=== PATIENT | male | born 1950 | race Caucasian/White ===

== ENCOUNTER → 2019-06-26 14:24 | Outpatient (CLI) | payer MEDICARE, SELFPAY ==
--- NOTE | ~2019-06-26 | XR_ITS ---
EXAMINATION: XR chest 2V 06/26/2019 14:47 INDICATION: Pneumonia. Dyspnea. PROCEDURE: 2 view chest COMPARISON: 11/17/2016 FINDINGS: The lungs are clear. The cardiomediastinal silhouette is within normal limits. There are no pleural effusions. There is no pneumothorax suspected. IMPRESSION: 1: NO ACUTE CARDIOPULMONARY DISEASE. Reviewed, dictated and finalized at location A.
== END ==
PROVIDERS: PCP Family Medicine; Visit Provider Family Medicine
DX: J18.9 Pneumonia, unspecified organism (principal)
CPT/HCPCS: 71046

== ENCOUNTER → 2019-09-13 11:18 | Outpatient (CLI) | payer MEDICARE, SELFPAY ==
--- NOTE | ~2019-09-13 | US_ITS ---
EXAMINATION: US thyroid DATE: 09/13/2019 11:35 INDICATION: Goiter TECHNIQUE: Multiple ultrasound images of the thyroid were obtained. COMPARISON: None. FINDINGS: The right thyroid lobe measures 4.7 x 2.0 x 1.6 cm. The left thyroid lobe measures 4.3 x 4.5 x 1.4 c m. 1.3 x 0.9 x 0.9 cm wider than tall very hypoechoic nodule at the inferior right thyroid with smoo th margins and posterior acoustic shadowing. Unclear whether this is solid or cystic. No concerning i nternal echogenic foci. Presuming a solid nodule this would be consistent a TI-RADS 4 nodule (moderat mason suspicious , FNA if >=1.5 cm, annual followup is >1 cm). There is normal echotexture, echogenicit y and vascular flow throughout the thyroid gland. IMPRESSION: 1. 1.3 cm very hypoechoic potentially TI-RADS 4 right thyroid nodule, uncertain whether cystic or mercedes id. Would recommend annual ultrasound follow-up. Reviewed, dictated and finalized at location A. IMPRESSION: 1. 1.3 cm very hypoechoic potentially TI-RADS 4 right thyroid nodule, uncertain whether cystic or solid. Would recommend annual ultrasound follow-up.
== END ==
PROVIDERS: PCP Family Medicine; Visit Provider Internal Medicine Endocrinology, Diabetes & Metabolism
DX: E04.1 Nontoxic single thyroid nodule (principal)
CPT/HCPCS: 76536

== ENCOUNTER → 2019-10-22 16:13 | Outpatient (CLI) | payer MEDICARE, SELFPAY ==
--- NOTE | ~2019-10-22 | XR_ITS ---
EXAMINATION: XR foot LT min 3V EXAM DATE: 10/22/2019 16:42 INDICATION: Left foot pain. Diabetic. TECHNIQUE: Left foot dorsoplantar, lateral and oblique projections obtained and reviewed. There is n o prior study for comparison. FINDINGS: Left metatarsal bones unremarkable. There are no acute fractures or dislocations identifi ed. There is no subcutaneous gas. There are arterial calcifications, arteriosclerosis. There are no bony erosions identified. Small inferior calcaneal spur. There is soft tissue swelling over the enti re foot. There are no radiopaque foreign bodies. IMPRESSION: 1. Left foot exam without acute osseous findings. 2. Soft tissue swelling. Reviewed, dictated and finalized at location A.
== END ==
PROVIDERS: PCP Family Medicine; Visit Provider Podiatrist Foot & Ankle Surgery
DX: M79.672 Pain in left foot (principal); M79.89 Other specified soft tissue disorders
CPT/HCPCS: 73630

== ENCOUNTER 2020-09-06 10:52 | Outpatient (CLI) | payer MEDICARE, SELFPAY ==
[2020-09-06 11:54] LABS: Anion Gap 9 mmol/L (8-16); Blood Urea Nitrogen 27 mg/dL (9-20); Calcium 9.3 mg/dL (8.4-10.2); Carbon Dioxide 22 mmol/L (22-30); Chloride 109 mmol/L (98-107); Estimated Glomerular Filt Rate 30; Glucose 98 mg/dL (75-110); Potassium 4.8 mmol/L (3.4-5.0); Sodium 140 mmol/L (137-145)
== END 2020-09-06 10:53 | disposition home or self-care (01) ==
PROVIDERS: PCP Family Medicine; Referring Provider Anesthesiology; Visit Provider Urology
DX: N35.919 Unspecified urethral stricture, male, unspecified site (principal); E11.9 Type 2 diabetes mellitus without complications; Z01.818 Encounter for other preprocedural examination
CPT/HCPCS: 36415; 80048; 87077; 87086; 87088; 87186

== ENCOUNTER 2020-09-09 01:41 | Day surgery (SDC) | payer MEDICARE, SELFPAY ==
[2020-09-05 13:16] VITALS: BMI 46.0
[2020-09-09] VITALS (8 sets, daily range): BP systolic 137–191; BP diastolic 63–78; PULSE 72–86; RESP 14–16; TEMP 36.5–37.4; O2SAT 97–100
[2020-09-09] MEDS: LACTATED RINGERS 1,000 ML 30 ML IV CONT (11:28)
[2020-09-09 11:31] LABS: Glucose Point of Care 114 mg/dl (65-105)
--- NOTE | 2020-09-09 12:03 | WPDHPUPDATE1 ---
History and Physical Update Update Date/Time: 09/09/20 12:03 History and Physical has been reviewed, including an updated exam of the patient. There are NO changes in the patient's condition. Risks, benefits, and alternatives have been discussed and questions answered. Patient agrees to proceed with procedure. Proceed with urethral dilation, possible meatotomy and cystoscopy
--- NOTE | 2020-09-09 12:04 | WPDANESEPPF ---
Anes - Initial Pre Proc Eval Procedure: Operation Date: 09/09/20 12:30 Proposed Procedures p Cystoscopy, Urethral Dilatation Flexible - Juventino Oseguera MD s Possible Meatotomy - Juventino Oseguera MD Date/Time: 09/09/20 12:04 Surgeon: Juventino Oseguera MD Pre Op Diagnosis: urethral meatal stenosis, UTI Patient Data Age: 70 Gender: M Height: 1.83 m Weight: 158.7 kg Last Vital Signs Temp 37.4 C 09/09/20 10:54 Pulse 78 09/09/20 10:54 Resp 16 09/09/20 10:54 BP 137/63 09/09/20 10:54 Pulse Ox 100 09/09/20 10:54 Allergies Allergy/AdvReac Type Severity Reaction Status Date / Time Penicillins AdvReac Mild Nausea Verified 09/09/20 11:02 Home Medications Medication Instructions Recorded Confirmed Type aspirin [Adult Low Dose Aspirin] 81 mg PO DAILY 09/05/20 09/09/20 History atorvastatin 20 mg PO DAILY 09/05/20 09/09/20 History bumetanide 2 mg PO QAM 09/05/20 09/09/20 History clopidogrel 75 mg PO DAILY 09/05/20 09/09/20 History ergocalciferol (vitamin D2) 50,000 unit PO 2XW 09/05/20 09/09/20 History [Vitamin D2] gabapentin 300 mg PO Q6-8H PRN 09/05/20 09/09/20 History insulin regular hum U-500 conc 50 unit SUBCUT BID 09/05/20 09/09/20 History [Humulin R U-500 (Conc) Insulin] latanoprost 1 drp EACH EYE DAILY 09/05/20 09/09/20 History losartan 100 mg PO QPM 09/05/20 09/09/20 History metoprolol tartrate 100 mg PO BID 09/05/20 09/09/20 History spironolactone 25 mg PO QAM 09/05/20 09/09/20 History tamsulosin 0.4 mg PO DAILY 09/05/20 09/09/20 History timolol maleate 1 drp EACH EYE DAILY 09/05/20 09/09/20 History Laboratory Tests 09/09/20 11:26 POC Capillary Glucose 114 mg/dl H mg/dl (65-105) Patient hx anesthesia problems: none Family hx anesthesia problems: none [facility] Past Medical History Medical History (Updated 09/09/20 @ 12:07 by Jean Paul Porter MD) CAD (coronary artery disease) Diabetes History of CVA (cerebrovascular accident) HTN (hypertension) Morbid obesity Surgical History Surgical History (Updated 09/09/20 @ 12:07 by Jean Paul Porter MD) Hx of CABG Family History Family History Sibling Family history of type 2 diabetes mellitus Social History Social History Smoking status: Never smoker Second hand tobacco smoke exposure: No Alcohol intake: never Substance use: never Living arrangements: with family Additional living arrangements comments: Spiritual care concerns: No Anes - Eval Final PreProcedure Day of Procedure 09/09/20 12:04 Patient weight: morbidly obese Heart: regular rate and rhythm Lungs: normal air movement Airway: Mallampati scale class 1 Neurological: alert and oriented Last oral intake: >/= 8 hours ASA classification: IV Emergent: no Anesthetic plan: proceed Anesthesia type and monitoring: general LMA and standard monitoring Informed Consent: The patient's anesthetic plan and its attendant risks and benefits were discussed with the patient/family/POA. Questions were solicited and answers provided to the satisfaction of the patient/family/POA.
[2020-09-09] MEDS: ceFAZolin 3 GM/D5W 100 ML 100 ML IVPB (12:33)
[2020-09-09] MEDS: LIDOCAINE HCL 2% GEL UROJET 10 ML PKG MUCOUS MEM (13:07)
[2020-09-09] MEDS: NEOMYCIN/POLYMYXIN/BACITRACIN OINTMENT 15 GM TUBE 1 APPLIC TOPICAL (13:12)
--- NOTE | 2020-09-09 13:17 | W.PM.PROC2 ---
Procedure Note - Detailed Date of Procedure 09/09/20 Pre-op Diagnosis urethral meatal stenosis, UTI Post-op Diagnosis same Procedure Performed Urethral dilation, meatotomy, flexible cystoscopy Surgeon Juventino Oseguera MD Anesthesia general Findings severe fossa navicularis and meatal stenosis. Mildly enlarged prostate. No tumors in the bladder Description of Procedure Patient taken to the operative suite and correctly identified. Once anesthesia was obtained was prepped draped usual sterile fashion. The meatus was visually inspected and could only see a pinhole of an opening along the ventral aspect. We placed a guidewire through this area. We then used a lacrimal duct the dilated further. We then were able to use a 14 Nauruan sound to gently dilate this. We progressed up to 20 Naur[place] but it still felt fairly tight at the meatus. At this point we decided to do a formal meatotomy. We incised the ventral aspect of the meatus and then reapproximated the edges using 5 0 chromic in interrupted fashion. Twenty Nauruan sound then passed easily. Sixteen Nauruan flexible scope was then passed. There are nor other urethral strictures. Prostate has some mild lateral lobe hypertrophy. Prior bladder is inspected its entirety. There are no tumors at this time. Scope was removed. Sixteen Nauruan Weaver was then placed drain above 420 cc of urine. 2% viscous lidocaine was inserted urethra patient is taken recovery stable condition. He will follow up in 3-4 weeks time. Drains No Packing No Pathology none sent Complications No immediate complications Condition stable Disposition PACU
--- NOTE | 2020-09-09 13:50 | SUR.PHASEI ---
PT HAS OWN GLUCOSE MONITOR. READING 112
--- NOTE | 2020-09-09 14:06 | SUR.PHASEI ---
PT AWAKE AND ALERT. DENIES PAIN. READY FOR PO FLUIDS
== END 2020-09-09 15:00 | disposition home or self-care (01) ==
PROVIDERS: PCP Family Medicine; Visit Provider Urology
PROC: 0T7D8ZZ Dilation of Urethra, Via Natural or Artificial Opening Endoscopic (ICD-10-PCS; CPT 52281; principal; 2020-09-09 12:30)
PROC: (CPT 54161; 2020-09-09 12:30)
DX: N35.911 Unspecified urethral stricture, male, meatal (principal); N39.0 Urinary tract infection, site not specified; Z79.82 Long term (current) use of aspirin; Z79.4 Long term (current) use of insulin; I25.10 Atherosclerotic heart disease of native coronary artery without angina pectoris; E11.9 Type 2 diabetes mellitus without complications; I10 Essential (primary) hypertension; Z86.73 Personal history of transient ischemic attack (TIA), and cerebral infarction without residual deficits; Z95.1 Presence of aortocoronary bypass graft; E66.01 Morbid (severe) obesity due to excess calories; Z68.42 Body mass index [BMI] 45.0-49.9, adult; R30.0 Dysuria; N40.1 Benign prostatic hyperplasia with lower urinary tract symptoms; R35.1 Nocturia
CPT/HCPCS: 52281; 36415; 80048; 82948; 87077; 87086; 87088; 87186; A9270; C1769; J0690; J2250; J2405; J2704; J3010; J7030; J7120

== ENCOUNTER 2024-02-03 13:33 | Inpatient (IN) | payer MEDICARE, SELFPAY ==
[2024-02-03] VITALS (26 sets, daily range): BP systolic 115–168; BP diastolic 61–100; PULSE 98–115; RESP 13–29; TEMP 36.7–36.8; O2SAT 76–100; BMI 41.1
--- NOTE | ~2024-02-03 | US_ITS ---
EXAMINATION: US venous doppler [facility] DATE: 02/03/2024 18:24 INDICATION: Left lower limb pain and swelling. TECHNIQUE: Grayscale ultrasound images without and with compression and Doppler ultrasound images of the left lower extremity veins were obtained. COMPARISON: Ultrasound 08/18/2013 FINDINGS: The visualized portions of left common femoral vein, profunda (deep) femoral vein, femoral vein, and greater saphenous vein outflow are patent. The popliteal vein and calf veins were not evaluated. IMPRESSION: 1. No deep venous thrombosis. Popliteal vein and calf veins not evaluated due to the patient's body habitus and inability to move and position the leg. Reviewed, dictated and finalized at location A. BUMPER
[2024-02-03] MEDS: HYDROcodone/acetaminophen (*CRX) 5-325 MG TABLET 1 TAB PO (14:24)
--- NOTE | 2024-02-03 14:35 | PC.NURSE ---
attempted to obtain blood cultures X2 in triage with no luck. patient was unable to hold his arm still due to pain .
--- NOTE | 2024-02-03 15:14 | ECG_ITS ---
Test Date: 2024-02-03 16:10:14 Measurements Intervals [place] Rate: 109 P: 78 MS: 173 QRS: -16 QRSD: 110 T: 108 QT: 331 QTc: 447 Interpretive Statements SINUS TACHYCARDIA INTRAVENTRICULAR CONDUCTION DELAY DELAYED PRECORDIAL R/S TRANSITION HIGH LATERAL INFARCT, AGE INDETERMINATE BASELINE ARTIFACT- I, II, III, AVR, AVL, AVF, V1-V2 ABNORMAL ECG No previous ECG available for comparison Electronically Signed On 02-03-2024 19:01:22 DANCE THERAPIST by Syd Vinson D.O.
[2024-02-03 15:24] LABS: Basophils Percent Auto 0.4 % (0.2-1.2); Eosinophils Absolute Auto 0.1 K/mm3 (0-0.3); Eosinophils Percent Auto 0.8 % (0-4.4); Hematocrit 34.4 % (42.0-52.0); Hemoglobin 11.2 g/dL (14.0-18.0); Immature Granulocyte Absolute 0.03 K/mm3 (0.00-0.031); Immature Granulocyte Percent A 0.3 % (0-0.5); Lymphocytes Absolute Auto 0.67 K/mm3 (0.9-3.2); Lymphocytes Percent Auto 6.5 % (18.3-44.2); Mean Corpuscular HGB Conc 32.6 g/dl (32-36); Mean Corpuscular Hemoglobin 30.3 pg (26-34); Mean Platelet Volume 10.8 fl (7.4-10.4); Monocytes Absolute Auto 0.4 K/mm3 (0.1-0.6); Monocytes Percent Auto 3.6 % (2.6-8.5); Neutrophils Absolute Auto 9.1 K/mm3 (1.3-6.7); Neutrophils Percent Auto 88.4 % (45.5-73.1); Platelet Count Result 188 k/mm3 (150-375); Red Cell Distribution Width 13.3 % (11.5-14.5); White Blood Count 10.3 K/mm3 (4.5-10.0)
[2024-02-03 15:38] LABS: Lactic Acid Reflex 3.1 mmol/L (0.7-2.0)
[2024-02-03 15:40] LABS: Alanine Aminotransferase 19 U/L (6-50); Albumin Level 4.4 g/dL (3.5-5.1); Alkaline Phosphatase 125 U/L (38-126); Anion Gap 11 mmol/L (4-12); Aspartate Amino Transferase 23 U/L (17-59); Bilirubin,Total 1.4 mg/dL (0.2-1.3); Blood Urea Nitrogen 39 mg/dL (9-20); CRP < 0.5 mg/dL (<1.0); Calcium 9.4 mg/dL (8.4-10.2); Carbon Dioxide 22 mmol/L (22-30); Chloride 104 mmol/L (98-107); Estimated CRCL calculation 35 ml/min; Estimated Glomerular Filt Rate 24; Glucose 367 mg/dL (65-110); Potassium 4.2 mmol/L (3.4-5.0); Sodium 137 mmol/L (137-145)
[2024-02-03 15:42] LABS: INR 1.1; Partial Thromboplastin Time 27.1 Seconds (22.3-36.8); Prothrombin Time 14.7 Seconds (11.1-14.7)
[2024-02-03 16:18] LABS: Glucose Point of Care 373 mg/dl (65-105)
[2024-02-03] MEDS: SODIUM CHLORIDE 0.9% IV 1,000 ML 999 ML IV CONT ×3 (16:46→19:16)
[2024-02-03 16:51] LABS: Erythrocyte Sedimentation Rate 76 mm/hr (0-20)
--- NOTE | 2024-02-03 17:11 | ED_ITS ---
HPI - Skin/Abscess/Foreign Bdy General Chief complaint: Skin/Abscess/Foreign Body Stated complaint: L LEG CELLULITIS FROM DR OFFICE Time Seen by Provider: 02/03/24 15:00 History of Present Illness HPI narrative: 73-year-old male presenting with left leg pain. States that he has a lot of chronic swelling in both of his legs with the left being worse. He went to see his doctor today and is complaining of left calf pain so they told him to come in for evaluation. There concern for cellulitis. Patient denies any other complaints. Related Data Home Medications Medication Instructions Recorded Confirmed aspirin 81 mg tablet 81 mg PO DAILY 09/05/20 02/03/24 atorvastatin 20 mg tablet 20 mg PO DAILY 09/05/20 02/03/24 clopidogrel 75 mg tablet 75 mg PO DAILY 09/05/20 02/03/24 gabapentin 300 mg capsule 300 mg PO Q6-8H PRN Pain 09/05/20 02/03/24 latanoprost 0.005 % eye drops 1 drp EACH EYE DAILY 09/05/20 02/03/24 losartan 100 mg tablet 100 mg PO QPM 09/05/20 02/03/24 metoprolol tartrate 100 mg tablet 100 mg PO DAILY 09/05/20 02/03/24 spironolactone 25 mg tablet 25 mg PO QAM 09/05/20 09/04/21 tamsulosin 0.4 mg capsule 0.4 mg PO DAILY 09/05/20 02/03/24 timolol maleate 0.5 % eye drops 1 drp EACH EYE DAILY 09/05/20 02/03/24 calcitriol 0.25 mcg capsule 0.25 mcg PO DAILY 02/03/24 02/03/24 chlorthalidone 25 mg tablet 25 mg PO DAILY 02/03/24 02/03/24 Allergies Allergy/AdvReac Type Severity Reaction Status Date / Time Penicillins AdvReac Mild Nausea Verified 09/09/20 11:02 Review of Systems Review of Systems: All systems reviewed & are unremarkable except as noted in HPI and below [facility] Past Medical History Medical History (Updated 02/04/24 @ 13:12 by Haydee Spring APRN) Arthritis Benign prostatic hyperplasia Cerebrovascular accident (2013) residual right hand weakness Chronic acquired lymphedema Chronic kidney disease Coronary artery disease history of stent x5 and 2 vessel bypass Gastroesophageal reflux disease Hyperlipidemia Hypertension Insulin dependent type 2 diabetes mellitus Morbid obesity Obstructive sleep apnea non-compliant with CPAP Peripheral vascular disease Surgical History Surgical History (Updated 02/03/24 @ 22:57 by Julieth Almanzar PA-C) History of cataract extraction with lens replacement History of coronary artery bypass graft x 2 (01/2020) History of coronary artery stent placement Family History Family History Sibling Family history of type 2 diabetes mellitus Social History Social History (Updated 02/03/24 @ 22:58 by Julieth Almanzar PA-C) Social History: Surrogate medical decision maker: Kary King, spouse. Code status: Full code. 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 EYES: PERRLA and EOMI. ENT: Mucous membranes a bit dry NECK: Supple. CHEST: Clear to auscultation. No respiratory distress. HEART: Regular rate and rhythm ABDOMEN: Soft, nontender EXTREMITIES: Normal range of motion. 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 PSYCH: Normal mood and affect. Course Vital Signs Vital signs: Vital Signs Temperature 98.1 F 02/03/24 13:37 Pulse Rate 101 H 02/03/24 13:37 Respiratory Rate 20 02/03/24 13:37 Blood Pressure 115/82 02/03/24 13:37 Pulse Oximetry 100 02/03/24 13:37 Oxygen Delivery Room Air 02/03/24 13:37 Temperature 98.2 F 02/05/24 14:03 Pulse Rate 74 02/05/24 14:03 Respiratory Rate 16 02/05/24 14:03 Blood Pressure 136/73 02/05/24 14:03 Pulse Oximetry 98 02/05/24 14:03 Oxygen Delivery Room Air 02/05/24 15:01 Fraction of Inspired Oxygen 21 02/04/24 08:56 MDM - Skin/Abscess/Foreign Bdy MDM Narrative Medical decision making narrative: 73-year-old male presenting with left leg pain and redness in the setting of chr onic lymphedema. Tachycardic, otherwise vitals are within normal limits. Exam remarkable for the above. Blood work with mild leukocytosis and stable CKD. Lactic acid is elevated at 3.1. Fluids are ongoing. Doppler of the left lower extremity reveals no blood clot. Starting broad-spectrum antibiotics for left lower extremity cellulitis and sepsis. 30 cc/kilos bolus is ongoing. Spoke with the hospitalist who has accepted him for admission. Differential Diagnosis Differential diagnosis: Likely cellulitis and other (DVT, sepsis) Medical Records Attestation: I reviewed the patient's medical records. Lab Data Attestation: I reviewed the patient's lab results. 02/04/24 05:24 02/05/24 05:24 Labs: Lab Results 02/03/24 02/03/24 02/03/24 Range/Units 15:17 15:18 15:19 WBC 10.3 H (4.5-10.0) K/mm3 RBC 3.70 L (4.6-6.20) M/mm3 Hgb 11.2 L (14.0-18.0) g/dL Hct 34.4 L (42.0-52.0) % MCV 93.0 (80-100) fl MCH 30.3 (26-34) pg MCHC 32.6 (32-36) g/dl RDW 13.3 (11.5-14.5) % Plt Count 188 (150-375) k/mm3 MPV 10.8 H (7.4-10.4) fl Immature Gran % (Auto) 0.3 (0-0.5) % Neut % (Auto) 88.4 H (45.5-73.1) % Lymph % (Auto) 6.5 L (18.3-44.2) % Franklin % (Auto) 3.6 (2.6-8.5) % Eos % (Auto) 0.8 (0-4.4) % Baso % (Auto) 0.4 (0.2-1.2) % Lymph # (Auto) 0.67 L (0.9-3.2) K/mm3 Franklin # (Auto) 0.4 (0.1-0.6) K/mm3 Eos # (Auto) 0.1 (0-0.3) K/mm3 Baso # (Auto) 0.0 (0.0-0.1) K/mm3 Abs Immat Gran (auto) 0.03 (0.00-0.031) K/mm3 Absolute Neuts (auto) 9.1 H (1.3-6.7) K/mm3 Absolute Nucleated RBC 0.000 (0.0-0.012) K/mm3 Nucleated RBC % 0.0 (0.0-0.2) % ESR 76 H (0-20) mm/hr PT 14.7 (11.1-14.7) Seconds INR 1.1 APTT 27.1 (22.3-36.8) Seconds Sodium 137 (137-145) mmol/L Potassium 4.2 (3.4-5.0) mmol/L Chloride 104 (98-107) mmol/L Carbon Dioxide 22 (22-30) mmol/L Anion Gap 11 (4-12) mmol/L BUN 39 H D (9-20) mg/dL Creatinine 2.60 H (0.7-1.3) mg/dL Estim Creat Clear Calc 35 ml/min Estimated GFR 24 L (59 - ) Glucose 367 H (65-110) mg/dL POC Capillary Glucose (65-105) mg/dl Hemoglobin A1c 10.7 H (<5.7) % Lactic Acid 3.1 H (0.7-2.0) mmol/L Calcium 9.4 (8.4-10.2) mg/dL Magnesium (1.6-2.3) mg/dL Total Bilirubin 1.4 H (0.2-1.3) mg/dL AST 23 (17-59) U/L ALT 19 (6-50) U/L Alkaline Phosphatase 125 (38-126) U/L C-Reactive Protein < 0.5 (<1.0) mg/dL Total Protein 8.0 (6.3-8.2) g/dL Albumin 4.4 (3.5-5.1) g/dL Nasal MRSA (PCR) (NOT DETECTE) 02/03/24 02/03/24 02/04/24 Range/Units 16:14 19:15 05:24 WBC 13.0 H (4.5-10.0) K/mm3 RBC 3.17 L (4.6-6.20) M/mm3 Hgb 9.5 L (14.0-18.0) g/dL Hct 29.5 L (42.0-52.0) % MCV 93.1 (80-100) fl MCH 30.0 (26-34) pg MCHC 32.2 (32-36) g/dl RDW 13.6 (11.5-14.5) % Plt Count 155 (150-375) k/mm3 MPV 11.4 H (7.4-10.4) fl Immature Gran % (Auto) (0-0.5) % Neut % (Auto) (45.5-73.1) % Lymph % (Auto) (18.3-44.2) % Franklin % (Auto) (2.6-8.5) % Eos % (Auto) (0-4.4) % Baso % (Auto) (0.2-1.2) % Lymph # (Auto) (0.9-3.2) K/mm3 Franklin # (Auto) (0.1-0.6) K/mm3 Eos # (Auto) (0-0.3) K/mm3 Baso # (Auto) (0.0-0.1) K/mm3 Abs Immat Gran (auto) (0.00-0.031) K/mm3 Absolute Neuts (auto) (1.3-6.7) K/mm3 Absolute Nucleated RBC (0.0-0.012) K/mm3 Nucleated RBC % (0.0-0.2) % ESR (0-20) mm/hr PT (11.1-14.7) Seconds INR APTT (22.3-36.8) Seconds Sodium 135 L (137-145) mmol/L Potassium 4.2 (3.4-5.0) mmol/L Chloride 109 H (98-107) mmol/L Carbon Dioxide 20 L (22-30) mmol/L Anion Gap 6 (4-12) mmol/L BUN 36 H (9-20) mg/dL Creatinine 2.30 H (0.7-1.3) mg/dL Estim Creat Clear Calc 39 ml/min Estimated GFR 28 L (59 - ) Glucose 313 H (65-110) mg/dL POC Capillary Glucose 373 H (65-105) mg/dl Hemoglobin A1c (<5.7) % Lactic Acid 1.7 (0.7-2.0) mmol/L Calcium 8.4 (8.4-10.2) mg/dL Magnesium 1.7 (1.6-2.3) mg/dL Total Bilirubin (0.2-1.3) mg/dL AST (17-59) U/L ALT (6-50) U/L Alkaline Phosphatase (38-126) U/L C-Reactive Protein (<1.0) mg/dL Total Protein (6.3-8.2) g/dL Albumin (3.5-5.1) g/dL Nasal MRSA (PCR) (NOT DETECTE) 02/04/24 02/04/24 02/04/24 Range/Units 08:28 12:04 17:05 WBC (4.5-10.0) K/mm3 RBC (4.6-6.20) M/mm3 Hgb (14.0-18.0) g/dL Hct (42.0-52.0) % MCV (80-100) fl MCH (26-34) pg MCHC (32-36) g/dl RDW (11.5-14.5) % Plt Count (150-375) k/mm3 MPV (7.4-10.4) fl Immature Gran % (Auto) (0-0.5) % Neut % (Auto) (45.5-73.1) % Lymph % (Auto) (18.3-44.2) % Franklin % (Auto) (2.6-8.5) % Eos % (Auto) (0-4.4) % Baso % (Auto) (0.2-1.2) % Lymph # (Auto) (0.9-3.2) K/mm3 Franklin # (Auto) (0.1-0.6) K/mm3 Eos # (Auto) (0-0.3) K/mm3 Baso # (Auto) (0.0-0.1) K/mm3 Abs Immat Gran (auto) (0.00-0.031) K/mm3 Absolute Neuts (auto) (1.3-6.7) K/mm3 Absolute Nucleated RBC (0.0-0.012) K/mm3 Nucleated RBC % (0.0-0.2) % ESR (0-20) mm/hr PT (11.1-14.7) Seconds INR APTT (22.3-36.8) Seconds Sodium (137-145) mmol/L Potassium (3.4-5.0) mmol/L Chloride (98-107) mmol/L Carbon Dioxide (22-30) mmol/L Anion Gap (4-12) mmol/L BUN (9-20) mg/dL Creatinine (0.7-1.3) mg/dL Estim Creat Clear Calc ml/min Estimated GFR (59 - ) Glucose (65-110) mg/dL POC Capillary Glucose 295 H 295 H 181 H (65-105) mg/dl Hemoglobin A1c (<5.7) % Lactic Acid (0.7-2.0) mmol/L Calcium (8.4-10.2) mg/dL Magnesium (1.6-2.3) mg/dL Total Bilirubin (0.2-1.3) mg/dL AST (17-59) U/L ALT (6-50) U/L Alkaline Phosphatase (38-126) U/L C-Reactive Protein (<1.0) mg/dL Total Protein (6.3-8.2) g/dL Albumin (3.5-5.1) g/dL Nasal MRSA (PCR) (NOT DETECTE) 02/04/24 02/05/24 02/05/24 Range/Units 19:58 05:24 08:03 WBC (4.5-10.0) K/mm3 RBC (4.6-6.20) M/mm3 Hgb (14.0-18.0) g/dL Hct (42.0-52.0) % MCV (80-100) fl MCH (26-34) pg MCHC (32-36) g/dl RDW (11.5-14.5) % Plt Count (150-375) k/mm3 MPV (7.4-10.4) fl Immature Gran % (Auto) (0-0.5) % Neut % (Auto) (45.5-73.1) % Lymph % (Auto) (18.3-44.2) % Franklin % (Auto) (2.6-8.5) % Eos % (Auto) (0-4.4) % Baso % (Auto) (0.2-1.2) % Lymph # (Auto) (0.9-3.2) K/mm3 Franklin # (Auto) (0.1-0.6) K/mm3 Eos # (Auto) (0-0.3) K/mm3 Baso # (Auto) (0.0-0.1) K/mm3 Abs Immat Gran (auto) (0.00-0.031) K/mm3 Absolute Neuts (auto) (1.3-6.7) K/mm3 Absolute Nucleated RBC (0.0-0.012) K/mm3 Nucleated RBC % (0.0-0.2) % ESR (0-20) mm/hr PT (11.1-14.7) Seconds INR APTT (22.3-36.8) Seconds Sodium (137-145) mmol/L Potassium (3.4-5.0) mmol/L Chloride (98-107) mmol/L Carbon Dioxide (22-30) mmol/L Anion Gap (4-12) mmol/L BUN (9-20) mg/dL Creatinine 2.40 H (0.7-1.3) mg/dL Estim Creat Clear Calc 39 ml/min Estimated GFR 27 L (59 - ) Glucose (65-110) mg/dL POC Capillary Glucose 241 H 214 H (65-105) mg/dl Hemoglobin A1c (<5.7) % Lactic Acid (0.7-2.0) mmol/L Calcium (8.4-10.2) mg/dL Magnesium (1.6-2.3) mg/dL Total Bilirubin (0.2-1.3) mg/dL AST (17-59) U/L ALT (6-50) U/L Alkaline Phosphatase (38-126) U/L C-Reactive Protein (<1.0) mg/dL Total Protein (6.3-8.2) g/dL Albumin (3.5-5.1) g/dL Nasal MRSA (PCR) (NOT DETECTE) 02/05/24 02/05/24 Range/Units 09:03 11:41 WBC (4.5-10.0) K/mm3 RBC (4.6-6.20) M/mm3 Hgb (14.0-18.0) g/dL Hct (42.0-52.0) % MCV (80-100) fl MCH (26-34) pg MCHC (32-36) g/dl RDW (11.5-14.5) % Plt Count (150-375) k/mm3 MPV (7.4-10.4) fl Immature Gran % (Auto) (0-0.5) % Neut % (Auto) (45.5-73.1) % Lymph % (Auto) (18.3-44.2) % Franklin % (Auto) (2.6-8.5) % Eos % (Auto) (0-4.4) % Baso % (Auto) (0.2-1.2) % Lymph # (Auto) (0.9-3.2) K/mm3 Franklin # (Auto) (0.1-0.6) K/mm3 Eos # (Auto) (0-0.3) K/mm3 Baso # (Auto) (0.0-0.1) K/mm3 Abs Immat Gran (auto) (0.00-0.031) K/mm3 Absolute Neuts (auto) (1.3-6.7) K/mm3 Absolute Nucleated RBC (0.0-0.012) K/mm3 Nucleated RBC % (0.0-0.2) % ESR (0-20) mm/hr PT (11.1-14.7) Seconds INR APTT (22.3-36.8) Seconds Sodium (137-145) mmol/L Potassium (3.4-5.0) mmol/L Chloride (98-107) mmol/L Carbon Dioxide (22-30) mmol/L Anion Gap (4-12) mmol/L BUN (9-20) mg/dL Creatinine (0.7-1.3) mg/dL Estim Creat Clear Calc ml/min Estimated GFR (59 - ) Glucose (65-110) mg/dL POC Capillary Glucose 262 H (65-105) mg/dl Hemoglobin A1c (<5.7) % Lactic Acid (0.7-2.0) mmol/L Calcium (8.4-10.2) mg/dL Magnesium (1.6-2.3) mg/dL Total Bilirubin (0.2-1.3) mg/dL AST (17-59) U/L ALT (6-50) U/L Alkaline Phosphatase (38-126) U/L C-Reactive Protein (<1.0) mg/dL Total Protein (6.3-8.2) g/dL Albumin (3.5-5.1) g/dL Nasal MRSA (PCR) Not detected (NOT DETECTE) Imaging Data Radiologist's impression: ITS Impressions Venous Doppler Study 02/03/24 18:31 IMPRESSION: 1. No deep venous thrombosis. Popliteal vein and calf veins not evaluated due to the patient's body habitus and inability to move and position the leg. Critical Care Time Critical Care Time Critical Care Time: Yes Total Critical Care Time: 32 Discharge Plan Discharge Clinical Impression: Cellulitis, Sepsis Patient Disposition: Still a Patient Condition: Serious
[2024-02-03] MEDS: HYDROmorphone HCL INJ (*CRX) 1 MG/ML SYR IV PUSH (17:24)
[2024-02-03 18:22] LABS: Reflex Lactic Acid Yes or No Add Lactic
--- NOTE | 2024-02-03 19:20 | PC.NURSE ---
this rn assumed care of patient. this rn took patient report from FABIENNE Mendoza
[2024-02-03 19:29] LABS: Lactic Acid 1.7 mmol/L (0.7-2.0)
[2024-02-03] MEDS: CEFEPIME 1 GM/NS 50 ML 1 GM/50 ML BAG IVPB (20:14)
--- NOTE | 2024-02-03 20:20 | PC.NURSE ---
this rn spoke with pt to give update on pt status.
--- NOTE | 2024-02-03 20:38 | ADMGEN ---
This patient, John King, was admitted to Medical Room 341-01@ 2037. Patient/family oriented to hospital policies and general routines including ID bracelet, bed and alarms, visiting hours, pain management, procedures, bathroom and other care routines, personal items, smoking policy, room service/diet, and visiting hours. Information on how to activate the Rapid Response Team has been discussed. Patient/Family are encouraged to report perceived risks to care and to ask questions if they do not understand what they are told or what they should do.
[2024-02-03] MEDS: VANCOMYCIN 1,500 MG/NS 500 ML 1,500 MG/500 ML BAG 250 MG IVPB (21:08)
--- NOTE | 2024-02-03 21:15 | PM.IMHP ---
H&P: HPI History of Present Illness Date/Time: 02/03/24 21:15 Chief Complaint: Left leg pain and redness. Narrative: This is a chronically ill 73-year-old male with history of coronary artery disease, congestive heart failure, peripheral vascular disease, hypertension, hyperlipidemia, insulin-dependent type 2 diabetes mellitus, chronic kidney disease, benign prostatic hyperplasia, chronic lymphedema, obstructive sleep apnea, and gastroesophageal reflux disease who presented to the emergency department via EMS from his doctor's office for evaluation of left leg pain and redness. The patient provides the following history. His left leg is always larger compared to the right but over the last several days it has become red and painful with the redness now extending up to the thigh. He saw his doctor today who referred to the ER as he felt he needed IV antibiotics. The patient describes a burning and constant aching pain leg. He has nausea and a decrease in appetite. He does not have any open wounds to his knowledge. He denies vomiting, fever, chills, and sweats. He also denies syncope, near syncope, chest pain, pleuritic pain, palpitations and shortness of breath. In the ED: He was afebrile on arrival with stable vital signs. Labs are significant for WBC count of 10.3, hemoglobin 11.2, ESR 76, CRP less than 0.5, BUN 39, creatinine 2.60, glucose 367, lactic acid 3.1. Left lower extremity venous Doppler from was negative for DVT but popliteal and calf veins were not evaluated due to body habitus and difficulties moving to position. He was given a dose of cefepime and vancomycin is being admitted in this setting for further IV antibiotics. Review of Systems Review of Systems: 12 systems were reviewed and are negative except for as per HPI. [facility] Past Medical History Medical History (Updated 02/03/24 @ 23:00 by Julieth Almanzar PA-C) Arthritis Benign prostatic hyperplasia Cerebrovascular accident (2013) residual right hand weakness Chronic acquired lymphedema Chronic kidney disease Coronary artery disease history of stent x5 and 2 vessel bypass Gastroesophageal reflux disease Hyperlipidemia Hypertension Insulin dependent type 2 diabetes mellitus Morbid obesity Obstructive sleep apnea non-compliant with CPAP Peripheral vascular disease Surgical History Surgical History (Updated 02/03/24 @ 22:57 by Julieth Almanzar PA-C) History of cataract extraction with lens replacement History of coronary artery bypass graft x 2 (01/2020) History of coronary artery stent placement Family History Family History Sibling Family history of type 2 diabetes mellitus Social History Social History (Updated 02/03/24 @ 22:58 by Julieth Almanzar PA-C) Social History: Surrogate medical decision maker: Kary King, spouse. Code status: Full code. 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 Spiritual care concerns: No Meds Home Medications and Allergies Home Medications Medication Instructions Recorded Confirmed Type aspirin 81 mg tablet 81 mg PO DAILY 09/05/20 02/03/24 History atorvastatin 20 mg tablet 20 mg PO DAILY 09/05/20 02/03/24 History bumetanide 1 mg tablet 2 mg PO QAM 09/05/20 09/04/21 History clopidogrel 75 mg tablet 75 mg PO DAILY 09/05/20 02/03/24 History ergocalciferol (vitamin D2) 1,250 50,000 unit PO 2XW 09/05/20 09/04/21 History mcg (50,000 unit) capsule (Vitamin D2) gabapentin 300 mg capsule 300 mg PO Q6-8H PRN Pain 09/05/20 02/03/24 History latanoprost 0.005 % eye drops 1 drp EACH EYE DAILY 09/05/20 02/03/24 History losartan 100 mg tablet 100 mg PO QPM 09/05/20 02/03/24 History metoprolol tartrate 100 mg tablet 100 mg PO DAILY 09/05/20 02/03/24 History spironolactone 25 mg tablet 25 mg PO QAM 09/05/20 09/04/21 History tamsulosin 0.4 mg capsule 0.4 mg PO DAILY 09/05/20 02/03/24 History timolol maleate 0.5 % eye drops 1 drp EACH EYE DAILY 09/05/20 02/03/24 History calcitriol 0.25 mcg capsule 0.25 mcg PO DAILY 02/03/24 02/03/24 History chlorthalidone 25 mg tablet 25 mg PO DAILY 02/03/24 02/03/24 History Allergies Allergy/AdvReac Type Severity Reaction Status Date / Time Penicillins AdvReac Mild Nausea Verified 09/09/20 11:02 Vital Signs Vital Signs - 24 hr 02/03/24 13:37 02/03/24 15:24 02/03/24 15:08 Temperature 98.1 F Pulse Rate 101 H 114 H 112 H Respiratory Rate 20 14 29 H Blood Pressure 115/82 168/64 H 139/100 H Pulse Oximetry 100 97 99 Oxygen Delivery Room Air 02/03/24 15:09 02/03/24 15:15 02/03/24 15:16 Temperature Pulse Rate 109 H 113 H 114 H Respiratory Rate 25 H 23 H 27 H Blood Pressure 168/64 H Pulse Oximetry 100 97 99 Oxygen Delivery 02/03/24 15:30 02/03/24 15:31 02/03/24 15:54 Temperature Pulse Rate 115 H 114 H 112 H Respiratory Rate 19 24 H 19 Blood Pressure 157/68 H Pulse Oximetry 96 97 100 Oxygen Delivery 02/03/24 16:00 02/03/24 16:01 02/03/24 16:15 Temperature Pulse Rate 109 H 110 H 108 H Respiratory Rate 22 H 23 H 26 H Blood Pressure 156/64 H Pulse Oximetry 76 L 100 Oxygen Delivery 02/03/24 16:16 02/03/24 16:40 02/03/24 16:45 Temperature Pulse Rate 108 H 109 H 108 H Respiratory Rate 13 23 H 19 Blood Pressure 157/66 H Pulse Oximetry 97 94 Oxygen Delivery 02/03/24 16:46 02/03/24 17:01 02/03/24 17:02 Temperature Pulse Rate 107 H 105 H 104 H Respiratory Rate 21 H 15 13 Blood Pressure 146/61 H 153/62 H Pulse Oximetry 96 Oxygen Delivery 02/03/24 17:15 02/03/24 17:16 02/03/24 17:51 Temperature Pulse Rate 101 H 103 H 103 H Respiratory Rate 15 14 18 Blood Pressure 153/66 H 144/63 H Pulse Oximetry 95 95 93 Oxygen Delivery 02/03/24 18:16 02/03/24 18:31 02/03/24 19:01 Temperature Pulse Rate 98 102 H 99 Respiratory Rate 14 20 16 Blood Pressure 155/66 H 142/65 H 139/63 Pulse Oximetry 97 92 93 Oxygen Delivery 02/03/24 20:14 02/03/24 21:03 Temperature 98.3 F Pulse Rate 98 103 H Respiratory Rate 17 18 Blood Pressure 146/67 H 139/74 Pulse Oximetry 97 100 Oxygen Delivery Exam Narrative: General: Chronically ill-appearing male in the semi-Atkins position in bed. Weight: 141.2 kg. BMI: 41.1. HEENT: PERRL, EOMI. Sclera anicteric. Oral mucosa moist. Crowded oropharynx. Neck: Supple. Exam limited due to neck circumference. Respiratory: Respirations are nonlabored and he is speaking in full sentences. Lung sounds are diminished at the bases, likely due to body habitus but are otherwise clear to auscultation. Cardiovascular: Regular rate and rhythm with S1-S2. Gastrointestinal: Abdomen is soft, morbidly obese, nontender, and nondistended with positive bowel sounds. Skin: Warm and dry. Chronic skin changes the lower legs bilaterally. Left calf is mildly erythematous, slightly warm, and tender to palpation. Erythema extends up the medial thigh. Extremities: No cyanosis or clubbing. Chronic lower extremity edema and lymphedema. Neurological: Alert. Cranial nerves 2-12 are grossly intact. No gross focal deficits to casual conversation. Psychiatric: Cooperative with appropriate mood and flat affect. H&P: Results Labs Labs: Short CBC 02/03/24 Range/Units 15:18 WBC 10.3 H (4.5-10.0) K/mm3 Hgb 11.2 L (14.0-18.0) g/dL Hct 34.4 L (42.0-52.0) % Plt Count 188 (150-375) k/mm3 BMP 02/03/24 15:18 Sodium 137 Potassium 4.2 Chloride 104 Carbon Dioxide 22 BUN 39 H D Creatinine 2.60 H Glucose 367 H Calcium 9.4 Liver Function 02/03/24 Range/Units 15:18 Total Bilirubin 1.4 H (0.2-1.3) mg/dL AST 23 (17-59) U/L ALT 19 (6-50) U/L Alkaline Phosphatase 125 (38-126) U/L Albumin 4.4 (3.5-5.1) g/dL Impressions Venous Doppler Study 02/03/24 18:31 IMPRESSION: 1. No deep venous thrombosis. Popliteal vein and calf veins not evaluated due to the patient's body habitus and inability to move and position the leg. Assessment and Plan Assessment and plan (1) Left leg cellulitis: Code(s): L03.116 - Cellulitis of left lower limb Status: Acute (2) Sepsis: Code(s): A41.9 - Sepsis, unspecified organism Status: Acute (3) Chronic acquired lymphedema: Code(s): I89.0 - Lymphedema, not elsewhere classified Status: Acute (4) Chronic kidney disease: Code(s): N18.9 - Chronic kidney disease, unspecified Status: Acute (5) Insulin dependent type 2 diabetes mellitus: Code(s): E11.9 - Type 2 diabetes mellitus without complications; Z79.4 - care home (current) use of insulin Status: Acute (6) Hypertension: Code(s): I10 - Essential (primary) hypertension Status: Acute Plan The patient presented to the emergency department for evaluation of pain and redness of the left leg as detailed in HPI. Labs, imaging, EKG, and all reports were personally reviewed. He meets sepsis criteria with tachycardia, leukocytosis, and elevated lactic acid level in the setting of infection. Lactic acid level has normalized with IV fluid rehydration. Blood cultures have been obtained and are pending. Blood pressures have been stable. He was started on cefepime and vancomycin in the ED which will be continued. Renal function is relatively stable on review of previous labs. Blood pressures are stable and will be monitored. Continue basal insulin. Initiate sliding scale insulin, Accu-Cheks, and hypoglycemic protocol. Check hemoglobin A1c (random glucose was 367). His home medications will be reviewed and resumed as appropriate. Findings and treatment plan were discussed with the patient. Questions were solicited and answered to satisfaction. The patient's medical management will be taken over by the hospitalist team in a.m. Quality VTE Prophylaxis VTE prophylaxis: pharmacologic ordered The patient has been admitted under observation status. Hospitalist MIPS Advance Care Plan I have confirmed that the patient's Advanced Care Plan is present, code status is documented, or surrogate decision maker is listed in patient medical record.: Yes Medication Reconciliation I have utilized all available resources to obtain, update and review the patients current medications (includes all prescriptions, OTC, herbals, cannabis, and nutritional supplements).: Yes
[2024-02-03 23:34] LABS: Hemoglobin A1C 10.7 % (<5.7)
[2024-02-04] MEDS: ACETAMINOPHEN 325 MG TABLET 650 MG PO (01:53)
[2024-02-04 05:35] VITALS: BP 116/56; PULSE 81; RESP 18; TEMP 36.8; O2SAT 97
[2024-02-04 06:07] LABS: Hematocrit 29.5 % (42.0-52.0); Hemoglobin 9.5 g/dL (14.0-18.0); Mean Corpuscular HGB Conc 32.2 g/dl (32-36); Mean Corpuscular Volume 93.1 fl (80-100); Mean Platelet Volume 11.4 fl (7.4-10.4); Platelet Count Result 155 k/mm3 (150-375); Red Blood Count 3.17 M/mm3 (4.6-6.20); Red Cell Distribution Width 13.6 % (11.5-14.5)
[2024-02-04 06:24] LABS: Anion Gap 6 mmol/L (4-12); Blood Urea Nitrogen 36 mg/dL (9-20); Calcium 8.4 mg/dL (8.4-10.2); Carbon Dioxide 20 mmol/L (22-30); Chloride 109 mmol/L (98-107); Estimated CRCL calculation 39 ml/min; Estimated Glomerular Filt Rate 28; Glucose 313 mg/dL (65-110); Magnesium 1.7 mg/dL (1.6-2.3); Potassium 4.2 mmol/L (3.4-5.0); Sodium 135 mmol/L (137-145)
[2024-02-04 08:38] LABS: Glucose Point of Care 295 mg/dl (65-105)
--- NOTE | 2024-02-04 08:47 | PM.IMPN ---
Progress Note: A&P Assessment and Plan (1) Left leg cellulitis: Code(s): L03.116 - Cellulitis of left lower limb Status: Acute Assessment and Plan: - IV hydration - Blood cultures have been obtained and are pending He was started on cefepime and vancomycin in the ED- will conitnue (2) Sepsis: Code(s): A41.9 - Sepsis, unspecified organism Status: Acute Assessment and Plan: - Meets sepsis criteria with tachycardia, leukocytosis, and elevated lactic acid level in the setting of infection. Lactic acid level has normalized with IV fluid rehydration. Blood cultures have been obtained and are pending. Blood pressures have been stable. on cefepime and vancomycin in the ED which will be continued. (3) Chronic acquired lymphedema: Code(s): I89.0 - Lymphedema, not elsewhere classified Status: Acute (4) Chronic kidney disease: Code(s): N18.9 - Chronic kidney disease, unspecified Status: Acute (5) Insulin dependent type 2 diabetes mellitus: Code(s): E11.9 - Type 2 diabetes mellitus without complications; Z79.4 - senior living (current) use of insulin Status: Acute Assessment and Plan: Continue basal insulin. Initiate sliding scale insulin, Accu-Cheks, and hypoglycemic protocol. Check hemoglobin A1c bs elevated this am- (6) Hypertension: Code(s): I10 - Essential (primary) hypertension Status: Acute (7) Bacteremia: Code(s): R78.81 - Bacteremia Status: Acute Assessment and Plan: blood cultures growing gram negative bacilli - will increase dose of cefepime to 2 gm. Ideally needs to be t1p-[id number] kidney functions is not great, so q12h discussed with pharm ID- ordered will order blood culture repeat tomorrow -monitor labs. vs 0.9 ns at 75 Plan dvt prophyl; lovenox Time Spent With Patient Time with patient: Greater than 35 minutes Subjective Date/time seen: 02/04/24 08:47 Interval history: This is a chronically ill 73-year-old male with history of coronary artery disease, congestive heart failure, peripheral vascular disease, hypertension, hyperlipidemia, insulin-dependent type 2 diabetes mellitus, chronic kidney disease, benign prostatic hyperplasia, chronic lymphedema, obstructive sleep apnea, and gastroesophageal reflux disease who presented to the emergency department via EMS from his doctor's office for evaluation of left leg pain and redness. In the ED: He was afebrile on arrival with stable vital signs. Labs are significant for WBC count of 10.3, hemoglobin 11.2, ESR 76, CRP less than 0.5, BUN 39, creatinine 2.60, glucose 367, lactic acid 3.1. Left lower extremity venous Doppler from was negative for DVT but popliteal and calf veins were not evaluated due to body habitus and difficulties moving to position. He was given a dose of cefepime and vancomycin is being admitted in this setting for further IV antibiotics. 02/03- pt is seen and examined. Review of Systems Review of Systems: 12 systems were reviewed and are negative except for as per HPI. Exam Narrative: General: Chronically ill-appearing male in the semi-Atkins position in bed. Weight: 141.2 kg. BMI: 41.1. HEENT: PERRL, EOMI. Sclera anicteric. Oral mucosa moist. Crowded oropharynx. Neck: Supple. Exam limited due to neck circumference. Respiratory: Respirations are nonlabored and he is speaking in full sentences. Lung sounds are diminished at the bases, likely due to body habitus but are otherwise clear to auscultation. Cardiovascular: Regular rate and rhythm with S1-S2. Gastrointestinal: Abdomen is soft, morbidly obese, nontender, and nondistended with positive bowel sounds. Skin: Warm and dry. Chronic skin changes the lower legs bilaterally. Left calf is mildly erythematous, slightly warm, and tender to palpation. Erythema extends up the medial thigh. Extremities: No cyanosis or clubbing. Chronic lower extremity edema and lymphedema. Neurological: Alert. Cranial nerves 2-12 are grossly intact. No gross focal deficits to casual conversation. Psychiatric: Cooperative with appropriate mood and flat affect. Objective Data Vital Signs Vital Signs: Vital Signs - 24 hr 02/03/24 13:37 02/03/24 15:24 02/03/24 15:08 Temperature 98.1 F Pulse Rate 101 H 114 H 112 H Respiratory Rate 20 14 29 H Blood Pressure 115/82 168/64 H 139/100 H Pulse Oximetry 100 97 99 Oxygen Delivery Room Air 02/03/24 15:09 02/03/24 15:15 02/03/24 15:16 Temperature Pulse Rate 109 H 113 H 114 H Respiratory Rate 25 H 23 H 27 H Blood Pressure 168/64 H Pulse Oximetry 100 97 99 Oxygen Delivery 02/03/24 15:30 02/03/24 15:31 02/03/24 15:54 Temperature Pulse Rate 115 H 114 H 112 H Respiratory Rate 19 24 H 19 Blood Pressure 157/68 H Pulse Oximetry 96 97 100 Oxygen Delivery 02/03/24 16:00 02/03/24 16:01 02/03/24 16:15 Temperature Pulse Rate 109 H 110 H 108 H Respiratory Rate 22 H 23 H 26 H Blood Pressure 156/64 H Pulse Oximetry 76 L 100 Oxygen Delivery 02/03/24 16:16 02/03/24 16:40 02/03/24 16:45 Temperature Pulse Rate 108 H 109 H 108 H Respiratory Rate 13 23 H 19 Blood Pressure 157/66 H Pulse Oximetry 97 94 Oxygen Delivery 02/03/24 16:46 02/03/24 17:01 02/03/24 17:02 Temperature Pulse Rate 107 H 105 H 104 H Respiratory Rate 21 H 15 13 Blood Pressure 146/61 H 153/62 H Pulse Oximetry 96 Oxygen Delivery 02/03/24 17:15 02/03/24 17:16 02/03/24 17:51 Temperature Pulse Rate 101 H 103 H 103 H Respiratory Rate 15 14 18 Blood Pressure 153/66 H 144/63 H Pulse Oximetry 95 95 93 Oxygen Delivery 02/03/24 18:16 02/03/24 18:31 02/03/24 19:01 Temperature Pulse Rate 98 102 H 99 Respiratory Rate 14 20 16 Blood Pressure 155/66 H 142/65 H 139/63 Pulse Oximetry 97 92 93 Oxygen Delivery 02/03/24 20:14 02/03/24 21:03 02/04/24 05:35 Temperature 98.3 F 98.3 F Pulse Rate 98 103 H 81 Respiratory Rate 17 18 18 Blood Pressure 146/67 H 139/74 116/56 L Pulse Oximetry 97 100 97 Oxygen Delivery Intake/Output Intake/Output: Intake & Output 02/01/24 02/02/24 02/03/24 02/04/24 23:59 23:59 23:59 23:59 Intake Total 1500 450 Output Total 1200 Balance 1500 -750 Meds/Results Medications: Active Medications Generic Name Dose Route Start Last Admin Trade Name Freq PRN Reason Stop Dose Admin Acetaminophen 650 mg 02/03/24 23:02 02/04/24 01:53 Acetaminophen 325 Mg Tablet PO 650 mg Q6H PRN Administration Mild Pain (1-3) or Fever Dextrose 12.5 gm 02/03/24 23:02 Dextrose 50% 25 Gm/50 Ml Syringe IV PUSH PRN PRN Hypoglycemia Protocol Enoxaparin Sodium 40 mg 02/04/24 09:00 Enoxaparin 40 Mg/0.4 Ml Syringe SUB-Q DAILY RADHA Glucagon 1 mg 02/03/24 23:02 Glucagon For Inj 1 Mg Vial IM PRN PRN Hypoglycemia Protocol Glucose 15 gm 02/03/24 23:02 Glucose Oral Gel 15 Gm Of Glucse In 37.5 Gm Tube PO PRN PRN Hypoglycemia Protocol Cefepime HCl 1 gm in 50 mls @ 100 mls/hr 02/03/24 20:00 02/03/24 20:14 Maxipime 1 Gm/Ns 50 Ml IVPB 100 mls/hr Q12H RADHA Administration Vancomycin HCl 1,500 mg in 500 mls @ 250 mls/hr 02/03/24 20:00 02/03/24 23:08 Vancomycin 1,500 Mg/Ns 500 Ml IVPB Infused Q36H RADHA Infusion Dextrose 1,000 mls @ 100 mls/hr 02/03/24 23:02 Dextrose 5% 1,000 Ml IVPB PRN PRN Hypoglycemia Protocol Insulin Aspart 2 - 4 units 02/04/24 21:00 Insulin Aspart (*Bkc) 100 Units/Ml SUB-Q HS [facility] Protocol Insulin Aspart 4 - 8 units 02/04/24 08:00 Insulin Aspart (*Bkc) 100 Units/Ml SUB-Q TIDWM [facility] Protocol Radiology Results: ITS Impressions Venous Doppler Study 02/03/24 18:31 IMPRESSION: 1. No deep venous thrombosis. Popliteal vein and calf veins not evaluated due to the patient's body habitus and inability to move and position the leg. Labs Labs: Laboratory Results - last 24 hr 02/03/24 02/03/24 02/03/24 15:17 15:18 15:19 WBC 10.3 H RBC 3.70 L Hgb 11.2 L Hct 34.4 L MCV 93.0 MCH 30.3 MCHC 32.6 RDW 13.3 Plt Count 188 MPV 10.8 H Immature Gran % (Auto) 0.3 Neut % (Auto) 88.4 H Lymph % (Auto) 6.5 L [place] % (Auto) 3.6 Eos % (Auto) 0.8 Baso % (Auto) 0.4 Lymph # (Auto) 0.67 L [place] # (Auto) 0.4 Eos # (Auto) 0.1 Baso # (Auto) 0.0 Abs Immat Gran (auto) 0.03 Absolute Neuts (auto) 9.1 H Absolute Nucleated RBC 0.000 Nucleated RBC % 0.0 ESR 76 H PT 14.7 INR 1.1 APTT 27.1 Sodium 137 Potassium 4.2 Chloride 104 Carbon Dioxide 22 Anion Gap 11 BUN 39 H D Creatinine 2.60 H Estim Creat Clear Calc 35 Estimated GFR 24 L Glucose 367 H POC Capillary Glucose Hemoglobin A1c 10.7 H Lactic Acid 3.1 H Calcium 9.4 Magnesium Total Bilirubin 1.4 H AST 23 ALT 19 Alkaline Phosphatase 125 C-Reactive Protein < 0.5 Total Protein 8.0 Albumin 4.4 02/03/24 02/03/24 02/04/24 16:14 19:15 05:24 WBC 13.0 H RBC 3.17 L Hgb 9.5 L Hct 29.5 L MCV 93.1 MCH 30.0 MCHC 32.2 RDW 13.6 Plt Count 155 MPV 11.4 H Immature Gran % (Auto) Neut % (Auto) Lymph % (Auto) [place] % (Auto) Eos % (Auto) Baso % (Auto) Lymph # (Auto) [place] # (Auto) Eos # (Auto) Baso # (Auto) Abs Immat Gran (auto) Absolute Neuts (auto) Absolute Nucleated RBC Nucleated RBC % ESR PT INR APTT Sodium 135 L Potassium 4.2 Chloride 109 H Carbon Dioxide 20 L Anion Gap 6 BUN 36 H Creatinine 2.30 H Estim Creat Clear Calc 39 Estimated GFR 28 L Glucose 313 H POC Capillary Glucose 373 H Hemoglobin A1c Lactic Acid 1.7 Calcium 8.4 Magnesium 1.7 Total Bilirubin AST ALT Alkaline Phosphatase C-Reactive Protein Total Protein Albumin 02/04/24 08:28 WBC RBC Hgb Hct MCV MCH MCHC RDW Plt Count MPV Immature Gran % (Auto) Neut % (Auto) Lymph % (Auto) [place] % (Auto) Eos % (Auto) Baso % (Auto) Lymph # (Auto) [place] # (Auto) Eos # (Auto) Baso # (Auto) Abs Immat Gran (auto) Absolute Neuts (auto) Absolute Nucleated RBC Nucleated RBC % ESR PT INR APTT Sodium Potassium Chloride Carbon Dioxide Anion Gap BUN Creatinine Estim Creat Clear Calc Estimated GFR Glucose POC Capillary Glucose 295 H Hemoglobin A1c Lactic Acid Calcium Magnesium Total Bilirubin AST ALT Alkaline Phosphatase C-Reactive Protein Total Protein Albumin Quality VTE Prophylaxis VTE prophylaxis: pharmacologic ordered
[2024-02-04 08:56] VITALS: O2SAT 97
[2024-02-04] MEDS: ASPIRIN 81 MG ENTERIC TABLET PO (09:09)
[2024-02-04] MEDS: INSULIN ASPART (*BKC) 100 UNITS/ML SUB-Q ×4 (09:10→20:13)
[2024-02-04] MEDS: ENOXAPARIN 40 MG/0.4 ML SYRINGE SUB-Q (09:10)
[2024-02-04] MEDS: CEFEPIME 1 GM/NS 50 ML 1 GM/50 ML BAG IVPB (09:15)
[2024-02-04] MEDS: CLOPIDOGREL BISULFATE 75 MG TABLET PO (09:58)
[2024-02-04 09:59] VITALS: PULSE 79
[2024-02-04] MEDS: TAMSULOSIN HCL 0.4 MG CAPSULE PO (09:59)
[2024-02-04] MEDS: CHLORTHALIDONE 25 MG TABLET PO (09:59)
[2024-02-04] MEDS: ATORVASTATIN 20 MG TABLET PO (09:59)
[2024-02-04] MEDS: METOPROLOL TARTRATE 50 MG TAB 100 MG PO (09:59)
[2024-02-04] MEDS: TIMOLOL MALEATE 0.5% OP SOLN 5 ML BOTTLE 1 DROP EACH EYE (10:00)
[2024-02-04] MEDS: LATANOPROST 0.005% OP SOLN 2.5 ML BTL 1 DROP EACH EYE (10:00)
[2024-02-04 12:09] LABS: Glucose Point of Care 295 mg/dl (65-105)
[2024-02-04] MEDS: CEFEPIME 2 GM/NS 50 ML 2 GM/50 ML BAG IVPB (13:32)
[2024-02-04] MEDS: SODIUM CHLORIDE 0.9% IV 1,000 ML 75 ML IV CONT (13:33)
[2024-02-04 14:29] VITALS: BP 121/53; PULSE 74; RESP 19; TEMP 37; O2SAT 98
[2024-02-04 17:13] LABS: Glucose Point of Care 181 mg/dl (65-105)
[2024-02-04] MEDS: LOSARTAN POTASSIUM 100 MG TABLET PO (17:26)
[2024-02-04 19:52] VITALS: BP 136/51; PULSE 79; RESP 18; TEMP 37.2; O2SAT 98
[2024-02-04] MEDS: INSULIN GLARGINE (*BKC) 100 UNITS/ML 20 UNITS SUB-Q (20:14)
[2024-02-05] MEDS: CEFEPIME 2 GM/NS 50 ML 2 GM/50 ML BAG IVPB ×2 (04:05→14:11)
[2024-02-05 04:20] LABS: Glucose Point of Care 241 mg/dl (65-105)
[2024-02-05 04:30] VITALS: BP 153/67; PULSE 91; RESP 18; TEMP 37.1; O2SAT 98
[2024-02-05 06:18] LABS: Estimated CRCL calculation 39 ml/min; Estimated Glomerular Filt Rate 27
[2024-02-05] MEDS: HYDROcodone/acetaminophen (*CRX) 5-325 MG TABLET 1 TAB PO ×3 (06:27→22:41)
[2024-02-05 08:09] LABS: Glucose Point of Care 214 mg/dl (65-105)
--- NOTE | 2024-02-05 08:35 | PM.IMPN ---
Progress Note: A&P Assessment and Plan (1) Left leg cellulitis: Code(s): L03.116 - Cellulitis of left lower limb Status: Acute Assessment and Plan: - IV hydration - Blood cultures have been obtained and are pending He was started on cefepime and vancomycin in the ED- will continue - BC positive- will update dose for cefepime to 2 mg q12 02/04- repeat BC ordered (2) Sepsis: Code(s): A41.9 - Sepsis, unspecified organism Status: Acute Assessment and Plan: - Meets sepsis criteria with tachycardia, leukocytosis, and elevated lactic acid level in the setting of infection. Lactic acid level has normalized with IV fluid rehydration. Blood cultures have been obtained and are pending. Blood pressures have been stable. on cefepime and vancomycin in the ED which will be continued. see bacteremia plan (3) Chronic acquired lymphedema: Code(s): I89.0 - Lymphedema, not elsewhere classified Status: Acute Assessment and Plan: will need vascular referral as outpt and continue to follow with lymphedema clinic need to work with PT/OT (4) Chronic kidney disease: Code(s): N18.9 - Chronic kidney disease, unspecified Status: Acute (5) Insulin dependent type 2 diabetes mellitus: Code(s): E11.9 - Type 2 diabetes mellitus without complications; Z79.4 - intermediate frame tender (current) use of insulin Status: Acute Assessment and Plan: Continue basal insulin. Initiate sliding scale insulin, Accu-Cheks, and hypoglycemic protocol. Check hemoglobin A1c bs elevated this am- will increase lantus to 25, diabetic diet monitor (6) Hypertension: Code(s): I10 - Essential (primary) hypertension Status: Acute (7) Bacteremia: Code(s): R78.81 - Bacteremia Status: Acute Assessment and Plan: blood cultures growing gram negative bacilli - will increase dose of cefepime to 2 gm. Ideally needs to be [id number] kidney functions is not great, so q12h discussed with pharm ID- ordered will order blood culture repeat tomorrow -monitor labs. vs 0.9 ns at 75 will stop once current bag infused Plan dvt prophyl; lovenox Time Spent With Patient Time with patient: Greater than 35 minutes Subjective Date/time seen: 02/05/24 08:35 Interval history: This is a chronically ill 73-year-old male with history of coronary artery disease, congestive heart failure, peripheral vascular disease, hypertension, hyperlipidemia, insulin-dependent type 2 diabetes mellitus, chronic kidney disease, benign prostatic hyperplasia, chronic lymphedema, obstructive sleep apnea, and gastroesophageal reflux disease who presented to the emergency department via EMS from his doctor's office for evaluation of left leg pain and redness. In the ED: He was afebrile on arrival with stable vital signs. Labs are significant for WBC count of 10.3, hemoglobin 11.2, ESR 76, CRP less than 0.5, BUN 39, creatinine 2.60, glucose 367, lactic acid 3.1. Left lower extremity venous Doppler from was negative for DVT but popliteal and calf veins were not evaluated due to body habitus and difficulties moving to position. He was given a dose of cefepime and vancomycin is being admitted in this setting for further IV antibiotics. 02/03- pt is seen and examined. pt is not very active at home- not sure how he gets around to appointments. Not sure if he is complaint with his medications either. Reports going to lymphedema clinic in [place] for few times and his insurance only would approve it for few more times. Never was refereed to vascular. 02/04- bc positive. antibiotics adjusted. BS high- currently on heart healthy diet. Waiting to work with Pt/ot. But was able ot get up to [facility] yesterday with nursing. tolerated fair. Review of Systems Review of Systems: 12 systems were reviewed and are negative except for as per HPI. Exam Narrative: General: Chronically ill-appearing male in the semi-Atkins position in bed. Weight: 141.2 kg. BMI: 41.1. HEENT: PERRL, EOMI. Sclera anicteric. Oral mucosa moist. Crowded oropharynx. Neck: Supple. Exam limited due to neck circumference. Respiratory: Respirations are nonlabored and he is speaking in full sentences. Lung sounds are diminished at the bases, likely due to body habitus but are otherwise clear to auscultation. Cardiovascular: Regular rate and rhythm with S1-S2. Gastrointestinal: Abdomen is soft, morbidly obese, nontender, and nondistended with positive bowel sounds. Skin: Warm and dry. Chronic skin changes the lower legs bilaterally. Left calf is mildly erythematous, slightly warm, and tender to palpation. Erythema extends up the medial thigh. Extremities: No cyanosis or clubbing. Chronic lower extremity edema and lymphedema.erythema to lle Neurological: Alert. Cranial nerves 2-12 are grossly intact. No gross focal deficits to casual conversation. Psychiatric: Cooperative with appropriate mood and flat affect. Const: General: comfortable Objective Data Vital Signs Vital Signs: Vital Signs - 24 hr 02/04/24 08:56 02/04/24 09:59 02/04/24 14:29 Temperature 98.6 F Pulse Rate 79 74 Respiratory Rate 19 Blood Pressure 121/53 L Pulse Oximetry 97 98 Oxygen Delivery Room Air Fraction of Inspired Oxygen 02/04/24 09:10 02/04/24 19:52 02/05/24 04:30 Temperature 98.9 F 98.8 F Pulse Rate 79 91 Respiratory Rate 18 18 Blood Pressure 136/51 L 153/67 H Pulse Oximetry 98 98 Oxygen Delivery Room Air Fraction of Inspired Oxygen Intake/Output Intake/Output: Intake & Output 02/02/24 02/03/24 02/04/24 02/05/24 23:59 23:59 23:59 23:59 Intake Total 1550 1400 200 Output Total 1900 700 Balance 1550 -500 -500 Meds/Results Medications: Active Medications Generic Name Dose Route Start Last Admin Trade Name Freq PRN Reason Stop Dose Admin Acetaminophen 650 mg 02/03/24 23:02 02/04/24 01:53 Acetaminophen 325 Mg Tablet PO 650 mg Q6H PRN Administration Mild Pain (1-3) or Fever Hydrocodone Bitart/Acetaminophen 1 tab 02/04/24 11:03 02/05/24 06:27 Hydrocodone/Acetaminophen (*Crx) 5-325 Mg Tablet PO 1 tab Q6H PRN Administration Pain Rated 4-6 Aspirin 81 mg 02/04/24 09:00 02/04/24 09:09 Aspirin 81 Mg Enteric Tablet PO 81 mg QAM RADHA Administration Atorvastatin Calcium 20 mg 02/04/24 09:00 02/04/24 09:59 Atorvastatin 20 Mg Tablet PO 20 mg DAILY RADHA Administration Chlorthalidone 25 mg 02/04/24 09:00 02/04/24 09:59 Chlorthalidone 25 Mg Tablet PO 25 mg DAILY RADHA Administration Clopidogrel Bisulfate 75 mg 02/04/24 09:00 02/04/24 09:58 Clopidogrel Bisulfate 75 Mg Tablet PO 75 mg DAILY RADHA Administration Dextrose 12.5 gm 02/03/24 23:02 Dextrose 50% 25 Gm/50 Ml Syringe IV PUSH PRN PRN Hypoglycemia Protocol Enoxaparin Sodium 40 mg 02/04/24 09:00 02/04/24 09:10 Enoxaparin 40 Mg/0.4 Ml Syringe SUB-Q 40 mg DAILY RADHA Administration Gabapentin 300 mg 02/04/24 08:52 Gabapentin 300 Mg Capsule PO Q6-8H PRN Nerve Pain Glucagon 1 mg 02/03/24 23:02 Glucagon For Inj 1 Mg Vial IM PRN PRN Hypoglycemia Protocol Glucose 15 gm 02/03/24 23:02 Glucose Oral Gel 15 Gm Of Glucse In 37.5 Gm Tube PO PRN PRN Hypoglycemia Protocol Vancomycin HCl 1,500 mg in 500 mls @ 250 mls/hr 02/03/24 20:00 02/03/24 23:08 Vancomycin 1,500 Mg/Ns 500 Ml IVPB Infused Q36H RADHA Infusion Dextrose 1,000 mls @ 100 mls/hr 02/03/24 23:02 Dextrose 5% 1,000 Ml IVPB PRN PRN Hypoglycemia Protocol Cefepime HCl 2 gm in 50 mls @ 100 mls/hr 02/04/24 14:00 02/05/24 04:53 Maxipime 2 Gm/Ns 50 Ml IVPB Infused Q12H RADHA Infusion Sodium Chloride 1,000 mls @ 75 mls/hr 02/04/24 13:20 02/04/24 13:33 Normal Saline Iv IV CONT 75 mls/hr .[id number] RADHA Administration Insulin Aspart 2 - 4 units 02/04/24 21:00 02/04/24 20:13 Insulin Aspart (*Bkc) 100 Units/Ml SUB-Q 2 units HS RADHA Administration Protocol Insulin Aspart 4 - 8 units 02/04/24 08:00 02/04/24 17:21 Insulin Aspart (*Bkc) 100 Units/Ml SUB-Q Not Given TIDWM RADHA Protocol Insulin Glargine 20 units 02/04/24 21:00 02/04/24 20:14 Insulin Glargine (*Bkc) 100 Units/Ml SUB-Q 20 units HS RAHDA Administration Latanoprost 1 drop 02/04/24 09:00 02/04/24 10:00 Latanoprost 0.005% Op Soln 2.5 Ml Btl EACH EYE 1 drop DAILY RADHA Administration Losartan Potassium 100 mg 02/04/24 18:00 02/04/24 17:26 Losartan Potassium 100 Mg Tablet PO 100 mg QPM RADHA Administration Metoprolol Tartrate 100 mg 02/04/24 09:00 02/04/24 09:59 Metoprolol Tartrate 50 Mg Tab PO 100 mg DAILY RADHA Administration Polyethylene Glycol 17 gm 02/05/24 09:00 Polyethylene Glycol 3350 17 Gm Powd.Pack PO QAM RADHA Tamsulosin HCl 0.4 mg 02/04/24 09:00 02/04/24 09:59 Tamsulosin Hcl 0.4 Mg Capsule PO 0.4 mg DAILY RADHA Administration Timolol Maleate 1 drop 02/04/24 09:00 02/04/24 10:00 Timolol Maleate 0.5% Op Soln 5 Ml Bottle EACH EYE 1 drop DAILY RADHA Administration Radiology Results: ITS Impressions Venous Doppler Study 02/03/24 18:31 IMPRESSION: 1. No deep venous thrombosis. Popliteal vein and calf veins not evaluated due to the patient's body habitus and inability to move and position the leg. Labs Labs: Laboratory Results - last 24 hr 02/04/24 02/04/24 02/04/24 08:28 12:04 17:05 Creatinine Estim Creat Clear Calc Estimated GFR POC Capillary Glucose 295 H 295 H 181 H 02/04/24 02/05/24 02/05/24 19:58 05:24 08:03 Creatinine 2.40 H Estim Creat Clear Calc 39 Estimated GFR 27 L POC Capillary Glucose 241 H 214 H Quality VTE Prophylaxis VTE prophylaxis: pharmacologic ordered
[2024-02-05] MEDS: VANCOMYCIN 1,500 MG/NS 500 ML 1,500 MG/500 ML BAG 250 MG IVPB (08:46)
[2024-02-05 08:47] VITALS: PULSE 79
[2024-02-05] MEDS: ENOXAPARIN 40 MG/0.4 ML SYRINGE SUB-Q (08:47)
[2024-02-05] MEDS: polyethylene glycoL 3350 17 GM POWD.PACK PO (08:47)
[2024-02-05] MEDS: METOPROLOL TARTRATE 50 MG TAB 100 MG PO (08:47)
[2024-02-05] MEDS: CHLORTHALIDONE 25 MG TABLET PO (08:49)
[2024-02-05] MEDS: ASPIRIN 81 MG ENTERIC TABLET PO (08:49)
[2024-02-05] MEDS: TAMSULOSIN HCL 0.4 MG CAPSULE PO (08:49)
[2024-02-05] MEDS: CLOPIDOGREL BISULFATE 75 MG TABLET PO (08:49)
[2024-02-05] MEDS: ATORVASTATIN 20 MG TABLET PO (08:50)
[2024-02-05] MEDS: INSULIN ASPART (*BKC) 100 UNITS/ML SUB-Q ×4 (08:50→20:16)
[2024-02-05] MEDS: LATANOPROST 0.005% OP SOLN 2.5 ML BTL 1 DROP EACH EYE (08:50)
[2024-02-05] MEDS: TIMOLOL MALEATE 0.5% OP SOLN 5 ML BOTTLE 1 DROP EACH EYE (08:50)
[2024-02-05 10:47] LABS: MRSA (PCR) NOT DETECTED (NOT DETECTE)
[2024-02-05 11:48] LABS: Glucose Point of Care 262 mg/dl (65-105)
[2024-02-05 14:03] VITALS: BP 136/73; PULSE 74; RESP 16; TEMP 36.8; O2SAT 98
[2024-02-05 16:35] LABS: Glucose Point of Care 303 mg/dl (65-105)
[2024-02-05] MEDS: LOSARTAN POTASSIUM 100 MG TABLET PO (17:22)
[2024-02-05] MEDS: INSULIN GLARGINE (*BKC) 100 UNITS/ML 25 UNITS SUB-Q (20:16)
[2024-02-05 20:36] LABS: Glucose Point of Care 282 mg/dl (65-105)
[2024-02-05 20:56] VITALS: BP 149/73; PULSE 74; RESP 20; TEMP 37; O2SAT 100
[2024-02-06] MEDS: CEFEPIME 2 GM/NS 50 ML 2 GM/50 ML BAG IVPB (01:17)
[2024-02-06 06:00] VITALS: BP 143/86; PULSE 78; RESP 18; TEMP 36.9; O2SAT 98
[2024-02-06 06:38] LABS: Estimated CRCL calculation 39 ml/min; Estimated Glomerular Filt Rate 27
[2024-02-06 08:20] LABS: Glucose Point of Care 175 mg/dl (65-105)
[2024-02-06] MEDS: CLOPIDOGREL BISULFATE 75 MG TABLET PO (09:35)
[2024-02-06 09:36] VITALS: PULSE 78
[2024-02-06] MEDS: METOPROLOL TARTRATE 50 MG TAB 100 MG PO (09:36)
[2024-02-06] MEDS: CHLORTHALIDONE 25 MG TABLET PO (09:36)
[2024-02-06] MEDS: TAMSULOSIN HCL 0.4 MG CAPSULE PO (09:36)
[2024-02-06] MEDS: ATORVASTATIN 20 MG TABLET PO (09:36)
[2024-02-06] MEDS: LATANOPROST 0.005% OP SOLN 2.5 ML BTL 1 DROP EACH EYE (09:36)
[2024-02-06] MEDS: ASPIRIN 81 MG ENTERIC TABLET PO (09:36)
[2024-02-06] MEDS: polyethylene glycoL 3350 17 GM POWD.PACK PO (09:36)
[2024-02-06] MEDS: ENOXAPARIN 40 MG/0.4 ML SYRINGE SUB-Q (09:36)
[2024-02-06] MEDS: TIMOLOL MALEATE 0.5% OP SOLN 5 ML BOTTLE 1 DROP EACH EYE (09:36)
[2024-02-06 12:05] LABS: Glucose Point of Care 188 mg/dl (65-105)
[2024-02-06] MEDS: levoFLOXacin 750 MG TABLET PO (12:33)
[2024-02-06] MEDS: LACTIC ACID 12% LOTION 225 BTL 1 APPLIC TOPICAL (12:34)
[2024-02-06 13:41] VITALS: BP 157/75; PULSE 70; RESP 16; TEMP 36.9; O2SAT 97
--- NOTE | 2024-02-06 14:47 | P.PNIM_ITS ---
Progress Note: A&P Assessment and Plan (1) Left leg cellulitis: Code(s): L03.116 - Cellulitis of left lower limb Status: Acute Assessment and Plan: - IV hydration - Blood cultures have been obtained and are pending He was started on cefepime and vancomycin in the ED- will continue - BC positive- will update dose for cefepime to 2 mg q12 02/04- repeat BC ordered 02/05- repeat bc prelim - negative so far cefepime and vanc stopped- downgraded to po- levaquin 750 mg q48 hr (2) Sepsis: Code(s): A41.9 - Sepsis, unspecified organism Status: Acute Assessment and Plan: - Meets sepsis criteria with tachycardia, leukocytosis, and elevated lactic acid level in the setting of infection. Lactic acid level has normalized with IV fluid rehydration. Blood cultures have been obtained and are pending. Blood pressures have been stable. on cefepime and vancomycin in the ED which will be continued. see bacteremia plan (3) Chronic acquired lymphedema: Code(s): I89.0 - Lymphedema, not elsewhere classified Status: Acute Assessment and Plan: will need vascular referral as outpt and continue to follow with lymphedema clinic need to work with PT/OT wound is consulted- appreciate recommendations (4) Chronic kidney disease: Code(s): N18.9 - Chronic kidney disease, unspecified Status: Acute (5) Insulin dependent type 2 diabetes mellitus: Code(s): E11.9 - Type 2 diabetes mellitus without complications; Z79.4 - terminologist (current) use of insulin Status: Acute Assessment and Plan: Continue basal insulin. Initiate sliding scale insulin, Accu-Cheks, and hypoglycemic protocol. Check hemoglobin A1c bs elevated this am- will increase lantus to 25, diabetic diet monitor (6) Hypertension: Code(s): I10 - Essential (primary) hypertension Status: Acute (7) Bacteremia: Code(s): R78.81 - Bacteremia Status: Acute Assessment and Plan: blood cultures growing gram negative bacilli - will increase dose of cefepime to 2 gm. Ideally needs to be [id number] kidney functions is not great, so q12h discussed with pharm ID- ordered will order blood culture repeat tomorrow -monitor labs. vs 0.9 ns at 75 will stop once current bag infused Plan dvt prophyl; lovenox Time Spent With Patient Time with patient: Greater than 35 minutes Subjective Date/time seen: 02/06/24 14:47 Interval history: This is a chronically ill 73-year-old male with history of coronary artery disease, congestive heart failure, peripheral vascular disease, hypertension, hyperlipidemia, insulin-dependent type 2 diabetes mellitus, chronic kidney disease, benign prostatic hyperplasia, chronic lymphedema, obstructive sleep apnea, and gastroesophageal reflux disease who presented to the emergency department via EMS from his doctor's office for evaluation of left leg pain and redness. In the ED: He was afebrile on arrival with stable vital signs. Labs are significant for WBC count of 10.3, hemoglobin 11.2, ESR 76, CRP less than 0.5, BUN 39, creatinine 2.60, glucose 367, lactic acid 3.1. Left lower extremity venous Doppler from was negative for DVT but popliteal and calf veins were not evaluated due to body habitus and difficulties moving to position. He was given a dose of cefepime and vancomycin is being admitted in this setting for further IV antibiotics. 02/03- pt is seen and examined. pt is not very active at home- not sure how he gets around to appointments. Not sure if he is complaint with his medications either. Reports going to lymphedema clinic in [place] for few times and his insurance only would approve it for few more times. Never was refereed to vascular. 02/04- bc positive. antibiotics adjusted. BS high- currently on heart healthy diet. Waiting to work with Pt/ot. But was able ot get up to [facility] yesterday with nursing. tolerated fair. 02/05- seen and examined. Worked with pt/ot- did fair, slow but able to amb ulate in the room. Pain medicine available if needed. Eating and drinking well, repeated bc prelim negative- so swithced to po antibiotics. Review of Systems Review of Systems: 12 systems were reviewed and are negativ e except for as per HPI. Exam Narrative: General: Chronically ill-appearing male in the semi-Atkins position in bed. HEENT: PERRL, EOMI. Sclera anicteric. Oral mucosa moist. Crowded oropharynx. Neck: Supple. Exam limited due to neck circumference. Respiratory: Respirations are nonlabored and he is speaking in full sentences. Lung sounds are diminished at the bases, likely due to body habitus but are otherwise clear to auscultation. Cardiovascular: Regular rate and rhythm with S1-S2. Gastrointestinal: Abdomen is soft, morbidly obese, nontender, and nondistended with positive bowel sounds. Skin: Warm and dry. Chronic skin changes the lower legs bilaterally. Left calf is mildly erythematous, slightly warm, and tender to palpation. Erythema extends up the medial thigh. Extremities: No cyanosis or clubbing. Chronic lower extremity edema and lymphedema.erythema to lle Neurological: Alert. Cranial nerves 2-12 are grossly intact. No gross focal deficits to casual conversation. Psychiatric: Cooperative with appropriate mood and flat affect. Const: General: comfortable Objective Data Vital Signs Vital Signs: Vital Signs - 24 hr 02/05/24 15:01 02/05/24 20:56 02/06/24 06:00 Temperature 98.6 F 98.4 F Pulse Rate 74 78 Respiratory Rate 20 18 Blood Pressure 149/73 H 143/86 H Pulse Oximetry 100 98 Oxygen Delivery Room Air 02/06/24 09:36 02/06/24 09:40 02/06/24 13:41 Temperature 98.4 F Pulse Rate 78 70 Respiratory Rate 16 Blood Pressure 157/75 H Pulse Oximetry 97 Oxygen Delivery Room Air Intake/Output Intake/Output: Intake & Output 02/03/24 02/04/24 02/05/24 02/06/24 23:59 23:59 23:59 23:59 Intake Total 1550 1400 1460 1530 Output Total 1900 1500 1500 Balance 1550 -500 -40 30 Meds/Results Medications: Active Medications Generic Name Dose Route Start Last Admin Trade Name Freq PRN Reason Stop Dose Admin Acetaminophen 650 mg 02/03/24 23:02 02/04/24 01:53 Acetaminophen 325 Mg Tablet PO 650 mg Q6H PRN Administration Mild Pain (1-3) or Fever Hydrocodone Bitart/Acetaminophen 1 tab 02/04/24 11:03 02/05/24 22:41 Hydrocodone/Acetaminophen (*Crx) 5-325 Mg Tablet PO 1 tab Q6H PRN Administration Pain Rated 4-6 Aspirin 81 mg 02/04/24 09:00 02/06/24 09:36 Aspirin 81 Mg Enteric Tablet PO 81 mg QAM RADHA Administration Atorvastatin Calcium 20 mg 02/04/24 09:00 02/06/24 09:36 Atorvastatin 20 Mg Tablet PO 20 mg DAILY RADHA Administration Chlorthalidone 25 mg 02/04/24 09:00 02/06/24 09:36 Chlorthalidone 25 Mg Tablet PO 25 mg DAILY RADHA Administration Clopidogrel Bisulfate 75 mg 02/04/24 09:00 02/06/24 09:35 Clopidogrel Bisulfate 75 Mg Tablet PO 75 mg DAILY RADHA Administration Dextrose 12.5 gm 02/03/24 23:02 Dextrose 50% 25 Gm/50 Ml Syringe IV PUSH PRN PRN Hypoglycemia Protocol Enoxaparin Sodium 40 mg 02/04/24 09:00 02/06/24 09:36 Enoxaparin 40 Mg/0.4 Ml Syringe SUB-Q 40 mg DAILY RADHA Administration Gabapentin 300 mg 02/04/24 08:52 Gabapentin 300 Mg Capsule PO Q6-8H PRN Nerve Pain Glucagon 1 mg 02/03/24 23:02 Glucagon For Inj 1 Mg Vial IM PRN PRN Hypoglycemia Protocol Glucose 15 gm 02/03/24 23:02 Glucose Oral Gel 15 Gm Of Glucse In 37.5 Gm Tube PO PRN PRN Hypoglycemia Protocol Dextrose 1,000 mls @ 100 mls/hr 02/03/24 23:02 Dextrose 5% 1,000 Ml IVPB PRN PRN Hypoglycemia Protocol Insulin Aspart 2 - 4 units 02/04/24 21:00 02/05/24 20:16 Insulin Aspart (*Bkc) 100 Units/Ml SUB-Q 2 units HS RADHA Administration Protocol Insulin Aspart 4 - 8 units 02/04/24 08:00 02/06/24 12:09 Insulin Aspart (*Bkc) 100 Units/Ml SUB-Q Not Given TIDWM [facility] Protocol Insulin Glargine 25 units 02/05/24 21:00 02/05/24 20:16 Insulin Glargine (*Bkc) 100 Units/Ml SUB-Q 25 units HS RADHA Administration Lactic Acid 1 applic 02/06/24 10:35 02/06/24 12:34 Lactic Acid 12% Lotion 225 Btl TOPICAL 1 applic QAM RADHA Administration Latanoprost 1 drop 02/04/24 09:00 02/06/24 09:36 Latanoprost 0.005% Op Soln 2.5 Ml Btl EACH EYE 1 drop DAILY RADHA Administration Levofloxacin 750 mg 02/06/24 12:30 02/06/24 12:33 Levofloxacin 750 Mg Tablet PO 02/12/24 09:01 750 mg Q48HR RADHA Administration Losartan Potassium 100 mg 02/04/24 18:00 02/05/24 17:22 Losartan Potassium 100 Mg Tablet PO 100 mg QPM RADHA Administration Metoprolol Tartrate 100 mg 02/04/24 09:00 02/06/24 09:36 Metoprolol Tartrate 50 Mg Tab PO 100 mg DAILY RADHA Administration Polyethylene Glycol 17 gm 02/05/24 09:00 02/06/24 09:36 Polyethylene Glycol 3350 17 Gm Powd.Pack PO 17 gm QAM RADHA Administration Tamsulosin HCl 0.4 mg 02/04/24 09:00 02/06/24 09:36 Tamsulosin Hcl 0.4 Mg Capsule PO 0.4 mg DAILY RADHA Administration Timolol Maleate 1 drop 02/04/24 09:00 02/06/24 09:36 Timolol Maleate 0.5% Op Soln 5 Ml Bottle EACH EYE 1 drop DAILY RADHA Administration Radiology Results: ITS Impressions Venous Doppler Study 02/03/24 18:31 IMPRESSION: 1. No deep venous thrombosis. Popliteal vein and calf veins not evaluated due to the patient's body habitus and inability to move and position the leg. Labs Labs: Laboratory Results - last 24 hr 02/05/24 02/05/24 02/06/24 16:28 19:54 05:17 Creatinine 2.40 H Estim Creat Clear Calc 39 Estimated GFR 27 L POC Capillary Glucose 303 H 282 H 02/06/24 02/06/24 07:58 11:41 Creatinine Estim Creat Clear Calc Estimated GFR POC Capillary Glucose 175 H 188 H Quality VTE Prophylaxis VTE prophylaxis: pharmacologic ordered
[2024-02-06] MEDS: HYDROcodone/acetaminophen (*CRX) 5-325 MG TABLET 1 TAB PO (15:32)
[2024-02-06 16:51] LABS: Glucose Point of Care 296 mg/dl (65-105)
[2024-02-06] MEDS: LOSARTAN POTASSIUM 100 MG TABLET PO (17:13)
[2024-02-06] MEDS: INSULIN ASPART (*BKC) 100 UNITS/ML SUB-Q ×2 (17:14→20:37)
[2024-02-06] MEDS: INSULIN GLARGINE (*BKC) 100 UNITS/ML 25 UNITS SUB-Q (20:35)
[2024-02-06 20:47] LABS: Glucose Point of Care 276 mg/dl (65-105)
[2024-02-06 21:04] VITALS: BP 154/77; PULSE 73; RESP 20; TEMP 36.8; O2SAT 100
[2024-02-07] MEDS: HYDROcodone/acetaminophen (*CRX) 5-325 MG TABLET 1 TAB PO ×2 (02:05→09:19)
[2024-02-07 05:58] LABS: Hematocrit 30.4 % (42.0-52.0); Hemoglobin 9.8 g/dL (14.0-18.0); Mean Corpuscular HGB Conc 32.2 g/dl (32-36); Mean Corpuscular Hemoglobin 29.7 pg (26-34); Mean Corpuscular Volume 92.1 fl (80-100); Mean Platelet Volume 11.1 fl (7.4-10.4); Platelet Count Result 175 k/mm3 (150-375); Red Cell Distribution Width 13.2 % (11.5-14.5)
[2024-02-07 06:00] VITALS: BP 149/99; PULSE 79; RESP 20; TEMP 36.9; O2SAT 97
[2024-02-07 06:07] LABS: Anion Gap 7 mmol/L (4-12); Blood Urea Nitrogen 39 mg/dL (9-20); Calcium 8.8 mg/dL (8.4-10.2); Carbon Dioxide 21 mmol/L (22-30); Chloride 109 mmol/L (98-107); Estimated CRCL calculation 39 ml/min; Estimated Glomerular Filt Rate 27; Glucose 156 mg/dL (65-110); Sodium 137 mmol/L (137-145)
[2024-02-07 08:07] LABS: Glucose Point of Care 140 mg/dl (65-105)
[2024-02-07] MEDS: TAMSULOSIN HCL 0.4 MG CAPSULE PO (09:19)
[2024-02-07] MEDS: ASPIRIN 81 MG ENTERIC TABLET PO (09:19)
[2024-02-07] MEDS: CHLORTHALIDONE 25 MG TABLET PO (09:19)
[2024-02-07] MEDS: CLOPIDOGREL BISULFATE 75 MG TABLET PO (09:19)
[2024-02-07] MEDS: ATORVASTATIN 20 MG TABLET PO (09:19)
[2024-02-07] MEDS: TIMOLOL MALEATE 0.5% OP SOLN 5 ML BOTTLE 1 DROP EACH EYE (09:20)
[2024-02-07] MEDS: polyethylene glycoL 3350 17 GM POWD.PACK PO (09:20)
[2024-02-07] MEDS: LATANOPROST 0.005% OP SOLN 2.5 ML BTL 1 DROP EACH EYE (09:20)
[2024-02-07 09:21] VITALS: PULSE 79
[2024-02-07] MEDS: METOPROLOL TARTRATE 50 MG TAB 100 MG PO (09:21)
[2024-02-07] MEDS: ENOXAPARIN 40 MG/0.4 ML SYRINGE SUB-Q (09:22)
[2024-02-07 11:48] LABS: Glucose Point of Care 184 mg/dl (65-105)
--- NOTE | 2024-02-07 13:31 | P.DS_ITS ---
DS: Admitting Diagnosis Discharge Date 02/06 Admitting Diagnosis leg pain, cellulitis DS: Discharge Diagnosis Discharge Diagnosis (1) Left leg cellulitis: Code(s): L03.116 - Cellulitis of left lower limb Status: Acute (2) Sepsis: Code(s): A41.9 - Sepsis, unspecified organism Status: Acute (3) Chronic acquired lymphedema: Code(s): I89.0 - Lymphedema, not elsewhere classified Status: Acute (4) Chronic kidney disease: Code(s): N18.9 - Chronic kidney disease, unspecified Status: Acute (5) Insulin dependent type 2 diabetes mellitus: Code(s): E11.9 - Type 2 diabetes mellitus without complications; Z79.4 - retirement (current) use of insulin Status: Acute (6) Hypertension: Code(s): I10 - Essential (primary) hypertension Status: Acute (7) Bacteremia: Code(s): R78.81 - Bacteremia Status: Acute Plan dvt prophyl; lovenox DS: Summary Hospital Course Hospital Course: This is a chronically ill 73-year-old male with history of coronary artery disease, congestive heart failure, peripheral vascular disease, hypertension, hyperlipidemia, insulin-dependent type 2 diabetes mellitus, chronic kidney disease, benign prostatic hyperplasia, chronic lymphedema, obstructive sleep apnea, and gastroesophageal reflux disease who presented to the emergency department via EMS from his doctor's office for evaluation of left leg pain and redness. The patient provides the following history. His left leg is always larger compared to the right but over the last several days it has become red and painful with the redness now extending up to the thigh. He saw his doctor today who referred to the ER as he felt he needed IV antibiotics. The patient describes a burning and constant aching pain leg. He has nausea and a decrease in appetite. He does not have any open wounds to his knowledge. He denies vomiting, fever, chills, and sweats. He also denies syncope, near syncope, chest pain, pleuritic pain, palpitations and shortness of breath. He was started on cefepime and vancomycin in the ED - BC positive collected on 02/02 positive- Serratia marcescens- updated dose for cefepime to 2 mg q12. Repeated blood cultures on 02/04- negative Antibiotics were downgraded to levaquin 750 mg q48h on 02/05- last dose 02/11 at 09 am- he will need 3 more doses Hga1c was 10.7. Discussed GLP-1 initiating but pt wants to wait and discuss with pcp. Time Spent with Patient Time attestation: Total time spent providing and/or coordinating discharge services: Time spent: Greater than 30 minutes Exam Narrative: General: Chronically ill-appearing male in the semi-Atkins position in bed. HEENT: PERRL, EOMI. Sclera anicteric. Oral mucosa moist. Crowded oropharynx. Neck: Supple. Exam limited due to neck circumference. Respiratory: Respirations are nonlabored and he is speaking in full sentences. Lung sounds are diminished at the bases, likely due to body habitus but are otherwise clear to auscultation. Cardiovascular: Regular rate and rhythm with S1-S2. Gastrointestinal: Abdomen is soft, morbidly obese, nontender, and nondistended with positive bowel sounds. Skin: Warm and dry. Chronic skin changes the lower legs bilaterally. Left calf is mildly erythematous, slightly warm, and tender to palpation. Erythema extends up the medial thigh. Extremities: No cyanosis or clubbing. Chronic lower extremity edema and lymphedema.erythema to lle Neurological: Alert. Cranial nerves 2-12 are grossly intact. No gross focal deficits to casual conversation. Psychiatric: Cooperative with appropriate mood and flat affect. Const: General: comfortable DS: Data Data Completed and Pending Labs on day of discharge: Labs from last 24 hours 02/07/24 02/07/24 02/07/24 11:38 08:03 05:49 WBC 8.0 RBC 3.30 L Hgb 9.8 L Hct 30.4 L MCV 92.1 MCH 29.7 MCHC 32.2 RDW 13.2 Plt Count 175 MPV 11.1 H Sodium 137 Potassium 4.0 Chloride 109 H Carbon Dioxide 21 L Anion Gap 7 BUN 39 H Creatinine 2.40 H Estim Creat Clear Calc 39 Estimated GFR 27 L Glucose 156 H POC Capillary Glucose 184 H 140 H Calcium 8.8 02/06/24 02/06/24 20:38 16:43 WBC RBC Hgb Hct MCV MCH MCHC RDW Plt Count MPV Sodium Potassium Chloride Carbon Dioxide Anion Gap BUN Creatinine Estim Creat Clear Calc Estimated GFR Glucose POC Capillary Glucose 276 H 296 H Calcium Preliminary micro results at discharge 02/05/24 13:15 Blood Culture - Preliminary Blood 02/05/24 13:17 Blood Culture - Preliminary Blood 02/03/24 19:15 Blood Culture - Preliminary Blood Discharge Plan Discharge Attending physician on discharge: Iggy James Discharging Clinician: Haydee Spring Patient Disposition: Home, Self-Care Activity: may shower Diet: diabetic Discharge Instructions: You were seen for wound infection. You were given IV antibiotics and switched to oral one, levaquin 750 mg every 48h on 02/05. PLease continue taking it, with last dose 02/11 at 09 am- you will need 3 more doses. Next dose is 02/07 at 9 am, 02/09 at 9 am and 02/11 at 9 am. As we discussed, you might benefit from GLP-1 medication like ozempic or mounjaro- please talk to your PCP- it will help wit sugar control as well as olivre ght loss which will make it easier on your legs and joints. While you were in the hospital, you did not require as high doses of insulin as you told us you were taking at home. We had you on 25 units of lantus and sliding scale. Which is very good thing for you to continue- limit carbs with meals. Remember corn and potatoes fall into carb category and not veggies. Increase fruit/veggies and lean protein intake, avoid juices and milk- drink water. Stay active- do what you can but through out the day- it will keep your muscles strong. Patient Instructions: Antibiotic Form, Clopidogrel (By mouth), Heart Failure (GEN) Stand Alone Forms: General Discharge Information Follow-up/Referrals: Jorge,MD Jhon [Primary Care Provider] - 1 Week Discharge Medications: New hydrocodone-acetaminophen 5-325 mg Tablet 1 tablet PO Q6H PRN (Reason: Pain Rated 4-6) Qty: 12 0RF levofloxacin 750 mg tablet 750 mg PO DAILY 7 Days Qty: 7 0RF insulin glargine [Lantus U-100 Insulin] 100 unit/mL Solution 25 unit subcut HS Qty: 10 0RF insulin aspart U-100 [Novolog U-100 Insulin aspart] 100 unit/mL Solution 2 - 4 unit subcut HS Qty: 10 0RF Protocol: Insulin Corrective High-Dose Condition: glucose < 70 mg/dl Dose/Route: Follow hypoglycemia order Condition: glucose 70-200 mg/dl Dose/Route: No additional insulin Condition: glucose 201-250 mg/dl Dose/Route: 2 units sub-Q Condition: glucose 251-300 mg/dl Dose/Route: 2 units sub-Q Condition: glucose 301-350 mg/dl Dose/Route: 3 units sub-Q Condition: glucose 351-400 mg/dl Dose/Route: 4 units sub-Q Condition: glucose > 400 mg/dl Dose/Route: Call MD Continued aspirin 81 mg Tablet 81 mg PO DAILY latanoprost 0.005 % drops 1 drp EACH EYE DAILY atorvastatin 20 mg tablet 20 mg PO DAILY metoprolol tartrate 100 mg tablet 100 mg PO DAILY clopidogrel 75 mg tablet 75 mg PO DAILY spironolactone 25 mg tablet 25 mg PO QAM tamsulosin 0.4 mg capsule 0.4 mg PO DAILY timolol maleate 0.5 % drops 1 drp EACH EYE DAILY losartan 100 mg tablet 100 mg PO QPM gabapentin 300 mg capsule 300 mg PO Q6-8H PRN (Reason: Pain) calcitriol 0.25 mcg capsule 0.25 mcg PO DAILY chlorthalidone 25 mg tablet 25 mg PO DAILY Date of admission: 02/05/24 13:11 Primary Care Provider: Mo*Jhon Admitting Provider: Iggy James Attending physician on admission: Iggy James Condition: Serious Quality VTE Prophylaxis VTE prophylaxis: pharmacologic ordered Hospitalist MIPS Heart Failure (Exclusion) Patient has history of Heart Transplant or Left Ventricular Assistive Device?: No IF YES, STOP HERE Heart Failure (Qualifier) Patient has current or prior documentation of LVEF less than or equal to 40%, or mod/servere depressed LVSF?: No IF NO, STOP HERE
[2024-02-07 14:00] VITALS: BP 150/66; PULSE 74; RESP 18; TEMP 37.1; O2SAT 96
--- NOTE | 2024-02-07 15:30 | PC.NURSE ---
Discharge instructions gone over with patient and spouse. Pt reminded to set up appt with primary and to make sure he is checking blood sugars and taking insuin as prescribed. Pt verbalizes understanding.
== END 2024-02-07 15:35 | disposition home or self-care (01) | DRG 603 ==
LOC: ANHED 15:00 → ANH3MED 20:18
PROVIDERS: Physician Assistant; Admitting Provider Internal Medicine; Emergency Provider Emergency Medicine; PCP Internal Medicine; Visit Provider Nurse Practitioner
DX: L03.116 Cellulitis of left lower limb (principal); I13.0 Hypertensive heart and chronic kidney disease with heart failure and stage 1 through stage 4 chronic kidney disease, or unspecified chronic kidney disease; Z68.42 Body mass index [BMI] 45.0-49.9, adult; E11.22 Type 2 diabetes mellitus with diabetic chronic kidney disease; N18.9 Chronic kidney disease, unspecified; I89.0 Lymphedema, not elsewhere classified; I25.10 Atherosclerotic heart disease of native coronary artery without angina pectoris; I50.9 Heart failure, unspecified; E11.51 Type 2 diabetes mellitus with diabetic peripheral angiopathy without gangrene; I69.331 Monoplegia of upper limb following cerebral infarction affecting right dominant side; E78.5 Hyperlipidemia, unspecified; N40.0 Benign prostatic hyperplasia without lower urinary tract symptoms; G47.33 Obstructive sleep apnea (adult) (pediatric); K21.9 Gastro-esophageal reflux disease without esophagitis; M19.90 Unspecified osteoarthritis, unspecified site; E66.01 Morbid (severe) obesity due to excess calories; Z79.82 Long term (current) use of aspirin; Z95.5 Presence of coronary angioplasty implant and graft; Z95.1 Presence of aortocoronary bypass graft; Z96.1 Presence of intraocular lens; Z98.49 Cataract extraction status, unspecified eye; Z79.4 Long term (current) use of insulin
CPT/HCPCS: 36415; 80048; 80053; 82565; 82948; 83036; 83605; 83735; 85025; 85027; 85610; 85652; 85730; 86140; 87040; 87077; 87186; 87641; 93005; 93971; 96361; 96366; 96372; 96375; 96376; 97116; 97162; 97530; 99285; A9270; G0378; J0692; J1171; J1650; J1815; J3370; J7030

== ENCOUNTER 2024-02-27 22:09 | Inpatient (IN) | payer MEDICARE, SELFPAY ==
--- NOTE | ~2024-02-27 | XR_ITS ---
Portable chest x-ray Comparison: 06/26/2019 Clinical History: Weakness Findings: Lungs are clear, without focal consolidation or pleural effusion. Cardiomediastinal silho uette is stable, status post probable interval CABG. Bones and soft tissues are unremarkable. Impression: Clear lungs. Reviewed, dictated and finalized at [facility]. 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
[2024-02-27 22:33] VITALS: BP 167/73; PULSE 110; RESP 15; TEMP 37.2
--- NOTE | 2024-02-27 23:19 | ECG_ITS ---
Test Date: 2024-02-27 23:40:28 Measurements Intervals [place]ard Rate: 110 P: 97 MO: 176 QRS: -18 QRSD: 105 T: 115 QT: 338 QTc: 459 Interpretive Statements SINUS TACHYCARDIA POSSIBLE LEFT ATRIAL ENLARGEMENT [-0.1mV P WAVE IN V1/V2] SEPTAL MYOCARDIAL INFARCTION , PROBABLY OLD [40+ ms Q WAVE IN V1/V2] POSSIBLE LATERAL MYOCARDIAL INFARCTION , OF INDETERMINATE AGE [30 ms Q WAVE IN I/aVL/V5/V6] Compared to ECG 02/03/2024 16:10:14 NO SIGNIFICANT CHANGES Electronically Signed On 02-28-2024 16:14:49 [employer] by Candi Clarke M.D.
[2024-02-27 23:51] LABS: Basophils Percent Auto 0.2 % (0.2-1.2); Eosinophils Percent Auto 0.1 % (0-4.4); Hematocrit 32.5 % (42.0-52.0); Hemoglobin 10.6 g/dL (14.0-18.0); Immature Granulocyte Absolute 0.06 K/mm3 (0.00-0.031); Immature Granulocyte Percent A 0.4 % (0-0.5); Lymphocytes Absolute Auto 0.77 K/mm3 (0.9-3.2); Lymphocytes Percent Auto 4.9 % (18.3-44.2); Mean Corpuscular HGB Conc 32.6 g/dl (32-36); Mean Corpuscular Volume 92.1 fl (80-100); Mean Platelet Volume 10.1 fl (7.4-10.4); Monocytes Absolute Auto 0.4 K/mm3 (0.1-0.6); Monocytes Percent Auto 2.2 % (2.6-8.5); Neutrophils Absolute Auto 14.5 K/mm3 (1.3-6.7); Neutrophils Percent Auto 92.2 % (45.5-73.1); Platelet Count Result 239 k/mm3 (150-375); Red Blood Count 3.53 M/mm3 (4.6-6.20); Red Cell Distribution Width 13.5 % (11.5-14.5); White Blood Count 15.7 K/mm3 (4.5-10.0)
[2024-02-28] VITALS (54 sets, daily range): BP systolic 105–170; BP diastolic 40–92; PULSE 82–117; RESP 14–25; TEMP 36.6–37.2; O2SAT 96–100
[2024-02-28 00:03] LABS: Alanine Aminotransferase 14 U/L (6-50); Albumin Level 3.8 g/dL (3.5-5.1); Alkaline Phosphatase 147 U/L (38-126); Anion Gap 8 mmol/L (4-12); Aspartate Amino Transferase 26 U/L (17-59); Bilirubin,Total 1.8 mg/dL (0.2-1.3); Blood Urea Nitrogen 32 mg/dL (9-20); Calcium 9.4 mg/dL (8.4-10.2); Carbon Dioxide 22 mmol/L (22-30); Chloride 108 mmol/L (98-107); Estimated CRCL calculation 39 ml/min; Estimated Glomerular Filt Rate 27; Glucose 307 mg/dL (65-110); Potassium 4.1 mmol/L (3.4-5.0); Sodium 138 mmol/L (137-145)
[2024-02-28 00:11] LABS: Add Urine Microscopic? YES; Appearance Urine Clear (Clear); Bacteria Urine None Seen /hpf; Bilirubin Urine Negative (Negative); Blood Urine 2+ (Negative); Color Urine Yellow (Yellow); Glucose Urine UA 3+ mg/dL (Negative); Ketones Urine Trace mg/dL (Negative); Leukocyte Esterase Ur Negative LEU/UL (Negative); Need Manual Microscopic Reviewed; Nitrate Urine Negative (Negative); Non Pathogenic Casts >20; Protein Urine 4+ mg/dL (Negative); RBC Urine 0-2 /hpf (0-2); Specific Grav Ur 1.022 (1.001-1.035); Squamous Epithelial Cell Urine None Seen /hpf (Few); Urobilinogen Urine 0.2 mg/dL (<2.0); WBC Urine 0-5 /hpf (0-3)
--- NOTE | 2024-02-28 00:37 | ED_ITS ---
HPI - General Adult General Chief complaint: Weakness Stated complaint: weakness, leg pain Time Seen by Provider: 02/27/24 23:43 History of Present Illness HPI narrative: patient is a 71-year-old gentleman who presents emergency department with chief complaint of lower extremity pain and swelling. The patient reports that he was recently treated for lymphedema and sepsis and cellulitis patient reports that he started having worsening pain last couple of days reports that he has become red and tender to touch. Related Data Home Medications Medication Instructions Recorded Confirmed Last Taken Type aspirin 81 mg tablet 81 mg PO DAILY 09/05/20 02/03/24 09/02/20 History atorvastatin 20 mg tablet 20 mg PO DAILY 09/05/20 02/03/24 09/08/20 History clopidogrel 75 mg tablet 75 mg PO DAILY 09/05/20 02/03/24 09/02/20 History gabapentin 300 mg capsule 300 mg PO Q6-8H PRN Pain 09/05/20 02/03/24 Unknown History latanoprost 0.005 % eye drops 1 drp EACH EYE DAILY 09/05/20 02/03/24 09/08/20 History losartan 100 mg tablet 100 mg PO QPM 09/05/20 02/03/24 09/08/20 History metoprolol tartrate 100 mg tablet 100 mg PO DAILY 09/05/20 02/03/24 09/08/20 History spironolactone 25 mg tablet 25 mg PO QAM 09/05/20 09/04/21 09/04/20 History tamsulosin 0.4 mg capsule 0.4 mg PO DAILY 09/05/20 02/03/24 09/08/20 History timolol maleate 0.5 % eye drops 1 drp EACH EYE DAILY 09/05/20 02/03/24 09/08/20 History calcitriol 0.25 mcg capsule 0.25 mcg PO DAILY 02/03/24 02/03/24 Unknown History chlorthalidone 25 mg tablet 25 mg PO DAILY 02/03/24 02/03/24 Unknown History Allergies Allergy/AdvReac Type Severity Reaction Status Date / Time Penicillins AdvReac Mild Nausea Verified 09/09/20 11:02 Review of Systems 2 Review of Systems: A 10 system review of systems was completed on the patient and is negative except for what is stated in the HPI. Nursing and ancillary documentation was reviewed. ON LICENSE OF [facility] Past Medical History Medical History Chronic acquired lymphedema Arthritis Chronic kidney disease Benign prostatic hyperplasia Gastroesophageal reflux disease Obstructive sleep apnea non-compliant with CPAP Insulin dependent type 2 diabetes mellitus Hyperlipidemia Hypertension Peripheral vascular disease Coronary artery disease history of stent x5 and 2 vessel bypass Cerebrovascular accident (2013) residual right hand weakness Morbid obesity Surgical History Surgical History History of cataract extraction with lens replacement History of coronary artery stent placement History of coronary artery bypass graft x 2 (01/2020) Family History Family History Sibling Family history of type 2 diabetes mellitus Social History Social History Social History: Surrogate medical decision maker: Kray King, spouse. Code status: Full code. 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 HEAD: Normocephalic, atraumatic. EYES: PERRLA and EOMI. ENT: Nares clear, no rhinorrhea or epistaxis. Mucous membranes moist. NECK: Supple. CHEST: Clear to auscultation. No respiratory distress. HEART: Regular rate and rhythm. No murmur heard. Normal peripheral pulses. ABDOMEN: Soft, nontender, nondistended, normal active bowel sounds. EXTREMITIES: Normal range of motion. No edema. SKIN: Warm, dry, no rash. There is redness presents to the left thigh area consistent with cellulitis on top of the patient's underlying lymphedema NEURO: No focal deficits. Alert and oriented x3. PSYCH: Normal mood and affect. Course Vital Signs Vital signs: Vital Signs Temperature 37.2 C 02/27/24 22:33 Pulse Rate 110 H 02/27/24 22:33 Respiratory Rate 15 02/27/24 22:33 Blood Pressure 167/73 H 02/27/24 22:33 Oxygen Delivery Room Air 02/27/24 22:33 Temperature 37.2 C 02/27/24 22:33 Pulse Rate 113 H 02/28/24 00:19 Respiratory Rate 14 02/28/24 00:19 Blood Pressure 166/71 H 02/28/24 00:19 Pulse Oximetry 100 02/28/24 00:19 Oxygen Delivery Room Air 02/27/24 22:33 Medical Decision Making [facility] Narrative Medical decision making narrative: differential diagnosis includes cellulitis, lymphedema, laboratory studies showed the patient has chronic renal insufficiency glucose was elevated at 307 lactic acid was normal white count was elevated at 15.7 urinalysis showed no evidence UTI given the patient has had significant increased redness to the left lower extremity and increasing pain case was discussed with the hospitalist for admission. Vital Signs Vital Signs: Vital Signs Temperature 37.2 C 02/27/24 22:33 Pulse Rate 110 H 02/27/24 22:33 Respiratory Rate 15 02/27/24 22:33 Blood Pressure 167/73 H 02/27/24 22:33 Oxygen Delivery Room Air 02/27/24 22:33 Temperature 37.2 C 02/27/24 22:33 Pulse Rate 113 H 02/28/24 00:19 Respiratory Rate 14 02/28/24 00:19 Blood Pressure 166/71 H 02/28/24 00:19 Pulse Oximetry 100 02/28/24 00:19 Oxygen Delivery Room Air 02/27/24 22:33 Lab Data 02/27/24 23:45 02/27/24 23:45 Labs: Lab Results 02/27/24 02/28/24 Range/Units 23:45 00:18 WBC 15.7 H (4.5-10.0) K/mm3 RBC 3.53 L (4.6-6.20) M/mm3 Hgb 10.6 L (14.0-18.0) g/dL Hct 32.5 L (42.0-52.0) % MCV 92.1 (80-100) fl MCH 30.0 (26-34) pg MCHC 32.6 (32-36) g/dl RDW 13.5 (11.5-14.5) % Plt Count 239 (150-375) k/mm3 MPV 10.1 (7.4-10.4) fl Immature Gran % (Auto) 0.4 (0-0.5) % Neut % (Auto) 92.2 H (45.5-73.1) % Lymph % (Auto) 4.9 L (18.3-44.2) % Haskell % (Auto) 2.2 L (2.6-8.5) % Eos % (Auto) 0.1 (0-4.4) % Baso % (Auto) 0.2 (0.2-1.2) % Lymph # (Auto) 0.77 L (0.9-3.2) K/mm3 Haskell # (Auto) 0.4 (0.1-0.6) K/mm3 Eos # (Auto) 0.0 (0-0.3) K/mm3 Baso # (Auto) 0.0 (0.0-0.1) K/mm3 Abs Immat Gran (auto) 0.06 H (0.00-0.031) K/mm3 Absolute Neuts (auto) 14.5 H (1.3-6.7) K/mm3 Absolute Nucleated RBC 0.000 (0.0-0.012) K/mm3 Nucleated RBC % 0.0 (0.0-0.2) % Sodium 138 (137-145) mmol/L Potassium 4.1 (3.4-5.0) mmol/L Chloride 108 H (98-107) mmol/L Carbon Dioxide 22 (22-30) mmol/L Anion Gap 8 (4-12) mmol/L BUN 32 H (9-20) mg/dL Creatinine 2.40 H (0.7-1.3) mg/dL Estim Creat Clear Calc 39 ml/min Estimated GFR 27 L (59 - ) Glucose 307 H (65-110) mg/dL Lactic Acid 2.1 H (0.7-2.0) mmol/L Calcium 9.4 (8.4-10.2) mg/dL Magnesium 1.6 (1.6-2.3) mg/dL Total Bilirubin 1.8 H (0.2-1.3) mg/dL AST 26 (17-59) U/L ALT 14 (6-50) U/L Alkaline Phosphatase 147 H (38-126) U/L Troponin I 0.037 H* (0.000-0.034) ng/mL NT-Pro-B Natriuret Pep 5140 H (19.9-100) pg/mL Total Protein 8.0 (6.3-8.2) g/dL Albumin 3.8 (3.5-5.1) g/dL Urine Color Yellow (Yellow) Urine Appearance Clear (Clear) Urine pH 5.0 (5.0-9.0) Ur Specific Lindstrom 1.022 (1.001-1.035) Urine Protein 4+ H (Negative) mg/dL Urine Glucose (UA) 3+ H (Negative) mg/dL Urine Ketones Trace H (Negative) mg/dL Ur Blood (Man) 2+ H (Negative) Urine Nitrate Negative (Negative) Urine Bilirubin Negative (Negative) Urine Urobilinogen 0.2 (<2.0) mg/dL Add Ur Microanalysis Reviewed Leukocyte Esterase Rfl Negative (Negative) SEAN/UL Urine RBC 0-2 (0-2) /hpf Urine WBC 0-5 (0-3) /hpf Ur Squamous Epith Cells None seen (Few) /hpf Urine Bacteria None seen /hpf Urine Casts >20 Discharge Plan Discharge Clinical Impression: Left leg cellulitis, Chronic acquired lymphedema, Chronic kidney disease, Elevated troponin Patient Disposition: Still a Patient Condition: Stable Patient Language: Croatian Prescriptions: No Action aspirin 81 mg Tablet 81 mg PO DAILY latanoprost 0.005 % drops 1 drp EACH EYE DAILY atorvastatin 20 mg tablet 20 mg PO DAILY metoprolol tartrate 100 mg tablet 100 mg PO DAILY clopidogrel 75 mg tablet 75 mg PO DAILY spironolactone 25 mg tablet 25 mg PO QAM tamsulosin 0.4 mg capsule 0.4 mg PO DAILY timolol maleate 0.5 % drops 1 drp EACH EYE DAILY losartan 100 mg tablet 100 mg PO QPM gabapentin 300 mg capsule 300 mg PO Q6-8H PRN (Reason: Pain) calcitriol 0.25 mcg capsule 0.25 mcg PO DAILY chlorthalidone 25 mg tablet 25 mg PO DAILY hydrocodone-acetaminophen 5-325 mg Tablet 1 tablet PO Q6H PRN (Reason: Pain Rated 4-6) Qty: 12 0RF insulin aspart U-100 [Novolog U-100 Insulin aspart] 100 unit/mL Solution 2 - 4 unit subcut HS Qty: 10 0RF Protocol: Insulin Corrective High-Dose Condition: glucose < 70 mg/dl Dose/Route: Follow hypoglycemia order Condition: glucose 70-200 mg/dl Dose/Route: No additional insulin Condition: glucose 201-250 mg/dl Dose/Route: 2 units sub-Q Condition: glucose 251-300 mg/dl Dose/Route: 2 units sub-Q Condition: glucose 301-350 mg/dl Dose/Route: 3 units sub-Q Condition: glucose 351-400 mg/dl Dose/Route: 4 units sub-Q Condition: glucose > 400 mg/dl Dose/Route: Call insulin glargine [Lantus U-100 Insulin] 100 unit/mL Solution 25 unit subcut HS Qty: 10 0RF levofloxacin 750 mg tablet 750 mg PO DAILY 7 Days Qty: 7 0RF Follow-up/Referrals: Jorge,MD Jhon [Primary Care Provider] -
[2024-02-28 00:45] LABS: Lactic Acid Reflex 2.1 mmol/L (0.7-2.0); Magnesium 1.6 mg/dL (1.6-2.3)
[2024-02-28 00:59] LABS: NT Pro B Type Natriuretic Pept 5140 pg/mL (19.9-100); Troponin I 0.037 ng/mL (0.000-0.034)
--- NOTE | 2024-02-28 01:01 | PM.IMHP ---
H&P: HPI History of Present Illness Date/Time: 02/28/24 01:01 Chief Complaint: left lower extremity cellulitis Narrative: This is a 73-year-old male with past medical history significant for bilateral chronic lymphedema, bilateral chronic wounds, obesity, type diabetes mellitus, peripheral diabetic neuropathy, glaucoma, chronic kidney disease, benign prostatic hyperplasia, gastroesophageal reflux disease, dyslipidemia, hypertension, peripheral vascular disease, coronary artery disease, stroke. Patient presents to the emergency room due to left lower extremity, patient also with generalized weakness however denies fevers rigors chills or night sweats. Although patient cannot really contribute in a meaningful way to history taking. Cannot really give much detail. Patient was recently discharged from [facility] apparently treated for cellulitis and bacteremia. Preliminary workup [place] [address], creatinine 2.4, BUN 32 brain atretic peptide 5000. Patient is been admitted for further evaluation management and treatment. Portable chest x-ray Comparison: 06/26/2019 Clinical History: Weakness Findings: Lungs are clear, without focal consolidation or pleural effusion. Cardiomediastinal silhouette is stable, status post probable interval CABG. Bones and soft tissues are unremarkable. Impression: Clear lungs. Review of Systems Review of Systems: Left lower extremity tenderness, redness. [facility] Past Medical History Medical History Chronic acquired lymphedema Arthritis Chronic kidney disease Benign prostatic hyperplasia Gastroesophageal reflux disease Obstructive sleep apnea non-compliant with CPAP Insulin dependent type 2 diabetes mellitus Hyperlipidemia Hypertension Peripheral vascular disease Coronary artery disease history of stent x5 and 2 vessel bypass Cerebrovascular accident (2013) residual right hand weakness Morbid obesity Surgical History Surgical History History of cataract extraction with lens replacement History of coronary artery stent placement History of coronary artery bypass graft x 2 (01/2020) Family History Family History Sibling Family history of type 2 diabetes mellitus Social History Social History Social History: Surrogate medical decision maker: Kary King, spouse. Code status: Full code. 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 Spiritual care concerns: No Meds Home Medications and Allergies Home Medications Medication Instructions Recorded Confirmed Type aspirin 81 mg tablet 81 mg PO DAILY 09/05/20 02/28/24 History atorvastatin 20 mg tablet 20 mg PO DAILY 09/05/20 02/28/24 History clopidogrel 75 mg tablet 75 mg PO DAILY 09/05/20 02/28/24 History gabapentin 300 mg capsule 300 mg PO Q6-8H PRN Pain 09/05/20 02/28/24 History latanoprost 0.005 % eye drops 1 drp EACH EYE DAILY 09/05/20 02/28/24 History losartan 100 mg tablet 100 mg PO QPM 09/05/20 02/28/24 History metoprolol tartrate 100 mg tablet 100 mg PO DAILY 09/05/20 02/28/24 History spironolactone 25 mg tablet 25 mg PO QAM 09/05/20 02/28/24 History tamsulosin 0.4 mg capsule 0.4 mg PO DAILY 09/05/20 02/28/24 History timolol maleate 0.5 % eye drops 1 drp EACH EYE DAILY 09/05/20 02/28/24 History calcitriol 0.25 mcg capsule 0.25 mcg PO DAILY 02/03/24 02/28/24 History chlorthalidone 25 mg tablet 25 mg PO DAILY 02/03/24 02/28/24 History hydrocodone 5 mg-acetaminophen 325 1 tablet PO Q6H PRN Pain Rated 4-6 02/07/24 02/28/24 Rx mg tablet #12 tabs insulin aspart U-100 100 unit/mL 2 - 4 unit subcut HS #10 mL 02/07/24 02/28/24 Rx subcutaneous solution (Novolog U-100 Insulin aspart) insulin glargine 100 unit/mL 25 unit (0.25 mL) subcut HS #10 mL 02/07/24 02/28/24 Rx subcutaneous solution (Lantus U-100 Insulin) Allergies Allergy/AdvReac Type Severity Reaction Status Date / Time Penicillins AdvReac Mild Nausea Verified 02/28/24 02:39 Vital Signs Vital Signs - 24 hr 02/27/24 22:33 02/28/24 00:19 Temperature 99.0 F Pulse Rate 110 H 113 H Respiratory Rate 15 14 Blood Pressure 167/73 H 166/71 H Pulse Oximetry 100 Oxygen Delivery Room Air Exam Narrative: patient is laying in a stretcher Const: General: comfortable, no acute distress, well developed, alert, awake, ill appearing chronically, tired appearing, obese and edematous Nutritional Appearance: obese and edematous Orientation/consciousness: oriented to person, oriented to place and lethargic HENMT: Head: normal to inspection, normocephalic and atraumatic Ears: hearing grossly normal bilaterally Face/Nose/Sinus: normal facial exam Face and sinus: normal facial exam Eyes: General: appearance normal, both eyes and all related structures Pupils: Equal, round and reactive pupils present EOM: EOMs intact bilaterally Neck: Neck: full ROM, no lymphadenopathy and no JVD Thyroid: thyroid normal Lymphatic: no lymphadenopathy noted Resp: Effort & Inspection: normal respiratory effort and able to speak in complete sentences Auscultation: clear to auscultation bilaterally Cardio: Jugular venous distension: no JVD Rate: regular rate Rhythm: regular rhythm Heart sounds: S1 normal heart sound present and S2 normal heart sound present GI: Inspection: Pannus present, obesity and visible herniation GI Palp: Yes Soft to palpation and Yes No hepatosplenomegaly present : General: Yes deferred Skin: Rashes: rashes noted Wounds: wounds noted Neuro: General: oriented to person, oriented to place and CN's II-XI intact bilaterally Cranial nerves: Yes CN's II-XII intact bilaterally and Yes Equal, round and reactive pupils present Cognition (Neuro): abnormal cognition (lethargy) Speech: normal speech Gait exam (Neuro): Unable to assess gait Motor exam (neuro): 5/5 motor strength present throughout Extrem: Other: patient with compression stockings in place H&P: Results Labs Labs: Short CBC 02/27/24 Range/Units 23:45 WBC 15.7 H (4.5-10.0) K/mm3 Hgb 10.6 L (14.0-18.0) g/dL Hct 32.5 L (42.0-52.0) % Plt Count 239 (150-375) k/mm3 BMP 02/27/24 23:45 Sodium 138 Potassium 4.1 Chloride 108 H Carbon Dioxide 22 BUN 32 H Creatinine 2.40 H Glucose 307 H Calcium 9.4 Cardiac Enzymes 02/28/24 Range/Units 00:18 Troponin I 0.037 H* (0.000-0.034) ng/mL Liver Function 02/27/24 Range/Units 23:45 Total Bilirubin 1.8 H (0.2-1.3) mg/dL AST 26 (17-59) U/L ALT 14 (6-50) U/L Alkaline Phosphatase 147 H (38-126) U/L Albumin 3.8 (3.5-5.1) g/dL Urine 02/27/24 Range/Units 23:45 Urine Color Yellow (Yellow) Urine Appearance Clear (Clear) Urine pH 5.0 (5.0-9.0) Ur Specific [place] 1.022 (1.001-1.035) Urine Protein 4+ H (Negative) mg/dL Urine Glucose (UA) 3+ H (Negative) mg/dL Assessment and Plan Assessment and plan (1) Left leg cellulitis: Code(s): L03.116 - Cellulitis of left lower limb Status: Acute Assessment and Plan: admit to IMU patient started on cefepime vancomycin and Flagyl cultures in place (2) Elevated troponin: Code(s): R79.89 - Other specified abnormal findings of blood chemistry Status: Acute Assessment and Plan: continue to trend (3) Leg pain: Code(s): M79.606 - Pain in leg, unspecified Status: Acute Assessment and Plan: likely neuropathic pain (4) Chronic acquired lymphedema: Code(s): I89.0 - Lymphedema, not elsewhere classified Status: Acute Assessment and Plan: compression stockings in place (5) Chronic kidney disease: Code(s): N18.9 - Chronic kidney disease, unspecified Status: Acute Assessment and Plan: BUN and creatinine at patient's baseline (6) Insulin dependent type 2 diabetes mellitus: Code(s): E11.9 - Type 2 diabetes mellitus without complications; 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
[2024-02-28] MEDS: CEFEPIME 2 GM/NS 50 ML 2 GM/50 ML BAG IVPB (01:34)
[2024-02-28] MEDS: metroNIDAZOLE 500 MG/ISO 100ML 500 MG/100 ML BAG 100 MG IVPB ×3 (01:35→17:42)
[2024-02-28 01:43] LABS: Influenza A QL RT-PCR Negative (Negative); Influenza B QL RT-PCR Negative (Negative); RSV RNA, RT-PCR Negative (Negative); SARS-CoV-2 RNA PCR Negative (Negative)
[2024-02-28] MEDS: VANCOMYCIN 1,250 MG/NS 250 ML 1,250 MG/250 ML BAG 166.67 MG IVPB ×2 (03:24→05:28)
[2024-02-28 03:26] LABS: Reflex Lactic Acid Yes or No Add Lactic
--- NOTE | 2024-02-28 03:57 | ECG_ITS ---
Test Date: 2024-02-28 03:59:29 Measurements Intervals [place] Rate: 107 P: 65 MO: 138 QRS: -17 QRSD: 103 T: 107 QT: 333 QTc: 446 Interpretive Statements SINUS TACHYCARDIA SEPTAL MYOCARDIAL INFARCTION , PROBABLY OLD [40+ ms Q WAVE IN V1/V2] POSSIBLE LATERAL MYOCARDIAL INFARCTION , OF INDETERMINATE AGE [30 ms Q WAVE IN I/aVL/V5/V6] Compared to ECG 02/27/2024 23:40:28 No significant changes Electronically Signed On 02-28-2024 16:16:55 FACING CUTTING MACHINE OPERATOR by Candi Clarke M.D.
[2024-02-28 04:28] LABS: Lactic Acid 1.6 mmol/L (0.7-2.0)
[2024-02-28 04:46] LABS: Troponin I 0.049 ng/mL (0.000-0.034)
[2024-02-28 06:01] LABS: Glucose Point of Care 251 mg/dl (65-105)
--- NOTE | 2024-02-28 07:38 | PM.IMHP ---
H&P: HPI History of Present Illness Date/Time: 02/28/24 07:38 Chief Complaint: Redness, swelling, pain of left lower extremity Narrative: 73 years old man with multiple comorbidities including chronic ulcer bilateral lower extremity, lymphedema, morbid obesity, diabetes, diabetic neuropathy, CKD, BPH, GERD, hypertension PVD CAD show, present ED with a chief complaint of worsening redness, swelling and pain of left extremity. Patient was recently admitted to the hospital because of cellulitis and bacteremia. Patient noticed worsening swelling pain and redness of left lower extremity in past few more days, patient denies fever, chills. Patient denies chest pain abdomen pain nausea vomiting diarrhea. Upon arrival in the ED, patient had temperature 99°, tachycardia tachypnea, uncontrolled blood pressure 176/73, no O2 desaturation on room air, lab showed leukocytosis 15,700, elevated BUN creatinine ratio 32/2.4 which on the baseline, elevated troponin x2, 0.049 initially, down to 0.037. I read the EKG myself, EKG shows sinus rhythm, heart rate 107, no specific ST or T-wave changes, no dynamic change from previous EKGs. Chest x-ray shows no acute cardiopulmonary issues Review of Systems Review of Systems: ROS negative except above PMFSH Past Medical History Medical History Chronic acquired lymphedema Arthritis Chronic kidney disease Benign prostatic hyperplasia Gastroesophageal reflux disease Obstructive sleep apnea non-compliant with CPAP Insulin dependent type 2 diabetes mellitus Hyperlipidemia Hypertension Peripheral vascular disease Coronary artery disease history of stent x5 and 2 vessel bypass Cerebrovascular accident (2013) residual right hand weakness Morbid obesity Surgical History Surgical History History of cataract extraction with lens replacement History of coronary artery stent placement History of coronary artery bypass graft x 2 (01/2020) Family History Family History Sibling Family history of type 2 diabetes mellitus Social History Social History Social History: Surrogate medical decision maker: Kary King, spouse. Code status: Full code. 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 Spiritual care concerns: No Meds Home Medications and Allergies Home Medications Medication Instructions Recorded Confirmed Type aspirin 81 mg tablet 81 mg PO DAILY 09/05/20 02/28/24 History atorvastatin 20 mg tablet 20 mg PO DAILY 09/05/20 02/28/24 History clopidogrel 75 mg tablet 75 mg PO DAILY 09/05/20 02/28/24 History gabapentin 300 mg capsule 300 mg PO Q6-8H PRN Pain 09/05/20 02/28/24 History latanoprost 0.005 % eye drops 1 drp EACH EYE DAILY 09/05/20 02/28/24 History losartan 100 mg tablet 100 mg PO QPM 09/05/20 02/28/24 History metoprolol tartrate 100 mg tablet 100 mg PO DAILY 09/05/20 02/28/24 History spironolactone 25 mg tablet 25 mg PO QAM 09/05/20 02/28/24 History tamsulosin 0.4 mg capsule 0.4 mg PO DAILY 09/05/20 02/28/24 History timolol maleate 0.5 % eye drops 1 drp EACH EYE DAILY 09/05/20 02/28/24 History calcitriol 0.25 mcg capsule 0.25 mcg PO DAILY 02/03/24 02/28/24 History chlorthalidone 25 mg tablet 25 mg PO DAILY 02/03/24 02/28/24 History hydrocodone 5 mg-acetaminophen 325 1 tablet PO Q6H PRN Pain Rated 4-6 02/07/24 02/28/24 Rx mg tablet #12 tabs insulin aspart U-100 100 unit/mL 2 - 4 unit subcut HS #10 mL 02/07/24 02/28/24 Rx subcutaneous solution (Novolog U-100 Insulin aspart) insulin glargine 100 unit/mL 25 unit (0.25 mL) subcut HS #10 mL 02/07/24 02/28/24 Rx subcutaneous solution (Lantus U-100 Insulin) Allergies Allergy/AdvReac Type Severity Reaction Status Date / Time Penicillins AdvReac Mild Nausea Verified 02/28/24 02:39 Vital Signs Vital Signs - 24 hr 02/27/24 22:33 02/28/24 00:19 02/28/24 00:19 Temperature 99.0 F Pulse Rate 110 H 113 H 114 H Respiratory Rate 15 14 20 Blood Pressure 167/73 H 166/71 H 166/71 H Pulse Oximetry 100 100 Oxygen Delivery Room Air 02/28/24 00:45 02/28/24 00:46 02/28/24 01:10 Temperature Pulse Rate 110 H 111 H 113 H Respiratory Rate 19 20 20 Blood Pressure 145/92 H Pulse Oximetry Oxygen Delivery 02/28/24 01:16 02/28/24 01:17 02/28/24 02:00 Temperature Pulse Rate 111 H 111 H 111 H Respiratory Rate 20 18 14 Blood Pressure 152/83 H 158/67 H Pulse Oximetry 99 Oxygen Delivery 02/28/24 02:24 02/28/24 02:30 02/28/24 02:31 Temperature Pulse Rate 110 H 109 H 110 H Respiratory Rate 20 20 18 Blood Pressure 148/67 H Pulse Oximetry 99 98 98 Oxygen Delivery 02/28/24 02:45 02/28/24 02:46 02/28/24 03:00 Temperature Pulse Rate 108 H 110 H 108 H Respiratory Rate 19 18 18 Blood Pressure 133/65 Pulse Oximetry Oxygen Delivery 02/28/24 03:01 02/28/24 05:55 Temperature 99.0 F Pulse Rate 110 H 114 H Respiratory Rate 23 H 19 Blood Pressure 139/74 148/62 H Pulse Oximetry 100 Oxygen Delivery Exam Narrative: GENERAL: Pleasant, in no acute distress. Well-nourished. - EYES: EOMI. Anicteric. - HENT: Moist mucous membranes. - LUNGS: Clear to auscultation bilaterally, no wheezing, rhonchi, or rales. - CARDIOVASCULAR: Regular rate and rhythm. No murmur. No JVD. - ABDOMEN: Soft, non-tender and non-distended. No palpable masses. - EXTREMITIES: No edema. Peripheral pulses 2+. Non-tender. - NEUROLOGIC: No focal neurological deficits. CN II-XII grossly intact. - PSYCHIATRIC: Awake, Alert and oriented x 3. Appropriate mood and affect. - SKIN: Cellulitis left lower extremity, multiple broken skins of bilateral lower extremities - LYMPH: No cervical lymphadenopathy. H&P: Results Labs Labs: Short CBC 02/27/24 Range/Units 23:45 WBC 15.7 H (4.5-10.0) K/mm3 Hgb 10.6 L (14.0-18.0) g/dL Hct 32.5 L (42.0-52.0) % Plt Count 239 (150-375) k/mm3 BMP 02/27/24 23:45 Sodium 138 Potassium 4.1 Chloride 108 H Carbon Dioxide 22 BUN 32 H Creatinine 2.40 H Glucose 307 H Calcium 9.4 Cardiac Enzymes 02/28/24 02/28/24 Range/Units 00:18 03:58 Troponin I 0.037 H* 0.049 H* D (0.000-0.034) ng/mL Liver Function 02/27/24 Range/Units 23:45 Total Bilirubin 1.8 H (0.2-1.3) mg/dL AST 26 (17-59) U/L ALT 14 (6-50) U/L Alkaline Phosphatase 147 H (38-126) U/L Albumin 3.8 (3.5-5.1) g/dL Urine 02/27/24 Range/Units 23:45 Urine Color Yellow (Yellow) Urine Appearance Clear (Clear) Urine pH 5.0 (5.0-9.0) Ur Specific [place] 1.022 (1.001-1.035) Urine Protein 4+ H (Negative) mg/dL Urine Glucose (UA) 3+ H (Negative) mg/dL Assessment and Plan Assessment and plan (1) Left leg cellulitis: Code(s): L03.116 - Cellulitis of left lower limb Status: Acute (2) Elevated troponin: Code(s): R79.89 - Other specified abnormal findings of blood chemistry Status: Acute (3) CKD stage 4 due to type 2 diabetes mellitus: Code(s): E11.22 - Type 2 diabetes mellitus with diabetic chronic kidney disease; N18.4 - Chronic kidney disease, stage 4 (severe) Status: Acute (4) Insulin dependent type 2 diabetes mellitus: Code(s): E11.9 - Type 2 diabetes mellitus without complications; 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 Status: Acute (5) Hypertension: Code(s): I10 - Essential (primary) hypertension Status: Acute (6) Sepsis: Code(s): A41.9 - Sepsis, unspecified organism Status: Acute (7) LATRICE (iron deficiency anemia): Code(s): D50.9 - Iron deficiency anemia, unspecified Status: Acute Plan Cellulitis of lower extremities, sepsis Patient has worsening rest needs, swelling, pain, a flu extremities, patient has tachycardia tachypnea, leukocytosis 15,000, meeting criteria of sepsis Pressures wound culture grows Serratia Marcescens susceptible to cefepime Pending blood culture Start cefepime IV, Flagyl IV and Zosyn Repeat wound culture Start normal saline Chronic lymphedema and chronic broken skins of bilateral lower extremities Possible due to uncontrolled diabetes Consult Wound Care Uncontrolled type 2 diabetes Upon arrival to ED, grows ulcer 107, A1c in February 03, 2024 10.7 Patient is on glargine 25 units q.h.s., will increase to 40 unit q.h.s. Start insulin aspart 4 units a.c. Start insulin sliding scale a.c. and q.h.s. Elevated troponin Patient denies chest pain EKG showed sinus rhythm no specific ST T-wave changes Likely demand ischemia secondary to sepsis Continue aspirin 81 mg daily p.o., Plavix 75 mg daily p.o. Essential hypertension Continue losartan 100 mg daily p.o., metoprolol 100 mg daily p.o. CKD stage 4 Elevated BUN creatinine ratio on the baseline Avoid nephrotoxic medication Follow urinalysis Chronic anemia Ronal stable No obvious bleeding Follow-up CBC Patient may stay more than 2 midnights in the hospital based on patient's conditions, assessment and plans
[2024-02-28] MEDS: INSULIN ASPART (*BKC) 100 UNITS/ML SUB-Q ×6 (08:26→20:30)
[2024-02-28 08:27] LABS: Troponin I 0.056 ng/mL (0.000-0.034)
[2024-02-28 08:33] LABS: Glucose Point of Care 254 mg/dl (65-105)
[2024-02-28] MEDS: ATORVASTATIN 20 MG TABLET PO (08:48)
[2024-02-28] MEDS: calcitrioL 0.25 MCG CAPSULE PO (08:48)
[2024-02-28] MEDS: ASPIRIN 81 MG ENTERIC TABLET PO (08:48)
[2024-02-28] MEDS: TAMSULOSIN HCL 0.4 MG CAPSULE PO (08:49)
[2024-02-28] MEDS: CLOPIDOGREL BISULFATE 75 MG TABLET PO (08:49)
[2024-02-28] MEDS: TIMOLOL MALEATE 0.5% OP SOLN 5 ML BOTTLE 1 DROP EACH EYE (08:49)
[2024-02-28] MEDS: CHLORTHALIDONE 25 MG TABLET PO (08:49)
[2024-02-28] MEDS: SPIRONOLACTONE 25 MG TABLET PO (08:49)
[2024-02-28] MEDS: METOPROLOL TARTRATE 50 MG TAB 100 MG PO (08:49)
[2024-02-28 12:12] LABS: Glucose Point of Care 225 mg/dl (65-105)
[2024-02-28] MEDS: CEFEPIME 1 GM/NS 50 ML 1 GM/50 ML BAG IVPB (14:03)
--- NOTE | 2024-02-28 15:22 | ADMGEN ---
This patient, John King, was admitted to Medical Room 244-. Patient/family oriented to hospital policies and general routines including ID bracelet, bed and alarms, visiting hours, pain management, procedures, bathroom and other care routines, personal items, smoking policy, room service/diet, and visiting hours. Information on how to activate the Rapid Response Team has been discussed. Patient/Family are encouraged to report perceived risks to care and to ask questions if they do not understand what they are told or what they should do.
--- NOTE | 2024-02-28 15:58 | PCRCNOTE ---
PT. NON COMPLIANT WITH CPAP, MACHINE NOT PROVIDED HERE.
[2024-02-28 16:37] LABS: Glucose Point of Care 198 mg/dl (65-105)
[2024-02-28] MEDS: LOSARTAN POTASSIUM 100 MG TABLET PO (17:42)
[2024-02-28] MEDS: HYDROcodone/acetaminophen (*CRX) 5-325 MG TABLET 1 TAB PO (19:17)
[2024-02-28] MEDS: INSULIN GLARGINE (*BKC) 100 UNITS/ML SUB-Q (20:30)
[2024-02-28 20:39] LABS: Glucose Point of Care 217 mg/dl (65-105)
[2024-02-28] MEDS: LATANOPROST 0.005% OP SOLN 2.5 ML BTL 1 DROP EACH EYE (20:54)
[2024-02-29] VITALS (9 sets, daily range): BP systolic 107–133; BP diastolic 46–55; PULSE 69–92; RESP 18–20; TEMP 36.4–36.8; O2SAT 98–100
[2024-02-29] MEDS: metroNIDAZOLE 500 MG/ISO 100ML 500 MG/100 ML BAG 100 MG IVPB ×2 (01:23→10:22)
[2024-02-29] MEDS: MORPHINE SULFATE (*CRX) 4 MG/ML INJ IV PUSH ×2 (05:11→16:10)
[2024-02-29 06:02] LABS: Estimated CRCL calculation 30 ml/min; Estimated Glomerular Filt Rate 21
--- NOTE | 2024-02-29 07:51 | P.PNIM_ITS ---
Progress Note: A&P Assessment and Plan (1) Left leg cellulitis: Code(s): L03.116 - Cellulitis of left lower limb Status: Acute (2) Elevated troponin: Code(s): R79.89 - Other specified abnormal findings of blood chemistry Status: Acute (3) CKD stage 4 due to type 2 diabetes mellitus: Code(s): E11.22 - Type 2 diabetes mellitus with diabetic chronic kidney disease; N18.4 - Chronic kidney disease, stage 4 (severe) Status: Acute (4) Insulin dependent type 2 diabetes mellitus: Code(s): E11.9 - Type 2 diabetes mellitus without complications; Z79.4 - [facility] (current) use of insulin Status: Acute (5) Hypertension: Code(s): I10 - Essential (primary) hypertension Status: Acute (6) Sepsis: Code(s): A41.9 - Sepsis, unspecified organism Status: Acute (7) LATRICE (iron deficiency anemia): Code(s): D50.9 - Iron deficiency anemia, unspecified Status: Acute Plan Cellulitis of lower extremities, sepsis Patient has worsening rest needs, swelling, pain, a flu extremities, patient has tachycardia tachypnea, leukocytosis 15,000, meeting criteria of sepsis Pressures wound culture grows Serratia Marcescens susceptible to cefepime Pending blood culture Started cefepime IV, Flagyl IV and vancomycin 02/27 Repeat wound culture: no growth now Received normal saline resuscitation Changed to cefepime and doxy IV. Cellulitis improving 02/28 Chronic lymphedema and chronic broken skins of bilateral lower extremities Possible due to uncontrolled diabetes Consult Wound Care Uncontrolled type 2 diabetes Upon arrival to ED, grows ulcer 107, A1c in February 03, 2024 10.7 Patient is on glargine 25 units q.h.s., will increase to 40 unit q.h.s. Start insulin aspart 4 units a.c. Start insulin sliding scale a.c. and q.h.s. 02/28: Better controlled, still not controlled in the target range. Increase aspart 6 units before each meal Elevated troponin Patient denies chest pain EKG showed sinus rhythm no specific ST T-wave changes Likely demand ischemia secondary to sepsis Continue aspirin 81 mg daily p.o., Plavix 75 mg daily p.o. Essential hypertension Continue losartan 100 mg daily p.o., metoprolol 100 mg daily p.o. CKD stage 4 Elevated BUN creatinine ratio on the baseline Avoid nephrotoxic medication Follow urinalysis Chronic anemia Ronal stable No obvious bleeding Follow-up CBC Patient may stay more than 2 midnights in the hospital based on patient's conditions, assessment and plans Subjective Date/time seen: 02/29/24 07:51 Interval history: I saw examined patient today. Patient feels pain of her left leg is improving. No new issue even overnight, afebrile blood pressure stable. Blood culture no growth today Exam Narrative: GENERAL: Pleasant, in no acute distress. Well-nourished. - EYES: EOMI. Anicteric. - HENT: Moist mucous membranes. - LUNGS: Clear to auscultation bilateral ly, no wheezing, rhonchi, or rales. - CARDIOVASCULAR: Regular rate and rhyth m. No murmur. No JVD. - ABDOMEN: Soft, non-tender and non-dist ended. No palpable masses. - EXTREMITIES: No edema. Peripheral puls es 2+. Non-tender. - NEUROLOGIC: No focal neurological defi cits. CN II-XII grossly intact. - PSYCHIATRIC: Awake, Alert and oriented x 3. Appropriate mood and affect. - SKIN: Cellulitis left lower extremity , multiple broken skins of bilateral lower extremities - LYMPH: No cervical lymphadenopathy. Objective Data Vital Signs Vital Signs: Vital Signs - 24 hr 02/28/24 08:30 02/28/24 08:45 02/28/24 08:49 Temperature Pulse Rate 107 H 105 H 106 H Respiratory Rate 22 H 18 Blood Pressure Pulse Oximetry 96 Oxygen Delivery 02/28/24 09:00 02/28/24 09:16 02/28/24 09:34 Temperature Pulse Rate 110 H 104 H 97 Respiratory Rate 18 19 24 H Blood Pressure Pulse Oximetry Oxygen Delivery 02/28/24 10:22 02/28/24 10:30 02/28/24 10:31 Temperature Pulse Rate 93 93 94 Respiratory Rate 22 H 22 H 24 H Blood Pressure 105/40 L Pulse Oximetry Oxygen Delivery 02/28/24 11:04 02/28/24 12:18 02/28/24 14:04 Temperature Pulse Rate 93 91 82 Respiratory Rate 21 H 18 20 Blood Pressure 121/68 124/54 L Pulse Oximetry 99 98 Oxygen Delivery 02/28/24 15:00 02/28/24 15:32 02/28/24 16:00 Temperature 98 F Pulse Rate 83 85 Respiratory Rate 18 Blood Pressure 118/47 L Pulse Oximetry 100 Oxygen Delivery Room Air 02/28/24 17:41 02/28/24 20:00 02/28/24 20:00 Temperature 98.8 F Pulse Rate 82 Respiratory Rate 20 Blood Pressure 132/59 L 112/48 L Pulse Oximetry 96 Oxygen Delivery Room Air 02/28/24 20:00 02/29/24 00:00 02/29/24 00:00 Temperature 97.8 F Pulse Rate 84 80 73 Respiratory Rate 20 Blood Pressure 107/46 L Pulse Oximetry 99 Oxygen Delivery 02/29/24 04:00 02/29/24 04:00 Temperature 98.2 F Pulse Rate 84 92 Respiratory Rate 20 Blood Pressure 129/46 L Pulse Oximetry 100 Oxygen Delivery Intake/Output Intake/Output: Intake & Output 02/26/24 02/27/24 02/28/24 02/29/24 23:59 23:59 23:59 23:59 Intake Total 1470 390 Output Total 200 500 Balance 1270 -110 Meds/Results Medications: Active Medications Generic Name Dose Route Start Last Admin Trade Name Freq PRN Reason Stop Dose Admin Acetaminophen 650 mg 02/28/24 01:05 Acetaminophen 325 Mg Tablet PO Q4H PRN Mild Pain (1-3) or Fever Hydrocodone Bitart/Acetaminophen 1 tab 02/28/24 07:56 02/28/24 19:17 Hydrocodone/Acetaminophen (*Crx) 5-325 Mg Tablet PO 1 tab Q6H PRN Administration Pain Rated 4-6 Aspirin 81 mg 02/28/24 09:00 02/28/24 08:48 Aspirin 81 Mg Enteric Tablet PO 81 mg QAM RADHA Administration Atorvastatin Calcium 20 mg 02/28/24 09:00 02/28/24 08:48 Atorvastatin 20 Mg Tablet PO 20 mg DAILY RADHA Administration Calcitriol 0.25 mcg 02/28/24 09:00 02/28/24 08:48 Calcitriol 0.25 Mcg Capsule PO 0.25 mcg DAILY RADHA Administration Chlorthalidone 25 mg 02/28/24 09:00 02/28/24 08:49 Chlorthalidone 25 Mg Tablet PO 25 mg DAILY RADHA Administration Clopidogrel Bisulfate 75 mg 02/28/24 09:00 02/28/24 08:49 Clopidogrel Bisulfate 75 Mg Tablet PO 75 mg DAILY RADHA Administration Dextrose 12.5 gm 02/28/24 01:05 Dextrose 50% 25 Gm/50 Ml Syringe IV PUSH PRN PRN Hypoglycemia Protocol Dextrose 12.5 gm 02/28/24 08:04 Dextrose 50% 25 Gm/50 Ml Syringe IV PUSH PRN PRN Hypoglycemia Protocol Gabapentin 300 mg 02/28/24 07:56 Gabapentin 300 Mg Capsule PO Q6-8H PRN Pain Glucagon 1 mg 02/28/24 01:05 Glucagon For Inj 1 Mg Vial IM PRN PRN Hypoglycemia Protocol Glucagon 1 mg 02/28/24 08:04 Glucagon For Inj 1 Mg Vial IM PRN PRN Hypoglycemia Protocol Glucose 15 gm 02/28/24 01:05 Glucose Oral Gel 15 Gm Of Glucse In 37.5 Gm Tube PO PRN PRN Hypoglycemia Protocol Glucose 15 gm 02/28/24 08:04 Glucose Oral Gel 15 Gm Of Glucse In 37.5 Gm Tube PO PRN PRN Hypoglycemia Protocol Metronidazole 500 mg in 100 mls @ 100 mls/hr 02/28/24 10:00 02/29/24 02:25 Flagyl 500 Mg/Iso Soln 100 Ml IVPB Infused Q8H RADHA Infusion Dextrose 1,000 mls @ 100 mls/hr 02/28/24 01:05 Dextrose 5% 1,000 Ml IVPB PRN PRN Hypoglycemia Protocol Cefepime HCl 1 gm in 50 mls @ 100 mls/hr 02/28/24 14:00 02/28/24 14:23 Maxipime 1 Gm/Ns 50 Ml IVPB Infused Q24H RADHA Infusion Vancomycin HCl 1,500 mg in 500 mls @ 250 mls/hr 02/29/24 16:00 Vancomycin 1,500 Mg/Ns 500 Ml IVPB Q36H RADHA Dextrose 1,000 mls @ 100 mls/hr 02/28/24 08:04 Dextrose 5% 1,000 Ml IVPB PRN PRN Hypoglycemia Protocol Insulin Aspart 4 - 8 units 02/28/24 08:00 02/28/24 17:37 Insulin Aspart (*Bkc) 100 Units/Ml SUB-Q Not Given TIDWM RADHA Protocol Insulin Aspart 2 - 4 units 02/28/24 21:00 02/28/24 20:30 Insulin Aspart (*Bkc) 100 Units/Ml SUB-Q 2 units HS RADHA Administration Protocol Insulin Aspart 4 units 02/28/24 08:00 02/28/24 17:42 Insulin Aspart (*Bkc) 100 Units/Ml SUB-Q 4 units TIDWM RADHA Administration Insulin Glargine 4 units 02/28/24 21:00 02/28/24 20:30 Insulin Glargine (*Bkc) 100 Units/Ml SUB-Q 4 units HS RADHA Administration Latanoprost 1 drop 02/28/24 21:00 02/28/24 20:54 Latanoprost 0.005% Op Soln 2.5 Ml Btl EACH EYE 1 drop HS RADHA Administration Losartan Potassium 100 mg 02/28/24 18:00 02/28/24 17:42 Losartan Potassium 100 Mg Tablet PO 100 mg QPM RADHA Administration Metoprolol Tartrate 100 mg 02/28/24 09:00 02/28/24 08:49 Metoprolol Tartrate 50 Mg Tab PO 100 mg DAILY RADHA Administration Morphine Sulfate 4 mg 02/28/24 01:05 02/29/24 05:11 Morphine Sulfate (*Crx) 4 Mg/Ml Inj IV PUSH 4 mg Q2H PRN Administration Pain Rated 7-10 Ondansetron HCl 4 mg 02/28/24 01:05 Ondansetron Inj 4 Mg/2 Ml Vial IV PUSH Q4H PRN Nausea Spironolactone 25 mg 02/28/24 09:00 02/28/24 08:49 Spironolactone 25 Mg Tablet PO 25 mg QAM RADHA Administration Tamsulosin HCl 0.4 mg 02/28/24 09:00 02/28/24 08:49 Tamsulosin Hcl 0.4 Mg Capsule PO 0.4 mg DAILY RADHA Administration Timolol Maleate 1 drop 02/28/24 09:00 02/28/24 08:49 Timolol Maleate 0.5% Op Soln 5 Ml Bottle EACH EYE 1 drop DAILY RADHA Administration Radiology Results: ITS Impressions Chest X-Ray 02/28/24 05:51 Impression: Clear lungs. Labs Labs: Laboratory Results - last 24 hr 02/28/24 02/28/24 02/28/24 07:54 08:31 12:10 Creatinine Estim Creat Clear Calc Estimated GFR POC Capillary Glucose 254 H 225 H Troponin I 0.056 H* 02/28/24 02/28/24 02/29/24 16:29 20:29 05:17 Creatinine 3.00 H Estim Creat Clear Calc 30 Estimated GFR 21 L POC Capillary Glucose 198 H 217 H Troponin I
[2024-02-29 07:59] LABS: Glucose Point of Care 157 mg/dl (65-105)
[2024-02-29 08:12] LABS: Basophils Absolute Auto 0.1 K/mm3 (0.0-0.1); Basophils Percent Auto 0.3 % (0.2-1.2); Eosinophils Absolute Auto 0.3 K/mm3 (0-0.3); Eosinophils Percent Auto 2.1 % (0-4.4); Hematocrit 28.9 % (42.0-52.0); Immature Granulocyte Absolute 0.11 K/mm3 (0.00-0.031); Immature Granulocyte Percent A 0.7 % (0-0.5); Lymphocytes Absolute Auto 1.37 K/mm3 (0.9-3.2); Lymphocytes Percent Auto 9.1 % (18.3-44.2); Mean Corpuscular HGB Conc 31.1 g/dl (32-36); Mean Corpuscular Hemoglobin 29.6 pg (26-34); Mean Corpuscular Volume 95.1 fl (80-100); Mean Platelet Volume 11.2 fl (7.4-10.4); Monocytes Absolute Auto 0.9 K/mm3 (0.1-0.6); Neutrophils Absolute Auto 12.3 K/mm3 (1.3-6.7); Neutrophils Percent Auto 81.8 % (45.5-73.1); Platelet Count Result 192 k/mm3 (150-375); Red Blood Count 3.04 M/mm3 (4.6-6.20); Red Cell Distribution Width 13.8 % (11.5-14.5)
[2024-02-29 08:26] LABS: Anion Gap 5 mmol/L (4-12); Blood Urea Nitrogen 41 mg/dL (9-20); Calcium 8.7 mg/dL (8.4-10.2); Carbon Dioxide 22 mmol/L (22-30); Chloride 111 mmol/L (98-107); Estimated CRCL calculation 30 ml/min; Estimated Glomerular Filt Rate 21; Glucose 156 mg/dL (65-110); Potassium 3.9 mmol/L (3.4-5.0); Sodium 138 mmol/L (137-145)
[2024-02-29] MEDS: METOPROLOL TARTRATE 50 MG TAB 100 MG PO (08:47)
[2024-02-29] MEDS: TAMSULOSIN HCL 0.4 MG CAPSULE PO (08:47)
[2024-02-29] MEDS: calcitrioL 0.25 MCG CAPSULE PO (08:47)
[2024-02-29] MEDS: CHLORTHALIDONE 25 MG TABLET PO (08:47)
[2024-02-29] MEDS: HYDROcodone/acetaminophen (*CRX) 5-325 MG TABLET 1 TAB PO ×2 (08:47→20:32)
[2024-02-29] MEDS: ASPIRIN 81 MG ENTERIC TABLET PO (08:47)
[2024-02-29] MEDS: CLOPIDOGREL BISULFATE 75 MG TABLET PO (08:47)
[2024-02-29] MEDS: ATORVASTATIN 20 MG TABLET PO (08:47)
[2024-02-29] MEDS: INSULIN ASPART (*BKC) 100 UNITS/ML 6 UNITS SUB-Q ×3 (08:48→17:31)
[2024-02-29] MEDS: TIMOLOL MALEATE 0.5% OP SOLN 5 ML BOTTLE 1 DROP EACH EYE (08:48)
[2024-02-29] MEDS: SPIRONOLACTONE 25 MG TABLET PO (08:48)
[2024-02-29 12:00] LABS: Glucose Point of Care 167 mg/dl (65-105)
[2024-02-29] MEDS: DOXYCYCLINE HYCLATE 100 MG TABLET PO ×2 (12:03→20:31)
[2024-02-29] MEDS: CEFEPIME 1 GM/NS 50 ML 1 GM/50 ML BAG IVPB (14:19)
[2024-02-29] MEDS: LACTIC ACID 12% LOTION 225 BTL 1 APPLIC TOPICAL (14:20)
[2024-02-29 17:10] LABS: Glucose Point of Care 155 mg/dl (65-105)
[2024-02-29] MEDS: LOSARTAN POTASSIUM 100 MG TABLET PO (17:30)
[2024-02-29 22:01] LABS: Glucose Point of Care 142 mg/dl (65-105)
[2024-02-29] MEDS: INSULIN GLARGINE (*BKC) 100 UNITS/ML 40 UNITS SUB-Q (22:03)
[2024-02-29] MEDS: LATANOPROST 0.005% OP SOLN 2.5 ML BTL 1 DROP EACH EYE (22:05)
[2024-03-01] VITALS (11 sets, daily range): BP systolic 116–167; BP diastolic 45–69; PULSE 72–90; RESP 15–18; TEMP 36.2–36.8; O2SAT 94–100
[2024-03-01 08:01] LABS: Basophils Percent Auto 0.3 % (0.2-1.2); Eosinophils Absolute Auto 0.6 K/mm3 (0-0.3); Eosinophils Percent Auto 5.4 % (0-4.4); Hematocrit 27.8 % (42.0-52.0); Hemoglobin 8.9 g/dL (14.0-18.0); Immature Granulocyte Absolute 0.12 K/mm3 (0.00-0.031); Lymphocytes Absolute Auto 1.16 K/mm3 (0.9-3.2); Lymphocytes Percent Auto 9.9 % (18.3-44.2); Mean Corpuscular Volume 93.6 fl (80-100); Mean Platelet Volume 10.6 fl (7.4-10.4); Monocytes Absolute Auto 0.9 K/mm3 (0.1-0.6); Monocytes Percent Auto 7.3 % (2.6-8.5); Neutrophils Absolute Auto 8.9 K/mm3 (1.3-6.7); Neutrophils Percent Auto 76.1 % (45.5-73.1); Platelet Count Result 177 k/mm3 (150-375); Red Blood Count 2.97 M/mm3 (4.6-6.20); Red Cell Distribution Width 13.7 % (11.5-14.5); White Blood Count 11.7 K/mm3 (4.5-10.0)
[2024-03-01 08:13] LABS: Anion Gap 4 mmol/L (4-12); Blood Urea Nitrogen 45 mg/dL (9-20); Calcium 8.6 mg/dL (8.4-10.2); Carbon Dioxide 23 mmol/L (22-30); Chloride 111 mmol/L (98-107); Estimated CRCL calculation 30 ml/min; Estimated Glomerular Filt Rate 21; Glucose 152 mg/dL (65-110); Potassium 4.2 mmol/L (3.4-5.0); Sodium 138 mmol/L (137-145)
[2024-03-01 08:24] LABS: Glucose Point of Care 148 mg/dl (65-105)
--- NOTE | 2024-03-01 08:28 | P.PNIM_ITS ---
Progress Note: A&P Assessment and Plan (1) Left leg cellulitis: Code(s): L03.116 - Cellulitis of left lower limb Status: Acute (2) Elevated troponin: Code(s): R79.89 - Other specified abnormal findings of blood chemistry Status: Acute (3) CKD stage 4 due to type 2 diabetes mellitus: Code(s): E11.22 - Type 2 diabetes mellitus with diabetic chronic kidney disease; N18.4 - Chronic kidney disease, stage 4 (severe) Status: Acute (4) Insulin dependent type 2 diabetes mellitus: Code(s): E11.9 - Type 2 diabetes mellitus without complications; Z79.4 - [facility] (current) use of insulin Status: Acute (5) Hypertension: Code(s): I10 - Essential (primary) hypertension Status: Acute (6) Sepsis: Code(s): A41.9 - Sepsis, unspecified organism Status: Acute (7) LATRICE (iron deficiency anemia): Code(s): D50.9 - Iron deficiency anemia, unspecified Status: Acute Plan Cellulitis of lower extremities, sepsis Patient has worsening rest needs, swelling, pain, a flu extremities, patient has tachycardia tachypnea, leukocytosis 15,000, meeting criteria of sepsis Pressures wound culture grows Serratia Marcescens susceptible to cefepime Pending blood culture Started cefepime IV, Flagyl IV and vancomycin 02/27 Repeat wound culture: no growth now Received normal saline resuscitation Changed to cefepime and doxy IV 02/28 Cellulitis improving 03/01 Chronic lymphedema and chronic broken skins of bilateral lower extremities Possible due to uncontrolled diabetes Consult Wound Care Uncontrolled type 2 diabetes Upon arrival to ED, grows ulcer 107, A1c in February 03, 2024 10.7 Patient is on glargine 25 units q.h.s., will increase to 40 unit q.h.s. Start insulin aspart 4 units a.c. Start insulin sliding scale a.c. and q.h.s. 02/28: Better controlled, still not controlled in the target range. Increase aspart 6 units before each meal 03/01: well controlled Elevated troponin Patient denies chest pain EKG showed sinus rhythm no specific ST T-wave changes Likely demand ischemia secondary to sepsis Continue aspirin 81 mg daily p.o., Plavix 75 mg daily p.o. Essential hypertension Continue losartan 100 mg daily p.o., metoprolol 100 mg daily p.o. CKD stage 4 Elevated BUN creatinine ratio on the baseline Avoid nephrotoxic medication Follow urinalysis Chronic anemia Ronal stable No obvious bleeding Follow-up CBC Cellulitis is subsiding, may discharge patient in 1-2 days if cellulitis continue to improve Subjective Date/time seen: 03/01/24 08:28 Interval history: I saw examined patient today. Patient feels pain of her left leg is improving. Cellulitis continue to subside afebrile blood pressure stable. Leukocytosis is trending down. Kidney function stable. Glucose is controlled in the target range Exam Narrative: GENERAL: Pleasant, in no acute distress. Well-nourished. - EYES: EOMI. Anicteric. - HENT: Moist mucous membranes. - LUNGS: Clear to auscultation bilateral ly, no wheezing, rhonchi, or rales. - CARDIOVASCULAR: Regular rate and rhyth m. No murmur. No JVD. - ABDOMEN: Soft, non-tender and non-dist ended. No palpable masses. - EXTREMITIES: No edema. Peripheral puls es 2+. Non-tender. - NEUROLOGIC: No focal neurological defi cits. CN II-XII grossly intact. - PSYCHIATRIC: Awake, Alert and oriented x 3. Appropriate mood and affect. - SKIN: Cellulitis left lower extremity , multiple broken skins of bilateral lower extremities - LYMPH: No cervical lymphadenopathy. Objective Data Vital Signs Vital Signs: Vital Signs - 24 hr 02/29/24 08:47 02/29/24 10:54 02/29/24 12:00 Temperature 98.2 F Pulse Rate 84 69 69 Respiratory Rate 18 Blood Pressure 117/51 L Pulse Oximetry 98 Oxygen Delivery 02/29/24 13:11 02/29/24 14:00 02/29/24 15:00 Temperature 97.6 F Pulse Rate 88 Respiratory Rate 19 Blood Pressure 133/55 L Pulse Oximetry 100 Oxygen Delivery Room Air Room Air 02/29/24 16:00 02/29/24 20:00 02/29/24 20:00 Temperature 98.0 F Pulse Rate 86 86 Respiratory Rate 18 Blood Pressure 126/54 L Pulse Oximetry 100 Oxygen Delivery Room Air 02/29/24 20:00 03/01/24 00:00 03/01/24 00:00 Temperature 98.2 F Pulse Rate 84 90 90 Respiratory Rate 18 Blood Pressure 153/69 H Pulse Oximetry 99 Oxygen Delivery 03/01/24 04:00 03/01/24 04:00 03/01/24 06:17 Temperature 97.6 F 98.2 F Pulse Rate 80 90 87 Respiratory Rate 18 18 Blood Pressure 167/65 H 149/60 H Pulse Oximetry 100 100 Oxygen Delivery Intake/Output Intake/Output: Intake & Output 02/27/24 02/28/24 02/29/24 03/01/24 23:59 23:59 23:59 23:59 Intake Total 1470 1440 Output Total 200 1050 1300 Balance 1270 390 -1300 Meds/Results Medications: Active Medications Generic Name Dose Route Start Last Admin Trade Name Freq PRN Reason Stop Dose Admin Acetaminophen 650 mg 02/28/24 01:05 Acetaminophen 325 Mg Tablet PO Q4H PRN Mild Pain (1-3) or Fever Hydrocodone Bitart/Acetaminophen 1 tab 02/28/24 07:56 02/29/24 20:32 Hydrocodone/Acetaminophen (*Crx) 5-325 Mg Tablet PO 1 tab Q6H PRN Administration Pain Rated 4-6 Aspirin 81 mg 02/28/24 09:00 02/29/24 08:47 Aspirin 81 Mg Enteric Tablet PO 81 mg QAM RADHA Administration Atorvastatin Calcium 20 mg 02/28/24 09:00 02/29/24 08:47 Atorvastatin 20 Mg Tablet PO 20 mg DAILY RADHA Administration Calcitriol 0.25 mcg 02/28/24 09:00 02/29/24 08:47 Calcitriol 0.25 Mcg Capsule PO 0.25 mcg DAILY RADHA Administration Chlorthalidone 25 mg 02/28/24 09:00 02/29/24 08:47 Chlorthalidone 25 Mg Tablet PO 25 mg DAILY RADHA Administration Clopidogrel Bisulfate 75 mg 02/28/24 09:00 02/29/24 08:47 Clopidogrel Bisulfate 75 Mg Tablet PO 75 mg DAILY RADHA Administration Dextrose 12.5 gm 02/28/24 08:04 Dextrose 50% 25 Gm/50 Ml Syringe IV PUSH PRN PRN Hypoglycemia Protocol Doxycycline Hyclate 100 mg 02/29/24 11:30 02/29/24 20:31 Doxycycline Hyclate 100 Mg Tablet PO 100 mg Q12HR RADHA Administration Gabapentin 300 mg 02/28/24 07:56 Gabapentin 300 Mg Capsule PO Q6-8H PRN Pain Glucagon 1 mg 02/28/24 08:04 Glucagon For Inj 1 Mg Vial IM PRN PRN Hypoglycemia Protocol Glucose 15 gm 02/28/24 08:04 Glucose Oral Gel 15 Gm Of Glucse In 37.5 Gm Tube PO PRN PRN Hypoglycemia Protocol Cefepime HCl 1 gm in 50 mls @ 100 mls/hr 02/28/24 14:00 02/29/24 14:19 Maxipime 1 Gm/Ns 50 Ml IVPB 100 mls/hr Q24H RADHA Administration Dextrose 1,000 mls @ 100 mls/hr 02/28/24 08:04 Dextrose 5% 1,000 Ml IVPB PRN PRN Hypoglycemia Protocol Insulin Aspart 4 - 8 units 02/28/24 08:00 03/01/24 08:22 Insulin Aspart (*Bkc) 100 Units/Ml SUB-Q Not Given TIDWM RADHA Protocol Insulin Aspart 2 - 4 units 02/28/24 21:00 02/29/24 22:01 Insulin Aspart (*Bkc) 100 Units/Ml SUB-Q Not Given HS RADHA Protocol Insulin Aspart 6 units 02/29/24 08:00 02/29/24 17:31 Insulin Aspart (*Bkc) 100 Units/Ml SUB-Q 6 units TIDWM RADHA Administration Insulin Glargine 40 units 02/29/24 21:00 02/29/24 22:03 Insulin Glargine (*Bkc) 100 Units/Ml SUB-Q 40 units HS RADHA Administration Lactic Acid 1 applic 02/29/24 09:00 02/29/24 14:20 Lactic Acid 12% Lotion 225 Btl TOPICAL 1 applic QAM RADHA Administration Latanoprost 1 drop 02/28/24 21:00 02/29/24 22:05 Latanoprost 0.005% Op Soln 2.5 Ml Btl EACH EYE 1 drop HS RADHA Administration Losartan Potassium 100 mg 02/28/24 18:00 02/29/24 17:30 Losartan Potassium 100 Mg Tablet PO 100 mg QPM RADHA Administration Metoprolol Tartrate 100 mg 02/28/24 09:00 02/29/24 08:47 Metoprolol Tartrate 50 Mg Tab PO 100 mg DAILY RADHA Administration Morphine Sulfate 4 mg 02/28/24 01:05 02/29/24 16:10 Morphine Sulfate (*Crx) 4 Mg/Ml Inj IV PUSH 4 mg Q2H PRN Administration Pain Rated 7-10 Ondansetron HCl 4 mg 02/28/24 01:05 Ondansetron Inj 4 Mg/2 Ml Vial IV PUSH Q4H PRN Nausea Spironolactone 25 mg 02/28/24 09:00 02/29/24 08:48 Spironolactone 25 Mg Tablet PO 25 mg QAM RADHA Administration Tamsulosin HCl 0.4 mg 02/28/24 09:00 02/29/24 08:47 Tamsulosin Hcl 0.4 Mg Capsule PO 0.4 mg DAILY RADHA Administration Timolol Maleate 1 drop 02/28/24 09:00 02/29/24 08:48 Timolol Maleate 0.5% Op Soln 5 Ml Bottle EACH EYE 1 drop DAILY RADHA Administration Radiology Results: ITS Impressions Chest X-Ray 02/28/24 05:51 Impression: Clear lungs. Labs Labs: Laboratory Results - last 24 hr 02/29/24 02/29/24 02/29/24 11:55 17:06 21:59 WBC RBC Hgb Hct MCV MCH MCHC RDW Plt Count MPV Immature Gran % (Auto) Neut % (Auto) Lymph % (Auto) [place] % (Auto) Eos % (Auto) Baso % (Auto) Lymph # (Auto) [place] # (Auto) Eos # (Auto) Baso # (Auto) Abs Immat Gran (auto) Absolute Neuts (auto) Absolute Nucleated RBC Nucleated RBC % Sodium Potassium Chloride Carbon Dioxide Anion Gap BUN Creatinine Estim Creat Clear Calc Estimated GFR Glucose POC Capillary Glucose 167 H 155 H 142 H Calcium 03/01/24 03/01/24 07:53 08:15 WBC 11.7 H RBC 2.97 L Hgb 8.9 L Hct 27.8 L MCV 93.6 MCH 30.0 MCHC 32.0 RDW 13.7 Plt Count 177 MPV 10.6 H Immature Gran % (Auto) 1.0 H Neut % (Auto) 76.1 H Lymph % (Auto) 9.9 L [place] % (Auto) 7.3 Eos % (Auto) 5.4 H Baso % (Auto) 0.3 Lymph # (Auto) 1.16 [place] # (Auto) 0.9 H Eos # (Auto) 0.6 H Baso # (Auto) 0.0 Abs Immat Gran (auto) 0.12 H Absolute Neuts (auto) 8.9 H Absolute Nucleated RBC 0.000 Nucleated RBC % 0.0 Sodium 138 Potassium 4.2 Chloride 111 H Carbon Dioxide 23 Anion Gap 4 BUN 45 H Creatinine 3.00 H Estim Creat Clear Calc 30 Estimated GFR 21 L Glucose 152 H POC Capillary Glucose 148 H Calcium 8.6
[2024-03-01] MEDS: CLOPIDOGREL BISULFATE 75 MG TABLET PO (08:31)
[2024-03-01] MEDS: METOPROLOL TARTRATE 50 MG TAB 100 MG PO (08:32)
[2024-03-01] MEDS: CHLORTHALIDONE 25 MG TABLET PO (08:32)
[2024-03-01] MEDS: ASPIRIN 81 MG ENTERIC TABLET PO (08:32)
[2024-03-01] MEDS: TIMOLOL MALEATE 0.5% OP SOLN 5 ML BOTTLE 1 DROP EACH EYE (08:32)
[2024-03-01] MEDS: SPIRONOLACTONE 25 MG TABLET PO (08:32)
[2024-03-01] MEDS: DOXYCYCLINE HYCLATE 100 MG TABLET PO ×2 (08:32→20:30)
[2024-03-01] MEDS: calcitrioL 0.25 MCG CAPSULE PO (08:32)
[2024-03-01] MEDS: TAMSULOSIN HCL 0.4 MG CAPSULE PO (08:32)
[2024-03-01] MEDS: LACTIC ACID 12% LOTION 225 BTL 1 APPLIC TOPICAL (08:32)
[2024-03-01] MEDS: ATORVASTATIN 20 MG TABLET PO (08:32)
[2024-03-01] MEDS: INSULIN ASPART (*BKC) 100 UNITS/ML 6 UNITS SUB-Q ×3 (08:33→17:17)
[2024-03-01] MEDS: HYDROcodone/acetaminophen (*CRX) 5-325 MG TABLET 1 TAB PO ×3 (08:33→23:02)
[2024-03-01 11:51] LABS: Glucose Point of Care 128 mg/dl (65-105)
[2024-03-01] MEDS: CEFEPIME 1 GM/NS 50 ML 1 GM/50 ML BAG IVPB (13:52)
[2024-03-01 17:15] LABS: Glucose Point of Care 128 mg/dl (65-105)
[2024-03-01] MEDS: LOSARTAN POTASSIUM 100 MG TABLET PO (17:16)
[2024-03-01 20:16] LABS: Glucose Point of Care 128 mg/dl (65-105)
[2024-03-01] MEDS: INSULIN GLARGINE (*BKC) 100 UNITS/ML 40 UNITS SUB-Q (20:31)
[2024-03-01] MEDS: LATANOPROST 0.005% OP SOLN 2.5 ML BTL 1 DROP EACH EYE (20:31)
[2024-03-02] VITALS (14 sets, daily range): BP systolic 149–189; BP diastolic 64–78; PULSE 78–105; RESP 16–18; TEMP 36.4–37; O2SAT 100
[2024-03-02] MEDS: MORPHINE SULFATE (*CRX) 4 MG/ML INJ IV PUSH (01:03)
[2024-03-02 06:19] LABS: Basophils Absolute Auto 0.1 K/mm3 (0.0-0.1); Basophils Percent Auto 0.5 % (0.2-1.2); Eosinophils Absolute Auto 0.7 K/mm3 (0-0.3); Eosinophils Percent Auto 6.4 % (0-4.4); Hematocrit 29.2 % (42.0-52.0); Hemoglobin 9.1 g/dL (14.0-18.0); Immature Granulocyte Absolute 0.13 K/mm3 (0.00-0.031); Immature Granulocyte Percent A 1.2 % (0-0.5); Lymphocytes Absolute Auto 1.22 K/mm3 (0.9-3.2); Lymphocytes Percent Auto 11.2 % (18.3-44.2); Mean Corpuscular HGB Conc 31.2 g/dl (32-36); Mean Corpuscular Hemoglobin 29.2 pg (26-34); Mean Corpuscular Volume 93.6 fl (80-100); Mean Platelet Volume 10.5 fl (7.4-10.4); Monocytes Absolute Auto 1.1 K/mm3 (0.1-0.6); Monocytes Percent Auto 10.2 % (2.6-8.5); Neutrophils Absolute Auto 7.7 K/mm3 (1.3-6.7); Neutrophils Percent Auto 70.5 % (45.5-73.1); Platelet Count Result 208 k/mm3 (150-375); Red Blood Count 3.12 M/mm3 (4.6-6.20); Red Cell Distribution Width 13.5 % (11.5-14.5); White Blood Count 10.9 K/mm3 (4.5-10.0)
[2024-03-02 06:30] LABS: Anion Gap 5 mmol/L (4-12); Blood Urea Nitrogen 42 mg/dL (9-20); Calcium 8.9 mg/dL (8.4-10.2); Carbon Dioxide 25 mmol/L (22-30); Chloride 110 mmol/L (98-107); Estimated CRCL calculation 31 ml/min; Estimated Glomerular Filt Rate 21; Glucose 107 mg/dL (65-110); Potassium 3.9 mmol/L (3.4-5.0); Sodium 140 mmol/L (137-145)
[2024-03-02 08:14] LABS: Glucose Point of Care 105 mg/dl (65-105)
[2024-03-02] MEDS: ATORVASTATIN 20 MG TABLET PO (08:33)
[2024-03-02] MEDS: CLOPIDOGREL BISULFATE 75 MG TABLET PO (08:34)
[2024-03-02] MEDS: ASPIRIN 81 MG ENTERIC TABLET PO (08:34)
[2024-03-02] MEDS: CHLORTHALIDONE 25 MG TABLET PO (08:34)
[2024-03-02] MEDS: GABAPENTIN 300 MG CAPSULE PO ×2 (08:34→20:28)
[2024-03-02] MEDS: METOPROLOL TARTRATE 50 MG TAB 100 MG PO (08:34)
[2024-03-02] MEDS: TAMSULOSIN HCL 0.4 MG CAPSULE PO (08:34)
[2024-03-02] MEDS: calcitrioL 0.25 MCG CAPSULE PO (08:34)
[2024-03-02] MEDS: LACTIC ACID 12% LOTION 225 BTL 1 APPLIC TOPICAL (08:35)
[2024-03-02] MEDS: DOXYCYCLINE HYCLATE 100 MG TABLET PO ×2 (08:35→20:24)
[2024-03-02] MEDS: TIMOLOL MALEATE 0.5% OP SOLN 5 ML BOTTLE 1 DROP EACH EYE (08:35)
[2024-03-02] MEDS: SPIRONOLACTONE 25 MG TABLET PO (08:35)
[2024-03-02] MEDS: INSULIN ASPART (*BKC) 100 UNITS/ML 6 UNITS SUB-Q (08:35)
--- NOTE | 2024-03-02 11:34 | PCPTNOTE ---
Physical therapy treatment was attempted and pt refused.
[2024-03-02 12:13] LABS: Glucose Point of Care 69 mg/dl (65-105)
[2024-03-02 13:10] LABS: Glucose Point of Care 77 mg/dl (65-105)
--- NOTE | 2024-03-02 13:50 | PCOTNOTE ---
Attempted to see Patient for P.M. treatment session. Patient agitated and stated, leave me alone , I'm eating . Patient declined to participate.
--- NOTE | 2024-03-02 14:22 | P.PNIM_ITS ---
Progress Note: A&P Assessment and Plan (1) Left leg cellulitis: Code(s): L03.116 - Cellulitis of left lower limb Status: Acute (2) Elevated troponin: Code(s): R79.89 - Other specified abnormal findings of blood chemistry Status: Acute (3) CKD stage 4 due to type 2 diabetes mellitus: Code(s): E11.22 - Type 2 diabetes mellitus with diabetic chronic kidney disease; N18.4 - Chronic kidney disease, stage 4 (severe) Status: Acute (4) Insulin dependent type 2 diabetes mellitus: Code(s): E11.9 - Type 2 diabetes mellitus without complications; Z79.4 - senior living (current) use of insulin Status: Acute (5) Hypertension: Code(s): I10 - Essential (primary) hypertension Status: Acute (6) Sepsis: Code(s): A41.9 - Sepsis, unspecified organism Status: Acute (7) LATRICE (iron deficiency anemia): Code(s): D50.9 - Iron deficiency anemia, unspecified Status: Acute Plan Cellulitis of lower extremities, sepsis Patient has worsening rest needs, swelling, pain, a flu extremities, patient has tachycardia tachypnea, leukocytosis 15,000, meeting criteria of sepsis Pressures wound culture grows Serratia Marcescens susceptible to cefepime Pending blood culture Started cefepime IV, Flagyl IV and vancomycin 02/27 Repeat wound culture: no growth now Received normal saline resuscitation Changed to cefepime and doxy IV 02/28 Cellulitis improving 03/01 Chronic lymphedema and chronic broken skins of bilateral lower extremities Possible due to uncontrolled diabetes Consult Wound Care Uncontrolled type 2 diabetes Upon arrival to ED, grows ulcer 107, A1c in February 03, 2024 10.7 Patient is on glargine 25 units q.h.s., will increase to 40 unit q.h.s. Start insulin aspart 4 units a.c. Start insulin sliding scale a.c. and q.h.s. 02/28: Better controlled, still not controlled in the target range. Increase aspart 6 units before each meal 03/01: well controlled Elevated troponin Patient denies chest pain EKG showed sinus rhythm no specific ST T-wave changes Likely demand ischemia secondary to sepsis Continue aspirin 81 mg daily p.o., Plavix 75 mg daily p.o. Essential hypertension Continue losartan 100 mg daily p.o., metoprolol 100 mg daily p.o. CKD stage 4 Elevated BUN creatinine ratio on the baseline Avoid nephrotoxic medication Follow urinalysis Chronic anemia Ronal stable No obvious bleeding Follow-up CBC Cellulitis is subsiding, may discharge patient in 1-2 days if cellulitis continue to improve Subjective Date/time seen: 03/02/24 14:22 Interval history: C/O of pain in his left leg. Order US LE. Patient refused doing ultrasound. Review of Systems Review of Systems: ROS negative except above Exam Narrative: GENERAL: Pleasant, in no acute distress. Well-nourished. - EYES: EOMI. Anicteric. - HENT: Moist mucous membranes. - LUNGS: Clear to auscultation bilateral ly, no wheezing, rhonchi, or rales. - CARDIOVASCULAR: Regular rate and rhyth m. No murmur. No JVD. - ABDOMEN: Soft, non-tender and non-dist ended. No palpable masses. - EXTREMITIES: No edema. Peripheral puls es 2+. Non-tender. - NEUROLOGIC: No focal neurological defi cits. CN II-XII grossly intact. - PSYCHIATRIC: Awake, Alert and oriented x 3. Appropriate mood and affect. - SKIN: Cellulitis left lower extremity , multiple broken skins of bilateral lower extremities - LYMPH: No cervical lymphadenopathy. Const: General: comfortable, no acute distress, well developed, alert, awake, ill appearing chronically, lethargic, tired appearing, obese and edematous Nutritional Appearance: obese and edematous Orientation/consciousness: oriented to person, oriented to place and lethargic HENMT: Head: normal to inspection, normocephalic and atraumatic Ears: hearing grossly normal bilaterally Face/Nose/Sinus: normal facial exam Face and sinus: normal facial exam Eyes: General: appearance normal, both eyes and all related structures Pupils: Equal, round and reactive pupils present EOM: EOMs intact bilaterally Neck: Neck: full ROM, no lymphadenopathy and no JVD Thyroid: thyroid normal Lymphatic: no lymphadenopathy noted Resp: Effort & Inspection: normal respiratory effort and able to speak in complete sentences Auscultation: clear to auscultation bilaterally Cardio: Jugular venous distension: no JVD Rate: regular rate Rhythm: regular rhythm Heart sounds: S1 normal heart sound present and S2 normal heart sound present GI: Inspection: Pannus present, obesity and visible herniation : General: Yes deferred Skin: General skin exam: rashes and wounds noted Rashes: rashes noted Wounds: wounds noted Neuro: General: oriented to person, oriented to place, CN's II-XI intact bilaterally and Unable to assess gait Cranial nerves: Yes CN's II-XII intact bilaterally and Yes Equal, round and reactive pupils present Cognition (Neuro): abnormal cognition (lethargy) Speech: normal speech Gait exam (Neuro): Unable to assess gait Motor exam (neuro): 5/5 motor strength present throughout Extrem: General: normal to inspection, full ROM, no joint enlargement and no pedal edema Other: patient with compression stockings in place Objective Data Vital Signs Vital Signs: Vital Signs - 24 hr 03/01/24 16:00 03/01/24 20:00 03/01/24 20:00 Temperature 97.2 F L Pulse Rate 80 82 90 Respiratory Rate 18 Blood Pressure 148/58 H Pulse Oximetry 94 Oxygen Delivery Fraction of Inspired Oxygen 03/01/24 20:30 03/02/24 00:00 03/02/24 00:04 Temperature 98.0 F Pulse Rate 82 87 90 Respiratory Rate 18 18 Blood Pressure 182/78 H Pulse Oximetry 94 100 Oxygen Delivery Room Air Fraction of Inspired Oxygen 03/02/24 04:00 03/02/24 04:00 03/02/24 06:05 Temperature 98.0 F 97.7 F Pulse Rate 86 105 H 93 Respiratory Rate 18 18 Blood Pressure 175/73 H 189/73 H Pulse Oximetry 100 100 Oxygen Delivery Fraction of Inspired Oxygen 03/02/24 08:07 03/02/24 08:32 03/02/24 08:34 Temperature 97.6 F Pulse Rate 97 93 Respiratory Rate 17 Blood Pressure 172/66 H Pulse Oximetry 100 100 Oxygen Delivery Room Air Fraction of Inspired Oxygen 21 03/02/24 11:47 Temperature 98.2 F Pulse Rate 78 Respiratory Rate 18 Blood Pressure 149/69 H Pulse Oximetry 100 Oxygen Delivery Fraction of Inspired Oxygen Intake/Output Intake/Output: Intake & Output 02/28/24 02/29/24 03/01/24 03/02/24 23:59 23:59 23:59 23:59 Intake Total 1470 1490 1200 120 Output Total 200 1050 3300 500 Balance 1270 289 -[phone] -084 Meds/Results Medications: Active Medications Generic Name Dose Route Start Last Admin Trade Name Freq PRN Reason Stop Dose Admin Acetaminophen 650 mg 02/28/24 01:05 Acetaminophen 325 Mg Tablet PO Q4H PRN Mild Pain (1-3) or Fever Hydrocodone Bitart/Acetaminophen 1 tab 02/28/24 07:56 03/01/24 23:02 Hydrocodone/Acetaminophen (*Crx) 5-325 Mg Tablet PO 1 tab Q6H PRN Administration Pain Rated 4-6 Aspirin 81 mg 02/28/24 09:00 03/02/24 08:34 Aspirin 81 Mg Enteric Tablet PO 81 mg QAM RADHA Administration Atorvastatin Calcium 20 mg 02/28/24 09:00 03/02/24 08:33 Atorvastatin 20 Mg Tablet PO 20 mg DAILY RAD[facility] Administration Calcitriol 0.25 mcg 02/28/24 09:00 03/02/24 08:34 Calcitriol 0.25 Mcg Capsule PO 0.25 mcg DAILY RAD[facility] Administration Chlorthalidone 25 mg 02/28/24 09:00 03/02/24 08:34 Chlorthalidone 25 Mg Tablet PO 25 mg DAILY RAD[facility] Administration Clopidogrel Bisulfate 75 mg 02/28/24 09:00 03/02/24 08:34 Clopidogrel Bisulfate 75 Mg Tablet PO 75 mg DAILY [facility] Administration Dextrose 12.5 gm 02/28/24 08:04 Dextrose 50% 25 Gm/50 Ml Syringe IV PUSH PRN PRN Hypoglycemia Protocol Doxycycline Hyclate 100 mg 02/29/24 11:30 03/02/24 08:35 Doxycycline Hyclate 100 Mg Tablet PO 100 mg Q12HR RADHA Administration Gabapentin 300 mg 02/28/24 07:56 03/02/24 08:34 Gabapentin 300 Mg Capsule PO 300 mg Q6-8H PRN Administration Pain Glucagon 1 mg 02/28/24 08:04 Glucagon For Inj 1 Mg Vial IM PRN PRN Hypoglycemia Protocol Glucose 15 gm 02/28/24 08:04 Glucose Oral Gel 15 Gm Of Glucse In 37.5 Gm Tube PO PRN PRN Hypoglycemia Protocol Cefepime HCl 1 gm in 50 mls @ 100 mls/hr 02/28/24 14:00 03/01/24 14:22 Maxipime 1 Gm/Ns 50 Ml IVPB Infused Q24H RADHA Infusion Dextrose 1,000 mls @ 100 mls/hr 02/28/24 08:04 Dextrose 5% 1,000 Ml IVPB PRN PRN Hypoglycemia Protocol Insulin Aspart 2 - 4 units 02/28/24 21:00 03/01/24 20:20 Insulin Aspart (*Bkc) 100 Units/Ml SUB-Q Not Given HS [facility] Protocol Insulin Aspart 3 - 6 units 03/02/24 17:00 Insulin Aspart (*Bkc) 100 Units/Ml SUB-Q TIDWM [facility] Protocol Insulin Aspart 3 units 03/02/24 17:00 Insulin Aspart (*Bkc) 100 Units/Ml SUB-Q TIDWM [facility] Insulin Glargine 30 units 03/02/24 21:00 Insulin Glargine (*Bkc) 100 Units/Ml SUB-Q HS [facility] Lactic Acid 1 applic 02/29/24 09:00 03/02/24 08:35 Lactic Acid 12% Lotion 225 Btl TOPICAL 1 applic QAM [facility] Administration Latanoprost 1 drop 02/28/24 21:00 03/01/24 20:31 Latanoprost 0.005% Op Soln 2.5 Ml Btl EACH EYE 1 drop HS [facility] Administration Losartan Potassium 100 mg 02/28/24 18:00 03/01/24 17:16 Losartan Potassium 100 Mg Tablet PO 100 mg QPM RADHA Administration Metoprolol Tartrate 100 mg 02/28/24 09:00 03/02/24 08:34 Metoprolol Tartrate 50 Mg Tab PO 100 mg DAILY [facility] Administration Morphine Sulfate 4 mg 02/28/24 01:05 03/02/24 01:03 Morphine Sulfate (*Crx) 4 Mg/Ml Inj IV PUSH 4 mg Q2H PRN Administration Pain Rated 7-10 Ondansetron HCl 4 mg 02/28/24 01:05 Ondansetron Inj 4 Mg/2 Ml Vial IV PUSH Q4H PRN Nausea Spironolactone 25 mg 02/28/24 09:00 03/02/24 08:35 Spironolactone 25 Mg Tablet PO 25 mg QAM [facility] Administration Tamsulosin HCl 0.4 mg 02/28/24 09:00 03/02/24 08:34 Tamsulosin Hcl 0.4 Mg Capsule PO 0.4 mg DAILY [facility] Administration Timolol Maleate 1 drop 02/28/24 09:00 03/02/24 08:35 Timolol Maleate 0.5% Op Soln 5 Ml Bottle EACH EYE 1 drop DAILY [facility] Administration Radiology Results: ITS Impressions Chest X-Ray 02/28/24 05:51 Impression: Clear lungs. Labs Labs: Laboratory Results - last 24 hr 03/01/24 03/01/24 03/02/24 17:10 20:11 06:05 WBC 10.9 H RBC 3.12 L Hgb 9.1 L Hct 29.2 L MCV 93.6 MCH 29.2 MCHC 31.2 L RDW 13.5 Plt Count 208 MPV 10.5 H Immature Gran % (Auto) 1.2 H Neut % (Auto) 70.5 Lymph % (Auto) 11.2 L Jones % (Auto) 10.2 H Eos % (Auto) 6.4 H Baso % (Auto) 0.5 Lymph # (Auto) 1.22 Jones # (Auto) 1.1 H Eos # (Auto) 0.7 H Baso # (Auto) 0.1 Abs Immat Gran (auto) 0.13 H Absolute Neuts (auto) 7.7 H Absolute Nucleated RBC 0.000 Nucleated RBC % 0.0 Sodium 140 Potassium 3.9 Chloride 110 H Carbon Dioxide 25 Anion Gap 5 BUN 42 H Creatinine 2.90 H Estim Creat Clear Calc 31 Estimated GFR 21 L Glucose 107 POC Capillary Glucose 128 H 128 H Calcium 8.9 03/02/24 03/02/24 03/02/24 08:05 11:50 12:28 WBC RBC Hgb Hct MCV MCH MCHC RDW Plt Count MPV Immature Gran % (Auto) Neut % (Auto) Lymph % (Auto) Jones % (Auto) Eos % (Auto) Baso % (Auto) Lymph # (Auto) Jones # (Auto) Eos # (Auto) Baso # (Auto) Abs Immat Gran (auto) Absolute Neuts (auto) Absolute Nucleated RBC Nucleated RBC % Sodium Potassium Chloride Carbon Dioxide Anion Gap BUN Creatinine Estim Creat Clear Calc Estimated GFR Glucose POC Capillary Glucose 105 69 77 Calcium Hospitalist MIPS Advance Care Plan I have confirmed that the patient's Advanced Care Plan is present, code status is documented, or surrogate decision maker is listed in patient medical record.: Yes Medication Reconciliation I have utilized all available resources to obtain, update and review the patients current medications (includes all prescriptions, OTC, herbals, cannabis, and nutritional supplements).: Yes
[2024-03-02] MEDS: CEFEPIME 1 GM/NS 50 ML 1 GM/50 ML BAG IVPB (14:57)
[2024-03-02 17:15] LABS: Glucose Point of Care 134 mg/dl (65-105)
[2024-03-02] MEDS: LOSARTAN POTASSIUM 100 MG TABLET PO (17:57)
[2024-03-02] MEDS: INSULIN ASPART (*BKC) 100 UNITS/ML SUB-Q (17:57)
[2024-03-02] MEDS: INSULIN GLARGINE (*BKC) 100 UNITS/ML 30 UNITS SUB-Q (20:24)
[2024-03-02] MEDS: LATANOPROST 0.005% OP SOLN 2.5 ML BTL 1 DROP EACH EYE (20:24)
[2024-03-02 21:02] LABS: Glucose Point of Care 142 mg/dl (65-105)
[2024-03-03] VITALS (9 sets, daily range): BP systolic 144–170; BP diastolic 65–75; PULSE 77–97; RESP 18–20; TEMP 36.4–36.9; O2SAT 97–100
[2024-03-03 05:22] LABS: Hematocrit 28.5 % (42.0-52.0); Hemoglobin 8.9 g/dL (14.0-18.0); Mean Corpuscular HGB Conc 31.2 g/dl (32-36); Mean Corpuscular Hemoglobin 29.2 pg (26-34); Mean Corpuscular Volume 93.4 fl (80-100); Mean Platelet Volume 10.5 fl (7.4-10.4); Platelet Count Result 223 k/mm3 (150-375); Red Blood Count 3.05 M/mm3 (4.6-6.20); Red Cell Distribution Width 13.5 % (11.5-14.5); White Blood Count 10.3 K/mm3 (4.5-10.0)
[2024-03-03 05:35] LABS: Alanine Aminotransferase 10 U/L (6-50); Albumin Level 2.9 g/dL (3.5-5.1); Alkaline Phosphatase 160 U/L (38-126); Anion Gap 2 mmol/L (4-12); Aspartate Amino Transferase 20 U/L (17-59); Bilirubin,Total 0.8 mg/dL (0.2-1.3); Blood Urea Nitrogen 37 mg/dL (9-20); Carbon Dioxide 25 mmol/L (22-30); Chloride 111 mmol/L (98-107); Estimated CRCL calculation 35 ml/min; Estimated Glomerular Filt Rate 24; Glucose 94 mg/dL (65-110); Potassium 3.9 mmol/L (3.4-5.0); Sodium 138 mmol/L (137-145)
[2024-03-03 08:20] LABS: Glucose Point of Care 79 mg/dl (65-105)
[2024-03-03] MEDS: ATORVASTATIN 20 MG TABLET PO (08:40)
[2024-03-03] MEDS: CHLORTHALIDONE 25 MG TABLET PO (08:40)
[2024-03-03] MEDS: ASPIRIN 81 MG ENTERIC TABLET PO (08:40)
[2024-03-03] MEDS: SPIRONOLACTONE 25 MG TABLET PO (08:41)
[2024-03-03] MEDS: calcitrioL 0.25 MCG CAPSULE PO (08:41)
[2024-03-03] MEDS: CLOPIDOGREL BISULFATE 75 MG TABLET PO (08:41)
[2024-03-03] MEDS: GABAPENTIN 300 MG CAPSULE PO ×2 (08:41→21:29)
[2024-03-03] MEDS: TAMSULOSIN HCL 0.4 MG CAPSULE PO (08:41)
[2024-03-03] MEDS: DOXYCYCLINE HYCLATE 100 MG TABLET PO ×2 (08:41→21:28)
[2024-03-03] MEDS: METOPROLOL TARTRATE 50 MG TAB 100 MG PO (08:41)
[2024-03-03] MEDS: TIMOLOL MALEATE 0.5% OP SOLN 5 ML BOTTLE 1 DROP EACH EYE (08:42)
[2024-03-03] MEDS: LACTIC ACID 12% LOTION 225 BTL 1 APPLIC TOPICAL (08:42)
--- NOTE | 2024-03-03 11:00 | P.PNIM_ITS ---
Progress Note: A&P Assessment and Plan (1) Left leg cellulitis: Code(s): L03.116 - Cellulitis of left lower limb Status: Acute (2) Elevated troponin: Code(s): R79.89 - Other specified abnormal findings of blood chemistry Status: Acute (3) CKD stage 4 due to type 2 diabetes mellitus: Code(s): E11.22 - Type 2 diabetes mellitus with diabetic chronic kidney disease; N18.4 - Chronic kidney disease, stage 4 (severe) Status: Acute (4) Insulin dependent type 2 diabetes mellitus: Code(s): E11.9 - Type 2 diabetes mellitus without complications; Z79.4 - retirement (current) use of insulin Status: Acute (5) Hypertension: Code(s): I10 - Essential (primary) hypertension Status: Acute (6) Sepsis: Code(s): A41.9 - Sepsis, unspecified organism Status: Acute (7) LATRICE (iron deficiency anemia): Code(s): D50.9 - Iron deficiency anemia, unspecified Status: Acute Plan Cellulitis of lower extremities, sepsis Patient has worsening rest needs, swelling, pain, a flu extremities, patient has tachycardia tachypnea, leukocytosis 15,000, meeting criteria of sepsis Pressures wound culture grows Serratia Marcescens susceptible to cefepime Pending blood culture Started cefepime IV, Flagyl IV and vancomycin 02/27 Repeat wound culture: no growth now Received normal saline resuscitation Changed to cefepime and doxy IV 02/28 Cellulitis improving 03/01 Chronic lymphedema and chronic broken skins of bilateral lower extremities Possible due to uncontrolled diabetes Consult Wound Care Uncontrolled type 2 diabetes Upon arrival to ED, grows ulcer 107, A1c in February 03, 2024 10.7 Patient is on glargine 25 units q.h.s., will increase to 40 unit q.h.s. Start insulin aspart 4 units a.c. Start insulin sliding scale a.c. and q.h.s. 02/28: Better controlled, still not controlled in the target range. Increase aspart 6 units before each meal 03/01: well controlled Elevated troponin Patient denies chest pain EKG showed sinus rhythm no specific ST T-wave changes Likely demand ischemia secondary to sepsis Continue aspirin 81 mg daily p.o., Plavix 75 mg daily p.o. Essential hypertension Continue losartan 100 mg daily p.o., metoprolol 100 mg daily p.o. CKD stage 4 Elevated BUN creatinine ratio on the baseline Avoid nephrotoxic medication Follow urinalysis Chronic anemia Ronal stable No obvious bleeding Follow-up CBC Cellulitis is subsiding, may discharge patient in 1-2 days if cellulitis continue to improve Subjective Date/time seen: 03/03/24 11:00 Interval history: Patient refused ultrasound and cardiac monitoris followed by Nutrition his cellulitis is improving. Will continue IV antibiotics until tomorrow. Will change to oral antibiotic on Tuesday. Review of Systems Review of Systems: ROS negative except above Exam Narrative: GENERAL: Pleasant, in no acute distress. Well-nourished. - EYES: EOMI. Anicteric. - HENT: Moist mucous membranes. - LUNGS: Clear to auscultation bilateral ly, no wheezing, rhonchi, or rales. - CARDIOVASCULAR: Regular rate and rhyth m. No murmur. No JVD. - ABDOMEN: Soft, non-tender and non-dist ended. No palpable masses. - EXTREMITIES: No edema. Peripheral puls es 2+. Non-tender. - NEUROLOGIC: No focal neurological defi cits. CN II-XII grossly intact. - PSYCHIATRIC: Awake, Alert and oriented x 3. Appropriate mood and affect. - SKIN: Cellulitis left lower extremity , multiple broken skins of bilateral lower extremities - LYMPH: No cervical lymphadenopathy. Const: General: comfortable, no acute distress, well developed, alert, awake, ill appearing chronically, lethargic, tired appearing, obese and edematous Nutritional Appearance: obese and edematous Orientation/consciousness: oriented to person, oriented to place and lethargic HENMT: Head: normal to inspection, normocephalic and atraumatic Ears: hearing grossly normal bilaterally Face/Nose/Sinus: normal facial exam Face and sinus: normal facial exam Eyes: General: appearance normal, both eyes and all related structures Pupils: Equal, round and reactive pupils present EOM: EOMs intact bilaterally Neck: Neck: full ROM, no lymphadenopathy and no JVD Thyroid: thyroid normal Lymphatic: no lymphadenopathy noted Resp: Effort & Inspection: normal respiratory effort and able to speak in complete sentences Auscultation: clear to auscultation bilaterally Cardio: Jugular venous distension: no JVD Rate: regular rate Rhythm: regular rhythm Heart sounds: S1 normal heart sound present and S2 normal heart sound present GI: Inspection: Pannus present, obesity and visible herniation : General: Yes deferred Skin: General skin exam: rashes and wounds noted Rashes: rashes noted Wounds: wounds noted Neuro: General: oriented to person, oriented to place, CN's II-XI intact bilaterally and Unable to assess gait Cranial nerves: Yes CN's II-XII intact bilaterally and Yes Equal, round and reactive pupils present Cognition (Neuro): abnormal cognition (lethargy) Speech: normal speech Gait exam (Neuro): Unable to assess gait Motor exam (neuro): 5/5 motor strength present throughout Extrem: General: normal to inspection, full ROM, no joint enlargement and no pedal edema Other: patient with compression stockings in place Objective Data Vital Signs Vital Signs: Vital Signs - 24 hr 03/02/24 11:47 03/02/24 12:00 03/02/24 16:00 Temperature 98.2 F Pulse Rate 78 80 81 Respiratory Rate 18 Blood Pressure 149/69 H Pulse Oximetry 100 Oxygen Delivery Fraction of Inspired Oxygen 03/02/24 17:43 03/02/24 20:00 03/02/24 20:00 Temperature 98.6 F 98.2 F Pulse Rate 94 88 101 H Respiratory Rate 17 16 Blood Pressure 156/78 H 152/64 H Pulse Oximetry 100 100 Oxygen Delivery Fraction of Inspired Oxygen 03/02/24 20:25 03/03/24 00:00 03/03/24 00:04 Temperature 97.8 F Pulse Rate 88 77 82 Respiratory Rate 16 18 Blood Pressure 152/67 H Pulse Oximetry 100 97 Oxygen Delivery Room Air Fraction of Inspired Oxygen 03/03/24 04:00 03/03/24 04:00 03/03/24 08:00 Temperature 97.6 F 98.4 F Pulse Rate 90 84 97 Respiratory Rate 18 18 Blood Pressure 144/65 H 150/69 H Pulse Oximetry 100 99 Oxygen Delivery Fraction of Inspired Oxygen 03/03/24 08:41 Temperature Pulse Rate 84 Respiratory Rate Blood Pressure Pulse Oximetry Oxygen Delivery Fraction of Inspired Oxygen Intake/Output Intake/Output: Intake & Output 02/29/24 03/01/24 03/02/24 03/03/24 23:59 23:59 23:59 23:59 Intake Total 1490 1200 600 470 Output Total 1050 3300 500 600 Balance 440 -2100 100 -130 Meds/Results Medications: Active Medications Generic Name Dose Route Start Last Admin Trade Name Norbertq PRN Reason Stop Dose Admin Acetaminophen 650 mg 02/28/24 01:05 Acetaminophen 325 Mg Tablet PO Q4H PRN Mild Pain (1-3) or Fever Hydrocodone Bitart/Acetaminophen 1 tab 02/28/24 07:56 03/01/24 23:02 Hydrocodone/Acetaminophen (*Crx) 5-325 Mg Tablet PO 1 tab Q6H PRN Administration Pain Rated 4-6 Aspirin 81 mg 02/28/24 09:00 03/03/24 08:40 Aspirin 81 Mg Enteric Tablet PO 81 mg QAM RADHA Administration Atorvastatin Calcium 20 mg 02/28/24 09:00 03/03/24 08:40 Atorvastatin 20 Mg Tablet PO 20 mg DAILY RAD[facility] Administration Calcitriol 0.25 mcg 02/28/24 09:00 03/03/24 08:41 Calcitriol 0.25 Mcg Capsule PO 0.25 mcg DAILY RADHA Administration Chlorthalidone 25 mg 02/28/24 09:00 03/03/24 08:40 Chlorthalidone 25 Mg Tablet PO 25 mg DAILY RADHA Administration Clopidogrel Bisulfate 75 mg 02/28/24 09:00 03/03/24 08:41 Clopidogrel Bisulfate 75 Mg Tablet PO 75 mg DAILY RAD[facility] Administration Dextrose 12.5 gm 02/28/24 08:04 Dextrose 50% 25 Gm/50 Ml Syringe IV PUSH PRN PRN Hypoglycemia Protocol Doxycycline Hyclate 100 mg 02/29/24 11:30 03/03/24 08:41 Doxycycline Hyclate 100 Mg Tablet PO 100 mg Q12HR ARDHA Administration Gabapentin 300 mg 02/28/24 07:56 03/03/24 08:41 Gabapentin 300 Mg Capsule PO 300 mg Q6-8H PRN Administration Pain Glucagon 1 mg 02/28/24 08:04 Glucagon For Inj 1 Mg Vial IM PRN PRN Hypoglycemia Protocol Glucose 15 gm 02/28/24 08:04 Glucose Oral Gel 15 Gm Of Glucse In 37.5 Gm Tube PO PRN PRN Hypoglycemia Protocol Cefepime HCl 1 gm in 50 mls @ 100 mls/hr 02/28/24 14:00 03/02/24 14:57 Maxipime 1 Gm/Ns 50 Ml IVPB 100 mls/hr Q24H RADHA Administration Dextrose 1,000 mls @ 100 mls/hr 02/28/24 08:04 Dextrose 5% 1,000 Ml IVPB PRN PRN Hypoglycemia Protocol Insulin Aspart 2 - 4 units 02/28/24 21:00 03/02/24 20:23 Insulin Aspart (*Bkc) 100 Units/Ml SUB-Q Not Given HS RAD[facility] Protocol Insulin Aspart 3 - 6 units 03/02/24 17:00 03/03/24 08:31 Insulin Aspart (*Bkc) 100 Units/Ml SUB-Q Not Given TIDWM RAD[facility] Protocol Insulin Aspart 3 units 03/02/24 17:00 03/02/24 17:57 Insulin Aspart (*Bkc) 100 Units/Ml SUB-Q 3 units TIDWM RADHA Administration Insulin Glargine 30 units 03/02/24 21:00 03/02/24 20:24 Insulin Glargine (*Bkc) 100 Units/Ml SUB-Q 30 units HS RAD[facility] Administration Lactic Acid 1 applic 02/29/24 09:00 03/03/24 08:42 Lactic Acid 12% Lotion 225 Btl TOPICAL 1 applic QAM RADHA Administration Latanoprost 1 drop 02/28/24 21:00 03/02/24 20:24 Latanoprost 0.005% Op Soln 2.5 Ml Btl EACH EYE 1 drop HS [facility] Administration Losartan Potassium 100 mg 02/28/24 18:00 03/02/24 17:57 Losartan Potassium 100 Mg Tablet PO 100 mg QPM RADHA Administration Metoprolol Tartrate 100 mg 02/28/24 09:00 03/03/24 08:41 Metoprolol Tartrate 50 Mg Tab PO 100 mg DAILY RAD[facility] Administration Morphine Sulfate 4 mg 02/28/24 01:05 03/02/24 01:03 Morphine Sulfate (*Crx) 4 Mg/Ml Inj IV PUSH 4 mg Q2H PRN Administration Pain Rated 7-10 Ondansetron HCl 4 mg 02/28/24 01:05 Ondansetron Inj 4 Mg/2 Ml Vial IV PUSH Q4H PRN Nausea Spironolactone 25 mg 02/28/24 09:00 03/03/24 08:41 Spironolactone 25 Mg Tablet PO 25 mg QAM RADHA Administration Tamsulosin HCl 0.4 mg 02/28/24 09:00 03/03/24 08:41 Tamsulosin Hcl 0.4 Mg Capsule PO 0.4 mg DAILY [facility] Administration Timolol Maleate 1 drop 02/28/24 09:00 03/03/24 08:42 Timolol Maleate 0.5% Op Soln 5 Ml Bottle EACH EYE 1 drop DAILY [facility] Administration Radiology Results: ITS Impressions Chest X-Ray 02/28/24 05:51 Impression: Clear lungs. Labs Labs: Laboratory Results - last 24 hr 03/02/24 03/02/24 03/02/24 11:50 12:28 17:04 WBC RBC Hgb Hct MCV MCH MCHC RDW Plt Count MPV Sodium Potassium Chloride Carbon Dioxide Anion Gap BUN Creatinine Estim Creat Clear Calc Estimated GFR Glucose POC Capillary Glucose 69 77 134 H Calcium Total Bilirubin AST ALT Alkaline Phosphatase Total Protein Albumin 03/02/24 03/03/24 03/03/24 20:19 05:04 08:08 WBC 10.3 H RBC 3.05 L Hgb 8.9 L Hct 28.5 L MCV 93.4 MCH 29.2 MCHC 31.2 L RDW 13.5 Plt Count 223 MPV 10.5 H Sodium 138 Potassium 3.9 Chloride 111 H Carbon Dioxide 25 Anion Gap 2 L BUN 37 H Creatinine 2.60 H Estim Creat Clear Calc 35 Estimated GFR 24 L Glucose 94 POC Capillary Glucose 142 H 79 Calcium 9.0 Total Bilirubin 0.8 AST 20 ALT 10 Alkaline Phosphatase 160 H Total Protein 6.0 L Albumin 2.9 L Hospitalist MIPS Advance Care Plan I have confirmed that the patient's Advanced Care Plan is present, code status is documented, or surrogate decision maker is listed in patient medical record.: Yes Medication Reconciliation I have utilized all available resources to obtain, update and review the patients current medications (includes all prescriptions, OTC, herbals, cannabis, and nutritional supplements).: Yes
[2024-03-03 12:34] LABS: Glucose Point of Care 88 mg/dl (65-105)
[2024-03-03] MEDS: CEFEPIME 1 GM/NS 50 ML 1 GM/50 ML BAG IVPB (14:18)
[2024-03-03] MEDS: LOSARTAN POTASSIUM 100 MG TABLET PO (17:02)
[2024-03-03 17:10] LABS: Glucose Point of Care 109 mg/dl (65-105)
[2024-03-03 21:09] LABS: Glucose Point of Care 165 mg/dl (65-105)
[2024-03-03] MEDS: INSULIN GLARGINE (*BKC) 100 UNITS/ML 25 UNITS SUB-Q (21:28)
[2024-03-03] MEDS: LATANOPROST 0.005% OP SOLN 2.5 ML BTL 1 DROP EACH EYE (21:29)
[2024-03-04] VITALS (8 sets, daily range): BP systolic 140–174; BP diastolic 58–66; PULSE 76–85; RESP 16–20; TEMP 36.5–37.1; O2SAT 98–100
[2024-03-04] MEDS: HYDROcodone/acetaminophen (*CRX) 5-325 MG TABLET 1 TAB PO ×4 (00:07→23:52)
[2024-03-04 08:28] LABS: Glucose Point of Care 112 mg/dl (65-105)
[2024-03-04] MEDS: GABAPENTIN 300 MG CAPSULE PO ×2 (08:45→20:49)
[2024-03-04] MEDS: METOPROLOL TARTRATE 50 MG TAB 100 MG PO (08:46)
[2024-03-04] MEDS: TAMSULOSIN HCL 0.4 MG CAPSULE PO (08:46)
[2024-03-04] MEDS: ASPIRIN 81 MG ENTERIC TABLET PO (08:46)
[2024-03-04] MEDS: CHLORTHALIDONE 25 MG TABLET PO (08:46)
[2024-03-04] MEDS: SPIRONOLACTONE 25 MG TABLET PO (08:46)
[2024-03-04] MEDS: LACTIC ACID 12% LOTION 225 BTL 1 APPLIC TOPICAL (08:46)
[2024-03-04] MEDS: ATORVASTATIN 20 MG TABLET PO (08:46)
[2024-03-04] MEDS: CLOPIDOGREL BISULFATE 75 MG TABLET PO (08:46)
[2024-03-04] MEDS: calcitrioL 0.25 MCG CAPSULE PO (08:46)
[2024-03-04] MEDS: DOXYCYCLINE HYCLATE 100 MG TABLET PO ×2 (08:46→20:44)
[2024-03-04] MEDS: TIMOLOL MALEATE 0.5% OP SOLN 5 ML BOTTLE 1 DROP EACH EYE (08:47)
--- NOTE | 2024-03-04 11:33 | PM.IMPN ---
Progress Note: A&P Assessment and Plan (1) Left leg cellulitis: Code(s): L03.116 - Cellulitis of left lower limb Status: Acute (2) Elevated troponin: Code(s): R79.89 - Other specified abnormal findings of blood chemistry Status: Acute (3) CKD stage 4 due to type 2 diabetes mellitus: Code(s): E11.22 - Type 2 diabetes mellitus with diabetic chronic kidney disease; N18.4 - Chronic kidney disease, stage 4 (severe) Status: Acute (4) Insulin dependent type 2 diabetes mellitus: Code(s): E11.9 - Type 2 diabetes mellitus without complications; Z79.4 - group home (current) use of insulin Status: Acute (5) Hypertension: Code(s): I10 - Essential (primary) hypertension Status: Acute (6) Sepsis: Code(s): A41.9 - Sepsis, unspecified organism Status: Acute (7) LATRICE (iron deficiency anemia): Code(s): D50.9 - Iron deficiency anemia, unspecified Status: Acute Plan Cellulitis of lower extremities, sepsis Patient has worsening rest needs, swelling, pain, a flu extremities, patient has tachycardia tachypnea, leukocytosis 15,000, meeting criteria of sepsis Pressures wound culture grows Serratia Marcescens susceptible to cefepime Pending blood culture Started cefepime IV, Flagyl IV and vancomycin 02/27 Repeat wound culture: no growth now Received normal saline resuscitation Changed to cefepime and doxy IV 02/28 Cellulitis improving 03/01 Chronic lymphedema and chronic broken skins of bilateral lower extremities Possible due to uncontrolled diabetes Consult Wound Care Uncontrolled type 2 diabetes Upon arrival to ED, grows ulcer 107, A1c in February 03, 2024 10.7 Patient is on glargine 25 units q.h.s., will increase to 40 unit q.h.s. Start insulin aspart 4 units a.c. Start insulin sliding scale a.c. and q.h.s. 02/28: Better controlled, still not controlled in the target range. Increase aspart 6 units before each meal 03/01: well controlled Elevated troponin Patient denies chest pain EKG showed sinus rhythm no specific ST T-wave changes Likely demand ischemia secondary to sepsis Continue aspirin 81 mg daily p.o., Plavix 75 mg daily p.o. Essential hypertension Continue losartan 100 mg daily p.o., metoprolol 100 mg daily p.o. CKD stage 4 Elevated BUN creatinine ratio on the baseline Avoid nephrotoxic medication Follow urinalysis Chronic anemia Ronal stable No obvious bleeding Follow-up CBC Cellulitis is subsiding, may discharge patient in 1-2 days if cellulitis continue to improve Subjective Date/time seen: 03/04/24 11:33 Interval history: Patient still complains of pain . Redness has improved. Possible change to oral antibiotics tomorrow and dc planning with care coordination. Review of Systems Review of Systems: ROS negative except above Exam Narrative: GENERAL: Pleasant, in no acute distress. Well-nourished. - EYES: EOMI. Anicteric. - HENT: Moist mucous membranes. - LUNGS: Clear to auscultation bilaterally, no wheezing, rhonchi, or rales. - CARDIOVASCULAR: Regular rate and rhythm. No murmur. No JVD. - ABDOMEN: Soft, non-tender and non-distended. No palpable masses. - EXTREMITIES: No edema. Peripheral pulses 2+. Non-tender. - NEUROLOGIC: No focal neurological deficits. CN II-XII grossly intact. - PSYCHIATRIC: Awake, Alert and oriented x 3. Appropriate mood and affect. - SKIN: Cellulitis left lower extremity, multiple broken skins of bilateral lower extremities - LYMPH: No cervical lymphadenopathy. Const: General: comfortable, no acute distress, well developed, alert, awake, ill appearing chronically, lethargic, tired appearing, obese and edematous Nutritional Appearance: obese and edematous Orientation/consciousness: oriented to person, oriented to place and lethargic HENMT: Head: normal to inspection, normocephalic and atraumatic Ears: hearing grossly normal bilaterally Face/Nose/Sinus: normal facial exam Face and sinus: normal facial exam Eyes: General: appearance normal, both eyes and all related structures Pupils: Equal, round and reactive pupils present EOM: EOMs intact bilaterally Neck: Neck: full ROM, no lymphadenopathy and no JVD Thyroid: thyroid normal Lymphatic: no lymphadenopathy noted Resp: Effort & Inspection: normal respiratory effort and able to speak in complete sentences Auscultation: clear to auscultation bilaterally Cardio: Jugular venous distension: no JVD Rate: regular rate Rhythm: regular rhythm Heart sounds: S1 normal heart sound present and S2 normal heart sound present GI: Inspection: Pannus present, obesity and visible herniation : General: Yes deferred Skin: General skin exam: rashes and wounds noted Rashes: rashes noted Wounds: wounds noted Neuro: General: oriented to person, oriented to place, CN's II-XI intact bilaterally and Unable to assess gait Cranial nerves: Yes CN's II-XII intact bilaterally and Yes Equal, round and reactive pupils present Cognition (Neuro): abnormal cognition (lethargy) Speech: normal speech Gait exam (Neuro): Unable to assess gait Motor exam (neuro): 5/5 motor strength present throughout Extrem: General: normal to inspection, full ROM, no joint enlargement and no pedal edema Other: patient with compression stockings in place Objective Data Vital Signs Vital Signs: Vital Signs - 24 hr 03/03/24 12:00 03/03/24 16:00 03/03/24 20:50 Temperature 98 F 97.8 F 97.6 F Pulse Rate 94 90 89 Respiratory Rate 18 18 20 Blood Pressure 148/72 H 150/68 H 170/75 H Pulse Oximetry 99 99 100 Oxygen Delivery Fraction of Inspired Oxygen 03/03/24 21:30 03/04/24 00:00 03/04/24 04:00 Temperature 98.4 F 97.7 F Pulse Rate 89 85 76 Respiratory Rate 20 20 18 Blood Pressure 174/66 H 144/61 H Pulse Oximetry 100 99 99 Oxygen Delivery Room Air Fraction of Inspired Oxygen 21 03/04/24 08:00 03/04/24 08:46 Temperature 97.7 F Pulse Rate 80 76 Respiratory Rate 19 Blood Pressure 148/58 H Pulse Oximetry 98 Oxygen Delivery Fraction of Inspired Oxygen Intake/Output Intake/Output: Intake & Output 03/01/24 03/02/24 03/03/24 03/04/24 23:59 23:59 23:59 23:59 Intake Total 0801 562 8100 490 Output Total 3300 500 1450 850 Balance -2100 150 450 -360 Meds/Results Medications: Active Medications Generic Name Dose Route Start Last Admin Trade Name Freq PRN Reason Stop Dose Admin Acetaminophen 650 mg 02/28/24 01:05 Acetaminophen 325 Mg Tablet PO Q4H PRN Mild Pain (1-3) or Fever Hydrocodone Bitart/Acetaminophen 1 tab 02/28/24 07:56 03/04/24 09:05 Hydrocodone/Acetaminophen (*Crx) 5-325 Mg Tablet PO 1 tab Q6H PRN Administration Pain Rated 4-6 Aspirin 81 mg 02/28/24 09:00 03/04/24 08:46 Aspirin 81 Mg Enteric Tablet PO 81 mg QAM RADHA Administration Atorvastatin Calcium 20 mg 02/28/24 09:00 03/04/24 08:46 Atorvastatin 20 Mg Tablet PO 20 mg DAILY RADHA Administration Calcitriol 0.25 mcg 02/28/24 09:00 03/04/24 08:46 Calcitriol 0.25 Mcg Capsule PO 0.25 mcg DAILY RADHA Administration Chlorthalidone 25 mg 02/28/24 09:00 03/04/24 08:46 Chlorthalidone 25 Mg Tablet PO 25 mg DAILY RADHA Administration Clopidogrel Bisulfate 75 mg 02/28/24 09:00 03/04/24 08:46 Clopidogrel Bisulfate 75 Mg Tablet PO 75 mg DAILY RADHA Administration Dextrose 12.5 gm 02/28/24 08:04 Dextrose 50% 25 Gm/50 Ml Syringe IV PUSH PRN PRN Hypoglycemia Protocol Doxycycline Hyclate 100 mg 02/29/24 11:30 03/04/24 08:46 Doxycycline Hyclate 100 Mg Tablet PO 100 mg Q12HR RADHA Administration Gabapentin 300 mg 02/28/24 07:56 03/04/24 08:45 Gabapentin 300 Mg Capsule PO 300 mg Q6-8H PRN Administration Pain Glucagon 1 mg 02/28/24 08:04 Glucagon For Inj 1 Mg Vial IM PRN PRN Hypoglycemia Protocol Glucose 15 gm 02/28/24 08:04 Glucose Oral Gel 15 Gm Of Glucse In 37.5 Gm Tube PO PRN PRN Hypoglycemia Protocol Cefepime HCl 1 gm in 50 mls @ 100 mls/hr 02/28/24 14:00 03/03/24 14:48 Maxipime 1 Gm/Ns 50 Ml IVPB Infused Q24H RADHA Infusion Dextrose 1,000 mls @ 100 mls/hr 02/28/24 08:04 Dextrose 5% 1,000 Ml IVPB PRN PRN Hypoglycemia Protocol Insulin Aspart 2 - 4 units 02/28/24 21:00 03/03/24 21:11 Insulin Aspart (*Bkc) 100 Units/Ml SUB-Q Not Given HS RADHA Protocol Insulin Aspart 3 - 6 units 03/02/24 17:00 03/04/24 08:45 Insulin Aspart (*Bkc) 100 Units/Ml SUB-Q Not Given TIDWM [facility] Protocol Insulin Glargine 25 units 03/03/24 21:00 03/03/24 21:28 Insulin Glargine (*Bkc) 100 Units/Ml SUB-Q 25 units HS [facility] Administration Lactic Acid 1 applic 02/29/24 09:00 03/04/24 08:46 Lactic Acid 12% Lotion 225 Btl TOPICAL 1 applic QAM RADHA Administration Latanoprost 1 drop 02/28/24 21:00 03/03/24 21:29 Latanoprost 0.005% Op Soln 2.5 Ml Btl EACH EYE 1 drop HS [facility] Administration Losartan Potassium 100 mg 02/28/24 18:00 03/03/24 17:02 Losartan Potassium 100 Mg Tablet PO 100 mg QPM RADHA Administration Metoprolol Tartrate 100 mg 02/28/24 09:00 03/04/24 08:46 Metoprolol Tartrate 50 Mg Tab PO 100 mg DAILY [facility] Administration Morphine Sulfate 4 mg 02/28/24 01:05 03/02/24 01:03 Morphine Sulfate (*Crx) 4 Mg/Ml Inj IV PUSH 4 mg Q2H PRN Administration Pain Rated 7-10 Ondansetron HCl 4 mg 02/28/24 01:05 Ondansetron Inj 4 Mg/2 Ml Vial IV PUSH Q4H PRN Nausea Spironolactone 25 mg 02/28/24 09:00 03/04/24 08:46 Spironolactone 25 Mg Tablet PO 25 mg QAM RADHA Administration Tamsulosin HCl 0.4 mg 02/28/24 09:00 03/04/24 08:46 Tamsulosin Hcl 0.4 Mg Capsule PO 0.4 mg DAILY [facility] Administration Timolol Maleate 1 drop 02/28/24 09:00 03/04/24 08:47 Timolol Maleate 0.5% Op Soln 5 Ml Bottle EACH EYE 1 drop DAILY RADHA Administration Radiology Results: ITS Impressions Chest X-Ray 02/28/24 05:51 Impression: Clear lungs. Labs Labs: Laboratory Results - last 24 hr 03/03/24 03/03/24 03/03/24 12:20 16:57 21:00 POC Capillary Glucose 88 109 H 165 H 03/04/24 08:11 POC Capillary Glucose 112 H Hospitalist MIPS Advance Care Plan I have confirmed that the patient's Advanced Care Plan is present, code status is documented, or surrogate decision maker is listed in patient medical record.: Yes Medication Reconciliation I have utilized all available resources to obtain, update and review the patients current medications (includes all prescriptions, OTC, herbals, cannabis, and nutritional supplements).: Yes
[2024-03-04 12:04] LABS: Glucose Point of Care 161 mg/dl (65-105)
[2024-03-04 12:57] LABS: Mean Corpuscular Hemoglobin 29.1 pg (26-34); Mean Corpuscular Volume 93.9 fl (80-100); Mean Platelet Volume 10.4 fl (7.4-10.4); Platelet Count Result 244 k/mm3 (150-375); Red Blood Count 3.09 M/mm3 (4.6-6.20); Red Cell Distribution Width 13.4 % (11.5-14.5); White Blood Count 9.9 K/mm3 (4.5-10.0)
[2024-03-04 13:12] LABS: Alanine Aminotransferase 11 U/L (6-50); Alkaline Phosphatase 158 U/L (38-126); Anion Gap 3 mmol/L (4-12); Aspartate Amino Transferase 22 U/L (17-59); Bilirubin,Total 0.7 mg/dL (0.2-1.3); Blood Urea Nitrogen 35 mg/dL (9-20); Calcium 9.1 mg/dL (8.4-10.2); Carbon Dioxide 27 mmol/L (22-30); Chloride 108 mmol/L (98-107); Estimated CRCL calculation 34 ml/min; Estimated Glomerular Filt Rate 24; Glucose 154 mg/dL (65-110); Potassium 4.1 mmol/L (3.4-5.0); Sodium 138 mmol/L (137-145)
[2024-03-04] MEDS: CEFEPIME 1 GM/NS 50 ML 1 GM/50 ML BAG IVPB (14:04)
[2024-03-04 16:58] LABS: Glucose Point of Care 186 mg/dl (65-105)
[2024-03-04] MEDS: LOSARTAN POTASSIUM 100 MG TABLET PO (17:32)
[2024-03-04] MEDS: INSULIN ASPART (*BKC) 100 UNITS/ML SUB-Q (20:46)
[2024-03-04] MEDS: INSULIN GLARGINE (*BKC) 100 UNITS/ML 25 UNITS SUB-Q (20:47)
[2024-03-04] MEDS: LATANOPROST 0.005% OP SOLN 2.5 ML BTL 1 DROP EACH EYE (20:47)
[2024-03-04 20:49] LABS: Glucose Point of Care 206 mg/dl (65-105)
[2024-03-05] VITALS: BP 156/60; PULSE 83; RESP 16; TEMP 37.2; O2SAT 98
[2024-03-05 04:00] VITALS: BP 158/82; PULSE 86; RESP 18; TEMP 37.5; O2SAT 100
[2024-03-05 06:06] LABS: Hematocrit 26.7 % (42.0-52.0); Hemoglobin 8.3 g/dL (14.0-18.0); Mean Corpuscular HGB Conc 31.1 g/dl (32-36); Mean Corpuscular Hemoglobin 28.9 pg (26-34); Mean Platelet Volume 10.3 fl (7.4-10.4); Platelet Count Result 243 k/mm3 (150-375); Red Blood Count 2.87 M/mm3 (4.6-6.20); Red Cell Distribution Width 13.3 % (11.5-14.5); White Blood Count 9.9 K/mm3 (4.5-10.0)
[2024-03-05 06:26] LABS: Alanine Aminotransferase 11 U/L (6-50); Albumin Level 2.8 g/dL (3.5-5.1); Alkaline Phosphatase 159 U/L (38-126); Anion Gap 2 mmol/L (4-12); Aspartate Amino Transferase 22 U/L (17-59); Bilirubin,Total 0.7 mg/dL (0.2-1.3); Blood Urea Nitrogen 35 mg/dL (9-20); Calcium 8.7 mg/dL (8.4-10.2); Carbon Dioxide 27 mmol/L (22-30); Chloride 108 mmol/L (98-107); Estimated CRCL calculation 35 ml/min; Estimated Glomerular Filt Rate 26; Glucose 156 mg/dL (65-110); Potassium 4.4 mmol/L (3.4-5.0); Sodium 137 mmol/L (137-145)
[2024-03-05 08:00] VITALS: BP 142/56; PULSE 82; RESP 12; TEMP 36.7; O2SAT 99
[2024-03-05 08:13] LABS: Glucose Point of Care 136 mg/dl (65-105)
[2024-03-05 08:24] VITALS: PULSE 82
[2024-03-05] MEDS: CHLORTHALIDONE 25 MG TABLET PO (08:24)
[2024-03-05] MEDS: DOXYCYCLINE HYCLATE 100 MG TABLET PO (08:24)
[2024-03-05] MEDS: calcitrioL 0.25 MCG CAPSULE PO (08:24)
[2024-03-05] MEDS: CLOPIDOGREL BISULFATE 75 MG TABLET PO (08:24)
[2024-03-05] MEDS: TAMSULOSIN HCL 0.4 MG CAPSULE PO (08:24)
[2024-03-05] MEDS: SPIRONOLACTONE 25 MG TABLET PO (08:24)
[2024-03-05] MEDS: ASPIRIN 81 MG ENTERIC TABLET PO (08:24)
[2024-03-05] MEDS: ATORVASTATIN 20 MG TABLET PO (08:24)
[2024-03-05] MEDS: METOPROLOL TARTRATE 50 MG TAB 100 MG PO (08:24)
[2024-03-05] MEDS: TIMOLOL MALEATE 0.5% OP SOLN 5 ML BOTTLE 1 DROP EACH EYE (08:25)
[2024-03-05] MEDS: LACTIC ACID 12% LOTION 225 BTL 1 APPLIC TOPICAL (08:26)
--- NOTE | 2024-03-05 11:47 | P.DS_ITS ---
DS: Admitting Diagnosis Discharge Date 03/05/2024 Admitting Diagnosis Redness, swelling, pain of left lower extremity DS: Discharge Diagnosis Discharge Diagnosis (1) Left leg cellulitis: Code(s): L03.116 - Cellulitis of left lower limb Status: Acute Assessment and Plan: admit to IMU patient started on cefepime vancomycin and Flagyl cultures negative ok to dc on oral abx (2) Elevated troponin: Code(s): R79.89 - Other specified abnormal findings of blood chemistry Status: Acute Assessment and Plan: continue to trend (3) Leg pain: Code(s): M79.606 - Pain in leg, unspecified Status: Acute Assessment and Plan: likely neuropathic pain (4) Chronic acquired lymphedema: Code(s): I89.0 - Lymphedema, not elsewhere classified Status: Acute Assessment and Plan: compression stockings in place (5) Chronic kidney disease: Code(s): N18.9 - Chronic kidney disease, unspecified Status: Acute Assessment and Plan: BUN and creatinine at patient's baseline (6) Insulin dependent type 2 diabetes mellitus: Code(s): E11.9 - Type 2 diabetes mellitus without complications; 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 Status: Acute Assessment and Plan: continue home meds carb consistent diet Accu-Cheks AC and HS DS: Summary Hospital Course Hospital Course: pt admitted with cellulitis of lower extremities, sepsis Patient has worsening rest needs, swelling, pain, a flu extremities, patient has tachycardia tachypnea, leukocytosis 15,000, meeting criteria of sepsis Pressures wound culture grows Serratia Marcescens susceptible to cefepime Pending blood culture Started cefepime IV, Flagyl IV and vancomycin 02/27 Repeat wound culture: no growth now Received normal saline resuscitation Changed to cefepime and doxy IV 02/28 Cellulitis improving 03/01 ok to dc with oral abx blood cultures are negative Chronic lymphedema and chronic broken skins of bilateral lower extremities Possible due to uncontrolled diabetes Consult Wound Care Uncontrolled type 2 diabetes Upon arrival to ED, grows ulcer 107, A1c in February 03, 2024 10.7 Patient is on glargine 25 units q.h.s., will increase to 40 unit q.h.s. Start insulin aspart 4 units a.c. Start insulin sliding scale a.c. and q.h.s. 02/28: Better controlled, still not controlled in the target range. Increase aspart 6 units before each meal 03/01: well controlled Elevated troponin Patient denies chest pain EKG showed sinus rhythm no specific ST T-wave changes Likely demand ischemia secondary to sepsis Continue aspirin 81 mg daily p.o., Plavix 75 mg daily p.o. Essential hypertension Continue losartan 100 mg daily p.o., metoprolol 100 mg daily p.o. CKD stage 4 Elevated BUN creatinine ratio on the baseline Avoid nephrotoxic medication Follow urinalysis Chronic anemia Ronal stable No obvious bleeding Follow-up CBC Time Spent with Patient Time attestation: Total time spent providing and/or coordinating discharge services:45 minutes on day of dc Exam Narrative: GENERAL: Pleasant, in no acute distress. Well-nourished. - EYES: EOMI. Anicteric. - HENT: Moist mucous membranes. - LUNGS: Clear to auscultation bilateral ly, no wheezing, rhonchi, or rales. - CARDIOVASCULAR: Regular rate and rhyth m. No murmur. No JVD. - ABDOMEN: Soft, non-tender and non-dist ended. No palpable masses. - EXTREMITIES: No edema. Peripheral puls es 2+. Non-tender. - NEUROLOGIC: No focal neurological defi cits. CN II-XII grossly intact. - PSYCHIATRIC: Awake, Alert and oriented x 3. Appropriate mood and affect. - SKIN: Cellulitis left lower extremity , multiple broken skins of bilateral lower extremities - LYMPH: No cervical lymphadenopathy. DS: Data Data Completed and Pending Labs on day of discharge: Labs from last 24 hours 03/05/24 03/05/24 03/04/24 08:02 05:28 20:38 WBC 9.9 RBC 2.87 L Hgb 8.3 L Hct 26.7 L MCV 93.0 MCH 28.9 MCHC 31.1 L RDW 13.3 Plt Count 243 MPV 10.3 Sodium 137 Potassium 4.4 Chloride 108 H Carbon Dioxide 27 Anion Gap 2 L BUN 35 H Creatinine 2.50 H Estim Creat Clear Calc 35 Estimated GFR 26 L Glucose 156 H POC Capillary Glucose 136 H 206 H Calcium 8.7 Total Bilirubin 0.7 AST 22 ALT 11 Alkaline Phosphatase 159 H Total Protein 6.0 L Albumin 2.8 L 12/22/24 12/22/24 12/22/24 16:42 12:35 11:56 WBC 9.9 RBC 3.09 L Hgb 9.0 L Hct 29.0 L MCV 93.9 MCH 29.1 MCHC 31.0 L RDW 13.4 Plt Count 244 MPV 10.4 Sodium 138 Potassium 4.1 Chloride 108 H Carbon Dioxide 27 Anion Gap 3 L BUN 35 H Creatinine 2.60 H Estim Creat Clear Calc 34 Estimated GFR 24 L Glucose 154 H POC Capillary Glucose 186 H 161 H Calcium 9.1 Total Bilirubin 0.7 AST 22 ALT 11 Alkaline Phosphatase 158 H Total Protein 7.0 Albumin 3.0 L Discharge Plan Discharge Attending physician on discharge: Joana Doty Discharging Clinician: Joana Doty Anticipated Discharge Date/Time: 03/05/24 11:44 Patient Disposition: SNF Activity: as tolerated Diet: diabetic Discharge Instructions: Keep legs elevated and wrapped Patient Instructions: Clopidogrel (By mouth), Heart Failure (DC), Pain Management (DC) Patient Language: Barbadian Stand Alone Forms: General Discharge Information Follow-up/Referrals: Jorge,MD Jhon [Primary Care Provider] - Discharge Medications: [place]-Hydrin Five 5 % Lotion 1 applic topical QAM Qty: 226 0RF doxycycline hyclate 100 mg Tablet 100 mg PO Q12HR Qty: 20 0RF ferrous sulfate 325 mg (65 mg iron) tablet 325 mg PO DAILY Qty: 90 0RF Continued aspirin 81 mg Tablet 81 mg PO DAILY latanoprost 0.005 % drops 1 drp EACH EYE DAILY atorvastatin 20 mg tablet 20 mg PO DAILY metoprolol tartrate 100 mg tablet 100 mg PO DAILY clopidogrel 75 mg tablet 75 mg PO DAILY spironolactone 25 mg tablet 25 mg PO QAM tamsulosin 0.4 mg capsule 0.4 mg PO DAILY timolol maleate 0.5 % drops 1 drp EACH EYE DAILY losartan 100 mg tablet 100 mg PO QPM gabapentin 300 mg capsule 300 mg PO Q6-8H PRN (Reason: Pain) calcitriol 0.25 mcg capsule 0.25 mcg PO DAILY chlorthalidone 25 mg tablet 25 mg PO DAILY hydrocodone-acetaminophen 5-325 mg Tablet 1 tablet PO Q6H PRN (Reason: Pain Rated 4-6) Qty: 12 0RF insulin aspart U-100 [Novolog U-100 Insulin aspart] 100 unit/mL Solution 2 - 4 unit subcut HS Qty: 10 0RF Protocol: Insulin Corrective High-Dose Condition: glucose < 70 mg/dl Dose/Route: Follow hypoglycemia order Condition: glucose 70-200 mg/dl Dose/Route: No additional insulin Condition: glucose 201-250 mg/dl Dose/Route: 2 units sub-Q Condition: glucose 251-300 mg/dl Dose/Route: 2 units sub-Q Condition: glucose 301-350 mg/dl Dose/Route: 3 units sub-Q Condition: glucose 351-400 mg/dl Dose/Route: 4 units sub-Q Condition: glucose > 400 mg/dl Dose/Route: Call MD insulin glargine [Lantus U-100 Insulin] 100 unit/mL Solution 25 unit subcut HS Qty: 10 0RF Date of admission: 03/04/24 15:53 Primary Care Provider: LizaJhon Admitting Provider: Yuan Keller V. Attending physician on admission: Yuan Keller V. Condition: Stable
[2024-03-05 12:00] VITALS: BP 169/66; PULSE 76; RESP 16; TEMP 36.9; O2SAT 99
[2024-03-05 12:18] LABS: Glucose Point of Care 168 mg/dl (65-105)
== END 2024-03-05 13:35 | DRG 603 ==
LOC: ANHED 02-28 00:41 → ANHIMU 02-28 02:23 → ANH2MED 02-28 15:04
PROVIDERS: General Practice; Hospitalist; Admitting Provider Internal Medicine; Emergency Provider Emergency Medicine; PCP Internal Medicine; Visit Provider Family Medicine
DX: L03.116 Cellulitis of left lower limb (principal); N18.9 Chronic kidney disease, unspecified; I12.9 Hypertensive chronic kidney disease with stage 1 through stage 4 chronic kidney disease, or unspecified chronic kidney disease; I25.10 Atherosclerotic heart disease of native coronary artery without angina pectoris; I89.0 Lymphedema, not elsewhere classified; D50.9 Iron deficiency anemia, unspecified; E11.22 Type 2 diabetes mellitus with diabetic chronic kidney disease; E11.65 Type 2 diabetes mellitus with hyperglycemia; E11.51 Type 2 diabetes mellitus with diabetic peripheral angiopathy without gangrene; E78.5 Hyperlipidemia, unspecified; E66.01 Morbid (severe) obesity due to excess calories; K21.9 Gastro-esophageal reflux disease without esophagitis; N40.0 Benign prostatic hyperplasia without lower urinary tract symptoms; M19.90 Unspecified osteoarthritis, unspecified site; R79.89 Other specified abnormal findings of blood chemistry; H40.9 Unspecified glaucoma; G47.33 Obstructive sleep apnea (adult) (pediatric); Z20.822 Contact with and (suspected) exposure to COVID-19; I69.331 Monoplegia of upper limb following cerebral infarction affecting right dominant side; Z68.39 Body mass index [BMI] 39.0-39.9, adult; Z79.82 Long term (current) use of aspirin; Z79.02 Long term (current) use of antithrombotics/antiplatelets; Z95.5 Presence of coronary angioplasty implant and graft; Z95.1 Presence of aortocoronary bypass graft; Z91.199 Patient's noncompliance with other medical treatment and regimen due to unspecified reason; Z79.4 Long term (current) use of insulin
CPT/HCPCS: 36415; 71045; 80048; 80053; 81001; 82565; 82948; 83605; 83735; 83880; 84484; 85025; 85027; 87040; 87637; 93005; 96365; 96366; 96367; 96375; 96376; 97116; 97161; 97165; 97530; 99212; 99285; A9270; G0378; G0463; J0692; J1815; J1836; J2270; J3370

== ENCOUNTER 2024-09-24 19:25 | Inpatient (IN) | payer MEDICARE, SELFPAY ==
--- NOTE | ~2024-09-24 | XR_ITS ---
Portable chest x-ray Comparison: 02/28/2024 Clinical History: Renal failure, volume overload Findings: Lungs are clear, without focal consolidation or pleural effusion. Cardiomediastinal silho uette is stable. Bones and soft tissues are unremarkable. Impression: Clear lungs. Reviewed, dictated and finalized at location . Impression: Clear lungs.
--- NOTE | ~2024-09-24 | US_ITS ---
EXAMINATION: US renal BI DATE: 09/25/2024 18:09 INDICATION: Kidney failure TECHNIQUE: Multiple ultrasound grayscale images of the kidneys were obtained. COMPARISON: None. FINDINGS: The right kidney measures 11.1 x 6.1 x 5.4 cm. The left kidney measures 11.3 x 6.1 x 5.6 cm. The kidn eys demonstrate normal echogenicity. There is no hydronephrosis in either kidney. No stones identifi ed. The bladder is normal. Possible minimal anechoic ascites anterior to the bladder. IMPRESSION: 1. Normal kidneys without hydronephrosis. 2. Possible minimal amount of ascites in the pelvis. Reviewed, dictated and finalized at location A.
--- OUTSIDE RECORDS SUMMARY | 2024-09-24 19:28 | XMS_ITS | Referral Summary ---
Author Organization 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 Counter Manager Name Role Phone Nahed Christopher MD Primary Care Provider + Allergies Active Allergy Reactions Criticality Noted Date Comments Penicillins Rash Medium 03/14/1974 Light rash and itch Medications docusate sodium (COLACE) 100 mg capsuleIndication s:constipation Take 1 capsule (100 mg total) by mouth 2 (two) times a day 0 Active latanoprost (XALATAN) 0.005 % ophthalmic solutionIndicatio ns:open angle glaucoma Administer 1 drop into both eyes nightly 2.5 mL 0 Active timolol (TIMOPTIC) 0.5 % ophthalmic solutionIndicatio ns:open angle glaucoma Administer 1 drop into both eyes daily 10 mL 0 Active traMADoL (ULTRAM) 50 mg tabletIndications :Pain Take 1 tablet (50 mg total) by mouth every 8 (eight) hours as needed for pain 0 Active aspirin 81 mg enteric coated tabletIndications :Myocardial Reinfarction Prevention Take 1 tablet (81 mg total) by mouth daily 30 tablet 2 Active atorvastatin (LIPITOR) 20 mg tabletIndications :hyperlipidemia Take 1 tablet (20 mg total) by mouth nightly 30 tablet 2 Active calcitRIOL (ROCALTROL) 0.25 mcg capsuleIndication s:bone mineral disease Take 1 capsule (0.25 mcg total) by mouth daily 30 capsule 2 Active cholecalciferol (VITAMIN D-3) 1,000 unit capsuleIndication s:Vitamin D Deficiency Take 1 capsule (1,000 Units total) by mouth daily 30 capsule 2 Active famotidine (PEPCID) 20 mg tabletIndications :multiple endocrine neoplasia Take 1 tablet (20 mg total) by mouth nightly 30 tablet 2 Active gabapentin (NEURONTIN) 300 mg capsuleIndication s:Neuropathic Pain Take 1 capsule (300 mg total) by mouth 3 (three) times a day 90 capsule 2 Active insulin glargine (LANTUS, SEMGLEE) 100 unit/mL vial for injectionIndicati ons:Diabetes Mellitus Inject 36 Units under the skin nightly 11.16 mL 2 Active insulin lispro (HumaLOG, ADMELOG) 100 unit/mL vial for injectionIndicati ons:Diabetes Mellitus Inject 12 Units under the skin 3 (three) times a day with meals 11.16 mL 2 Active metoprolol tartrate (LOPRESSOR) 25 mg immediate release tabletIndications :hypertension Take 1 tablet (25 mg total) by mouth 2 (two) times a day 60 tablet 2 Active tamsulosin (FLOMAX) 0.4 mg extended release capsuleIndication s:benign prostatic hyperplasia with lower urinary tract sx Take 1 capsule (0.4 mg total) by mouth daily with dinner 30 capsule 2 Active hydrALAZINE (APRESOLINE) 50 mg tabletIndications :hypertension Take 1 tablet (50 mg total) by mouth 3 (three) times a day 90 tablet 2 Active hydrALAZINE (APRESOLINE) 50 mg tabletIndications :per md advisement Take 50 mg by mouth 2 (two) times a day. rx# [id number] Indications: per md advisement Active insulin glargine (LANTUS, SEMGLEE) 100 unit/mL subcutaneous syringeIndication s:diabetes Inject 36 Units under the skin nightly. rx # [id number] Indications: diabetes Active insulin lispro (HumaLOG, ADMELOG) 100 unit/mL vial for injectionIndicati ons:type 2 diabetes mellitus Inject 12 Units under the skin 3 (three) times a day with meals. RX# [id number] Indications: type 2 diabetes mellitus Active Active Problems Problem Noted Date Diagnosed Date NSTEMI (non-ST elevated myocardial infarction) 1 05/08/2021 Fall, initial encounter 03/06/2022 Stage 3b chronic kidney disease 01/22/2020 Morbidly obese 01/22/2020 JB (obstructive sleep apnea) 01/22/2020 Anemia in chronic kidney disease (CKD) 0 Coronary artery disease invo lving pamunkey heart without angina pectoris 01/20/2020 Overview (01/22/2020): Added automatically from request for surgery [id number] Type 2 diabetes mellitus 07/28/2013 Overview (06/19/2016): DMII WO CMP NT ST UNCNTR Pure hypercholesterolemia 07/28/2013 Overview (06/19/2016): PURE HYPERCHOLESTEROLEM Hypertension 07/28/2013 Overview (06/19/2016): HYPERTENSION NOS Immunizations Immunization Administration Dates Next Due Influenza, Unspecified 02/14/2022,01/21/2020 Social History Tobacco Use Types Packs/Day Years Used Date Smoking Tobacco: Never Smokeless Tobacco: Never Alcohol Use Standard Drinks/Week Comments Yes 0 (1 standard drink = 0.6 oz pur e alcohol) OASIS D0700: Social Isolation Answer Da te Recorded Frequency of experiencing loneliness or isolatio n Never 04/17/2022 OASIS A1250: Transportation Answer Date Recorded Lack of Transportation (Medical) No 04/17/2022 Lack of Transportation (Non-Medical) No 04/17/2022 Patient Unable or Declines to Respond No 04/17/2022 OASIS B1300: Health Literacy Answer Trevor e Recorded Frequency of needing help to read materials from doctor or pharmacy Never 04/17/2022 Humiliation, Afraid, Rape, and Kick questionnair e Answer Date Recorded Within the last year, have y ou been afraid of your partner or ex-partner? No 01/24/2020 Within the last year, have y ou been humiliated or emotionally abused in other ways by your partner or ex-partner? No Within the last year, have y ou been kicked, hit, slapped, or otherwise physically hurt by your partner or ex-partner? No 01/24/2020 Within the last year, have y ou been raped or forced to have any kind of sexual activity by your partner or ex-partner? No 01/24/2020 Social Connection and Isolat ion Panel [NHANES] Answer Date Recorded In a typical week, how many times do you talk on the phone with family, friends, or neighbors? More than three times a week 01/24/2020 How often do you get togethe r with friends or relatives? More than three times a week 01/24/2020 Attends [employer] Services Not on file 01/23 Active Member of Clubs or Organizations Not on f ile 01/24/2020 Attends Club or Organization Meetings Not on catherine e 01/24/2020 Are you , , di vorced, , never , or living with a partner? 01/24/2020 AUDIT-C Answer Date Recorded Q1: How often do you have a drink containing alcohol? Never 03/07/2022 Q2: How many drinks containi ng alcohol do you have on a typical day when you are drinking? Patient does not drink Q3: How often do you have si x or more drinks on one occasion? Never 03/07/2022 Overall Financial Resource Strain (CARDIA) Answe r Date Recorded How hard is it for you to pa y for the very basics like food, housing, medical care, and heating? Hard 01/24/2020 PRAPARE - Transportation Answer Date Re corded In the past 12 months, has l ack of transportation kept you from medical appointments or from getting medications? No 01/12 In the past 12 months, has l ack of transportation kept you from meetings, work, or from getting things needed for daily living? No 01/24/2020 Sex and Gender Information Value Date Recorded Sex Assigned at Not on file Legal Sex Male 1:02 AM RAILROAD HAND Gender Identity Not on file Sexual Orientation Not on file Last Filed Vital Signs Vital Sign Reading Time Taken Comments Blood Pressure 140/80 04/17/2022 2:17 PM RAILROAD HAND Pulse 88 04/17/2022 2:17 PM RAILROAD HAND Temperature 36.1 C (97 F) 04/17/2022 2:17 PM RAILROAD [facility] Respiratory Rate 18 04/17/2022 2:17 PM RAILROAD HAND Oxygen Saturation 96% 04/17/2022 2:17 PM RAILROAD HAND Inhaled Oxygen Concentration - - Weight 143.3 kg (315 lb 14.4 oz) 03/11/2022 3:34 AM RAILROAD HAND Height 185.4 cm (6' 1) 03/07/2022 12:3 3 AM RAILROAD HAND Body Mass Index 41.68 03/07/2022 12:33 AM RAILROAD HAND Plan of Treatment Not on file Medical Devices Implanted Type Area Manager Mba Device Identifier Shelf Expiration Date Model / Serial / Lot [employer] 73-2623 Sternalock Erwin 8 Hole Sternum Plate Bone 2.4 Mm Screw - [id number] Implanted:Qty: 2 on 02/01/2020 by Corrie Saeed MD at [facility] Plate N/A: Chest [employer] 73-2623 / / [employer] [id number] Sternalock Erwin 6 Hole Sternum Hexagon Plate Bone Primary Closure - [id number] Implanted:Qty: 1 on 02/01/2020 by Corrie Saeed MD at [facility] Plate N/A: Chest [employer] [id number] / / [employer] 73-2416 Sternalock Erwin 2.4mm 16mm Self Drill Lock Sternum Cancellous - [id number] Implanted:Qty: 18 on 02/01/2020 by Corrie Saeed MD at [facility] Screw N/A: Chest [employer] [id number] / / [employer] [id number] Sternalock Erwin 2.4mm 18mm Self Drill Lock Sternum Cancellous - [id number] Implanted:Qty: 4 on 02/01/2020 by Corrie Saeed MD at [facility] N/A: Chest [employer] [id number] / / Procedures Procedure Name Priority Date/Time Associated Diagnosis Comments EGFR Routine 03/10/2022 7:[address] CHEST ABDOMEN PELVIS WO CONTRAST ED 03/06/2022 3:44 PM RAILROAD HAND HEMOGLOBIN A1C STAT 03/06/2022 1:41 PM RAILROAD HAND LIPID PANEL STAT 03/06/2022 1:41 PM RAILROAD HAND from Last 3 Months or Most Recently Relevant to Health Maintenance Results * (ABNORMAL) eGFR (03/10/2022 7:54 PM RAILROAD HAND) eGFR 33(L) 90 - 130 mL/min/1. 73 m2 [facility] Comment: Interpretive Data Reference Interval Normal >/= 90 mL/min/1.73m2 Mildly decreased* 60 - 89 mL/min/1.73m2 Mildly to moderately decreased 45 - 59 mL/min/1.73m2 Moderately to severely decreased 30 - 44 mL/min/1.73m2 Severely decreased 15 - 29 mL/min/1.73m2 Kidney Failure < 15 mL/min/1.73m2 *Relative to young adult level Estimated glomerular filtration rate is determined by the 2020 CKD-EPI equation recommended by the National Kidney Foundation (A Unifying Approach to GFR Estimation: Recommendations of the NKF-ASK Task Force on Reassessing the Inclusion of Race in Diagnosing Kidney Disease, JASN 2020). The CKD-EPI equation should not be used for patients with unstable renal function and has not been validated in children and those over 70. Current interpretive data was last reviewed 2021. Blood 03/10/2022 7:54 PM RAILROAD HAND 03/10/2022 9:28 PM RAILROAD HAND Adriana Perera MD LAB BLOOD ORDERABLES Final Result [facility] Department [place] [address] * CT Chest Abdomen Pelvis WO Contrast (03/06/2022 3:44 PM RAILROAD HAND) Anatomical Region Laterality Modality Body N/A Computed Tomogra phy 03/06/2022 4:15 PM RAILROAD HAND Impressions 03/06/2022 4:40 PM RAILROAD HAND 1. No acute traumatic abnormality of the chest, abdomen and pelvis. 2. Partially imaged left flank soft tissue contusion. 3. Indeterminate enlarged retroperitoneal and iliac lymph nodes. In absence of known malignancy, follow up in 3-6 months is recommended Dictated by: Latrice Lozano M.D. The radiology attending physician has personally reviewed this study, and had reviewed and/or edited this written report and agrees with it. Electronically signed by: Elisa Hall M.D. Narrative 03/06/2022 4:40 PM RAILROAD HAND EXAMINATION: CT CHEST ABDOMEN PELVIS WO CONTRAST HISTORY: 71-year-old man with ground-level fall TECHNIQUE: Transaxial computed tomographic images of the chest, abdomen and pelvis were obtained without intravenous contrast. COMPARISON: None FINDINGS: The evaluation of the chest is partially degraded by respiratory motion. No suspicious pulmonary nodules. No consolidation or pulmonary edema. No pleural effusion or pneumothorax. Thyroid is normal. No supraclavicular or axillary lymphadenopathy. No mediastinal or hilar lymphadenopathy. The thoracic aorta is normal in course and caliber. Coronary artery calcifications. Heart size is normal. No pericardial effusion. Trachea and central airways are patent. Small hiatal hernia. No suspicious liver lesions. No biliary ductal dilation. Cholelithiasis without cholecystitis. Mild fatty atrophy of the pancreas. The spleen is normal. The adrenal glands normal. Normal noncontrast appearance of the kidneys without nephrolithiasis or hydronephrosis. There is mild bilateral stranding of the perirenal fascia, which is nonspecific. No mesenteric lymphadenopathy or free fluid. Multiple prominent retroperitoneal lymph nodes within aortocaval lymph node measuring 1.4 cm, which may be reactive (table position -309.0). There are additional bilateral iliac lymph nodes. For example, a right common iliac node measures 1.0 cm (-431.5) Severe atherosclerosis of the abdominal aorta. The urinary bladder is normal. Prostate is unremarkable. Small fat-containing inguinal hernias, right greater left. No pelvic lymphadenopathy or free fluid. The seminal vesicles are calcified. Small fat-containing ventral hernia in the left lower quadrant. The colon is normal in course and caliber. The appendix is not well seen with no secondary signs of appendicitis. The small bowel is normal in course and caliber. The stomach is normal. There is partially visualized soft tissue stranding of the left flank, likely representing soft tissue contusion. No acute fracture or suspicious osseous lesion. Multilevel degenerative disc disease. Procedure Note Elisa Hall MD - 03/06/2022 EXAMINATION: CT CHEST ABDOMEN PELVIS WO CONTRAST HISTORY: 71-year-old man with ground-level fall TECHNIQUE: Transaxial computed tomographic images of the chest, abdomen and pelvis were obtained without intravenous contrast. COMPARISON: None FINDINGS: The evaluation of the chest is partially degraded by respiratory motion. No suspicious pulmonary nodules. No consolidation or pulmonary edema. No pleural effusion or pneumothorax. Thyroid is normal. No supraclavicular or axillary lymphadenopathy. No mediastinal or hilar lymphadenopathy. The thoracic aorta is normal in course and caliber. Coronary artery calcifications. Heart size is normal. No pericardial effusion. Trachea and central airways are patent. Small hiatal hernia. No suspicious liver lesions. No biliary ductal dilation. Cholelithiasis without cholecystitis. Mild fatty atrophy of the pancreas. The spleen is normal. The adrenal glands normal. Normal noncontrast appearance of the kidneys without nephrolithiasis or hydronephrosis. There is mild bilateral stranding of the perirenal fascia, which is nonspecific. No mesenteric lymphadenopathy or free fluid. Multiple prominent retroperitoneal lymph nodes within aortocaval lymph node measuring 1.4 cm, which may be reactive (table position -309.0). There are additional bilateral iliac lymph nodes. For example, a right common iliac node measures 1.0 cm (-431.5) Severe atherosclerosis of the abdominal aorta. The urinary bladder is normal. Prostate is unremarkable. Small fat-containing inguinal hernias, right greater left. No pelvic lymphadenopathy or free fluid. The seminal vesicles are calcified. Small fat-containing ventral hernia in the left lower quadrant. The colon is normal in course and caliber. The appendix is not well seen with no secondary signs of appendicitis. The small bowel is normal in course and caliber. The stomach is normal. There is partially visualized soft tissue stranding of the left flank, likely representing soft tissue contusion. No acute fracture or suspicious osseous lesion. Multilevel degenerative disc disease. IMPRESSION: 1. No acute traumatic abnormality of the chest, abdomen and pelvis. 2. Partially imaged left flank soft tissue contusion. 3. Indeterminate enlarged retroperitoneal and iliac lymph nodes. In absence of known malignancy, follow up in 3-6 months is recommended Dictated by: Latrice Lozano M.D. The radiology attending physician has personally reviewed this study, and had reviewed and/or edited this written report and agrees with it. Electronically signed by: Elisa Lauren Steinbrecher, M.D. Carlos Joiner MD IMG CT PROCEDURES F inal Result * (ABNORMAL) Hemoglobin A1c (03/06/2022 1:41 PM RAILROAD HAND) Hgb A1C 9.6(H) 4.0 - 5.6 % [facility] Comment:Testing performed by : [facility], [place]., [address] Estimated Average Glucose 229 mg/dL [facility] Comment: The ADA recommends reporting an estimated Average Glucose (eAG) with all Hemoglobin A1c results using the equation derived from a study of 507 normal and diabetic adults. Minority populations were underrepresented and children were not included. (Diabetes Care 31:3415-3710, 2008). The eAG is not equivalent to a fasting glucose. Testing performed by: [facility], [place]., [address] Blood 03/06/2022 1:41 PM RAILROAD HAND 03/07/2022 12:11 PM RAILROAD HAND Adriana Perera MD LAB BLOOD ORDERABLES Final Result [facility] Department [place] [address] * (ABNORMAL) Lipid panel (03/06/2022 1:41 PM RAILROAD HAND) Pathologist [facility] Cholesterol 101 30 - 199 mg/dL [facility] Comment: Interpretive Data Ages < or = 19 years Acceptable: <170 mg/dL Borderline high: 170-199 mg/dL High: >or= 200 mg/dL Ages > or = 20 years Desirable: <200 mg/dL Borderline high: 200-239 mg/dL High: >or= 240 mg/dL Literature References: 1. Expert Panel on Integrated Guidelines for Cardiovascular Health and Risk Reduction in Children and Adolescents. Pediatrics 2011;128:S213 2. NCEP Expert Panel. Circulation 2004;110:227 Current Interpretive Data was last revised on 2017. Triglycerides 125 <=149 mg/dL [facility] Comment: Interpretive Data Ages < or = 9 years Acceptable: <75 mg/dL Borderline high: 75-99 mg/dL High: >or= 100 mg/dL Ages 10 to 20 years Acceptable: <90 mg/dL Borderline high: 90-129 mg/dL High: >or= 130 mg/dL Ages > or = 20 years Desirable: <150 mg/dL Borderline high: 150-199 mg/dL High: 200-499 mg/dL Very high: >or= 499 mg/dL Literature References: 1. Expert Panel on Integrated Guidelines for Cardiovascular Health and Risk Reduction in Children and Adolescents. Pediatrics 2011;128:S213 2. NCEP Expert Panel. Circulation 2004;110:227 Current Interpretive Data was last revised on 2017. HDL 24(L) >=40 mg/dL [facility] Comment: Interpretive Data Ages < or = 19 years Acceptable: >45 mg/dL Borderline low: 40-45 mg/dL Low: <40 mg/dL Ages > or = 20 years Desirable: >or= 60 mg/dL Low: <40 mg/dL Literature References: 1. Expert Panel on Integrated Guidelines for Cardiovascular Health and Risk Reduction in Children and Adolescents. Pediatrics 2011;128:S213 2. NCEP Expert Panel. Circulation 2004;110:227 Current Interpretive Data was last revised on 2017. LDL, calculated 52 <=129 mg/dL [facility] Comment: Interpretive Data Ages < or = 19 years Acceptable: <110 mg/dL Borderline high: 110-129 mg/dL High: >or= 130 mg/dL Ages > or = 20 years Optimal: <100 mg/dL Near optimal: 100-129 mg/dL Borderline high: 130-159 mg/dL High: >160 mg/dL Literature References: 1. Expert Panel on Integrated Guidelines for Cardiovascular Health and Risk Reduction in Children and Adolescents. Pediatrics 2011;128:S213 2. NCEP Expert Panel. Circulation 2004;110:227 Current Interpretive Data was last revised on 2017. Non-HDL Cholesterol 77 mg/dL [facility] Comment: Interpretive Data Ages < or = 19 years Acceptable: <120 mg/dL Borderline high: 120-144 mg/dL High: >145 mg/dL Ages > or = 20 years When triglycerides are >200 mg/dL, Non-HDL cholesterol is a secondary target of therapy with treatment goals that are 30 mg/dL greater than the LDL cholesterol target. Literature References: 1. Expert Panel on Integrated Guidelines for Cardiovascular Health and Risk Reduction in Children and Adolescents. Pediatrics 2011;128:S213 2. NCEP Expert Panel. Circulation 2004;110:227 Current Interpretive Data was last revised on 2017. Chol/HDL ratio 4 [facility] Blood 03/06/2022 1:41 PM RAILROAD HAND 03/06/2022 1:52 PM RAILROAD HAND Narrative [facility] - 03/06/2022 6:32 PM RAILROAD HAND This lipid panel was automatically ordered due to a significant change in Troponin. The dietary status of the patient at the collection time should be correlated with the lipid results. Carlos Joiner MD LAB BLOOD ORDERABLE S Final Result [facility] Department [place] [address] from Last 3 Months or Most Recently Relevant to Health Maintenance Insurance HMO REF Advance Directives For more information, please contact: [phone] * Full Code (Latest Code Status on File) Date Activated Date Inactivated Comments 03/07/2022 12:08 AM 03/11/2022 7:21 PM * Full Code Date Activated Date Inactivated Comments 02/01/2020 3:07 PM 02/11/2020 11:21 PM Care Teams [employer] Sales Counter Manager Relationship Specialty Start Date End Date Nahed Christopher MD [address] [address] PCP - General Family Medicine 06/19/20
--- OUTSIDE RECORDS SUMMARY | 2024-09-24 19:28 | XMS_ITS | Clinical Summary ---
Author Organization [facility] Facility Address [address] [place] [address] Care Team Providers Care Director Process Name Role Phone Jhon Patel MD Primary Care Provider [phone] Allergies Active Allergy Reactions Criticality Noted Date Comments Penicillins 01/13/2021 Medications acetaminophen (TYLENOL) 325 MG tablet Take 650 mg by mouth 02/11/20 20 Active albuterol (2.5 MG/3ML) 0.083% nebulizer solution albuterol sulfate 2.5 mg/3 mL (0.083 %) solution for nebulization USE 1 VIAL VIA NEBULIZER Q 6 H PRN 02/11/20 20 Active amiodarone (PACERONE) 200 MG tablet amiodarone 200 mg tablet Active amLODIPine (NORVASC) 5 MG tablet amlodipine 5 mg tablet Active atorvastatin (LIPITOR) 20 MG tablet atorvastatin 20 mg tablet Active azithromycin (ZITHROMAX) 250 MG tablet azithromycin 250 mg tablet TAKE 2 TABLETS BY MOUTH TODAY, THEN TAKE 1 TABLET DAILY FOR 4 DAYS Active Difluprednate (Durezol) 0.05 % emulsion Durezol 0.05 % eye drops Active Docusate Sodium (DSS) 100 MG capsule Take 100 mg by mouth twice a day 02/11/20 20 Active dorzolamide-fara lol (COSOPT) 22.3-6.8 MG/ML ophthalmic solution dorzolamide 22.3 mg-timolol 6.8 mg/mL eye drops Active famotidine (PEPCID) 20 MG tablet Take by mouth 1 (one) time each day 04/02/19 21 Active gabapentin (NEURONTIN) 300 MG capsule Take 300 mg by mouth daily 02/11/20 20 Active HYDROcodone-acet aminophen (NORCO) 5-325 MG per tablet hydrocodone 5 mg-acetaminophen 325 mg tablet Active hydrocortisone (WESTCORT) 0.2 % cream hydrocortisone valerate 0.2 % topical cream Active insulin glargine (LANTUS) 100 UNIT/ML injection Inject 10 Units under the skin twice a day 02/11/20 20 Active insulin regular (HumuLIN R) 500 UNIT/ML CONCENTRATED injection Humulin R U-500 (Concentrated) Insulin 500 unit/mL subcutaneous soln Inject 50 units up to three times daily before meals by subcutaneous route before meals for 30 days. 05/08/19 21 Active isosorbide mononitrate (IMDUR) 30 MG 24 hr tablet isosorbide mononitrate ER 30 mg tablet,extended release 24 hr Active latanoprost (XALATAN) 0.005 % ophthalmic solution latanoprost 0.005 % eye drops 02/11/20 20 Active linaGLIPtin (Tradjenta) 5 MG tablet Tradjenta 5 mg tablet TK 1 T PO D Active metOLazone (ZAROXOLYN) 5 MG tablet Take 1 tablet by mouth every morning 12/04/19 20 Active moxifloxacin (Vigamox) 0.5 % ophthalmic solution Vigamox 0.5 % eye drops Active naltrexone (DEPADE) 50 MG tablet Take 1 tablet by mouth 2 (two) times a day 08/09/19 19 Active nystatin (MYCOSTATIN) 354414 UNIT/ML suspension nystatin 100,000 unit/mL oral suspension SAS 10 ML PO QID FOR 7 DAYS Active timolol (TIMOPTIC) 0.5 % ophthalmic solution timolol maleate 0.5 % eye drops 02/12/20 20 Active traMADol (ULTRAM) 50 MG tablet tramadol 50 mg tablet TK 1 T PO Q 8 H PRN P 02/11/20 20 Active cyanocobalamin (VITAMIN B-12) 1000 MCG tablet Take 1 tablet (1,000 mcg total) by mouth 1 (one) time each day 90 tablet 1 06/17/19 22 Active tamsulosin (FLOMAX) 0.4 MG 24 hr capsule Take 2 capsules (0.8 mg total) by mouth every night 180 capsule 3 11/18/19 22 Active chlorthalidone 25 MG tablet TAKE 1 TABLET BY MOUTH IN THE MORNING 100 tablet 2 02/09/20 22 Active ergocalciferol 1.25 MG (43202 UT) capsule Take 1 capsule (50,000 Units total) by mouth 1 (one) time per week 12 capsule 1 05/19/19 23 Active ferrous sulfate 325 (65 Fe) MG tablet Take 1 tablet (325 mg total) by mouth every afternoon 90 tablet 1 05/19/19 23 Active Semaglutide 3 MG tablet Take 3 mg by mouth 1 (one) time each day 90 tablet 1 03/29/19 24 Active aspirin (ST ALYSA) 81 MG EC tablet Take 1 tablet (81 mg total) by mouth 1 (one) time each day 90 tablet 1 10/18/19 24 Active losartan (COZAAR) 100 MG tablet TAKE 1 TABLET BY MOUTH AT BEDTIME 100 tablet 2 12/02/19 24 Active Semaglutide,0.25 or 0.5MG/DOS, (Ozempic, 0.25 or 0.5 MG/DOSE,) 2 MG/1.5ML solution pen-injector Inject 0.25 mg under the skin per week 12 mL 1 12/20/19 24 Active chlorthalidone 25 MG tablet TAKE 1 TABLET BY MOUTH IN THE MORNING 100 tablet 2 02/23/20 24 Active calcitriol (ROCALTROL) 0.25 MCG capsule TAKE 1 CAPSULE BY MOUTH DAILY 100 capsule 2 03/06/20 24 Active metoprolol tartrate (LOPRESSOR) 100 MG tablet TAKE 1 TABLET BY MOUTH EVERY NIGHT 100 tablet 2 03/22/19 25 Active Family History Medical History Relation Comments Hypertension Father Hypertension Mother Relation Status Comments Father Mother Social History Tobacco Use Types Packs/Day Years Used Date Smoking Tobacco: Never Smokeless Tobacco: Never Alcohol Use Standard Drinks/Week Comments Yes 0 (1 standard drink = 0.6 oz pure alcohol) Alcoholic Drinks/day: Occasional social drink Sex and Gender Information Value Date Recorded Sex Assigned at Not on file Legal Sex Male 2:53 PM EDT Gender Identity Not on file Sexual Orientation Not on file Last Filed Vital Signs Vital Sign Reading Time Taken Comments Blood Pressure 120/70 12/20/2023 2:48 PM CDT Pulse 77 12/20/2023 2:48 PM CDT Temperature 36.7 C (98 F) 12/20/2023 2:48 PM CDT Respiratory Rate 18 12/20/2023 2:48 PM CDT Oxygen Saturation 97% 12/20/2023 2:48 PM CDT Inhaled Oxygen Concentration - - Weight 147 kg (323 lb) 10/18/2023 12:36 PM CDT Height 185.4 cm (6' 1) 02/16/2022 2:05 PM CLIENT CARE MANAGER Body Mass Index 42.61 02/16/2022 2:05 PM CLIENT CARE MANAGER Plan of Treatment Health Maintenance Due Date Last Done Comments Colorectal Cancer Screening: Annual FOBT 05/17/2000 Colorectal Cancer Screening: Colonoscopy 05/17/2000 Colorectal Cancer Screening: Sigmoidoscopy 05/17/2000 Pneumococcal Vaccine: 50+ Years (3 of 3 - PCV20 or PCV21) 11/17/2017 09/22/2017, 12/12/2014, 03/01/2006 Diabetes: Ophthalmology Exam 08/07/2020 Diabetes: Pedal Pulse Checked 08/07/2020 Diabetes: Sensory Foot Exam 08/07/2020 Diabetes: Visual Foot Exam 08/07/2020 Diabetes: Hemoglobin A1C 01/13/2024 024, 07/27/2022, 05/04/2022, Additional history exists Influenza Vaccine (#1) 2024 2, 01/21/2020, 01/23/2019, Additional history exists Hepatitis B Vaccine Aged Out No longe r eligible based on patient's age to complete this topic Procedures Procedure Name Priority Date/Time Associated Diagnosis Comments HEMOGLOBIN A1C Routine 10/13/2023 8:41 AM CDT from Last 3 Months or Most Recently Relevant to Health Maintenance Results * (ABNORMAL) Hemoglobin A1c (10/13/2023 8:41 AM CDT) Hemoglobin A1C 12.2(H) <5.7 % of total Hgb See order comments Comment: For someone without known diabetes, a hemoglobin A1c value of 6.5% or greater indicates that they may have diabetes and this should be confirmed with a follow-up test. For someone with known diabetes, a value <7% indicates that their diabetes is well controlled and a value greater than or equal to 7% indicates suboptimal control. A1c targets should be individualized based on duration of diabetes, age, comorbid conditions, and other considerations. Currently, no consensus exists regarding use of hemoglobin A1c for diagnosis of diabetes for children. This test was performed on the Ruben ese c503 platform. Effective 05/30/23, a change in test platforms from the [employer]ational [employer] Coordinator to the Ruben ese c503 may have shifted HbA1c results compared to historical results. Based on laboratory validation testing conducted at [facility], the Ruben platform relative to the Georges platform had an average increase in HbA1c value of < or = 0.3%. This difference is within accepted variability established by the National Glycohemoglobin Standardization Program. Note that not all individuals will have had a shift in their results and direct comparisons between historical and current results for testing conducted on different platforms is not recommended. 10/13/2023 8:41 AM CDT 10/13/2023 8:43 AM CDT Narrative [facility] - 10/14/2023 3:46 PM CDT FASTING:YES FASTING: YES Resulting Agency Comment Performing Organization Information: Site ID: SL Name: [facility] Address: [address] [place] [address] Director: Olamide Shoemaker Christoph Stewart DO LAB BLOOD ORDERABLES Final R esult [facility] See order comments [place] [address] from Last 3 Months or Most Recently Relevant to Health Maintenance Insurance [facility] [place] [address] Care Teams Director Process Relationship Specialty Start Date End Date Jhon Patel MD [address] [facility] [address] [place] [address] PCP - General Internal Medicine 10/18/23
--- OUTSIDE RECORDS SUMMARY | 2024-09-24 19:28 | XMS_ITS | Continuity of Care Document ---
Author Organization [facility] Address [address] [place] [address] Insurance Providers Payer Plan Claims Address Claims Phone Policy Number Group Number Relation Employer Guarantor Name Guarantor Guarantor Address Guarantor Phone AARP MEDICA RE [facility] HMO-PO S AARP Medic are [employer] t[employer] HMO-P OS [address] [address], [place] [id number] tel:[phone] [facility] [id number] Self SUZANNE CEBLALOS 1950 [id number] [place] [id number] [facility] MEDICA RE [facility] MEDIC ARE [address] [address], [place] [address] tel:[phone] Self SUZANNE CEBALLOS 1950 [address] [place] [address] [facility] MEDICA RE [facility] [address] [facility] HCARE MEDIC ARE ADVAN TAGE [address] [address], [place] [address] tel:[phone] [id number] Self SUZANNE CEBALLOS 1950 [address] [place] [address] Problems Unknown Problems Results No Results Allergies, adverse reactions, alerts No known allergies and adverse reactions Medications No administered medications reported Vital Signs Date Vital Result Comment 01/01/2022 Oxygen saturation in Arterial blood 97.0 - 97.0 % Temperature 98.5 F Heart Rate 66 beats/minute Blood Pressure Systolic 130 mmHg Blood Pressure Diastolic 76 mmHg Body Height 72 in Body Weight 350 lbs 02/26/2022 Oxygen saturation in Arterial blood 99.0 - 99.0 % Temperature 99.4 F Heart Rate 74 beats/minute Blood Pressure Systolic 140 mmHg Blood Pressure Diastolic 68 mmHg 03/16/2022 Oxygen saturation in Arterial blood 96.0 - 96.0 % Temperature 97.7 F Heart Rate 67 beats/minute Blood Pressure Systolic 118 mmHg Blood Pressure Diastolic 50 mmHg Body Weight 339 lbs 04/01/2022 Oxygen saturation in Arterial blood 98.0 - 98.0 % Temperature 97.6 F Heart Rate 80 beats/minute Blood Pressure Systolic 152 mmHg Blood Pressure Diastolic 78 mmHg 04/22/2022 Oxygen saturation in Arterial blood 96.0 - 96.0 % Temperature 97.8 F Heart Rate 74 beats/minute Blood Pressure Systolic 138 mmHg Blood Pressure Diastolic 68 mmHg 03/12/2024 Inhaled Oxygen Concentration 21.0 % N Faces Pain Scale 0.0 N Temperature 98.4 [degF] N Oxygen Saturation 99 % N Respiratory Rate 16 /min N Heart Rate 74 /min N Blood Pressure Systolic 151 mm[Hg] N Blood Pressure Diastolic 93 mm[Hg] N Body Height 73 [in_i] N Body Weight 338 [lb_av] N Body Mass Index 44.6 kg/m2 N Social History No smoking Hx information available Functional Status Category Condition Date Problem (Feeding: Independent) Feeding: Independ ent 03/12/2024 Problem (Bathing: Independen t (or in shower)) Bathing: Independent (or in shower) 03/12/2024 Problem (Grooming: Independe nt face/hair/teeth/ shaving (implements provided)) Grooming: Independent face/hair/teeth/ shaving (implements provided) 03/12/2024 Problem (Dressing: Independe nt (including buttons, zips, laces, etc.)) Dressing: Independent (including buttons, zips, laces, etc.) 03/12/2024 Problem (Bowels: Continent) Bowels: Continent Problem (Bladder: Continent) Bladder: Continent 03/12/2024 Problem (Toilet use: Indepen dent (on and off, dressing, wiping)) Toilet use: Independent (on and off, dressing, wiping) 03/12/2024 Problem (Transfers (bed to c hair and back): Independent) Transfers (bed to chair and back): Independent 03/12/2024 Problem (Mobility (on level surfaces): Independent (but may use any aid; for example, stick) >50 yards) Mobility (on level surfaces): Independent (but may use any aid; for example, stick) >50 yards 03/12/2024 Problem (Stairs: Unable) Stairs: Unable 024 Problem (Total score: 90) Total score: 90 2023 Mental Status Category Condition Date Cognitive function Suspected cognitive impairmen t 03/12/2024
--- OUTSIDE RECORDS SUMMARY | 2024-09-24 19:28 | XMS_ITS | Clinical Summary ---
Author Organization [facility] Address [address] [place] [id number] Care Team Providers Care Automatic Drill Operator Name Role Phone Nahed Christopher MD Primary [...] mouth 2 (two) times a day. rx# [id number] Indications: per md advisement Active insulin glargine (LANTUS, SEMGLEE) 100 unit/mL subcutaneous syringeIndication s:diabetes Inject 36 Units under the skin nightly. rx # [id number] Indications: diabetes Active insulin lispro (HumaLOG, ADMELOG) 100 unit/mL vial for injectionIndicati ons:type 2 diabetes mellitus Inject 12 Units under the skin 3 (three) times a day with meals. RX# [id number] Indications: type 2 diabetes mellitus Active Active Problems Problem Noted Date Diagnosed Date NSTEMI (non-ST elevated myocardial infarction) 1 05/08/2021 Fall, initial encounter 03/06/2022 Stage 3b chronic kidney disease 01/22/2020 Morbidly obese 01/22/2020 JB (obstructive sleep apnea) 01/22/2020 Anemia in chronic kidney disease (CKD) 0 Coronary artery disease invo lving [place] heart without angina pectoris 01/20/2020 Overview (01/22/2020): Added automatically from request for surgery [id number] Type 2 diabetes mellitus 07/28/2013 Overview (06/19/2016): DMII WO CMP NT ST UNCNTR Pure hypercholesterolemia 07/28/2013 Overview (06/19/2016): PURE HYPERCHOLESTEROLEM Hypertension 07/28/2013 Overview (06/19/2016): HYPERTENSION NOS Immunizations Immunization Administration Dates Next Due Influenza, Unspecified 02/14/2022,01/21/2020 Surgical History Surgery Date Site/Laterality Comments OTHER SURGICAL HISTORY mass removed from neck.: wide excision Medical History Medical History Date Comments Cardiovascular disease coronary artery disease Hypertension hypertension Adiposity obesity Diabetes mellitus (HCC) diabetes mellitus; Comments: uncontrolled Hx Other Medical 2004 mass removed fr om neck. Hyperlipidemia Hyperlipidemia Sleep apnea Stroke (HCC) Family History Medical History Relation Name Comments Other Father in plane c rash; Diabetes type II Father's Brother Diabete s -Type II; Diabetes type II Maternal Grandmother Kaela betes -Type II; Hypertension Mother Hypertension; Diabetes type I Other Diabetes -Ty pe I; Diabetes type II Sister 1 Diabetes -T ype II; Other Sister 2 gestational kaela betes with firs; Relation Name Status Comments Father Father's Brother Maternal Grandmother Mother Other Sister 1 Sister 2 Social History Tobacco Use Types Packs/Day Years [...] than three times a week 01/24/2020 Attends [employer] Not on file 01/23 Active Member [...] on file Legal Sex Male 1:02 AM CABINET PROFESSIONAL Gender Identity Not on file Sexual Orientation Not on file Obstetrics History Last Filed Vital Signs Vital Sign Reading Time Taken Comments Blood Pressure 140/80 04/17/2022 2:17 PM CABINET PROFESSIONAL Pulse 88 04/17/2022 2:17 PM CABINET PROFESSIONAL Temperature 36.1 C (97 F) 04/17/2022 2:17 PM CABINET PROFESSIONAL Respiratory Rate 18 04/17/2022 2:17 PM CABINET PROFESSIONAL Oxygen Saturation 96% 04/17/2022 2:17 PM CABINET PROFESSIONAL Inhaled Oxygen Concentration - - Weight 143.3 kg (315 lb 14.4 oz) 03/11/2022 3:34 AM CABINET PROFESSIONAL Height 185.4 cm (6' 1) 03/07/2022 12:3 3 AM CABINET PROFESSIONAL Body Mass Index 41.68 03/07/2022 12:33 AM CABINET PROFESSIONAL Plan of Treatment Health Maintenance Due Date Last Done Comments Albumin Creatinine Ratio, Urine 1950 Colon Cancer Screening-Colonoscopy 1950 Depression Screening 1950 Hepatitis C Screening 1950 Dilated Eye Exam 1950 Foot Exam 1950 DTaP/Tdap/Td Vaccine (1 - Tdap) 05/17/1962 Hepatitis B Screening 05/17/1969 Zoster Vaccine (1 of 2) 05/17/2001 Well Visit 65+ 05/17/2016 Hemoglobin A1C 09/04/2022 03/06/2022, 02/12, 01/22/2020 Pneumococcal vaccine 65+ (3 of 3 - PCV20 or PCV21) 09/22/2022 09/22/2017, 03/01/2006 Lipid Panel 03/06/2023 03/06/2022, 01/22/2020 eGFR 03/10/2023 03/10/2022, 02/12, 03/08/2022, Additional history exists Fall Risk Assessment 03/11/2023 03/11/2022 Influenza Vaccine (#1) 2024 2, 01/21/2020, 01/23/2019, Additional history exists Abdominal Aortic Aneurysm (A AA) Screen Completed 03/06/2022 Medical Devices Implanted Type Area Vertical Borer Device Identifier Shelf Expiration Date Model / Serial / Lot [employer] [id number] Sternalock Erwin 8 Hole Sternum Plate Bone 2.4 Mm Screw - [id number] Implanted:Qty: 2 on 02/01/2020 by Corrie Saeed MD at [facility] Plate N/A: Chest [employer] [id number] / / [employer] [id number] Sternalock Erwin 6 Hole Sternum Hexagon Plate Bone Primary Closure - [id number] Implanted:Qty: 1 on 02/01/2020 by Corrie Saeed MD at [facility] Plate N/A: Chest [employer] [id number] / / [employer] [id number] Sternalock Erwin 2.4mm 16mm Self Drill Lock Sternum Cancellous - [id number] Implanted:Qty: 18 on 02/01/2020 by Corrie Saeed MD at [facility] Screw N/A: Chest [employer] [id number] / / [employer] [id number] Sternalock Erwin 2.4mm 18mm Self Drill Lock Sternum Cancellous - [id number] Implanted:Qty: 4 on 02/01/2020 by Corrie Saeed MD at [facility] N/A: Chest [employer] [id number] / / Procedures Procedure Name Priority Date/Time Associated Diagnosis Comments EGFR Routine 03/10/2022 7:[address] CHEST ABDOMEN PELVIS WO CONTRAST ED 03/06/2022 3:44 PM CABINET PROFESSIONAL HEMOGLOBIN A1C STAT 03/06/2022 1:41 PM CABINET PROFESSIONAL LIPID PANEL STAT 03/06/2022 1:41 PM CABINET PROFESSIONAL from Last 3 Months or Most Recently Relevant to Health Maintenance Results * (ABNORMAL) eGFR (03/10/2022 7:54 PM CABINET PROFESSIONAL) eGFR 33(L) 90 - 130 mL/min/1. 73 m2 [facility] Comment: Interpretive Data Reference Interval Normal >/= [...] last reviewed 2021. Blood 03/10/2022 7:54 PM CABINET PROFESSIONAL 03/10/2022 9:28 PM CABINET PROFESSIONAL us Adriana Perera MD LAB BLOOD ORDERABLES Final Result [facility] Department [place] [address] * CT Chest Abdomen Pelvis WO Contrast (03/06/2022 3:44 PM CABINET PROFESSIONAL) Anatomical Region Laterality Modality Body N/A Computed Tomogra phy 03/06/2022 4:15 PM CABINET PROFESSIONAL Impressions 03/06/2022 4:40 PM CABINET PROFESSIONAL 1. No acute traumatic abnormality of the [...] Elisa Hall M.D. Narrative 03/06/2022 4:40 PM CABINET PROFESSIONAL EXAMINATION: CT CHEST ABDOMEN PELVIS WO CONTRAST [...] it. Electronically signed by: Elisa Hall M.D. Carlos Joiner MD IMG CT PROCEDURES F inal Result * (ABNORMAL) Hemoglobin A1c (03/06/2022 1:41 PM CABINET PROFESSIONAL) Hgb A1C 9.6(H) 4.0 - 5.6 % [facility] Comment:Testing performed by : [facility], [place]., [address] Estimated Average Glucose 229 mg/dL [facility] Comment: The ADA recommends reporting an estimated Average Glucose (eAG) with all Hemoglobin A1c results using the equation derived from a study of 507 normal and diabetic adults. Minority populations were underrepresented and children were not included. (Diabetes Care 31:8699-3109, 2008). The eAG is not equivalent to a fasting glucose. Testing performed by: [facility], [place]., [address] Blood 03/06/2022 1:41 PM CABINET PROFESSIONAL 03/07/2022 12:11 PM CABINET PROFESSIONAL us Adriana Perera MD LAB BLOOD ORDERABLES Final Result [facility] Department [place] [address] * (ABNORMAL) Lipid panel (03/06/2022 1:41 PM CABINET PROFESSIONAL) Pathologist [facility] Cholesterol 101 30 - 199 mg/dL [facility] Comment: Interpretive Data Ages < or = [...] on 2017. Triglycerides 125 <=149 mg/dL [facility] Comment: Interpretive Data Ages < or = [...] revised on 2017. HDL 24(L) >=40 mg/dL [facility] Comment: Interpretive Data Ages < or = [...] on 2017. LDL, calculated 52 <=129 mg/dL [facility] Comment: Interpretive Data Ages < or = [...] Pediatrics 2011;128:S213 2. NCEP Expert Panel. Circulation 2003;110:227 Current Interpretive Data was last revised on 2017. Non-HDL Cholesterol 77 mg/dL [facility] Comment: Interpretive Data Ages < or = [...] Pediatrics 2011;128:S213 2. NCEP Expert Panel. Circulation 2003;110:227 Current Interpretive Data was last revised on 2017. Chol/HDL ratio 4 [facility] Blood 03/06/2022 1:41 PM CABINET PROFESSIONAL 03/06/2022 1:52 PM CABINET PROFESSIONAL Narrative [facility] - 03/06/2022 6:32 PM CABINET PROFESSIONAL This lipid panel was automatically ordered due to a significant change in Troponin. The dietary status of the patient at the collection time should be correlated with the lipid results. us Carlos Joiner MD LAB BLOOD ORDERABLE S Final Result [facility] [place] [address] from Last 3 Months or Most Recently Relevant to Health Maintenance Insurance R HMO REF R HMO REF Advance Directives For more information, please contact: [phone] * Full Code (Latest Code Status on File) Date Activated Date Inactivated Comments 03/07/2022 12:08 AM 03/11/2022 7:21 PM * Full Code Date Activated Date Inactivated Comments 02/01/2020 3:07 PM 02/11/2020 11:21 PM Care Teams Automatic Drill Operator Relationship Specialty Start Date End Date Nahed Christopher MD [address] [place] [address] [place] [address] PCP - General Family Medicine 06/19/20
--- OUTSIDE RECORDS SUMMARY | 2024-09-24 19:28 | XMS_ITS | Encounter Summary ---
Author Organization [facility] Address [address] [place] [address] Phone Care Team Providers Care Legal Recovery Specialist Name Role Phone Jhon Patel MD Primary Care Provider [phone] Reason for Visit * Reason Comments Med Refill Encounter Details Date Type Department Care Team (Late st Contact Info) Description 11/03/2020 Refill [place] [facility], [facility] [address] [facility] [address] [place] [address] Christoph Stewart DO [address] [place] [address] Social History Tobacco Use Types Packs/Day Years [...] on file Sexual Orientation Not on file documented as of this encounter Plan of Treatment Not on file documented as of this encounter Visit Diagnoses Not on filedocumented in this encounter Care Teams Legal Recovery Specialist Relationship Specialty Start Date End Date Jhon Patel MD [address] [facility] [address] [place] [id number] PCP - General Internal Medicine 10/18/23 documented as of this encounter
--- OUTSIDE RECORDS SUMMARY | 2024-09-24 19:28 | XMS_ITS | Encounter Summary ---
Author Organization [facility] Address [address] [place] [address] Phone Care Team Providers Care Pharmacist Helper Name Role Phone Jhon Patel MD Primary Care Provider [phone] Reason for Visit * Reason Comments Med Refill Encounter Details Date Type Department Care Team (Late st Contact Info) Description 09/07/2020 Refill [place] [facility], [facility] [address] [facility] [address] [place] [address] Christoph Stewart DO [address] [place] [address] Social History Tobacco Use Types [...] on filedocumented in this encounter Care Teams Pharmacist Helper Relationship Specialty Start Date End Date Jhon Patel MD [address] [facility] [address] [place], [place] [id number] PCP - General Internal Medicine 10/18/23 documented as of this encounter
--- OUTSIDE RECORDS SUMMARY | 2024-09-24 19:28 | XMS_ITS | Clinical Summary ---
Author Organization [facility] Bryan Hickman Address [address] [place] [address] Care Team Providers Care Shop And Alteration Tailor Name Role Phone Nahed Christopher MD Primary Care Provider + Allergies Active Allergy Reactions Criticality Noted Date Comments Penicillins Unknown 01/13/2021 Medications acetaminophen (TYLENOL) 325 mg tablet Take 650 mg by mouth. 0 Active atorvastatin (LIPITOR) 20 mg tablet atorvastatin 20 mg tablet Active calcitRIOL (ROCALTROL) 0.25 mcg capsule 2 Active cholecalcifero l, Vitamin D3, (VITAMIN D3) 25 mcg (1,000 unit) Capsule Take 1,000 Units by mouth daily. 0 Active clopidogreL (PLAVIX) 75 mg Tablet 2 Active difluprednate (DurezoL) 0.05 % solution Durezol 0.05 % eye drops Active dorzolamide-ti moloL (COSOPT) 22.3-6.8 mg/mL solution dorzolamide 22.3 mg-timolol 6.8 mg/mL eye drops Active Vitamin D2 1,250 mcg (50,000 unit) capsule 2 Active gabapentin (NEURONTIN) 300 mg capsule Take 300 mg by mouth daily. 0 Active hydrocortisone valerate (WESTCORT) 0.2 % Cream hydrocortisone valerate 0.2 % topical cream Active insulin glargine (LANTUS) 100 unit/mL vial Inject 10 Units by subcutaneous injection 2 times daily. 0 Active insulin lispro (HumaLOG) 100 unit/mL vial Inject by subcutaneous injection 5 times daily. 0 Active insulin regular U-500 CONCENTRATED (HumuLIN R) 500 unit/mL vial Humulin R U-500 (Concentrated) Insulin 500 unit/mL subcutaneous soln Inject 50 units up to three times daily before meals by subcutaneous route before meals for 30 days. 1 Active linaGLIPtin (Tradjenta) 5 mg Tablet Tradjenta 5 mg tablet TK 1 T PO D Active losartan (COZAAR) 100 mg tablet 2 Active metoprolol tartrate (LOPRESSOR) 100 mg tablet metoprolol tartrate 100 mg tablet TAKE 1 TABLET BY MOUTH TWICE DAILY 1 Active moxifloxacin (Vigamox) 0.5 % solution Vigamox 0.5 % eye drops Active nystatin (MYCOSTATIN) 100,000 unit/mL suspension nystatin 100,000 unit/mL oral suspension SAS 10 ML PO QID FOR 7 DAYS Active timoloL maleate (TIMOPTIC) 0.5% solution timolol maleate 0.5 % eye drops 0 Active blood sugar diagnostic (ONETOUCH ULTRA BLUE TEST STRIP [facility]) OneTouch Ultra Blue Test Strip Active dapagliflozin (Farxiga) 10 mg Tablet Take by mouth daily. 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 Gender Identity Not on file Sexual Orientation Not on file Last Filed Vital Signs Vital Sign Reading Time Taken Comments Blood Pressure 130/64 06/12/2021 11:17 AM CDT Pulse 67 06/12/2021 11:17 AM CDT Temperature 36.8 C (98.2 F) 06/12/2021 11:17 AM CDT Respiratory Rate - - Oxygen Saturation 97% 06/12/2021 11: 17 AM CDT Inhaled Oxygen Concentration - - Weight 157.7 kg (347 lb 9.6 oz) 022 11:17 AM CDT Height 182.9 cm (6') 06/12/2021 11:17 AM CDT Body Mass Index 47.14 06/12/2021 11:17 AM CDT Plan of Treatment Health Maintenance Due Date Last Done Comments DIABETES ANNUAL FOOT EXAM 05/17/1969 DIABETES ANNUAL RETINAL EXAM 05/17/1969 DIABETES MICROALBUMIN ANNUAL SCREEN 05/17/1969 LDL CHOLESTEROL ANNUAL 05/17/1969 DTAP/TDAP/TD VACCINES (1 - Tdap) 05/17/1970 COLORECTAL SCREENING 05/17/1996 Colorectal Cancer Screening 05/17/1996 FIT-DNA Q 3 years 05/17/1996 FIT/FOBT Q 1 year 05/17/1996 Flex Sig/CT Colonography Q 5 years 05/17/1996 ZOSTER VACCINE (1 of 2) 05/17/2001 RSV VACCINE (60+ or ) (1 - Risk 60-74 years 1-dose series) 2011 DIABETES HBA1C Q 6 MONTHS 10/07/2021 04/09/2021 PNEUMOCOCCAL VACCINE 50+ YEA RS (3 of 3 - PCV20 or PCV21) 09/22/2022 09/22/2017, 03/01/2006 INFLUENZA VACCINE (#1) 2024 , 03/11/2020, 01/23/2019, Additional history exists Insurance Care Teams Shop And Alteration Tailor Relationship Specialty Start Date End Date Nahed Christopher MD [address] [place] [address] PCP - General Family Practice 06/12/21
--- OUTSIDE RECORDS SUMMARY | 2024-09-24 19:28 | XMS_ITS | Clinical Summary ---
Author Organization [facility] Address [address] [place] [address] Care Team Providers Care Java Programming Professor Name Role Phone Nahed Christopher MD Primary Care Provider + Social History Tobacco Use Types Packs/Day Years Used Date Smoking Tobacco: Never Assessed Sex and Gender Information Value Date Recorded Sex Assigned at Not on file Legal Sex Male 4:23 PM CDT Gender Identity Not on file Sexual Orientation Not on file Plan of Treatment Health Maintenance Due Date Last Done Comments Hepatitis C Virus (HCV) Screening 1950 TdaP Immunization 1950 Cologuard 05/17/1996 Colonoscopy 05/17/1996 Colorectal Cancer Screening 05/17/1996 Immunochemical Fecal Occult Blood 05/17/1996 Zoster Immunization (1 of 2) 05/17/2001 Pneumococcal Immunization (50+ years) (3 of 3 - PCV20 or PCV21) 09/22/2022 09/22/2017, 03/01/2006 SARS-COV-2 Immunization (3 - season) 2023 03/24/2021, 06/11/2020 Influenza Immunization (#1) 11/12/202402/12, 02/14/2022, 12/08/2021, Additional history exists Respiratory Syncytial Virus (RSV) Immunization (Adult) (1 - 1-dose 75+ series) 05/17/2026 Hepatitis B Immunization Aged Out No longer eligible based on patient's age to complete this topic Human Papillomavirus (HPV) Immunization Aged Out No longer eligible based on patient's age to complete this topic Meningococcal Immunization (ACWY) Aged Out No longer eligible based on patient's age to complete this topic Rotavirus Immunization Aged Out No lo nger eligible based on patient's age to complete this topic Insurance MEDICARE C [facility] Care Teams Java Programming Professor Relationship Specialty Start Date End Date Nahed Christopher MD [address] [place] [id number] PCP - General Family Medicine 08/16/23
--- OUTSIDE RECORDS SUMMARY | 2024-09-24 19:28 | XMS_ITS | Encounter Summary ---
Author Organization [employer] , [facility] Address [address] [place] [address] Phone Care Team Providers Care Customer Marketing Assistant Name Role Phone Jhon Patel MD Primary Care Provider [phone] Reason for Visit * Reason Comments Med Refill Encounter Details Date Type Department Care Team (Late st Contact Info) Description 09/10/2020 Refill [facility], [facility] [address] [facility] [address] [place] [address] Christoph Stewart DO [address] [place] [address] Social History Tobacco Use Types [...] on filedocumented in this encounter Care Teams Customer Marketing Assistant Relationship Specialty Start Date End Date Jhon Patel MD [address] [facility] [address] [place], [place] [id number] PCP - General Internal Medicine 10/18/23 documented as of this encounter
[2024-09-24 19:31] VITALS: BP 153/83; PULSE 105; RESP 17; TEMP 36.6; O2SAT 100
[2024-09-24 20:39] LABS: Hematocrit 34.7 % (42.0-52.0); Hemoglobin 11.0 g/dL (14.0-18.0); Immature Granulocyte Percent A 0.6 % (0-0.5); Lymphocytes Absolute Auto 2.23 K/mm3 (0.9-3.2); Mean Corpuscular HGB Conc 31.7 g/dl (32-36); Mean Corpuscular Hemoglobin 29.0 pg (26-34); Mean Corpuscular Volume 91.6 fl (80-100); Nucleated Red Blood Cells Absolute Auto 0.000 K/mm3 (0.0-0.012); Nucleated Red Blood Cells Perc 0.0 % (0.0-0.2); Platelet Count Result 221 k/mm3 (150-375); Red Blood Count 3.79 M/mm3 (4.6-6.20); White Blood Count 9.0 K/mm3 (4.5-10.0)
[2024-09-24 20:54] LABS: Alanine Aminotransferase 10 U/L (6-50); Albumin Level 4.1 g/dL (3.5-5.1); Alkaline Phosphatase 79 U/L (38-126); Anion Gap 13 mmol/L (4-12); Aspartate Amino Transferase 20 U/L (17-59); Bilirubin,Total 0.7 mg/dL (0.2-1.3); Blood Urea Nitrogen 36 mg/dL (9-20); Calcium 9.8 mg/dL (8.4-10.2); Carbon Dioxide 21 mmol/L (22-30); Chloride 104 mmol/L (98-107); Estimated CRCL calculation 11 ml/min; Estimated Glomerular Filt Rate 8; Glucose 228 mg/dL (65-110); Lipase 193 U/L (23-300); Magnesium 1.9 mg/dL (1.6-2.3); Potassium 4.0 mmol/L (3.4-5.0); Sodium 138 mmol/L (137-145); Total Protein 7.7 g/dL (6.3-8.2)
[2024-09-24 22:46] VITALS: BP 190/90; PULSE 93; RESP 18; TEMP 36.9; O2SAT 100
--- NOTE | 2024-09-24 23:29 | ED.GENADULT ---
HPI - General Adult General Chief complaint: Recheck/Abnormal Lab/Rx Stated complaint: Abnormal labs-told renal failure go to ED Time Seen by Provider: 09/24/24 22:59 History of Present Illness HPI narrative: Patient is a 74-year-old male who presents to the emergency department this evening after his primary care physician called him and told him to come to the emergency department because he is in renal failure. Patient admits that the primary care physician ordered blood work because he has been bad.When asked to further elaborate on this, patient states that he has not been taking his blood pressure medications or his diabetic medications. Patient also states that he has not been eating as well as he does not have an appetite. When asked about his fluid intake, he states that he knows that he does not drink as much water as he should be. Patient is still making urine. Denies any active symptoms including any chest pain, shortness of breath, nausea vomiting or abdominal pain, also denies any constipation or diarrhea. No additional symptoms or concerns at this time. Related Data Home Medications ?Medication ?Instructions ?Recorded ?Confirmed ?Last Taken ?Type aspirin 81 mg tablet 81 mg PO DAILY 09/05/20 02/28/24 09/02/20 History atorvastatin 20 mg tablet 20 mg PO DAILY 09/05/20 02/28/24 09/08/20 History clopidogrel 75 mg tablet 75 mg PO DAILY 09/05/20 02/28/24 09/02/20 History gabapentin 300 mg capsule 300 mg PO Q6-8H PRN Pain 09/05/20 02/28/24 Unknown History latanoprost 0.005 % eye drops 1 drp EACH EYE DAILY 09/05/20 02/28/24 09/08/20 History losartan 100 mg tablet 100 mg PO QPM 09/05/20 02/28/24 09/08/20 History metoprolol tartrate 100 mg tablet 100 mg PO DAILY 09/05/20 02/28/24 09/08/20 History spironolactone 25 mg tablet 25 mg PO QAM 09/05/20 02/28/24 09/04/20 History tamsulosin 0.4 mg capsule 0.4 mg PO DAILY 09/05/20 02/28/24 09/08/20 History timolol maleate 0.5 % eye drops 1 drp EACH EYE DAILY 09/05/20 02/28/24 09/08/20 History calcitriol 0.25 mcg capsule 0.25 mcg PO DAILY 02/03/24 02/28/24 Unknown History chlorthalidone 25 mg tablet 25 mg PO DAILY 02/03/24 02/28/24 Unknown History Allergies Allergy/AdvReac Type Severity Reaction Status Date / Time Penicillins AdvReac Mild Nausea Verified 09/24/24 19:27 Review of Systems Review of Systems: All systems are reviewed and are negative unless stated otherwise in the HPI. [facility] Past Medical History Medical History Chronic acquired lymphedema Arthritis Chronic kidney disease Benign prostatic hyperplasia Gastroesophageal reflux disease Obstructive sleep apnea non-compliant with CPAP Insulin dependent type 2 diabetes mellitus Hyperlipidemia Hypertension Peripheral vascular disease Coronary artery disease history of stent x5 and 2 vessel bypass Cerebrovascular accident (2013) residual right hand weakness Morbid obesity Surgical History Surgical History History of cataract extraction with lens replacement History of coronary artery stent placement History of coronary artery bypass graft x 2 (01/2020) Family History Family History Sibling Family history of type 2 diabetes mellitus Social History Social History Social History: Surrogate medical decision maker: Kary King, spouse. Code status: Full code. 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 HEENT: PERRL, no rhinorrhea, no post nasal drip, oropharynx clear. Neck: Trachea midline, no JVD, no lymphadenopathy. Cardiovascular: Regular rate and rhythm, no murmurs, rubs or gallops, no peripheral edema. Respiratory: Clear to auscultation bilaterally, no tachypnea, no wheezing, no rhonchi, no rubs, no respiratory distress. Abdomen: Soft, nontender, nondistended, no rebound, no guarding, no peritoneal signs. Musculoskeletal: No joint swelling or deformity, normal muscle tone. Skin: No rashes or petechia, no signs of infection. Psychiatric: Alert and oriented, normal behavior and judgment for situation. Neurological: Alert and oriented to person, place, and time. Follows all commands. No focal deficits, speech is clear and fluent. Course Vital Signs Vital signs: Vital Signs Temperature 97.8 F 09/24/24 19:31 Pulse Rate 105 H 09/24/24 19:31 Respiratory Rate 17 09/24/24 19:31 Blood Pressure 153/83 H 09/24/24 19:31 Pulse Oximetry 100 09/24/24 19:31 Oxygen Delivery Room Air 09/24/24 19:31 Temperature 98.5 F 09/24/24 23:48 Pulse Rate 89 09/24/24 23:48 Respiratory Rate 18 09/24/24 23:48 Blood Pressure 113/71 09/24/24 23:48 Pulse Oximetry 100 09/24/24 23:48 Oxygen Delivery Room Air 09/24/24 22:46 Medical Decision Making MDM Narrative Medical decision making narrative: The patient was evaluated by myself in the emergency department. History is obtained from patient who is an independent historian and physical exam was performed. External medical records were reviewed at this time. IV was established and pertinent tests were ordered. Patient was administered 1 L IV fluid bolus with normal saline. Laboratory results obtained revealing a creatinine of 6.76, BUN of 36. Patient's last documented creatinine of 2.5 was from February of 2024. Patient admits that he still is making urine, denies any history of kidney disease. Urinalysis was obtained revealing trace leuk esterase and 11-20 white blood cells, 2+ bacteriuria. Patient was continued on maintenance fluids at a rate of 100 cc/hour. Differential diagnosis considerations include acute kidney injury versus renal failure secondary to prerenal versus post renal obstruction, dehydration, electrolyte derangements, medical noncompliance. Comorbidities impacting this visit include medical noncompliance. I have evaluated and discussed social determinants of health with the patient that could potentially impact subsequent diagnosis and treatment plans. On repeat assessment of the patient, reevaluation revealed that the patient is doing well and is in no acute distress. Patient symptoms have remained stable since he arrived to our emergency department. Repeat vital signs were all reviewed and noted to be stable. Differential diagnosis and treatment plan were discussed with the patient at bedside. Patient agrees with discussion and after shared medical decision making agrees with admission. All questions were answered to the patient's satisfaction. Case was discussed with the on-call spiral runner Dr. Ortega at 2350 who did not have any additional recommendations. Will monitor the patient's kidney function. Case was discussed with the on-call hospitalist Dr. Zavala at 0015 who accepted IMU admission. Vital Signs Vital Signs: Vital Signs Temperature 97.8 F 09/24/24 19:31 Pulse Rate 105 H 09/24/24 19:31 Respiratory Rate 17 09/24/24 19:31 Blood Pressure 153/83 H 09/24/24 19:31 Pulse Oximetry 100 09/24/24 19:31 Oxygen Delivery Room Air 09/24/24 19:31 Temperature 98.5 F 09/24/24 23:48 Pulse Rate 89 09/24/24 23:48 Respiratory Rate 18 09/24/24 23:48 Blood Pressure 113/71 09/24/24 23:48 Pulse Oximetry 100 09/24/24 23:48 Oxygen Delivery Room Air 09/24/24 22:46 Lab Data 09/24/24 20:32 09/24/24 20:32 Labs: Lab Results 09/24/24 09/24/24 Range/Units 20:32 23:09 WBC 9.0 (4.5-10.0) K/mm3 RBC 3.79 L (4.6-6.20) M/mm3 Hgb 11.0 L (14.0-18.0) g/dL Hct 34.7 L (42.0-52.0) % MCV 91.6 (80-100) fl MCH 29.0 (26-34) pg MCHC 31.7 L (32-36) g/dl RDW 14.3 (11.5-14.5) % Plt Count 221 (150-375) k/mm3 MPV 10.7 H (7.4-10.4) fl Immature Gran % (Auto) 0.6 H (0-0.5) % Neut % (Auto) 57.5 (45.5-73.1) % Lymph % (Auto) 24.7 (18.3-44.2) % [place] % (Auto) 10.1 H (2.6-8.5) % Eos % (Auto) 6.1 H (0-4.4) % Baso % (Auto) 1.0 (0.2-1.2) % Lymph # (Auto) 2.23 (0.9-3.2) K/mm3 [place] # (Auto) 0.9 H (0.1-0.6) K/mm3 Eos # (Auto) 0.6 H (0-0.3) K/mm3 Baso # (Auto) 0.1 (0.0-0.1) K/mm3 Abs Immat Gran (auto) 0.05 H (0.00-0.031) K/mm3 Absolute Neuts (auto) 5.2 (1.3-6.7) K/mm3 Absolute Nucleated RBC 0.000 (0.0-0.012) K/mm3 Nucleated RBC % 0.0 (0.0-0.2) % Sodium 138 (137-145) mmol/L Potassium 4.0 (3.4-5.0) mmol/L Chloride 104 (98-107) mmol/L Carbon Dioxide 21 L (22-30) mmol/L Anion Gap 13 H (4-12) mmol/L BUN 36 H (9-20) mg/dL Creatinine 6.76 H (0.7-1.3) mg/dL Estim Creat Clear Calc 11 ml/min Estimated GFR 8 L (59 - ) Glucose 228 H (65-110) mg/dL Calcium 9.8 (8.4-10.2) mg/dL Magnesium 1.9 (1.6-2.3) mg/dL Total Bilirubin 0.7 (0.2-1.3) mg/dL AST 20 (17-59) U/L ALT 10 (6-50) U/L Alkaline Phosphatase 79 (38-126) U/L Total Protein 7.7 (6.3-8.2) g/dL Albumin 4.1 (3.5-5.1) g/dL Lipase 193 (23-300) U/L Urine Color Yellow (Yellow) Urine Appearance Clear (Clear) Urine pH 5.0 (5.0-9.0) Ur Specific [place] 1.013 (1.001-1.035) Urine Protein 3+ H (Negative) mg/dL Urine Glucose (UA) 3+ H (Negative) mg/dL Urine Ketones Negative (Negative) mg/dL Ur Blood (Man) Trace (Negative) Urine Nitrate Negative (Negative) Urine Bilirubin Negative (Negative) Urine Urobilinogen 0.2 (<2.0) mg/dL Add Ur Microanalysis Reviewed Leukocyte Esterase Rfl Trace H (Negative) SEAN/UL Urine RBC 0-2 (0-2) /hpf Urine WBC 11-20 H (0-3) /hpf Ur Squamous Epith Cells Occasional (Few) /hpf Urine Bacteria 2+ H /hpf Urine Casts 11-20 Discharge Plan Discharge Clinical Impression: Acute renal failure, Medical non-compliance Patient Disposition: Still a Patient Condition: Stable Patient Language: Burmese Prescriptions: No Action aspirin 81 mg Tablet 81 mg PO DAILY latanoprost 0.005 % drops 1 drp EACH EYE DAILY atorvastatin 20 mg tablet 20 mg PO DAILY metoprolol tartrate 100 mg tablet 100 mg PO DAILY clopidogrel 75 mg tablet 75 mg PO DAILY spironolactone 25 mg tablet 25 mg PO QAM tamsulosin 0.4 mg capsule 0.4 mg PO DAILY timolol maleate 0.5 % drops 1 drp EACH EYE DAILY losartan 100 mg tablet 100 mg PO QPM gabapentin 300 mg capsule 300 mg PO Q6-8H PRN (Reason: Pain) calcitriol 0.25 mcg capsule 0.25 mcg PO DAILY chlorthalidone 25 mg tablet 25 mg PO DAILY hydrocodone-acetaminophen 5-325 mg Tablet 1 tablet PO Q6H PRN (Reason: Pain Rated 4-6) Qty: 12 0RF insulin aspart U-100 [Novolog U-100 Insulin aspart] 100 unit/mL Solution 2 - 4 unit subcut HS Qty: 10 0RF Protocol: Insulin Corrective High-Dose Condition: glucose < 70 mg/dl Dose/Route: Follow hypoglycemia order Condition: glucose 70-200 mg/dl Dose/Route: No additional insulin Condition: glucose 201-250 mg/dl Dose/Route: 2 units sub-Q Condition: glucose 251-300 mg/dl Dose/Route: 2 units sub-Q Condition: glucose 301-350 mg/dl Dose/Route: 3 units sub-Q Condition: glucose 351-400 mg/dl Dose/Route: 4 units sub-Q Condition: glucose > 400 mg/dl Dose/Route: Call insulin glargine [Lantus U-100 Insulin] 100 unit/mL Solution 25 unit subcut HS Qty: 10 0RF Lac-Hydrin Five 5 % Lotion 1 applic topical QAM Qty: 226 0RF doxycycline hyclate 100 mg Tablet 100 mg PO Q12HR Qty: 20 0RF ferrous sulfate 325 mg (65 mg iron) tablet 325 mg PO DAILY Qty: 90 0RF Follow-up/Referrals: Jorge,MD Jhon [Primary Care Provider] - Time of Disposition: 00:29
[2024-09-24 23:37] LABS: Add Urine Microscopic? YES; Appearance Urine Clear (Clear); Glucose Urine UA 3+ mg/dL (Negative); Leukocyte Esterase Ur Trace LEU/UL (Negative); Need Manual Microscopic Reviewed; Nitrate Urine Negative (Negative); Specific Grav Ur 1.013 (1.001-1.035)
[2024-09-24 23:41] VITALS: BP 162/76; PULSE 70; RESP 18; TEMP 36.4; O2SAT 100
--- OUTSIDE RECORDS SUMMARY | 2024-09-24 23:41 | XMS_ITS | Encounter Summary ---
Author Organization [employer] , [facility] Address [address] [place] [address] Phone Care Team Providers Care Associate Art Director Name Role Phone Jhon Patel MD Primary Care Provider [phone] Reason for Visit * Reason Comments Med Refill Encounter Details Date Type Department Care Team (Late st Contact Info) Description 11/03/2020 Refill [facility], [facility] [address] [facility] [address] [place] [address] Christoph Stewart DO [address] [place] [address] Social History Tobacco Use Types [...] on filedocumented in this encounter Care Teams Associate Art Director Relationship Specialty Start Date End Date Jhon Patel MD [address] [facility] [address] [place] [id number] PCP - General Internal Medicine 10/18/23 documented as of this encounter
--- OUTSIDE RECORDS SUMMARY | 2024-09-24 23:41 | XMS_ITS | Referral Summary ---
Author Organization [facility] Address [address] [place] [address] Care Team Providers Care Grocery Specialist Name Role Phone Nahed Christopher MD Primary [...] mouth 2 (two) times a day. rx# [id number] Indications: per md advisement Active insulin glargine (LANTUS, SEMGLEE) 100 unit/mL subcutaneous syringeIndication s:diabetes Inject 36 Units under the skin nightly. rx # [id number] Indications: diabetes Active insulin lispro (HumaLOG, ADMELOG) 100 unit/mL vial for injectionIndicati ons:type 2 diabetes mellitus Inject 12 Units under the skin 3 (three) times a day with meals. RX# [id number] Indications: type 2 diabetes mellitus Active Active Problems Problem Noted Date Diagnosed Date NSTEMI (non-ST elevated myocardial infarction) 1 05/08/2021 Fall, initial encounter 03/06/2022 Stage 3b chronic kidney disease 01/22/2020 Morbidly obese 01/22/2020 JB (obstructive sleep apnea) 01/22/2020 Anemia in chronic kidney disease (CKD) 0 Coronary artery disease invo lving [place] heart without angina pectoris 01/20/2020 Overview (01/22/2020): Added automatically from request for surgery [id number] Type 2 diabetes mellitus 07/28/2013 Overview (06/19/2016): [...] than three times a week 01/24/2020 Attends [employer] Services Not on file 01/23 Active Member [...] on file Legal Sex Male 1:02 AM UPHOLSTERER INSIDE Gender Identity Not on file Sexual Orientation Not on file Last Filed Vital Signs Vital Sign Reading Time Taken Comments Blood Pressure 140/80 04/17/2022 2:17 PM UPHOLSTERER INSIDE Pulse 88 04/17/2022 2:17 PM UPHOLSTERER INSIDE Temperature 36.1 C (97 F) 04/17/2022 2:17 PM UPHOLSTERER INSIDE Respiratory Rate 18 04/17/2022 2:17 PM UPHOLSTERER INSIDE Oxygen Saturation 96% 04/17/2022 2:17 PM UPHOLSTERER INSIDE Inhaled Oxygen Concentration - - Weight 143.3 kg (315 lb 14.4 oz) 03/11/2022 3:34 AM UPHOLSTERER INSIDE Height 185.4 cm (6' 1) 03/07/2022 12:3 3 AM UPHOLSTERER INSIDE Body Mass Index 41.68 03/07/2022 12:33 AM UPHOLSTERER INSIDE Plan of Treatment Not on file Medical Devices Implanted Type Area Numerical Control Programmer Device Identifier Shelf Expiration Date Model / Serial / Lot Biomet [employer] 73-2623 Sternalock Erwin 8 Hole Sternum Plate Bone 2.4 Mm Screw - [id number] Implanted:Qty: 2 on 02/01/2020 by Corrie Saeed MD at [facility] Plate N/A: Chest [employer] 73-2623 / / [employer] [id number] Sternalock Erwin 6 Hole Sternum Hexagon Plate Bone Primary Closure - [id number] Implanted:Qty: 1 on 02/01/2020 by Corrie Saeed MD at [facility] Plate N/A: Chest [employer] SP-[id number] / / [employer] 73-2416 Sternalock Erwin 2.4mm 16mm Self Drill Lock Sternum Cancellous - [id number] Implanted:Qty: 18 on 02/01/2020 by Corrie Saeed MD at [facility] Screw N/A: Chest [employer] 73-2416 / / [employer] 73-2418 Sternalock Erwin 2.4mm 18mm Self Drill Lock Sternum Cancellous - [id number] Implanted:Qty: 4 on 02/01/2020 by Corrie Saeed MD at [facility] N/A: Chest [employer] 73-2418 / / Procedures Procedure Name Priority Date/Time Associated Diagnosis Comments EGFR Routine 03/10/2022 7:[address] CHEST ABDOMEN PELVIS WO CONTRAST ED 03/06/2022 3:44 PM UPHOLSTERER INSIDE HEMOGLOBIN A1C STAT 03/06/2022 1:41 PM UPHOLSTERER INSIDE LIPID PANEL STAT 03/06/2022 1:41 PM UPHOLSTERER INSIDE from Last 3 Months or Most Recently Relevant to Health Maintenance Results * (ABNORMAL) eGFR (03/10/2022 7:54 PM UPHOLSTERER INSIDE) eGFR 33(L) 90 - 130 mL/min/1. 73 [...] last reviewed 2021. Blood 03/10/2022 7:54 PM UPHOLSTERER INSIDE 03/10/2022 9:28 PM UPHOLSTERER INSIDE Adriana Perera MD LAB BLOOD ORDERABLES Final Result [facility] Department [place] [address] * CT Chest Abdomen Pelvis WO Contrast (03/06/2022 3:44 PM UPHOLSTERER INSIDE) Anatomical Region Laterality Modality Body N/A Computed Tomogra phy 03/06/2022 4:15 PM UPHOLSTERER INSIDE Impressions 03/06/2022 4:40 PM UPHOLSTERER INSIDE 1. No acute traumatic abnormality of the [...] Elisa Hall M.D. Narrative 03/06/2022 4:40 PM UPHOLSTERER INSIDE EXAMINATION: CT CHEST ABDOMEN PELVIS WO CONTRAST [...] * (ABNORMAL) Hemoglobin A1c (03/06/2022 1:41 PM UPHOLSTERER INSIDE) Hgb A1C 9.6(H) 4.0 - 5.6 % [facility] Comment:Testing performed by : [facility], [place]., [address] Estimated Average Glucose 229 mg/dL [facility] Comment: The ADA recommends reporting an estimated Average Glucose (eAG) with all Hemoglobin A1c results using the equation derived from a study of 507 normal and diabetic adults. Minority populations were underrepresented and children were not included. (Diabetes Care 31:1596-0997, 2008). The eAG is not equivalent to a fasting glucose. Testing performed by: [facility], [place]., [address] Blood 03/06/2022 1:41 PM UPHOLSTERER INSIDE 03/07/2022 12:11 PM UPHOLSTERER INSIDE Adriana Perera MD LAB BLOOD ORDERABLES Final Result [facility] Department [place] [address] * (ABNORMAL) Lipid panel (03/06/2022 1:41 PM UPHOLSTERER INSIDE) Pathologist [facility] Cholesterol 101 30 - 199 mg/dL [facility] [...] on 2017. Triglycerides 125 <=149 mg/dL [facility] Comment: Interpretive Data Ages < or [...] 4 [facility] Blood 03/06/2022 1:41 PM UPHOLSTERER INSIDE 03/06/2022 1:52 PM UPHOLSTERER INSIDE Narrative [facility] - 03/06/2022 6:32 PM UPHOLSTERER INSIDE This lipid panel was automatically ordered due to a significant change in Troponin. The dietary status of the patient at the collection time should be correlated with the lipid results. Carlos Joiner MD LAB BLOOD ORDERABLE S Final Result [facility] Department [place] [address] from Last 3 Months or Most Recently Relevant to Health Maintenance Insurance [facility] Address: [facility] [address] [place] [address] [facility] Address: [address] [address] [place] [address] [facility] Address: [address] [address] [place] [address] HMO REF [facility] Address: [address] [address] [place] [address] Advance Directives For more information, please contact: [phone] * Full Code (Latest Code Status on File) Date Activated Date Inactivated Comments 03/07/2022 12:08 AM 03/11/2022 7:21 PM * Full Code Date Activated Date Inactivated Comments 02/01/2020 3:07 PM 02/11/2020 11:21 PM Care Teams Grocery Specialist Relationship Specialty Start Date End Date Nahed Christopher MD [address] [place] [address] [address] PCP - General Family Medicine 06/19/20
--- OUTSIDE RECORDS SUMMARY | 2024-09-24 23:41 | XMS_ITS | Encounter Summary ---
Author Organization [facility] , [facility] Address [address] [place] [address] Phone Care Team Providers Care Fleet Manager Name Role Phone Jhon Patel MD Primary Care Provider [phone] Reason for Visit * Reason Comments Med Refill Encounter Details Date Type Department Care Team (Late st Contact Info) Description 09/10/2020 Refill [facility], [facility] [address] [facility] [address] [place] [address] Christoph Stewart DO [address] [place] [address] Social History Tobacco Use Types [...] on filedocumented in this encounter Care Teams Fleet Manager Relationship Specialty Start Date End Date Jhon Patel MD [address] [facility] [address] [place], [place] [id number] PCP - General Internal Medicine 10/18/23 documented as of this encounter
--- OUTSIDE RECORDS SUMMARY | 2024-09-24 23:41 | XMS_ITS | Clinical Summary ---
Author Organization [facility] Address [address] [place] [address] Care Team Providers Care Hardscape Foreman Name Role Phone Nahed Christopher MD Primary [...] to complete this topic Insurance MEDICARE C [facility] Care Teams Hardscape Foreman Relationship Specialty Start Date End Date Nahed Christopher MD [address] [place] [id number] PCP - General Family Medicine 08/16/23
--- OUTSIDE RECORDS SUMMARY | 2024-09-24 23:41 | XMS_ITS | Clinical Summary ---
Author Organization [facility] Address [address] [place] [address] Care Team Providers Care Manufacturing Engineering Director Name Role Phone Nahed Christopher MD Primary [...] mouth 2 (two) times a day. rx# [id number] Indications: per md advisement Active insulin glargine (LANTUS, SEMGLEE) 100 unit/mL subcutaneous syringeIndication s:diabetes Inject 36 Units under the skin nightly. rx # [id number] Indications: diabetes Active insulin lispro (HumaLOG, ADMELOG) 100 unit/mL vial for injectionIndicati ons:type 2 diabetes mellitus Inject 12 Units under the skin 3 (three) times a day with meals. RX# [id number] Indications: type 2 diabetes mellitus Active Active Problems Problem Noted Date Diagnosed Date NSTEMI (non-ST elevated myocardial infarction) 1 05/08/2021 Fall, initial encounter 03/06/2022 Stage 3b chronic kidney disease 01/22/2020 Morbidly obese 01/22/2020 JB (obstructive sleep apnea) 01/22/2020 Anemia in chronic kidney disease (CKD) 0 Coronary artery disease invo lving [place] heart without angina pectoris 01/20/2020 Overview (01/22/2020): Added automatically from request for surgery [id number] Type 2 diabetes mellitus 07/28/2013 Overview (06/19/2016): [...] than three times a week 01/24/2020 Attends [employer] Not on file 01/23 Active Member [...] on file Legal Sex Male 1:02 AM AUTOMATION DEVELOPER Gender Identity Not on file Sexual Orientation Not on file Obstetrics History Last Filed Vital Signs Vital Sign Reading Time Taken Comments Blood Pressure 140/80 04/17/2022 2:17 PM AUTOMATION DEVELOPER Pulse 88 04/17/2022 2:17 PM AUTOMATION DEVELOPER Temperature 36.1 C (97 F) 04/17/2022 2:17 PM AUTOMATION DEVELOPER Respiratory Rate 18 04/17/2022 2:17 PM AUTOMATION DEVELOPER Oxygen Saturation 96% 04/17/2022 2:17 PM AUTOMATION DEVELOPER Inhaled Oxygen Concentration - - Weight 143.3 kg (315 lb 14.4 oz) 03/11/2022 3:34 AM AUTOMATION DEVELOPER Height 185.4 cm (6' 1) 03/07/2022 12:3 3 AM AUTOMATION DEVELOPER Body Mass Index 41.68 03/07/2022 12:33 AM AUTOMATION DEVELOPER Plan of Treatment Health Maintenance Due Date [...] Completed 03/06/2022 Medical Devices Implanted Type Area Operator Engineer Device Identifier Shelf Expiration Date Model / Serial / Lot Bi[employer] 73-4843 Sternalock Erwin 8 Hole Sternum Plate Bone 2.4 Mm Screw - [id number] Implanted:Qty: 2 on 02/01/2020 by Corrie Saeed MD at [facility] Plate N/A: Chest [employer] 73-2623 / / [employer] [id number] Sternalock Erwin 6 Hole Sternum Hexagon Plate Bone Primary Closure - [id number] Implanted:Qty: 1 on 02/01/2020 by Corrie Saeed MD at [facility] Plate N/A: Chest [employer] SP-2890 / / [employer] 73-2416 Sternalock Erwin 2.4mm 16mm Self Drill Lock Sternum Cancellous - [id number] Implanted:Qty: 18 on 02/01/2020 by Corrie Saeed MD at [facility] Screw N/A: Chest [employer] 73-2416 / / [employer] 73-2418 Sternalock Erwin 2.4mm 18mm Self Drill Lock Sternum Cancellous - [id number] Implanted:Qty: 4 on 02/01/2020 by Corrie Saeed MD at [facility] N/A: Chest [employer] 73-2418 / / Procedures Procedure Name Priority Date/Time Associated Diagnosis Comments EGFR Routine 03/10/2022 7:[address] CHEST ABDOMEN PELVIS WO CONTRAST ED 03/06/2022 3:44 PM AUTOMATION DEVELOPER HEMOGLOBIN A1C STAT 03/06/2022 1:41 PM AUTOMATION DEVELOPER LIPID PANEL STAT 03/06/2022 1:41 PM AUTOMATION DEVELOPER from Last 3 Months or Most Recently Relevant to Health Maintenance Results * (ABNORMAL) eGFR (03/10/2022 7:54 PM AUTOMATION DEVELOPER) eGFR 33(L) 90 - 130 mL/min/1. 73 m2 [facility] Comment: Interpretive Data Reference Interval Normal >/= [...] last reviewed 2021. Blood 03/10/2022 7:54 PM AUTOMATION DEVELOPER 03/10/2022 9:28 PM AUTOMATION DEVELOPER us Adriana Perera MD LAB BLOOD ORDERABLES Final [facility] Department [place] [address] * CT Chest Abdomen Pelvis WO Contrast (03/06/2022 3:44 PM AUTOMATION DEVELOPER) Anatomical Region Laterality Modality Body N/A Computed Tomogra phy 03/06/2022 4:15 PM AUTOMATION DEVELOPER Impressions 03/06/2022 4:40 PM AUTOMATION DEVELOPER 1. No acute traumatic abnormality of the [...] Elisa Hall M.D. Narrative 03/06/2022 4:40 PM AUTOMATION DEVELOPER EXAMINATION: CT CHEST ABDOMEN PELVIS WO CONTRAST [...] * (ABNORMAL) Hemoglobin A1c (03/06/2022 1:41 PM AUTOMATION DEVELOPER) Hgb A1C 9.6(H) 4.0 - 5.6 % [facility] Comment:Testing performed by : [facility], [place]., [address] Estimated Average Glucose 229 mg/dL [facility] Comment: The ADA recommends reporting an estimated Average Glucose (eAG) with all Hemoglobin A1c results using the equation derived from a study of 507 normal and diabetic adults. Minority populations were underrepresented and children were not included. (Diabetes Care 31:6788-6628, 2008). The eAG is not equivalent to a fasting glucose. Testing performed by: [facility], [place]., [address] Blood 03/06/2022 1:41 PM AUTOMATION DEVELOPER 03/07/2022 12:11 PM AUTOMATION DEVELOPER us Adriana Perera MD LAB BLOOD ORDERABLES Final Result [facility] Department [place] [address] * (ABNORMAL) Lipid panel (03/06/2022 1:41 PM AUTOMATION DEVELOPER) Pathologist [facility] Cholesterol 101 30 - 199 mg/dL [facility] Comment: Interpretive Data Ages < or [...] on 2017. Triglycerides 125 <=149 mg/dL [facility] Comment: Interpretive Data Ages < or [...] revised on 2017. HDL 24(L) >=40 mg/dL [facility] Comment: Interpretive Data Ages < or [...] on 2017. LDL, calculated 52 <=129 mg/dL [facility] Comment: Interpretive Data Ages < or [...] revised on 2017. Non-HDL Cholesterol 77 mg/dL [facility] Comment: Interpretive Data Ages < or [...] 4 [facility] Blood 03/06/2022 1:41 PM AUTOMATION DEVELOPER 03/06/2022 1:52 PM AUTOMATION DEVELOPER Narrative [facility] - 03/06/2022 6:32 PM AUTOMATION DEVELOPER This lipid panel was automatically ordered due to a significant change in Troponin. The dietary status of the patient at the collection time should be correlated with the lipid results. us Carlos Joiner MD LAB BLOOD ORDERABLE S Final Result [facility] [place] [address] from Last 3 Months or Most Recently Relevant to Health Maintenance Insurance R HMO REF R HMO REF Advance Directives For more information, please contact: [phone] * Full Code (Latest Code Status on File) Date Activated Date Inactivated Comments 03/07/2022 12:08 AM 03/11/2022 7:21 PM * Full Code Date Activated Date Inactivated Comments 02/01/2020 3:07 PM 02/11/2020 11:21 PM Care Teams Manufacturing Engineering Director Relationship Specialty Start Date End Date Nahed Christopher MD [address] [place] [address] [place] [address] PCP - General Family Medicine 06/19/20
--- OUTSIDE RECORDS SUMMARY | 2024-09-24 23:41 | XMS_ITS | Clinical Summary ---
Author Organization [facility] Address [address] [place] [address] Care Team Providers Care Certified Medical Transcriptionist Name Role Phone Nahed Christopher MD Primary [...] sugar diagnostic (ONETOUCH ULTRA BLUE TEST STRIP [facility]) OneTouch Ultra Blue Test Strip Active dapagliflozin [...] on file Legal Sex Male 11:07 AM COMPRESSED YEAST SUPERVISOR Gender Identity Not on file Sexual Orientation [...] 01/23/2019, Additional history exists Insurance Care Teams Certified Medical Transcriptionist Relationship Specialty Start Date End Date Nahed Christopher MD [address] [place] [address] PCP - General Family Practice 06/12/21
--- OUTSIDE RECORDS SUMMARY | 2024-09-24 23:41 | XMS_ITS | Clinical Summary ---
Author Organization [facility] Address [address] [place] [address] Care Team Providers Care Veneer Sander Name Role Phone Jhon Patel MD Primary Care Provider [phone] Allergies Active Allergy Reactions Criticality Noted Date [...] a day 08/09/19 19 Active nystatin (MYCOSTATIN) 800175 UNIT/ML suspension nystatin 100,000 unit/mL oral suspension [...] 2 02/09/20 22 Active ergocalciferol 1.25 MG (10359 UT) capsule Take 1 capsule (50,000 Units [...] 185.4 cm (6' 1) 02/16/2022 2:05 PM WICKER MOLDED CANDLES Body Mass Index 42.61 02/16/2022 2:05 PM WICKER MOLDED CANDLES Plan of Treatment Health Maintenance Due Date [...] change in test platforms from the Georges Asphalt Dauber to the Ruben ese c503 may have shifted HbA1c results compared to historical results. Based on laboratory validation testing conducted at [facility], the Ruben platform relative to the Georges [...] Performing Organization Information: Site ID: [place] [facility] Address: [address] [place] [address] Director: Olamide Shoemaker Christoph Stewart DO LAB BLOOD ORDERABLES Final R esult [facility] See order comments [place] [address] from Last 3 Months or Most Recently Relevant to Health Maintenance Insurance [facility] Medicare Care Teams Veneer Sander Relationship Specialty Start Date End Date Jhon Patel MD [address] [facility] [address] [place] [address] PCP - General Internal Medicine 10/18/23
--- OUTSIDE RECORDS SUMMARY | 2024-09-24 23:41 | XMS_ITS | Encounter Summary ---
Author Organization [facility] , [facility] Address [address] [place] [address] Phone Care Team Providers Care Afternoon Nanny Name Role Phone Jhon Patel MD Primary Care Provider [phone] Reason for Visit * Reason Comments Med Refill Encounter Details Date Type Department Care Team (Late st Contact Info) Description 09/07/2020 Refill Difficult [facility], [facility] [address] [facility] [address] [place] [address] Christoph Stewart DO [address] [place] [address] Social History Tobacco Use Types [...] on filedocumented in this encounter Care Teams Afternoon Nanny Relationship Specialty Start Date End Date Jhon Patel MD [address] [facility] [address] [place], [place] [phone] PCP - General Internal Medicine 10/18/23 documented as of this encounter
[2024-09-24] MEDS: SODIUM CHLORIDE 0.9% IV 1,000 ML 999 ML IV CONT (23:47)
[2024-09-24 23:48] VITALS: BP 113/71; PULSE 89; RESP 18; TEMP 36.9; O2SAT 100
[2024-09-25] VITALS (11 sets, daily range): BP systolic 134–184; BP diastolic 74–105; PULSE 81–104; RESP 12–20; TEMP 36.4–36.9; O2SAT 98–100; BMI 29.9; BMI 29.8
--- NOTE | 2024-09-25 02:35 | ADMGEN ---
This patient, John King, was admitted to IMU Room 232-01 via bed with one tech and no issues. Patient/family oriented to hospital policies and general routines including ID bracelet, bed and alarms, visiting hours, pain management, procedures, bathroom and other care routines, personal items, smoking policy, room service/diet, and visiting hours. Information on how to activate the Rapid Response Team has been discussed. Patient/Family are encouraged to report perceived risks to care and to ask questions if they do not understand what they are told or what they should do.
--- NOTE | 2024-09-25 03:23 | WNDPHOTO ---
PHOTO ONLY - See Nursing Notes and/ or assessments for documentation.
--- NOTE | 2024-09-25 04:14 | PC.NURSE ---
This patient, John King, was transferred to ICU 4 on 09/25/24 at 0415, with one RN and one tech via bed and no issues. Personal belongings sent with patient. Report given to Alis LOVING. Appropriate documentation sent with patient.
--- NOTE | 2024-09-25 06:22 | P.HP_ITS ---
H&P: HPI History of Present Illness Date/Time: 09/25/24 06:22 Chief Complaint: Renal failure Narrative: 74-year-old male advised to present to [facility] ER as his primary care told him he is in renal failure. Patient reports his primary care order blood work because the patient has been doing bad. The patient has not been taking his diabetes or blood pressure medications he has not be eating has had a poor appetite. Patient denies any other symptoms. He still makes clear yellow urine. Upon arriving to the floor was found to have multiple fleas on his legs. Patient does have a dog. Patient also reported his this year and had suicidal ideation. Patient was transferred to ICU for 1 on 1 sitter. Your evaluation demonstrated anion gap 13, bicarb 21, chloride 104, BUN 36, serum creatinine 6.76, glucose 228. His last serum creatinine was in February 2024 at 2.50 and was between 2.50 in 3.0 for the year prior. Urinalysis with 3+ protein, 3+ glucose, trace leukocyte esterase, occasional squamous cells, 2+ bacteria, 11-20 wbc's. Urine culture pending. Chest x-ray no acute abnormalities. Nephrology consulted from ER. Review of Systems Review of Systems: All systems reviewed & are unremarkable except as noted in HPI and below (History/subjective) PMFSH Past Medical History Medical History Chronic acquired lymphedema Arthritis Chronic kidney disease Benign prostatic hyperplasia Gastroesophageal reflux disease Obstructive sleep apnea non-compliant with CPAP Insulin dependent type 2 diabetes mellitus Hyperlipidemia Hypertension Peripheral vascular disease Coronary artery disease history of stent x5 and 2 vessel bypass Cerebrovascular accident (2013) residual right hand weakness Morbid obesity Surgical History Surgical History History of cataract extraction with lens replacement History of coronary artery stent placement History of coronary artery bypass graft x 2 (01/2020) Family History Family History Sibling Family history of type 2 diabetes mellitus Social History Social History Social History: Surrogate medical decision maker: Kary King, spouse. Code status: Full code. 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 Spiritual care concerns: No Meds Home Medications and Allergies Home Medications ?Medication ?Instructions ?Recorded ?Confirmed ?Type No Home Medications 09/25/24 09/25/24 History Allergies Allergy/AdvReac Type Severity Reaction Status Date / Time Penicillins AdvReac Mild Nausea Verified 09/24/24 19:27 Vital Signs Vital Signs - 24 hr 09/24/24 19:31 09/24/24 22:46 09/24/24 23:41 Temperature 97.8 F 98.5 F 97.6 F Pulse Rate 105 H 93 70 Respiratory Rate 17 18 18 Blood Pressure 153/83 H 190/90 H 162/76 H Pulse Oximetry 100 100 100 Oxygen Delivery Room Air Room Air 09/24/24 23:48 09/25/24 01:23 09/25/24 02:27 Temperature 98.5 F 98.2 F 98.2 F Pulse Rate 89 91 81 Respiratory Rate 18 18 18 Blood Pressure 113/71 171/88 H 144/90 H Pulse Oximetry 100 98 98 Oxygen Delivery 09/25/24 02:35 09/25/24 04:00 09/25/24 04:00 Temperature 98.3 F Pulse Rate 104 H 104 H Respiratory Rate 20 Blood Pressure 184/84 H Pulse Oximetry 100 100 Oxygen Delivery Room Air 09/25/24 04:56 Temperature 98.3 F Pulse Rate 99 Respiratory Rate 12 Blood Pressure 162/105 H Pulse Oximetry 100 Oxygen Delivery Exam Const: General: comfortable Eyes: Pupils: Equal, round and reactive pupils present Neck: Neck: supple Resp: Effort & Inspection: normal respiratory effort Auscultation: clear to auscultation bilaterally Cardio: Rate: regular rate Rhythm: regular rhythm GI: Inspection: non-distended GI Palp: Yes Soft to palpation Other: No flank pain : General: Yes bladder normal to palpation Neuro: Motor exam (neuro): 5/5 motor strength present throughout Extrem: General: no edema H&P: Results Labs Labs: Short CBC 09/24/24 Range/Units 20:32 WBC 9.0 (4.5-10.0) K/mm3 Hgb 11.0 L (14.0-18.0) g/dL Hct 34.7 L (42.0-52.0) % Plt Count 221 (150-375) k/mm3 BMP 09/24/24 20:32 Sodium 138 Potassium 4.0 Chloride 104 Carbon Dioxide 21 L BUN 36 H Creatinine 6.76 H Glucose 228 H Calcium 9.8 Liver Function 09/24/24 Range/Units 20:32 Total Bilirubin 0.7 (0.2-1.3) mg/dL AST 20 (17-59) U/L ALT 10 (6-50) U/L Alkaline Phosphatase 79 (38-126) U/L Albumin 4.1 (3.5-5.1) g/dL Urine 09/24/24 Range/Units 23:09 Urine Color Yellow (Yellow) Urine Appearance Clear (Clear) Urine pH 5.0 (5.0-9.0) Ur Specific [place] 1.013 (1.001-1.035) Urine Protein 3+ H (Negative) mg/dL Urine Glucose (UA) 3+ H (Negative) mg/dL Assessment and Plan Assessment and plan (1) Medical non-compliance: Code(s): Z91.199 - Patient's noncompliance with other medical treatment and regimen due to unspecified reason Status: Acute (2) Hypertension: Code(s): I10 - Essential (primary) hypertension Status: Acute (3) Acute renal failure: Code(s): N17.9 - Acute kidney failure, unspecified Status: Acute (4) Insulin dependent type 2 diabetes mellitus: Code(s): E11.9 - Type 2 diabetes mellitus without complications; Z79.4 - joint terminal attack controller (current) use of insulin Status: Acute Plan Unclear etiology to renal failure. May be CKD which has progressed or acute however there is some concern with his poor appetite and poor self-care and noncompliance there may be an acute component. Continue fluids at 150 cc/hour. Will administer ceftriaxone and obtain urine culture. Pending nephrology consultation. Renal ultrasound ordered. Monitor strict intake and output and daily weights. Continue 1 on 1 sitter with suicide precautions. Psychiatry/crisis evaluation when appropriate. Full code. Renal dialysis diet. SCDs. Hospitalist MIPS Advance Care Plan I have confirmed that the patient's Advanced Care Plan is present, code status is documented, or surrogate decision maker is listed in patient medical record.: Yes Medication Reconciliation I have utilized all available resources to obtain, update and review the patients current medications (includes all prescriptions, OTC, herbals, cannabis, and nutritional supplements).: Yes
[2024-09-25 07:25] LABS: Hematocrit 29.7 % (42.0-52.0); Hemoglobin 9.4 g/dL (14.0-18.0); Immature Granulocyte Percent A 0.6 % (0-0.5); Lymphocytes Absolute Auto 2.11 K/mm3 (0.9-3.2); Mean Corpuscular HGB Conc 31.6 g/dl (32-36); Mean Corpuscular Hemoglobin 29.1 pg (26-34); Mean Corpuscular Volume 92.0 fl (80-100); Nucleated Red Blood Cells Absolute Auto 0.000 K/mm3 (0.0-0.012); Nucleated Red Blood Cells Perc 0.0 % (0.0-0.2); Platelet Count Result 189 k/mm3 (150-375); Red Blood Count 3.23 M/mm3 (4.6-6.20); White Blood Count 7.9 K/mm3 (4.5-10.0)
[2024-09-25 07:31] LABS: Alanine Aminotransferase 9 U/L (6-50); Albumin Level 3.0 g/dL (3.5-5.1); Alkaline Phosphatase 64 U/L (38-126); Anion Gap 8 mmol/L (4-12); Aspartate Amino Transferase 14 U/L (17-59); Bilirubin,Total 0.7 mg/dL (0.2-1.3); Blood Urea Nitrogen 34 mg/dL (9-20); Calcium 8.7 mg/dL (8.4-10.2); Carbon Dioxide 20 mmol/L (22-30); Chloride 109 mmol/L (98-107); Estimated CRCL calculation 12 ml/min; Estimated Glomerular Filt Rate 10; Glucose 150 mg/dL (65-110); Magnesium 1.7 mg/dL (1.6-2.3); Potassium 3.4 mmol/L (3.4-5.0); Sodium 137 mmol/L (137-145); Total Protein 6.0 g/dL (6.3-8.2)
[2024-09-25] MEDS: cefTRIAXone 1 GM in SODIUM CHLORIDE 0.9% IV 50 ML 100 ML IVPB (07:33)
[2024-09-25] MEDS: SODIUM CHLORIDE 0.9% IV 1,000 ML 150 ML IV CONT ×3 (07:33→22:26)
[2024-09-25 08:32] LABS: Creatine Kinase 43 U/L (55-170)
[2024-09-25 09:03] LABS: Thyroid Stimulating Hormone Reflex 1.760 uIU/mL (0.465-4.68)
[2024-09-25 09:05] LABS: Hemoglobin A1C 9.1 % (<5.7)
--- NOTE | 2024-09-25 09:05 | P.CONNP_ITS ---
Assessment and Plan Assessment and plan (1) Acute kidney injury: Code(s): N17.9 - Acute kidney failure, unspecified Status: Acute Assessment and Plan: * slow improvement noted * as noted by admission labs (and apparently by outpatient labs) * creatinine on admission 6.76mg/dl * etiology not clear but several possible issues: * element of CKD progression * prerenal factors (poor oral intake) * possibly precipitated by medical non-compliance -- has not been taking his home BP or diabetic medications for several months if not longer * infection(?) -- possible UTI * other? * check urine electrolytes, renal ultrasound, and CPK * ongoing trial of IVFs * follow trend of repeat labs and UOP (2) Stage 4 chronic kidney disease: Code(s): N18.4 - Chronic kidney disease, stage 4 (severe) Status: Chronic Assessment and Plan: * baseline creatinine ~ 2.5mg/dl about 6 months ago * due to diabetes, hypertension, vascular disease (CAD, CABG, CVA, PVD, & hyperlipidemia) and age-related change * was referred to dialysis education prior to hospitalization * follows with Dr. Stewart for ongoing CKD management (3) UTI (urinary tract infection): Code(s): N39.0 - Urinary tract infection, site not specified Status: Acute Assessment and Plan: * admission UA suggestive * follow urine culture results * on antibiotics (4) Severe protein-calorie malnutrition: Code(s): E43 - Unspecified severe protein-calorie malnutrition Status: Acute Assessment and Plan: * reported 70 pound weight loss over the last 7 months * associated with poor appetite and oral/fluid intake * medical staff assistant following * on dietary supplements * continue supportive therapy (5) Hypertension: Code(s): I10 - Essential (primary) hypertension Status: Acute Assessment and Plan: * still with suboptimal control * on amlodipine * avoiding JAGDEEP-I/ARB due to #1 and #2 * follow trend of hemodynamics (6) Anemia: Code(s): D64.9 - Anemia, unspecified Status: Acute Assessment and Plan: * presumably due to SPENCER and CKD * follow trend of H/H * no need for TALYA (7) Insulin dependent type 2 diabetes mellitus: Code(s): E11.9 - Type 2 diabetes mellitus without complications; Z79.4 - long term care social worker (current) use of insulin Status: Chronic Assessment and Plan: * poor control * A1c 9.1 on this admission * follow accu-cheks * glycemic control per hospitalist I will continue to follow the patient with you while he remains hospitalized and make further recommendations as deemed necessary. Thank you for allowing me to participate in the care of this patient. L History of Present Illness Reason for Consult Consult date: 09/25/24 Reason for consult: acute renal failure (on chronic kidney disease) Chief Complaint Chief complaint: SPENCER/Acute renal failure History of Present Illness Narrative: The patient is a 74-year-old male with a past medical history as outlined below who presented to [facility] Emergency Room due to abnormal labs the reflected renal failure. The patient recently saw his primary care physician for routine follow-up of his chronic medical issues and problems. At that time, he stated that he did not feel very good but was difficult to elaborate on what he specifically meant. His primary care physician did labs given his symptoms and apparently called him on the day of admission and instructed him to go to the emergency room as his labs demonstrated worsening renal failure. On further questioning, the patient states that he has not been taking his medications with regard to his diabetes or his blood pressure for several months if not longer. This is further complicated by the fact that he also states that he has been eating very poorly and has no appetite. He gave no other specific symptoms with regard to fevers, chills, nausea, vomiting, diarrhea, melena, hematochezia, dizziness, lightheadedness, or palpitations. Given his abnormal labs as reported by his primary care physician, he presented to the emergency room for further assessment. Workup and evaluation emergency room demonstrated the patient to be hemodynamically stable if not hypertensive and in no acute distress. Routine blood tests were done which demonstrated a marked decline in his kidney function with a BUN of 36 and a creatinine of 6.76 with no critical electrolyte abnormalities. His CBC was unremarkable aside from relative anemia and his urinalysis was concerning for possible infection with 3+ protein, 3+ glucose, trace leukocyte esterase, 2+ bacteria, 11-20 white blood cells. His chest x-ray demonstrated no acute pathology. Given his significant decline in his kidney function, was initiated on IV fluids and started on empiric antibiotics for possible/suspected urinary tract infection and was subsequently admitted to the hospital for further evaluation and therapy. Following his admission, nursing apparently reported that he had evidence of suicidal ideation. His apparently approximately 4 months ago which seems to correlate with when he stopped taking his medications. He was subsequently transferred to the ICU for closer monitoring and for a 1 on 1 sitter as well as ongoing medical therapy. However, on more direct questioning, he denies any statements with regard to suicidal ideation. Renal consultation was requested due to his acute kidney injury/acute renal failure on top of his baseline chronic kidney disease. From review of records here at [facility], his creatinine was around 2.5 mg/dL approximately 6 months ago. He is known to have chronic kidney disease secondary to his diabetes, hypertension, vascular disease, and age and follows with Dr. Christoph weeks for management of his chronic kidney disease. He does also mention that he was referred to dialysis education due to progression of his chronic kidney disease in general. Who since his admission and with current therapy, his creatinine/ renal function has improved since admission but still not back to baseline. Currently, at the time my evaluation, he appears to be in no acute distress. Review of Systems 2 Review of Systems: As per HPI. PMFSH Past Medical History Medical History Chronic acquired lymphedema Arthritis Chronic kidney disease Benign prostatic hyperplasia Gastroesophageal reflux disease Obstructive sleep apnea non-compliant with CPAP Insulin dependent type 2 diabetes mellitus Hyperlipidemia Hypertension Peripheral vascular disease Coronary artery disease history of stent x5 and 2 vessel bypass Cerebrovascular accident (2013) residual right hand weakness Morbid obesity Surgical History Surgical History History of cataract extraction with lens replacement History of coronary artery stent placement History of coronary artery bypass graft x 2 (01/2020) Family History Family History Sibling Family history of type 2 diabetes mellitus Social History Social History Social History: Surrogate medical decision maker: Kary King, spouse. Code status: Full code. 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 Spiritual care concerns: No Meds Home Medications and Allergies Home Medications ?Medication ?Instructions ?Recorded ?Confirmed ?Type No Home Medications 09/25/24 09/25/24 History Allergies Allergy/AdvReac Type Severity Reaction Status Date / Time Penicillins AdvReac Mild Nausea Verified 09/24/24 19:27 Vital Signs Vital Signs Temp Pulse Resp BP Pulse Ox O2 Del Method 09/25/24 08:35 99 Room Air 09/25/24 08:00 98.4 F 84 12 162/74 H 99 09/25/24 08:00 84 09/25/24 06:00 94 09/25/24 04:56 98.3 F 99 12 162/105 H 100 09/25/24 04:00 104 H 09/25/24 04:00 100 Room Air 09/25/24 02:35 98.3 F 104 H 20 184/84 H 100 09/25/24 02:27 98.2 F 81 18 144/90 H 98 09/25/24 01:23 98.2 F 91 18 171/88 H 98 09/24/24 23:48 98.5 F 89 18 113/71 100 09/24/24 23:41 97.6 F 70 18 162/76 H 100 09/24/24 22:46 98.5 F 93 18 190/90 H 100 Room Air Exam 2 Narrative: GENERAL APPEARANCE: elderly male in no acute distress HEENT: normocephalic, atraumatic, normal conjunctiva and sclera, nares patient NECK: no lymphadenopathy, thyromegaly, or JVD MOUTH: normal lips, teeth, and gums CARDIOVASCULAR: RRR, normal S1 and S2, no rub RESPIRATORY: clear to auscultation ABDOMEN: soft, nontender, nondistended, positive bowel sounds present EXTREMITIES: no evidence of cyanosis, clubbing, 3+ chronic edema NEUROLOGICAL: alert and oriented x 3; CN II - XII intact bilaterally; no focal deficits noted Results Lab Results 09/27/24 03:45 09/27/24 03:45 Lab results: Most recent lab results Calcium 8.7 mg/dL (8.4-10.2) 09/25/24 07:06 Phosphorus 3.8 mg/dL (2.5-4.5) 09/25/24 07:06 Magnesium 1.7 mg/dL (1.6-2.3) 09/25/24 07:06 Urine Creatinine 32.8 mg/dL 09/25/24 08:59 Urine Creatinine 33.2 mg/dL 09/25/24 08:59
[2024-09-25 10:07] LABS: Urine Eos QC 2nd Tech Confirmed
[2024-09-25] MEDS: POTASSIUM CHLORIDE 20 MEQ ER TABLET 40 MEQ PO (10:07)
[2024-09-25] MEDS: MAGNESIUM SULF 2 GM/WATER 50ML 2 GM/50 ML BAG IVPB (10:08)
[2024-09-25] MEDS: LACTATED RINGERS 500 ML IV CONT (10:28)
[2024-09-25 10:53] LABS: Total Protein Urine Random 178 mg/dL; Urea Random Urine 101 MG/DL
[2024-09-25 10:58] LABS: Total Protein Urine Random 173 mg/dL; Ur Ttl Prot Creatinine Ratio 5.21 mg/mg (0-0.20)
[2024-09-25] MEDS: LACTIC ACID 12% LOTION 225 BTL 1 APPLIC TOPICAL (11:57)
[2024-09-25] MEDS: INSULIN ASPART (*BKC) 100 UNITS/ML SUB-Q ×2 (11:57→16:45)
--- NOTE | 2024-09-25 13:13 | P.PNIM_ITS ---
Progress Note: A&P Assessment and Plan (1) Acute renal failure: Code(s): N17.9 - Acute kidney failure, unspecified Status: Acute Assessment and Plan: Patient was called by his primary care physician who asked him to come to the emergency room for acute renal failure. -Unclear etiology to renal failure. May be CKD which has progressed or acute however there is some concern with his poor appetite and poor self-care and noncompliance there may be an acute component -patient has not been taking his blood pressure medications on diabetic medications. -he also has not been eating as well due to decreased appetite, decreased fluid as well as solid intake. -creatinine on admission was 6.76 (baseline creatinine is 2.0-3.0) -patient does have underlying chronic kidney disease -continue IV fluids at 150 mL/hour -CK level 43 -urine lytes not reflective of prerenal issues -nephrology has been consulted (2) Medical non-compliance: Code(s): Z91.199 - Patient's noncompliance with other medical treatment and regimen due to unspecified reason Status: Acute Assessment and Plan: Patient has not been taking his blood pressure in diabetes medication, along with decreased p.o. intake -will have dietitian evaluate the patient for supplements (3) Hypertension: Code(s): I10 - Essential (primary) hypertension Status: Acute Assessment and Plan: Start patient on amlodipine for elevated blood pressures - continue to monitor (4) Insulin dependent type 2 diabetes mellitus: Code(s): E11.9 - Type 2 diabetes mellitus without complications; Z79.4 - half-way (current) use of insulin Status: Acute Assessment and Plan: Type 2 diabetes, continue sliding scale insulin and Accu-Cheks -hemoglobin A1c is 9.1 this admission - (5) UTI (urinary tract infection): Code(s): N39.0 - Urinary tract infection, site not specified Status: Acute Assessment and Plan: Patient was started on ceftriaxone for questionable UTI -blood and urine cultures have been obtained and pending, will deescalate antibiotics once cultures are result Plan DVT prophylaxis: SubQ heparin Stress ulcer prophylaxis: Not indicated Nutrition: Renal diet with dietary supplements Code Status: Full code Will have bedside RN reconcilel home meds Due to a high probability of clinically significant, life threatening deterioration, the patient required my highest level of preparedness to int ervene emergently and I personally spent this critical care time directly and personally managing the patient. This critical care time included obtaining a history; examining the patient; pulse oximetry; ordering and review of studies; arranging urgent treatment with development of a management plan; evaluation of patient's response to treatment; frequent reassessment; and discussions with other providers. It was exclusive of separately billable procedures and treating other patients and teaching time. Please see Assessment and Plan section and the rest of the note for further information on patient assessment and treatment This dictation may have been done utilizing a voice recognition system. Attempts have been made to correct errors. However, there may be uncorrected grammatical, spelling, and recognitions errors present. Subjective Date/time seen: 09/25/24 13:13 Interval history: 74-year-old male advised to present to [facility] ER as his primary care told him he is in renal failure. Patient reports his primary care order blood work because the patient has been doing bad. The patient has not been taking his diabetes or blood pressure medications he has not be eating has had a poor appetite. Patient denies any other symptoms. He still makes clear yellow urine. Upon arriving to the floor was found to have multiple fleas on his legs. Patient does have a dog. Patient also reported his this year and had suicidal ideation. Patient was transferred to ICU for 1 on 1 sitter. Patient seen and examined this morning for hospitalist team Patient is awake, alert, denies any suicidal ideation or attempt. He states that somebody estimates questions overnight if he was a wanting to harm himself, he did not understand that questioning he says. Do the bedside RN a stem separately regarding these questions and he denies any suicide ideation or attempt. Patient states he is doing better. Review of Systems Review of Systems: All systems reviewed & are unremarkable except as noted in HPI and below (History/subjective) Exam Narrative: General: Pleasant gentleman in no acute distress HEENT:? Pupils equal and reactive, sclera is clear, moist oral mucosa Neck:? Supple Respiratory:? Clear to auscultation bilaterally, no wheezing, adequate air entry Cardiac:? S1-S2 is normal, regular rate and rhythm Abdomen:? Soft, nontender, nondistended, normoactive bowel sound Extremities:? Bilateral lower extremity chronic venous insufficiency, lymphedema, 4+ edema with thickening of the skin that extends from the knees to the toes. Neuro:? Patient is awake, alert, oriented, nonfocal, answers to questions appropriately Skin:? As above Psych:? Normal mentation and affect Const: General: comfortable Neck: Neck: supple GI: Other: No flank pain Objective Data Vital Signs Vital Signs: Vital Signs - 24 hr 09/24/24 19:31 09/24/24 22:46 09/24/24 23:41 Temperature 97.8 F 98.5 F 97.6 F Pulse Rate 105 H 93 70 Respiratory Rate 17 18 18 Blood Pressure 153/83 H 190/90 H 162/76 H Pulse Oximetry 100 100 100 Oxygen Delivery Room Air Room Air 09/24/24 23:48 09/25/24 01:23 09/25/24 02:27 Temperature 98.5 F 98.2 F 98.2 F Pulse Rate 89 91 81 Respiratory Rate 18 18 18 Blood Pressure 113/71 171/88 H 144/90 H Pulse Oximetry 100 98 98 Oxygen Delivery 09/25/24 02:35 09/25/24 04:00 09/25/24 04:00 Temperature 98.3 F Pulse Rate 104 H 104 H Respiratory Rate 20 Blood Pressure 184/84 H Pulse Oximetry 100 100 Oxygen Delivery Room Air 09/25/24 04:56 09/25/24 06:00 09/25/24 08:00 Temperature 98.3 F Pulse Rate 99 94 84 Respiratory Rate 12 Blood Pressure 162/105 H Pulse Oximetry 100 Oxygen Delivery 09/25/24 08:00 09/25/24 08:35 Temperature 98.4 F Pulse Rate 84 Respiratory Rate 12 Blood Pressure 162/74 H Pulse Oximetry 99 99 Oxygen Delivery Room Air Intake/Output Intake/Output: Intake & Output 09/22/24 09/23/24 09/24/24 09/25/24 23:59 23:59 23:59 23:59 Intake Total 2040 Output Total 900 Balance 1140 Meds/Results Medications: Active Medications Generic Name Dose Route Start Last Admin Trade Name Freq PRN Reason Stop Dose Admin Amlodipine Besylate 10 mg 09/25/24 09:25 09/25/24 10:07 Amlodipine Besylate 10 Mg Tablet PO 10 mg DAILY RADHA Administration Dextrose 12.5 gm 09/25/24 10:19 Dextrose 50% 25 Gm/50 Ml Syringe IV PUSH PRN PRN Hypoglycemia Protocol Diphenhydramine HCl 25 mg 09/25/24 03:11 Diphenhydramine Hcl Cap 25 Mg Capsule PO Q6H PRN Itching Glucagon 1 mg 09/25/24 10:19 Glucagon For Inj 1 Mg Vial IM PRN PRN Hypoglycemia Protocol Glucose 15 gm 09/25/24 10:19 Glucose Oral Gel 15 Gm Of Glucse In 37.5 Gm Tube PO PRN PRN Hypoglycemia Protocol Ceftriaxone Sodium 1 gm/ 50 mls @ 100 mls/hr 09/25/24 07:00 09/25/24 08:05 Sodium Chloride IVPB 09/28/24 06:59 Infused Q24H RADHA Infusion Sodium Chloride 1,000 mls @ 150 mls/hr 09/25/24 06:40 09/25/24 07:33 Normal Saline Iv IV CONT 150 mls/hr .Q6H40M RADHA Administration Dextrose 1,000 mls @ 100 mls/hr 09/25/24 10:19 Dextrose 5% 1,000 Ml IVPB PRN PRN Hypoglycemia Protocol Insulin Aspart 1 - 3 units 09/25/24 21:00 Insulin Aspart (*Bkc) 100 Units/Ml SUB-Q HS RADHA Protocol Insulin Aspart 3 - 6 units 09/25/24 12:00 09/25/24 11:57 Insulin Aspart (*Bkc) 100 Units/Ml SUB-Q 4 units TIDWM RADHA Administration Protocol Lactic Acid 1 applic 09/25/24 09:00 09/25/24 11:57 Lactic Acid 12% Lotion 225 Btl TOPICAL 1 applic QAM RADHA Administration Radiology Results: ITS Impressions Chest X-Ray 09/25/24 07:37 Impression: Clear lungs. Labs Labs: Laboratory Results - last 24 hr 09/24/24 09/24/24 09/25/24 20:32 23:09 06:59 WBC 9.0 RBC 3.79 L Hgb 11.0 L Hct 34.7 L MCV 91.6 MCH 29.0 MCHC 31.7 L RDW 14.3 Plt Count 221 MPV 10.7 H Immature Gran % (Auto) 0.6 H Neut % (Auto) 57.5 Lymph % (Auto) 24.7 Colbert % (Auto) 10.1 H Eos % (Auto) 6.1 H Baso % (Auto) 1.0 Lymph # (Auto) 2.23 Colbert # (Auto) 0.9 H Eos # (Auto) 0.6 H Baso # (Auto) 0.1 Abs Immat Gran (auto) 0.05 H Absolute Neuts (auto) 5.2 Absolute Nucleated RBC 0.000 Nucleated RBC % 0.0 Sodium 138 Potassium 4.0 Chloride 104 Carbon Dioxide 21 L Anion Gap 13 H BUN 36 H Creatinine 6.76 H Estim Creat Clear Calc 11 Estimated GFR 8 L Glucose 228 H POC Capillary Glucose Hemoglobin A1c 9.1 H Calcium 9.8 Phosphorus Magnesium 1.9 Total Bilirubin 0.7 AST 20 ALT 10 Alkaline Phosphatase 79 Total Creatine Kinase Total Protein 7.7 Albumin 4.1 Lipase 193 TSH (Reflex) Urine Color Yellow Urine Appearance Clear Urine pH 5.0 Ur Specific [place] 1.013 Urine Protein 3+ H Urine Glucose (UA) 3+ H Urine Ketones Negative Ur Blood (Man) Trace Urine Nitrate Negative Urine Bilirubin Negative Urine Urobilinogen 0.2 Add Ur Microanalysis Reviewed Leukocyte Esterase Rfl Trace H Urine RBC 0-2 Urine WBC 11-20 H Ur Squamous Epith Cells Occasional Urine Bacteria 2+ H Urine Casts 11-20 Urine Eosinophils U Random Total Protein Ur Random Sodium Ur Random Urea Urine Creatinine Protein/Creat Ratio 2 09/25/24 09/25/24 09/25/24 07:06 08:59 08:59 WBC 7.9 RBC 3.23 L Hgb 9.4 L Hct 29.7 L MCV 92.0 MCH 29.1 MCHC 31.6 L RDW 14.4 Plt Count 189 MPV 10.8 H Immature Gran % (Auto) 0.6 H Neut % (Auto) 53.3 Lymph % (Auto) 26.8 Colbert % (Auto) 11.1 H Eos % (Auto) 6.9 H Baso % (Auto) 1.3 H Lymph # (Auto) 2.11 Colbert # (Auto) 0.9 H Eos # (Auto) 0.5 H Baso # (Auto) 0.1 Abs Immat Gran (auto) 0.05 H Absolute Neuts (auto) 4.2 Absolute Nucleated RBC 0.000 Nucleated RBC % 0.0 Sodium 137 Potassium 3.4 Chloride 109 H Carbon Dioxide 20 L Anion Gap 8 BUN 34 H Creatinine 5.86 H Estim Creat Clear Calc 12 Estimated GFR 10 L Glucose 150 H POC Capillary Glucose Hemoglobin A1c Calcium 8.7 Phosphorus 3.8 Magnesium 1.7 Total Bilirubin 0.7 AST 14 L ALT 9 Alkaline Phosphatase 64 Total Creatine Kinase 43 L Total Protein 6.0 L Albumin 3.0 L Lipase TSH (Reflex) 1.760 Urine Color Urine Appearance Urine pH Ur Specific [place] Urine Protein Urine Glucose (UA) Urine Ketones Ur Blood (Man) Urine Nitrate Urine Bilirubin Urine Urobilinogen Add Ur Microanalysis Leukocyte Esterase Rfl Urine RBC Urine WBC Ur Squamous Epith Cells Urine Bacteria Urine Casts Urine Eosinophils Rare U Random Total Protein 173 178 Ur Random Sodium 88 Ur Random Urea 101 Urine Creatinine 33.2 Protein/Creat Ratio 2 09/25/24 09/25/24 08:59 11:52 WBC RBC Hgb Hct MCV MCH MCHC RDW Plt Count MPV Immature Gran % (Auto) Neut % (Auto) Lymph % (Auto) [place]bert % (Auto) Eos % (Auto) Baso % (Auto) Lymph # (Auto) [place] # (Auto) Eos # (Auto) Baso # (Auto) Abs Immat Gran (auto) Absolute Neuts (auto) Absolute Nucleated RBC Nucleated RBC % Sodium Potassium Chloride Carbon Dioxide Anion Gap BUN Creatinine Estim Creat Clear Calc Estimated GFR Glucose POC Capillary Glucose 274 H Hemoglobin A1c Calcium Phosphorus Magnesium Total Bilirubin AST ALT Alkaline Phosphatase Total Creatine Kinase Total Protein Albumin Lipase TSH (Reflex) Urine Color Urine Appearance Urine pH Ur Specific [place] Urine Protein Urine Glucose (UA) Urine Ketones Ur Blood (Man) Urine Nitrate Urine Bilirubin Urine Urobilinogen Add Ur Microanalysis Leukocyte Esterase Rfl Urine RBC Urine WBC Ur Squamous Epith Cells Urine Bacteria Urine Casts Urine Eosinophils U Random Total Protein Ur Random Sodium Ur Random Urea Urine Creatinine 32.8 Protein/Creat Ratio 2 5.21 H
--- NOTE | 2024-09-25 13:30 | P.CDI_ITS ---
CDI Query Clarification Request BMI: Nutritional Diagnostic Statement: Please refer to the comprehensive nutrition assessment for further information. If you agree with diagnosis of Severe Protein Calorie Malnutrition as related to inadequate energy intake with increased protein needs in setting of chronic disease as evidenced by minimal oral intake for > 1-2 months and significant weight loss of 73 ibs (24%). Please specify severity if known: * Mild * Moderate * Severe * Other/Unknown <Alis Del Cid RN - Last Filed: 09/25/24 13:31> Provider Comments Severe protein calorie malnutrition <Navjot Coughlin MD - Last Filed: 10/05/24 07:17>
[2024-09-26] MEDS: SODIUM CHLORIDE 0.9% IV 1,000 ML 150 ML IV CONT (06:25)
[2024-09-26] MEDS: cefTRIAXone 1 GM in SODIUM CHLORIDE 0.9% IV 50 ML 100 ML IVPB (06:30)
[2024-09-26 07:16] LABS: Hematocrit 30.0 % (42.0-52.0); Hemoglobin 9.5 g/dL (14.0-18.0); Immature Granulocyte Percent A 0.4 % (0-0.5); Lymphocytes Absolute Auto 1.52 K/mm3 (0.9-3.2); Mean Corpuscular HGB Conc 31.7 g/dl (32-36); Mean Corpuscular Hemoglobin 29.2 pg (26-34); Mean Corpuscular Volume 92.3 fl (80-100); Nucleated Red Blood Cells Absolute Auto 0.000 K/mm3 (0.0-0.012); Nucleated Red Blood Cells Perc 0.0 % (0.0-0.2); Platelet Count Result 184 k/mm3 (150-375); Red Blood Count 3.25 M/mm3 (4.6-6.20); White Blood Count 7.4 K/mm3 (4.5-10.0)
[2024-09-26 07:41] LABS: Alanine Aminotransferase 7 U/L (6-50); Albumin Level 2.8 g/dL (3.5-5.1); Alkaline Phosphatase 64 U/L (38-126); Anion Gap 8 mmol/L (4-12); Aspartate Amino Transferase 14 U/L (17-59); Bilirubin,Total 0.5 mg/dL (0.2-1.3); Blood Urea Nitrogen 32 mg/dL (9-20); Calcium 8.6 mg/dL (8.4-10.2); Carbon Dioxide 20 mmol/L (22-30); Chloride 111 mmol/L (98-107); Estimated CRCL calculation 13 ml/min; Estimated Glomerular Filt Rate 10; Glucose 181 mg/dL (65-110); Potassium 3.7 mmol/L (3.4-5.0); Sodium 139 mmol/L (137-145); Total Protein 5.5 g/dL (6.3-8.2)
[2024-09-26 08:00] VITALS: BP 145/73; PULSE 87; RESP 18; TEMP 36.5; O2SAT 100
[2024-09-26] MEDS: LACTIC ACID 12% LOTION 225 BTL 1 APPLIC TOPICAL (08:02)
[2024-09-26] MEDS: SODIUM BICARBONATE 8.4% 150 MEQ in WATER, STERILE FOR INJECTION 950 ML 100 MEQ IV CONT (10:33)
--- NOTE | 2024-09-26 11:44 | PM.IMPN ---
Progress Note: A&P Assessment and Plan (1) Acute renal failure: Code(s): N17.9 - Acute kidney failure, unspecified Status: Acute Assessment and Plan: Patient was called by his primary care physician who asked him to come to the emergency room for acute renal failure. -Unclear etiology to renal failure. May be CKD which has progressed or acute however there is some concern with his poor appetite and poor self-care and noncompliance there may be an acute component -patient has not been taking his blood pressure medications on diabetic medications. -he also has not been eating as well due to decreased appetite, decreased fluid as well as solid intake. -creatinine on admission was 6.76 (baseline creatinine is 2.0-3.0) -patient does have underlying chronic kidney disease -CK level 43 -urine lytes not reflective of prerenal issues -appreciate Nephrology evaluation and recommendation 09/25: Renal ultrasound showed normal kidneys without hydronephrosis, possible minimal amount of ascites in the pelvis 09/26: switch normal saline IV fluids to to sodium bicarb infusion as patient is slightly acidotic (2) Medical non-compliance: Code(s): Z91.199 - Patient's noncompliance with other medical treatment and regimen due to unspecified reason Status: Acute Assessment and Plan: Patient has not been taking his blood pressure in diabetes medication, along with decreased p.o. intake -appreciate dietitian evaluation: Severe protein calorie malnutrition -continue dietary supplement (3) Hypertension: Code(s): I10 - Essential (primary) hypertension Status: Acute Assessment and Plan: 09/25: Started amlodipine for elevated blood pressures -blood pressures remain elevated -09/26: Given acute kidney injury, will hold off JAGDEEP-inhibitor/ARB. Will add small dose of Coreg - (4) Insulin dependent type 2 diabetes mellitus: Code(s): E11.9 - Type 2 diabetes mellitus without complications; Z79.4 - oysterman (current) use of insulin Status: Acute Assessment and Plan: Type 2 diabetes, continue sliding scale insulin and Accu-Cheks -hemoglobin A1c is 9.1 this admission (5) UTI (urinary tract infection): Code(s): N39.0 - Urinary tract infection, site not specified Status: Acute Assessment and Plan: Patient was started on ceftriaxone for questionable UTI -09/24: urine cultures have been obtained and pending, will deescalate antibiotics once cultures are result Plan DVT prophylaxis: SubQ heparin Stress ulcer prophylaxis: Not indicated Nutrition: Renal diet with dietary supplements Wound care following the pt Code Status: Full code Due to a high probability of clinically significant, life threatening deterioration, the patient required my highest level of preparedness to intervene emergently and I personally spent this critical care time directly and personally managing the patient. This critical care time included obtaining a history; examining the patient; pulse oximetry; ordering and review of studies; arranging urgent treatment with development of a management plan; evaluation of patient's response to treatment; frequent reassessment; and discussions with other providers. It was exclusive of separately billable procedures and treating other patients and teaching time. Please see Assessment and Plan section and the rest of the note for further information on patient assessment and treatment This dictation may have been done utilizing a voice recognition system. Attempts have been made to correct errors. However, there may be uncorrected grammatical, spelling, and recognitions errors present. Subjective Date/time seen: 09/26/24 11:44 Interval history: 74-year-old male advised to present to [facility] ER as his primary care told him he is in renal failure. Patient reports his primary care order blood work because the patient has been doing bad. The patient has not been taking his diabetes or blood pressure medications he has not be eating has had a poor appetite. Patient denies any other symptoms. He still makes clear yellow urine. Upon arriving to the floor was found to have multiple fleas on his legs. Patient does have a dog. Patient also reported his this year and had suicidal ideation. Patient was transferred to ICU for 1 on 1 sitter. Patient seen and examined this morning for hospitalist team Patient is awake, alert, states he feels better, denies any chest pain, shortness with abdominal pain, nausea, vomiting. States he feels little more energetic and less fatigued. Denies any suicidal ideation or attempt. Afebrile, hemodynamically stable, good urine output, creatinine trending down Review of Systems Review of Systems: All systems reviewed & are unremarkable except as noted in HPI and below (History/subjective) Exam Narrative: General: Pleasant gentleman in no acute distress HEENT:? Pupils equal and reactive, sclera is clear, moist oral mucosa Neck:? Supple Respiratory:? Clear to auscultation bilaterally, no wheezing, adequate air entry Cardiac:? S1-S2 is normal, regular rate and rhythm Abdomen:? Soft, nontender, nondistended, normoactive bowel sound Extremities:? Bilateral lower extremity chronic venous insufficiency, lymphedema, 4+ edema with thickening of the skin that extends from the knees to the toes. Neuro:? Patient is awake, alert, oriented, nonfocal, answers to questions appropriately Skin:? As above Psych:? Normal mentation and affect Objective Data Vital Signs Vital Signs: Vital Signs - 24 hr 09/25/24 16:00 09/25/24 20:16 09/25/24 20:45 Temperature 97.8 F Pulse Rate 89 89 Respiratory Rate 15 16 Blood Pressure 134/74 Pulse Oximetry 100 100 Oxygen Delivery Room Air Room Air 09/25/24 23:29 09/26/24 08:00 Temperature 97.6 F 97.7 F Pulse Rate 91 87 Respiratory Rate 18 18 Blood Pressure 171/84 H 145/73 H Pulse Oximetry 100 100 Oxygen Delivery Intake/Output Intake/Output: Intake & Output 09/23/24 09/24/24 09/25/24 09/26/24 23:59 23:59 23:59 23:59 Intake Total 5640 2070 Output Total 1800 1300 Balance 3840 770 Meds/Results Medications: Active Medications Generic Name Dose Route Start Last Admin Trade Name Freq PRN Reason Stop Dose Admin Amlodipine Besylate 10 mg 09/25/24 09:25 09/26/24 08:02 Amlodipine Besylate 10 Mg Tablet PO 10 mg DAILY RADHA Administration Dextrose 12.5 gm 09/25/24 10:19 Dextrose 50% 25 Gm/50 Ml Syringe IV PUSH PRN PRN Hypoglycemia Protocol Diphenhydramine HCl 25 mg 09/25/24 03:11 Diphenhydramine Hcl Cap 25 Mg Capsule PO Q6H PRN Itching Glucagon 1 mg 09/25/24 10:19 Glucagon For Inj 1 Mg Vial IM PRN PRN Hypoglycemia Protocol Glucose 15 gm 09/25/24 10:19 Glucose Oral Gel 15 Gm Of Glucse In 37.5 Gm Tube PO PRN PRN Hypoglycemia Protocol Heparin Sodium (Porcine) 5,000 units 09/25/24 14:00 09/26/24 06:30 Heparin Sodium 5,000 Units/Ml Vial SUB-Q 5,000 units Q8HR RADHA Administration Ceftriaxone Sodium 1 gm/ 50 mls @ 100 mls/hr 09/25/24 07:00 09/26/24 07:30 Sodium Chloride IVPB 09/28/24 06:59 Infused Q24H RADAH Infusion Dextrose 1,000 mls @ 100 mls/hr 09/25/24 10:19 Dextrose 5% 1,000 Ml IVPB PRN PRN Hypoglycemia Protocol Sodium Bicarbonate 150 meq/ 1,100 mls @ 100 mls/hr 09/26/24 09:25 09/26/24 10:33 Sterile Water IV CONT 100 mls/hr .Q11H RADHA Administration Insulin Aspart 1 - 3 units 09/25/24 21:00 09/25/24 20:58 Insulin Aspart (*Bkc) 100 Units/Ml SUB-Q Not Given HS RADHA Protocol Insulin Aspart 3 - 6 units 09/25/24 12:00 09/26/24 07:55 Insulin Aspart (*Bkc) 100 Units/Ml SUB-Q Not Given TIDWM RADHA Protocol Lactic Acid 1 applic 09/25/24 09:00 09/26/24 08:02 Lactic Acid 12% Lotion 225 Btl TOPICAL 1 applic QAM RADHA Administration Radiology Results: ITS Impressions Chest X-Ray 09/25/24 07:37 Impression: Clear lungs. Renal Ultrasound 09/25/24 18:38 IMPRESSION: 1. Normal kidneys without hydronephrosis. 2. Possible minimal amount of ascites in the pelvis. Labs Labs: Laboratory Results - last 24 hr 09/25/24 09/25/24 09/25/24 11:52 16:34 20:19 WBC RBC Hgb Hct MCV MCH MCHC RDW Plt Count MPV Immature Gran % (Auto) Neut % (Auto) Lymph % (Auto) [place] % (Auto) Eos % (Auto) Baso % (Auto) Lymph # (Auto) [place] # (Auto) Eos # (Auto) Baso # (Auto) Abs Immat Gran (auto) Absolute Neuts (auto) Absolute Nucleated RBC Nucleated RBC % Sodium Potassium Chloride Carbon Dioxide Anion Gap BUN Creatinine Estim Creat Clear Calc Estimated GFR Glucose POC Capillary Glucose 274 H 207 H 193 H Calcium Phosphorus Total Bilirubin AST ALT Alkaline Phosphatase Total Protein Albumin 09/26/24 09/26/24 09/26/24 07:09 07:09 07:09 WBC 7.4 RBC 3.25 L Hgb 9.5 L Hct 30.0 L MCV 92.3 MCH 29.2 MCHC 31.7 L RDW 14.2 Plt Count 184 MPV 10.9 H Immature Gran % (Auto) 0.4 Neut % (Auto) 62.1 Lymph % (Auto) 20.6 [place] % (Auto) 10.0 H Eos % (Auto) 6.1 H Baso % (Auto) 0.8 Lymph # (Auto) 1.52 [place] # (Auto) 0.7 H Eos # (Auto) 0.5 H Baso # (Auto) 0.1 Abs Immat Gran (auto) 0.03 Absolute Neuts (auto) 4.6 Absolute Nucleated RBC 0.000 Nucleated RBC % 0.0 Sodium 139 Cancelled Potassium 3.7 Cancelled Chloride 111 H Carbon Dioxide Anion Gap BUN Creatinine Estim Creat Clear Calc Estimated GFR Glucose POC Capillary Glucose Calcium Phosphorus Total Bilirubin AST ALT Alkaline Phosphatase Total Protein Albumin 09/26/24 09/26/24 09/26/24 07:09 07:09 07:09 WBC RBC Hgb Hct MCV MCH MCHC RDW Plt Count MPV Immature Gran % (Auto) Neut % (Auto) Lymph % (Auto) [place] % (Auto) Eos % (Auto) Baso % (Auto) Lymph # (Auto) [place] # (Auto) Eos # (Auto) Baso # (Auto) Abs Immat Gran (auto) Absolute Neuts (auto) Absolute Nucleated RBC Nucleated RBC % Sodium Potassium Chloride Cancelled Carbon Dioxide 20 L Cancelled Anion Gap 8 Cancelled BUN 32 H Creatinine Estim Creat Clear Calc Estimated GFR Glucose POC Capillary Glucose Calcium Phosphorus Total Bilirubin AST ALT Alkaline Phosphatase Total Protein Albumin 09/26/24 09/26/24 09/26/24 07:09 07:09 07:09 WBC RBC Hgb Hct MCV MCH MCHC RDW Plt Count MPV Immature Gran % (Auto) Neut % (Auto) Lymph % (Auto) [place] % (Auto) Eos % (Auto) Baso % (Auto) Lymph # (Auto) [place] # (Auto) Eos # (Auto) Baso # (Auto) Abs Immat Gran (auto) Absolute Neuts (auto) Absolute Nucleated RBC Nucleated RBC % Sodium Potassium Chloride Carbon Dioxide Anion Gap BUN Cancelled Creatinine 5.50 H Cancelled Estim Creat Clear Calc 13 Cancelled Estimated GFR 10 L Glucose POC Capillary Glucose Calcium Phosphorus Total Bilirubin AST ALT Alkaline Phosphatase Total Protein Albumin 09/26/24 09/26/2409/26/25 07:09 07:09 07:09 WBC RBC Hgb Hct MCV MCH MCHC RDW Plt Count MPV Immature Gran % (Auto) Neut % (Auto) Lymph % (Auto) [place] % (Auto) Eos % (Auto) Baso % (Auto) Lymph # (Auto) [place] # (Auto) Eos # (Auto) Baso # (Auto) Abs Immat Gran (auto) Absolute Neuts (auto) Absolute Nucleated RBC Nucleated RBC % Sodium Potassium Chloride Carbon Dioxide Anion Gap BUN Creatinine Estim Creat Clear Calc Estimated GFR Cancelled Glucose 181 H Cancelled POC Capillary Glucose Calcium 8.6 Cancelled Phosphorus 4.1 Total Bilirubin 0.5 AST ALT Alkaline Phosphatase Total Protein Albumin 09/26/24 09/26/24 09/26/24 07:09 07:09 07:09 WBC RBC Hgb Hct MCV MCH MCHC RDW Plt Count MPV Immature Gran % (Auto) Neut % (Auto) Lymph % (Auto) [place] % (Auto) Eos % (Auto) Baso % (Auto) Lymph # (Auto) [place] # (Auto) Eos # (Auto) Baso # (Auto) Abs Immat Gran (auto) Absolute Neuts (auto) Absolute Nucleated RBC Nucleated RBC % Sodium Potassium Chloride Carbon Dioxide Anion Gap BUN Creatinine Estim Creat Clear Calc Estimated GFR Glucose POC Capillary Glucose Calcium Phosphorus Total Bilirubin Cancelled AST 14 L Cancelled ALT 7 Cancelled Alkaline Phosphatase 64 Total Protein Albumin 09/26/24 09/26/24 09/26/24 07:09 07:09 07:09 WBC RBC Hgb Hct MCV MCH MCHC RDW Plt Count MPV Immature Gran % (Auto) Neut % (Auto) Lymph % (Auto) [place] % (Auto) Eos % (Auto) Baso % (Auto) Lymph # (Auto) [place] # (Auto) Eos # (Auto) Baso # (Auto) Abs Immat Gran (auto) Absolute Neuts (auto) Absolute Nucleated RBC Nucleated RBC % Sodium Potassium Chloride Carbon Dioxide Anion Gap BUN Creatinine Estim Creat Clear Calc Estimated GFR Glucose POC Capillary Glucose Calcium Phosphorus Total Bilirubin AST ALT Alkaline Phosphatase Cancelled Total Protein 5.5 L Cancelled Albumin 2.8 L Cancelled 09/26/24 07:43 WBC RBC Hgb Hct MCV MCH MCHC RDW Plt Count MPV Immature Gran % (Auto) Neut % (Auto) Lymph % (Auto) [place] % (Auto) Eos % (Auto) Baso % (Auto) Lymph # (Auto) [place] # (Auto) Eos # (Auto) Baso # (Auto) Abs Immat Gran (auto) Absolute Neuts (auto) Absolute Nucleated RBC Nucleated RBC % Sodium Potassium Chloride Carbon Dioxide Anion Gap BUN Creatinine Estim Creat Clear Calc Estimated GFR Glucose POC Capillary Glucose 174 H Calcium Phosphorus Total Bilirubin AST ALT Alkaline Phosphatase Total Protein Albumin
[2024-09-26] MEDS: INSULIN ASPART (*BKC) 100 UNITS/ML SUB-Q ×3 (12:05→21:02)
--- NOTE | 2024-09-26 13:50 | P.PNNP_ITS ---
Progress Note: A&P Assessment and Plan (1) Acute kidney injury: Code(s): N17.9 - Acute kidney failure, unspecified Status: Acute Assessment and Plan: * slow improvement noted * as noted by admission labs (and apparently by outpatient labs) * creatinine on admission 6.76mg/dl * etiology not clear but several possible issues: * element of CKD progression * prerenal factors (poor oral intake) * possibly precipitated by medical non-compliance -- has not been taking his home BP or diabetic medications for several months if not longer * infection(?) -- possible UTI * other? * evaluation to date noted: * renal ultrasound okay * urine electrolytes are non-prerenal * rare urine eosinophils - peripheral eosinophilia noted as well but no rash present; nonspecific inflammation? * CPK okay * nephrotic range proteinuria * follow trend of repeat labs and UOP (2) Stage 4 chronic kidney disease: Code(s): N18.4 - Chronic kidney disease, stage 4 (severe) Status: Chronic Assessment and Plan: * baseline creatinine ~ 2.5mg/dl about 6 months ago * due to diabetes, hypertension, vascular disease (CAD, CABG, CVA, PVD, & hyperlipidemia) and age-related change * was referred to dialysis education prior to hospitalization * what occurred first??? * did his renal function deteriorate causing uremic symptoms resulting in his poor oral/fluid intake + weight loss? * or did his poor oral/fluid intake results in his worsening renal dysfunction? * follows with Dr. Stewart for ongoing CKD management (3) UTI (urinary tract infection): Code(s): N39.0 - Urinary tract infection, site not specified Status: Acute Assessment and Plan: * admission UA suggestive * follow urine culture results * on antibiotics (4) Severe protein-calorie malnutrition: Code(s): E43 - Unspecified severe protein-calorie malnutrition Status: Acute Assessment and Plan: * reported 70 pound weight loss over the last 7 months * associated with poor appetite and oral/fluid intake * center rep following * on dietary supplements * continue supportive therapy (5) Hypertension: Code(s): I10 - Essential (primary) hypertension Status: Acute Assessment and Plan: * still with suboptimal control * on amlodipine * low dose carvedilol added today * avoiding JAGDEEP-I/ARB due to #1 and #2 * follow trend of hemodynamics (6) Anemia: Code(s): D64.9 - Anemia, unspecified Status: Acute Assessment and Plan: * presumably due to SPENCER and CKD * follow trend of H/H * no need for TALYA (7) Insulin dependent type 2 diabetes mellitus: Code(s): E11.9 - Type 2 diabetes mellitus without complications; Z79.4 - long term care social worker (current) use of insulin Status: Chronic Assessment and Plan: * poor control * A1c 9.1 on this admission * follow accu-cheks * glycemic control per hospitalist Will continue to follow. L Subjective Date/time seen: 09/26/24 13:50 Interval history: Follow-up for acute kidney injury/acute renal failure on chronic kidney disease. Slow improvement in renal function/creatinine by trend of labs since admission in association with reasonable urine output; no apparent distress noted at the time of my visit; hemodynamically stable; no other issues/events overnight or earlier this morning. Exam 2 Narrative: General: elderly but WD/WN male in NAD Heart: normal S1 and S2; no rub Lungs: clear to auscultation Abdomen: soft, nontender, nondistended, positive bowel sounds Extremities: no cyanosis or clubbing; 3+ chronic edema/lymphedema changes Skin: chronic venous insufficiency changes apparent Objective Data Vital Signs Vital Signs: Vital Signs Temp Pulse Resp BP Pulse Ox O2 Del Method 09/26/24 13:20 Room Air 09/26/24 08:00 97.7 F 87 18 145/73 H 100 09/25/24 23:29 97.6 F 91 18 171/84 H 100 09/25/24 20:45 Room Air 09/25/24 20:16 89 16 100 Room Air Intake/Output Intake/Output: Intake & Output 09/23/24 09/24/24 09/25/24 09/26/24 23:59 23:59 23:59 23:59 Intake Total 5640 2370 Output Total 1800 1950 Balance 3840 420 Meds/Results Medications: Active Medications Generic Name Dose Route Start Last Admin Trade Name Freq PRN Reason Stop Dose Admin Amlodipine Besylate 10 mg 09/25/24 09:25 09/26/24 08:02 Amlodipine Besylate 10 Mg Tablet PO 10 mg DAILY RADHA Administration Carvedilol 6.25 mg 09/26/24 12:00 09/26/24 12:09 Carvedilol 6.25 Mg Tablet PO 6.25 mg Q12HR RADHA Administration Dextrose 12.5 gm 09/25/24 10:19 Dextrose 50% 25 Gm/50 Ml Syringe IV PUSH PRN PRN Hypoglycemia Protocol Diphenhydramine HCl 25 mg 09/25/24 03:11 Diphenhydramine Hcl Cap 25 Mg Capsule PO Q6H PRN Itching Glucagon 1 mg 09/25/24 10:19 Glucagon For Inj 1 Mg Vial IM PRN PRN Hypoglycemia Protocol Glucose 15 gm 09/25/24 10:19 Glucose Oral Gel 15 Gm Of Glucse In 37.5 Gm Tube PO PRN PRN Hypoglycemia Protocol Heparin Sodium (Porcine) 5,000 units 09/25/24 14:00 09/26/24 14:25 Heparin Sodium 5,000 Units/Ml Vial SUB-Q 5,000 units Q8HR RADHA Administration Ceftriaxone Sodium 1 gm/ 50 mls @ 100 mls/hr 09/25/24 07:00 09/26/24 07:30 Sodium Chloride IVPB 09/28/24 06:59 Infused Q24H RADHA Infusion Dextrose 1,000 mls @ 100 mls/hr 09/25/24 10:19 Dextrose 5% 1,000 Ml IVPB PRN PRN Hypoglycemia Protocol Sodium Bicarbonate 150 meq/ 1,100 mls @ 100 mls/hr 09/26/24 09:25 09/26/24 10:33 Sterile Water IV CONT 100 mls/hr .Q11H RADHA Administration Insulin Aspart 1 - 3 units 09/25/24 21:00 09/25/24 20:58 Insulin Aspart (*Bkc) 100 Units/Ml SUB-Q Not Given HS RADHA Protocol Insulin Aspart 3 - 6 units 09/25/24 12:00 09/26/24 17:31 Insulin Aspart (*Bkc) 100 Units/Ml SUB-Q 3 units TIDWM RADHA Administration Protocol Lactic Acid 1 applic 09/25/24 09:00 09/26/24 08:02 Lactic Acid 12% Lotion 225 Btl TOPICAL 1 applic QAM RADHA Administration Radiology Results: ITS Impressions Chest X-Ray 09/25/24 07:37 Impression: Clear lungs. Renal Ultrasound 09/25/24 18:38 IMPRESSION: 1. Normal kidneys without hydronephrosis. 2. Possible minimal amount of ascites in the pelvis. Labs Labs: Laboratory Tests 09/26/24 07:09 09/26/24 07:09 Calcium 8.6 Phosphorus 4.1 Total Bilirubin 0.5 AST 14 L ALT 7 Alkaline Phosphatase 64 Total Protein 5.5 L Albumin 2.8 L
[2024-09-26 16:00] VITALS: BP 118/61; PULSE 91; RESP 18; TEMP 36.4; O2SAT 95
[2024-09-26 20:06] VITALS: O2SAT 99
[2024-09-26 20:50] VITALS: PULSE 82
[2024-09-26 23:50] VITALS: BP 131/61; PULSE 84; RESP 18; TEMP 36.8; O2SAT 100
[2024-09-27] MEDS: ACETAMINOPHEN 325 MG TABLET 650 MG PO ×2 (01:47→08:16)
[2024-09-27] MEDS: SODIUM BICARBONATE 8.4% 150 MEQ in WATER, STERILE FOR INJECTION 950 ML 100 MEQ IV CONT (01:48)
[2024-09-27 03:55] LABS: Hematocrit 26.5 % (42.0-52.0); Hemoglobin 8.4 g/dL (14.0-18.0); Immature Granulocyte Percent A 0.4 % (0-0.5); Lymphocytes Absolute Auto 1.83 K/mm3 (0.9-3.2); Mean Corpuscular HGB Conc 31.7 g/dl (32-36); Mean Corpuscular Hemoglobin 29.4 pg (26-34); Mean Corpuscular Volume 92.7 fl (80-100); Nucleated Red Blood Cells Absolute Auto 0.000 K/mm3 (0.0-0.012); Nucleated Red Blood Cells Perc 0.0 % (0.0-0.2); Platelet Count Result 165 k/mm3 (150-375); Red Blood Count 2.86 M/mm3 (4.6-6.20); White Blood Count 7.7 K/mm3 (4.5-10.0)
[2024-09-27 04:07] LABS: Alanine Aminotransferase 7 U/L (6-50); Albumin Level 2.6 g/dL (3.5-5.1); Alkaline Phosphatase 60 U/L (38-126); Anion Gap 7 mmol/L (4-12); Aspartate Amino Transferase 13 U/L (17-59); Bilirubin,Total 0.4 mg/dL (0.2-1.3); Blood Urea Nitrogen 34 mg/dL (9-20); Calcium 8.2 mg/dL (8.4-10.2); Carbon Dioxide 22 mmol/L (22-30); Chloride 107 mmol/L (98-107); Estimated CRCL calculation 13 ml/min; Estimated Glomerular Filt Rate 11; Glucose 160 mg/dL (65-110); Magnesium 1.8 mg/dL (1.6-2.3); Potassium 3.1 mmol/L (3.4-5.0); Sodium 136 mmol/L (137-145); Total Protein 5.2 g/dL (6.3-8.2)
[2024-09-27] MEDS: cefTRIAXone 1 GM in SODIUM CHLORIDE 0.9% IV 50 ML 100 ML IVPB (06:08)
[2024-09-27] MEDS: POTASSIUM CHLORIDE 10 MEQ ER TABLET 30 MEQ PO (07:04)
[2024-09-27 07:47] VITALS: BP 143/65; PULSE 80; RESP 16; TEMP 36.8; O2SAT 100
[2024-09-27] MEDS: LACTIC ACID 12% LOTION 225 BTL 1 APPLIC TOPICAL (08:15)
--- NOTE | 2024-09-27 09:58 | PM.IMPN ---
Progress Note: A&P Assessment and Plan (1) Acute renal failure: Code(s): N17.9 - Acute kidney failure, unspecified Status: Acute Assessment and Plan: Patient was called by his primary care physician who asked him to come to the emergency room for acute renal failure. -Unclear etiology to renal failure. May be CKD which has progressed or acute however there is some concern with his poor appetite and poor self-care and noncompliance there may be an acute component -patient has not been taking his blood pressure medications on diabetic medications. -he also has not been eating as well due to decreased appetite, decreased fluid as well as solid intake. -creatinine on admission was 6.76 (baseline creatinine is 2.0-3.0) -patient does have underlying chronic kidney disease -CK level 43 -urine lytes not reflective of prerenal issues -appreciate Nephrology evaluation and recommendation 09/25: Renal ultrasound showed normal kidneys without hydronephrosis, possible minimal amount of ascites in the pelvis 09/26: switch normal saline IV fluids to to sodium bicarb infusion as patient is slightly acidotic 09/27: Creatinine trending down gradually, will decrease IV fluids to 50 mL/hour (2) Medical non-compliance: Code(s): Z91.199 - Patient's noncompliance with other medical treatment and regimen due to unspecified reason Status: Acute Assessment and Plan: Patient has not been taking his blood pressure in diabetes medication, along with decreased p.o. intake -appreciate dietitian evaluation: Severe protein calorie malnutrition -continue dietary supplement (3) Hypertension: Code(s): I10 - Essential (primary) hypertension Status: Acute Assessment and Plan: 09/25: Started amlodipine for elevated blood pressures -blood pressures remain elevated -09/26: Given acute kidney injury, will hold off JAGDEEP-inhibitor/ARB. Will add small dose of Coreg -09/27: Will increase Coreg (4) Insulin dependent type 2 diabetes mellitus: Code(s): E11.9 - Type 2 diabetes mellitus without complications; Z79.4 - ocean transportation intermediary (current) use of insulin Status: Acute Assessment and Plan: Type 2 diabetes, continue sliding scale insulin and Accu-Cheks -hemoglobin A1c is 9.1 this admission (5) UTI (urinary tract infection): Code(s): N39.0 - Urinary tract infection, site not specified Status: Acute Assessment and Plan: Patient was started on ceftriaxone for questionable UTI -09/24: urine cultures have been obtained and pending, will deescalate antibiotics once cultures are result (6) Electrolyte imbalance: Code(s): E87.8 - Other disorders of electrolyte and fluid balance, not elsewhere classified Status: Acute Assessment and Plan: Potassium repleted Plan DVT prophylaxis: SubQ heparin Stress ulcer prophylaxis: Not indicated Nutrition: Renal diet with dietary supplements Wound care following the pt [place] in legs due to edema: takes gabapentin at home, will start gabapentin 100 mg daily due to his decreased renal function. ay increase once kidney function improves Code Status: Full code Due to a high probability of clinically significant, life threatening deterioration, the patient required my highest level of preparedness to intervene emergently and I personally spent this critical care time directly and personally managing the patient. This critical care time included obtaining a history; examining the patient; pulse oximetry; ordering and review of studies; arranging urgent treatment with development of a management plan; evaluation of patient's response to treatment; frequent reassessment; and discussions with other providers. It was exclusive of separately billable procedures and treating other patients and teaching time. Please see Assessment and Plan section and the rest of the note for further information on patient assessment and treatment This dictation may have been done utilizing a voice recognition system. Attempts have been made to correct errors. However, there may be uncorrected grammatical, spelling, and recognitions errors present. Subjective Date/time seen: 09/27/24 09:58 Interval history: 74-year-old male advised to present to [facility] ER as his primary care told him he is in renal failure. Patient reports his primary care order blood work because the patient has been doing bad. The patient has not been taking his diabetes or blood pressure medications he has not be eating has had a poor appetite. Patient denies any other symptoms. He still makes clear yellow urine. Upon arriving to the floor was found to have multiple fleas on his legs. Patient does have a dog. Patient also reported his this year and had suicidal ideation. Patient was transferred to ICU for 1 on 1 sitter. Patient seen and examined this morning for hospitalist team Patient is awake, alert, states he feels better, denies any chest pain, shortness with abdominal pain, nausea, vomiting. Patient states he feels much better, appetite has improved, urine output has been good. Creatinine trending down gradually. Patient complains of leg in his lower extremities and requesting gabapentin which she was taking at home. Patient is afebrile, hemodynamically stable Review of Systems Review of Systems: All systems reviewed & are unremarkable except as noted in HPI and below (History/subjective) Exam Narrative: General: Pleasant gentleman in no acute distress HEENT:? Pupils equal and reactive, sclera is clear, moist oral mucosa Neck:? Supple Respiratory:? Clear to auscultation bilaterally, no wheezing, adequate air entry Cardiac:? S1-S2 is normal, regular rate and rhythm Abdomen:? Soft, nontender, nondistended, normoactive bowel sound Extremities:? Bilateral lower extremity chronic venous insufficiency, lymphedema, 4+ edema with thickening of the skin that extends from the knees to the toes. Neuro:? Patient is awake, alert, oriented, nonfocal, answers to questions appropriately Skin:? As above Psych:? Normal mentation and affect Objective Data Vital Signs Vital Signs: Vital Signs - 24 hr 09/26/24 13:20 09/26/24 16:00 09/26/24 20:00 Temperature 97.5 F L Pulse Rate 91 Respiratory Rate 18 Blood Pressure 118/61 Pulse Oximetry 95 Oxygen Delivery Room Air Room Air 09/26/24 20:06 09/26/24 20:50 09/26/24 23:50 Temperature 98.2 F Pulse Rate 82 84 Respiratory Rate 18 Blood Pressure 131/61 Pulse Oximetry 99 100 Oxygen Delivery Room Air 09/27/24 07:47 Temperature 98.2 F Pulse Rate 80 Respiratory Rate 16 Blood Pressure 143/65 H Pulse Oximetry 100 Oxygen Delivery Intake/Output Intake/Output: Intake & Output 09/24/24 09/25/24 09/26/24 09/27/24 23:59 23:59 23:59 23:59 Intake Total 5640 2620 1350 Output Total 1800 1950 1100 Balance 3840 670 250 Meds/Results Medications: Active Medications Generic Name Dose Route Start Last Admin Trade Name Freq PRN Reason Stop Dose Admin Acetaminophen 650 mg 09/27/24 01:31 09/27/24 08:16 Acetaminophen 325 Mg Tablet PO 650 mg Q4H PRN Administration Mild Pain (1-3) or Fever Amlodipine Besylate 10 mg 09/25/24 09:25 09/27/24 08:14 Amlodipine Besylate 10 Mg Tablet PO 10 mg DAILY RADHA Administration Carvedilol 6.25 mg 09/26/24 12:00 09/27/24 08:14 Carvedilol 6.25 Mg Tablet PO 6.25 mg Q12HR RADHA Administration Dextrose 12.5 gm 09/25/24 10:19 Dextrose 50% 25 Gm/50 Ml Syringe IV PUSH PRN PRN Hypoglycemia Protocol Glucagon 1 mg 09/25/24 10:19 Glucagon For Inj 1 Mg Vial IM PRN PRN Hypoglycemia Protocol Glucose 15 gm 09/25/24 10:19 Glucose Oral Gel 15 Gm Of Glucse In 37.5 Gm Tube PO PRN PRN Hypoglycemia Protocol Heparin Sodium (Porcine) 5,000 units 09/25/24 14:00 09/27/24 05:47 Heparin Sodium 5,000 Units/Ml Vial SUB-Q 5,000 units Q8HR RADHA Administration Ceftriaxone Sodium 1 gm/ 50 mls @ 100 mls/hr 09/25/24 07:00 09/27/24 06:08 Sodium Chloride IVPB 09/28/24 06:59 100 mls/hr Q24H RADHA Administration Dextrose 1,000 mls @ 100 mls/hr 09/25/24 10:19 Dextrose 5% 1,000 Ml IVPB PRN PRN Hypoglycemia Protocol Sodium Bicarbonate 150 meq/ 1,100 mls @ 100 mls/hr 09/26/24 09:25 09/27/24 01:48 Sterile Water IV CONT 100 mls/hr .Q11H RADHA Administration Insulin Aspart 1 - 3 units 09/25/24 21:00 09/26/24 21:02 Insulin Aspart (*Bkc) 100 Units/Ml SUB-Q 1 units HS RADHA Administration Protocol Insulin Aspart 3 - 6 units 09/25/24 12:00 09/27/24 08:13 Insulin Aspart (*Bkc) 100 Units/Ml SUB-Q Not Given TIDWM RADHA Protocol Lactic Acid 1 applic 09/25/24 09:00 09/27/24 08:15 Lactic Acid 12% Lotion 225 Btl TOPICAL 1 applic QAM RADHA Administration Radiology Results: ITS Impressions Chest X-Ray 09/25/24 07:37 Impression: Clear lungs. Renal Ultrasound 09/25/24 18:38 IMPRESSION: 1. Normal kidneys without hydronephrosis. 2. Possible minimal amount of ascites in the pelvis. Labs Labs: Laboratory Results - last 24 hr 09/26/24 09/26/24 09/26/24 11:38 16:45 21:01 WBC RBC Hgb Hct MCV MCH MCHC RDW Plt Count MPV Immature Gran % (Auto) Neut % (Auto) Lymph % (Auto) [place] % (Auto) Eos % (Auto) Baso % (Auto) Lymph # (Auto) [place] # (Auto) Eos # (Auto) Baso # (Auto) Abs Immat Gran (auto) Absolute Neuts (auto) Absolute Nucleated RBC Nucleated RBC % Sodium Potassium Chloride Carbon Dioxide Anion Gap BUN Creatinine Estim Creat Clear Calc Estimated GFR Glucose POC Capillary Glucose 235 H 205 H 221 H Calcium Phosphorus Magnesium Total Bilirubin AST ALT Alkaline Phosphatase Total Protein Albumin 09/27/24 09/27/24 03:45 07:32 WBC 7.7 RBC 2.86 L Hgb 8.4 L Hct 26.5 L MCV 92.7 MCH 29.4 MCHC 31.7 L RDW 14.3 Plt Count 165 MPV 10.4 Immature Gran % (Auto) 0.4 Neut % (Auto) 59.0 Lymph % (Auto) 23.8 [place] % (Auto) 10.3 H Eos % (Auto) 6.0 H Baso % (Auto) 0.5 Lymph # (Auto) 1.83 [place] # (Auto) 0.8 H Eos # (Auto) 0.5 H Baso # (Auto) 0.0 Abs Immat Gran (auto) 0.03 Absolute Neuts (auto) 4.5 Absolute Nucleated RBC 0.000 Nucleated RBC % 0.0 Sodium 136 L Potassium 3.1 L Chloride 107 Carbon Dioxide 22 Anion Gap 7 BUN 34 H Creatinine 5.22 H Estim Creat Clear Calc 13 Estimated GFR 11 L Glucose 160 H POC Capillary Glucose 138 H Calcium 8.2 L Phosphorus 3.8 Magnesium 1.8 Total Bilirubin 0.4 AST 13 L ALT 7 Alkaline Phosphatase 60 Total Protein 5.2 L Albumin 2.6 L
[2024-09-27] MEDS: GABAPENTIN 100 MG CAPSULE PO (12:05)
[2024-09-27] MEDS: INSULIN ASPART (*BKC) 100 UNITS/ML SUB-Q ×2 (12:22→16:33)
--- NOTE | 2024-09-27 12:56 | P.PNNP_ITS ---
Progress Note: A&P Assessment and Plan (1) Acute kidney injury: Code(s): N17.9 - Acute kidney failure, unspecified Status: Acute Assessment and Plan: * slow improvement noted * as noted by admission labs (and apparently by outpatient labs) * creatinine on admission 6.76mg/dl * etiology not clear but several possible issues: * element of CKD progression * prerenal factors (poor oral intake) * possibly precipitated by medical non-compliance -- has not been taking his home BP or diabetic medications for several months if not longer * infection(?) -- possible UTI * other? * evaluation to date noted: * renal ultrasound okay * urine electrolytes are non-prerenal * rare urine eosinophils - peripheral eosinophilia noted as well but no rash present; nonspecific inflammation? * CPK okay * nephrotic range proteinuria * follow trend of repeat labs and UOP (2) Stage 4 chronic kidney disease: Code(s): N18.4 - Chronic kidney disease, stage 4 (severe) Status: Chronic Assessment and Plan: * baseline creatinine ~ 2.5mg/dl about 6 months ago * due to diabetes, hypertension, vascular disease (CAD, CABG, CVA, PVD, & hyperlipidemia) and age-related change * was referred to dialysis education prior to hospitalization * what occurred first??? * did his renal function deteriorate causing uremic symptoms resulting in his poor oral/fluid intake + weight loss? * or did his poor oral/fluid intake results in his worsening renal dysfunction? * follows with Dr. Stewart for ongoing CKD management (3) UTI (urinary tract infection): Code(s): N39.0 - Urinary tract infection, site not specified Status: Acute Assessment and Plan: * admission UA suggestive * follow urine culture results - negative to date * on antibiotics (4) Severe protein-calorie malnutrition: Code(s): E43 - Unspecified severe protein-calorie malnutrition Status: Acute Assessment and Plan: * reported 70 pound weight loss over the last 7 months * associated with poor appetite and oral/fluid intake * vp security following * on dietary supplements * continue supportive therapy (5) Hypertension: Code(s): I10 - Essential (primary) hypertension Status: Acute Assessment and Plan: * better control at this time * on amlodipine and carvedilol * avoiding JAGDEEP-I/ARB due to #1 and #2 * follow trend of hemodynamics (6) Anemia: Code(s): D64.9 - Anemia, unspecified Status: Acute Assessment and Plan: * presumably due to SPENCER and CKD * check iron studies * may need to consider Epogen/TALYA * follow trend of H/H (7) Insulin dependent type 2 diabetes mellitus: Code(s): E11.9 - Type 2 diabetes mellitus without complications; Z79.4 - alf (current) use of insulin Status: Chronic Assessment and Plan: * poor control * A1c 9.1 on this admission * follow accu-cheks * glycemic control per hospitalist Will continue to follow. L Subjective Date/time seen: 09/27/24 12:56 Interval history: Follow-up for acute kidney injury/acute renal failure on chronic kidney disease. No apparent distress voiced at the time of my visit -- sitting up in chair readings a magazine when seen; renal function/creatinine improving albeit slowly with reasonable urine output; overall, he states that he feels better with better appetite and energy level; remains hemodynamically stable with no other acute complaints voiced. Exam 2 Narrative: General: elderly but WD/WN male in NAD Heart: normal S1 and S2; no rub Lungs: clear anteriorly Abdomen: soft, nontender, nondistended, positive bowel sounds Extremities: no cyanosis or clubbing; 3+ chronic edema/lymphedema changes Skin: chronic venous insufficiency changes Objective Data Vital Signs Vital Signs: Vital Signs Temp Pulse Resp BP Pulse Ox O2 Del Method 09/27/24 07:47 98.2 F 80 16 143/65 H 100 09/26/24 23:50 98.2 F 84 18 131/61 100 09/26/24 20:50 82 09/26/24 20:06 99 Room Air 09/26/24 20:00 Room Air Intake/Output Intake/Output: Intake & Output 09/24/24 09/25/24 09/26/24 09/27/24 23:59 23:59 23:59 23:59 Intake Total 5640 2620 3140.0 Output Total 1800 1950 1100 Balance 3840 670 2040.0 Meds/Results Medications: Active Medications Generic Name Dose Route Start Last Admin Trade Name Freq PRN Reason Stop Dose Admin Acetaminophen 650 mg 09/27/24 01:31 09/27/24 08:16 Acetaminophen 325 Mg Tablet PO 650 mg Q4H PRN Administration Mild Pain (1-3) or Fever Amlodipine Besylate 10 mg 09/25/24 09:25 09/27/24 08:14 Amlodipine Besylate 10 Mg Tablet PO 10 mg DAILY RADHA Administration Carvedilol 25 mg 09/27/24 21:00 Carvedilol 25 Mg Tablet PO Q12HR RADHA Dextrose 12.5 gm 09/25/24 10:19 Dextrose 50% 25 Gm/50 Ml Syringe IV PUSH PRN PRN Hypoglycemia Protocol Gabapentin 100 mg 09/27/24 10:10 09/27/24 12:05 Gabapentin 100 Mg Capsule PO 100 mg DAILY RADHA Administration Glucagon 1 mg 09/25/24 10:19 Glucagon For Inj 1 Mg Vial IM PRN PRN Hypoglycemia Protocol Glucose 15 gm 09/25/24 10:19 Glucose Oral Gel 15 Gm Of Glucse In 37.5 Gm Tube PO PRN PRN Hypoglycemia Protocol Heparin Sodium (Porcine) 5,000 units 09/25/24 14:00 09/27/24 14:10 Heparin Sodium 5,000 Units/Ml Vial SUB-Q 5,000 units Q8HR RADHA Administration Ceftriaxone Sodium 1 gm/ 50 mls @ 100 mls/hr 09/25/24 07:00 09/27/24 06:08 Sodium Chloride IVPB 09/28/24 06:59 100 mls/hr Q24H RADHA Administration Dextrose 1,000 mls @ 100 mls/hr 09/25/24 10:19 Dextrose 5% 1,000 Ml IVPB PRN PRN Hypoglycemia Protocol Sodium Bicarbonate 150 meq/ 1,100 mls @ 50 mls/hr 09/26/24 09:25 09/27/24 14:10 Sterile Water IV CONT 50 mls/hr .Q22H RADHA Administration Insulin Aspart 1 - 3 units 09/25/24 21:00 09/26/24 21:02 Insulin Aspart (*Bkc) 100 Units/Ml SUB-Q 1 units HS RADHA Administration Protocol Insulin Aspart 3 - 6 units 09/25/24 12:00 09/27/24 12:22 Insulin Aspart (*Bkc) 100 Units/Ml SUB-Q 4 units TIDWM RADHA Administration Protocol Lactic Acid 1 applic 09/25/24 09:00 09/27/24 08:15 Lactic Acid 12% Lotion 225 Btl TOPICAL 1 applic QAM RADHA Administration Radiology Results: ITS Impressions Chest X-Ray 09/25/24 07:37 Impression: Clear lungs. Renal Ultrasound 09/25/24 18:38 IMPRESSION: 1. Normal kidneys without hydronephrosis. 2. Possible minimal amount of ascites in the pelvis. Labs Labs: Laboratory Tests 09/27/24 03:45 09/27/24 03:45 Calcium 8.2 L Phosphorus 3.8 Magnesium 1.8 Total Bilirubin 0.4 AST 13 L ALT 7 Alkaline Phosphatase 60 Total Protein 5.2 L Albumin 2.6 L Microbiology 09/24/24 23:09 Urine Clean Catch - Final
[2024-09-27] MEDS: SODIUM BICARBONATE 8.4% 150 MEQ in WATER, STERILE FOR INJECTION 950 ML 50 MEQ IV CONT (14:10)
[2024-09-27 16:00] VITALS: BP 113/67; PULSE 71; RESP 14; TEMP 36.6; O2SAT 100
[2024-09-27 20:00] VITALS: BP 143/72; PULSE 72; RESP 14; TEMP 36.4; O2SAT 100
[2024-09-27 21:13] VITALS: PULSE 72
[2024-09-28] VITALS (8 sets, daily range): BP systolic 68–148; BP diastolic 42–88; PULSE 70–80; RESP 16–18; TEMP 36.6–36.9; O2SAT 98–100
--- NOTE | 2024-09-28 | ECHO_ITS ---
Patient Info Name: John King Age: 74 years : 1950 Gender: Male Ht: 73 in Wt: 246 lbs BSA: 2.43 m2 BP: 68 / 42 mmHg Heart Rhythm: Sinus Rhythm Technical Quality: Good Exam Date: 09/28/2024 2:45 PM Patient Status: I Admit Date: 09/25/2024 Exam Type: CA echo dop color flow w con Complete two-dimensional, color flow and Doppler transthoracic echocardiogram is performed with contrast to opacify the left ventricle and to improve the deliniation of the left ventricle endocardial borders. Staff Referring Physician: Angelina Zavala [employer] Standards Coach: Ella Hull Attending Provider: Angelina Zavala Contrast/Agitated Saline Contrast/Ag. Saline: Definity Amount: 2.00 ml Administered By: Ella Hull Existing IV Access: Yes IV Access Condition: patent with no signs of infiltration Left Ventricle Left ventricular systolic function is normal, estimated at 55-60. There is moderate concentric increased left ventricular wall thickness. The left ventricular diastolic function is grade I diastolic dysfunction. Right Ventricle Right ventricular chamber dimension is normal. Left Atria Left atrial chamber dimension is normal. Right Atria Right atrial chamber dimension is normal. Aortic Valve The aortic valve is trileaflet. There is mild aortic valve sclerosis. There is no aortic valve stenosis. Pulmonic Valve The pulmonic valve is normal. Mitral Valve The mitral valve has normal leaflets. The mitral valve annulus is moderately calcified. Tricuspid Valve The tricuspid valve leaflets are normal. Pericardium/Pleural The pericardium appears normal. Aorta The aortic root size at the sinus of Valsalva is normal. Left Ventricular Outflow Tract Name Value Normal LVOT 2D LVOT Diameter 2.3 cm LVOT Doppler LVOT Peak Velocity 119 cm/s LVOT Peak Gradient 6 mmHg LVOT Mean Gradient 4 mmHg LVOT VTI 29 cm LVOT VTI/AV VTI Ratio 0.6 LVOT Stroke Volume 117 ml LVOT CO 8.6 l/min LVOT CI 3.5 l/min/m2 Pulmonic Valve Name Value Normal RVOT Doppler RVOT Peak Velocity 70 cm/s RVOT Peak Gradient 2 mmHg PV Doppler PV Peak Velocity 123 cm/s PV Peak Gradient 6 mmHg PV Regurgitation Doppler VT Peak End Diastolic Velocity 117 cm/s Mitral Valve Name Value Normal MV Doppler MV Peak Gradient 5 mmHg MV Mean Gradient 2 mmHg MV Area (Cont Eq VTI) 2.9 cm2 MV Diastolic Function MV E Peak Velocity 116 cm/s MV A Peak Velocity 90 cm/s MV E/A 1.3 MV Decel Time (PW) 217 ms MV Annular TDI MV E/e' (Septal) 20.9 MV E/e' (Lateral) 12.1 MV E/e' (Average) 16.5 Aortic Valve Name Value Normal AV Doppler AV Peak Velocity 201 cm/s AV Peak Gradient 16 mmHg AV Mean Gradient 8 mmHg AV VTI 45 cm AV Area (Cont Eq VTI) 2.6 cm2 >=3.0 AV Area (Cont Eq Rico) 2.4 cm2 AV DI (Rico) 0.59 AV Regurgitation 2D LVOT Area 4.0 cm2 Ventricles Name Value Normal LV Dimensions 2D/MM IVS Diastolic Thickness (2D) 1.5 cm 0.6-1.0 LVID Diastole (2D) 4.4 cm 4.2-5.8 LVIW Diastolic Thickness (2D) 1.4 cm 0.6-1.0 LVID Systole (2D) 3.2 cm 2.5-4.0 LVOT Diameter 2.3 cm LV Mass (2D Cubed) 239.13 g 88.00-224.00 LV Mass Index (2D Cubed) 98 g/m2 49-115 Relative Wall Thickness (2D) 0.62 <=0.42 LV Fractional Shortening/Ejection Fraction 2D/MM LV Fractional Shortening (2D) 26 % 25-43 LV EF (2D [place]) 51 % LV Diastolic Volume (4C MOD) 137 ml LV EF (4C MOD) 67 % LV Diastolic Volume (2C MOD) 115 ml LV EF (2C MOD) 32 % LV Diastolic Volume (BP MOD) 133 ml 62-150 LV Diastolic Volume Index (BP MOD) 55 ml/m2 34-74 LV Systolic Volume (BP MOD) 59 ml 21-61 LV Systolic Volume Index (BP MOD) 24 ml/m2 11-31 LV EF (BP MOD) 55 % 52-72 LV Diastolic Length (4C) 10.3 cm LV Systolic Length (4C) 8.5 cm LV Stroke Volume (4C MOD) 92 ml Atria Name Value Normal LA Dimensions LA Volume (4C A-L) 67 ml LA Volume (BP A-L) 70 ml RA Dimensions RA Systolic Major [place] Length (4C) 5.4 cm 2.1-2.7 RA Area (4C) 13.1 cm2 <=18.0 Report Signatures
[2024-09-28 04:38] LABS: Hematocrit 26.3 % (42.0-52.0); Hemoglobin 8.3 g/dL (14.0-18.0); Immature Granulocyte Percent A 0.5 % (0-0.5); Lymphocytes Absolute Auto 1.93 K/mm3 (0.9-3.2); Mean Corpuscular HGB Conc 31.6 g/dl (32-36); Mean Corpuscular Hemoglobin 29.4 pg (26-34); Mean Corpuscular Volume 93.3 fl (80-100); Nucleated Red Blood Cells Absolute Auto 0.000 K/mm3 (0.0-0.012); Nucleated Red Blood Cells Perc 0.0 % (0.0-0.2); Platelet Count Result 163 k/mm3 (150-375); Red Blood Count 2.82 M/mm3 (4.6-6.20); White Blood Count 7.4 K/mm3 (4.5-10.0)
[2024-09-28 04:57] LABS: Iron 53 ug/dL (49-181)
[2024-09-28 05:01] LABS: Alanine Aminotransferase 7 U/L (6-50); Albumin Level 2.7 g/dL (3.5-5.1); Alkaline Phosphatase 59 U/L (38-126); Anion Gap 6 mmol/L (4-12); Aspartate Amino Transferase 21 U/L (17-59); Bilirubin,Total 0.3 mg/dL (0.2-1.3); Blood Urea Nitrogen 38 mg/dL (9-20); Calcium 8.5 mg/dL (8.4-10.2); Carbon Dioxide 26 mmol/L (22-30); Chloride 104 mmol/L (98-107); Estimated CRCL calculation 14 ml/min; Estimated Glomerular Filt Rate 10; Glucose 171 mg/dL (65-110); Magnesium 1.8 mg/dL (1.6-2.3); Potassium 3.7 mmol/L (3.4-5.0); Sodium 136 mmol/L (137-145); Total Protein 5.3 g/dL (6.3-8.2)
[2024-09-28 05:07] LABS: Percent Iron Saturation 36 % (20-50)
[2024-09-28 05:38] LABS: Ferritin 157.00 ng/mL (11.1-264)
[2024-09-28 06:14] LABS: Vitamin B12 267.0 pg/mL (239-931)
[2024-09-28] MEDS: LACTIC ACID 12% LOTION 225 BTL 1 APPLIC TOPICAL (08:58)
[2024-09-28] MEDS: GABAPENTIN 100 MG CAPSULE PO (08:58)
--- NOTE | 2024-09-28 09:40 | PM.IMPN ---
Progress Note: A&P Assessment and Plan (1) Acute renal failure: Code(s): N17.9 - Acute kidney failure, unspecified Status: Acute Assessment and Plan: Patient was called by his primary care physician who asked him to come to the emergency room for acute renal failure. Patient has chronic kidney disease. He states that he sees fha underwriter and had already attended and dialysis education class as the fha underwriter felt that patient is getting close to needing dialysis. Patient has been noncompliant with medications and this appears to be likely secondary to hypertension and diabetes -Unclear etiology to renal failure. May be CKD which has progressed or acute however there is some concern with his poor appetite and poor self-care and noncompliance there may be an acute component -patient has not been taking his blood pressure medications on diabetic medications. -he also has not been eating as well due to decreased appetite, decreased fluid as well as solid intake. -creatinine on admission was 6.76 which has decreased to 5.4 and has stabilized in 5 -CK level 43 -urine lytes not reflective of prerenal issues Nephrology is following and managing at this time 09/25: Renal ultrasound showed normal kidneys without hydronephrosis, possible minimal amount of ascites in the pelvis 09/26: s currently on sodium bicarb infusion as patient is slightly acidotic Will hold IV fluids and switch to p.o. sodium bicarbonate Further recommendations as per Nephrology (2) Medical non-compliance: Code(s): Z91.199 - Patient's noncompliance with other medical treatment and regimen due to unspecified reason Status: Acute Assessment and Plan: Patient has not been taking his blood pressure or diabetes medication, along with decreased p.o. intake -appreciate dietitian evaluation: Severe protein calorie malnutrition -continue dietary supplement -patient now states that he will try to take all his medications as prescribed (3) Hypertension: Code(s): I10 - Essential (primary) hypertension Status: Acute Assessment and Plan: 09/25: Started amlodipine for elevated blood pressures -blood pressures remain elevated -09/26: Given acute kidney injury, will hold off JAGDEEP-inhibitor/ARB. Will add small dose of Coreg -09/27: Will increase Coreg Continue amlodipine and Coreg (4) Insulin dependent type 2 diabetes mellitus: Code(s): E11.9 - Type 2 diabetes mellitus without complications; Z79.4 - senior living (current) use of insulin Status: Chronic Assessment and Plan: Type 2 diabetes, continue sliding scale insulin and Accu-Cheks -hemoglobin A1c is 9.1 this admission -start Lantus, with meal insulin continue sliding scale -patient states he used to take Lantus and Humalog before quitting taking all medications. He states he used to be on metformin but was discontinued due to GI symptoms and he is not interested in taking it again (5) UTI (urinary tract infection): Code(s): N39.0 - Urinary tract infection, site not specified Status: Acute Assessment and Plan: Patient received a course ceftriaxone for questionable UTI Urine culture was neg (6) Electrolyte imbalance: Code(s): E87.8 - Other disorders of electrolyte and fluid balance, not elsewhere classified Status: Acute Assessment and Plan: Potassium repleted Plan DVT prophylaxis: SubQ heparin Stress ulcer prophylaxis: Not indicated Nutrition: Renal diet with dietary supplements Wound care following the pt Will discuss with director day care center regarding patient's ability to get his medications at the time of discharge Pain n legs due to edema and diabetic neuropathy: Patient takes gabapentin at home, patient was restarted on gabapentin 100 mg daily Code Status: Full code Subjective Date/time seen: 09/28/24 Overnight events reviewed. Afebrile On room air Patient brief 9 mL of urine output over last 24 hours He sitting in chair denies any new complaints states his leg hurts but states this is chronic from his chronic leg swelling. Patient denies fever, chest pain, shortness of breath, cough, nausea vomiting, abdominal pain,, diarrhea, headache or constipation. All other systems were reviewed and were negative Other Vitals acceptable Review of Systems Review of Systems: All systems reviewed & are unremarkable except as noted in HPI and below (History/subjective) Exam Narrative: General: Pleasant gentleman in no acute distress HEENT:? Pupils equal and reactive, sclera is clear, moist oral mucosa Neck:? Supple Respiratory:? Clear to auscultation bilaterally, no wheezing, adequate air entry Cardiac:? S1-S2 is normal, regular rate and rhythm Abdomen:? Soft, nontender, nondistended, normoactive bowel sound Extremities:? Bilateral lower extremity chronic venous insufficiency, lymphedema, 4+ edema with thickening of the skin that extends from the knees to the toes. Neuro:? Patient is awake, alert, oriented, nonfocal, answers to questions appropriately Skin:? As above Psych:? Normal mentation and affect Objective Data Vital Signs Vital Signs: Vital Signs - 24 hr 09/27/24 16:00 09/27/24 20:00 09/27/24 21:13 Temperature 36.6 C 36.4 C L Pulse Rate 71 72 72 Respiratory Rate 14 14 Blood Pressure 113/67 143/72 H Pulse Oximetry 100 100 Oxygen Delivery 09/28/24 04:00 09/28/24 08:00 09/28/24 08:00 Temperature 36.6 C 36.9 C Pulse Rate 77 79 79 Respiratory Rate 16 16 16 Blood Pressure 119/66 136/88 Pulse Oximetry 100 100 100 Oxygen Delivery Room Air 09/28/24 08:00 09/28/24 08:58 Temperature Pulse Rate 74 Respiratory Rate Blood Pressure Pulse Oximetry 100 Oxygen Delivery Room Air Intake/Output Intake/Output: Intake & Output 09/25/24 09/26/24 09/27/24 09/28/24 23:59 23:59 23:59 23:59 Intake Total 5640 2620 3780.0 240 Output Total 1800 1950 1400 600 Balance 3840 670 2380.0 -360 Meds/Results Medications: Active Medications Generic Name Dose Route Start Last Admin Trade Name Freq PRN Reason Stop Dose Admin Acetaminophen 650 mg 09/27/24 01:31 09/27/24 08:16 Acetaminophen 325 Mg Tablet PO 650 mg Q4H PRN Administration Mild Pain (1-3) or Fever Amlodipine Besylate 10 mg 09/25/24 09:25 09/28/24 08:58 Amlodipine Besylate 10 Mg Tablet PO 10 mg DAILY RADHA Administration Carvedilol 25 mg 09/27/24 21:00 09/28/24 08:58 Carvedilol 25 Mg Tablet PO 25 mg Q12HR RADHA Administration Dextrose 12.5 gm 09/25/24 10:19 Dextrose 50% 25 Gm/50 Ml Syringe IV PUSH PRN PRN Hypoglycemia Protocol Gabapentin 100 mg 09/27/24 10:10 09/28/24 08:58 Gabapentin 100 Mg Capsule PO 100 mg DAILY RADHA Administration Glucagon 1 mg 09/25/24 10:19 Glucagon For Inj 1 Mg Vial IM PRN PRN Hypoglycemia Protocol Glucose 15 gm 09/25/24 10:19 Glucose Oral Gel 15 Gm Of Glucse In 37.5 Gm Tube PO PRN PRN Hypoglycemia Protocol Heparin Sodium (Porcine) 5,000 units 09/25/24 14:00 09/28/24 05:02 Heparin Sodium 5,000 Units/Ml Vial SUB-Q 5,000 units Q8HR RADHA Administration Dextrose 1,000 mls @ 100 mls/hr 09/25/24 10:19 Dextrose 5% 1,000 Ml IVPB PRN PRN Hypoglycemia Protocol Sodium Bicarbonate 150 meq/ 1,100 mls @ 50 mls/hr 09/26/24 09:25 09/27/24 14:10 Sterile Water IV CONT 50 mls/hr .Q22H RADHA Administration Insulin Aspart 1 - 3 units 09/25/24 21:00 09/27/24 21:13 Insulin Aspart (*Bkc) 100 Units/Ml SUB-Q Not Given HS RADHA Protocol Insulin Aspart 3 - 6 units 09/25/24 12:00 09/28/24 08:57 Insulin Aspart (*Bkc) 100 Units/Ml SUB-Q Not Given TIDWM RADHA Protocol Insulin Glargine 10 units 09/28/24 09:40 Insulin Glargine (*Bkc) 100 Units/Ml SUB-Q HS RADHA Lactic Acid 1 applic 09/25/24 09:00 09/28/24 08:58 Lactic Acid 12% Lotion 225 Btl TOPICAL 1 applic QAM RADHA Administration Radiology Results: ITS Impressions Chest X-Ray 09/25/24 07:37 Impression: Clear lungs. Renal Ultrasound 09/25/24 18:38 IMPRESSION: 1. Normal kidneys without hydronephrosis. 2. Possible minimal amount of ascites in the pelvis. Labs Labs: Laboratory Results - last 24 hr 09/27/24 09/27/24 09/27/24 11:49 16:32 21:12 WBC RBC Hgb Hct MCV MCH MCHC RDW Plt Count MPV Immature Gran % (Auto) Neut % (Auto) Lymph % (Auto) [place] % (Auto) Eos % (Auto) Baso % (Auto) Lymph # (Auto) [place] # (Auto) Eos # (Auto) Baso # (Auto) Abs Immat Gran (auto) Absolute Neuts (auto) Absolute Nucleated RBC Nucleated RBC % Sodium Potassium Chloride Carbon Dioxide Anion Gap BUN Creatinine Estim Creat Clear Calc Estimated GFR Glucose POC Capillary Glucose 265 H 218 H 186 H Calcium Phosphorus Magnesium Iron TIBC % Saturation Ferritin Total Bilirubin AST ALT Alkaline Phosphatase Total Protein Albumin Vitamin B12 Folate 09/28/24 04:24 WBC 7.4 RBC 2.82 L Hgb 8.3 L Hct 26.3 L MCV 93.3 MCH 29.4 MCHC 31.6 L RDW 14.3 Plt Count 163 MPV 11.0 H Immature Gran % (Auto) 0.5 Neut % (Auto) 57.5 Lymph % (Auto) 26.1 [place] % (Auto) 9.7 H Eos % (Auto) 5.8 H Baso % (Auto) 0.4 Lymph # (Auto) 1.93 [place] # (Auto) 0.7 H Eos # (Auto) 0.4 H Baso # (Auto) 0.0 Abs Immat Gran (auto) 0.04 H Absolute Neuts (auto) 4.3 Absolute Nucleated RBC 0.000 Nucleated RBC % 0.0 Sodium 136 L Potassium 3.7 Chloride 104 Carbon Dioxide 26 Anion Gap 6 BUN 38 H Creatinine 5.43 H Estim Creat Clear Calc 14 Estimated GFR 10 L Glucose 171 H POC Capillary Glucose Calcium 8.5 Phosphorus 4.0 Magnesium 1.8 Iron 53 TIBC 146 L % Saturation 36 Ferritin 157.00 Total Bilirubin 0.3 AST 21 ALT 7 Alkaline Phosphatase 59 Total Protein 5.3 L Albumin 2.7 L Vitamin B12 267.0 Folate 3.1
--- NOTE | 2024-09-28 10:11 | PC.NURSE ---
Transfer to room 322-1. Report called to FABIENNE Alvarado. All questions answered. Belongings sent with patient.
[2024-09-28 10:14] LABS: Hepatitis B Surface Antigen Negative (Negative)
[2024-09-28 10:31] LABS: Hepatitis B Surface Anti Res Negative
[2024-09-28] MEDS: INSULIN GLARGINE (*BKC) 100 UNITS/ML 10 UNITS SUB-Q (11:11)
--- NOTE | 2024-09-28 11:33 | P.PNNP_ITS ---
Progress Note: A&P Assessment and Plan (1) Acute kidney injury: Code(s): N17.9 - Acute kidney failure, unspecified Status: Acute Assessment and Plan: * Acute kidney injury. * Creatinine on admission was 6.76mg/dl. Baseline 2.5. * evaluation to date noted: * renal ultrasound okay * urine electrolytes are non-prerenal * rare urine eosinophils - peripheral eosinophilia noted as well but no rash present; nonspecific inflammation? * CPK okay * nephrotic range proteinuria * etiology not clear but several possible issues: * element of CKD progression * prerenal factors (poor oral intake) * possibly precipitated by medical non-compliance -- has not been taking his home BP or diabetic medications for several months if not longer. * He has not seen Dr. Stewart in several months either. * infection(?) -- possible UTI * other? * Creatinine was coming down but today's creatinine is a little higher. * GFR is only 10. * (2) Stage 4 chronic kidney disease: Code(s): N18.4 - Chronic kidney disease, stage 4 (severe) Status: Chronic Assessment and Plan: * baseline creatinine ~ 2.5mg/dl about 6 months ago * due to diabetes, hypertension, vascular disease (CAD, CABG, CVA, PVD, & hyperlipidemia) and age-related change * was referred to dialysis education prior to hospitalization * He did go to this class and thought he might want to do PD. * However he has a complicated home situation. His dog diet earlier this month and his entire house is infested with fleas. A friend of his is going to clean up the house and get rid of this fleas. This process should be complete over the weekend. * Patient had uremic symptoms when he was admitted but seems to have non right now. He does not look fluid overloaded. * I do not think he needs to start dialysis right now. However he does need to start soon. * The other issue was that he has an umbilical hernia so would need to have an umbilical herniorrhaphy and PD catheter placement at the same time. And that is if his house is in good enough shape for PD. * It is a very complex situation. Hopefully his renal function will improve a little to give a some time. He can get more detailed information about PD versus hemo at a 1 on 1 dialysis class and can get a home evaluation before proceeding with PD. Otherwise he can get a temporary dialysis catheter if he has to go in center while this is working out. * Long discussion with the patient. (3) UTI (urinary tract infection): Code(s): N39.0 - Urinary tract infection, site not specified Status: Acute Assessment and Plan: * admission UA suggestive * follow urine culture results - negative to date * on antibiotics * Treatment would have to be completed before he gets a PD catheter. 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 He ate a full breakfast. No more nausea right now. Review of Systems Cardiovascular: Cardiovascular: Reports no additional cardiovascular complaints Respiratory: Respiratory: Reports no additional respiratory complaints Gastrointestinal: Gastrointestinal: Reports no additional gastrointestinal complaints Genitourinary: Genitourinary: Reports no additional male genitourinary complaints Exam Narrative: WDWN in NAD skin no rash head ncat lungs clear cor reg no rub abd BS+ nontender and soft ext no edema. Objective Data Vital Signs Vital Signs: Vital Signs - 24 hr 09/27/24 16:00 09/27/24 20:00 09/27/24 21:13 Temperature 97.8 F 97.5 F L Pulse Rate 71 72 72 Respiratory Rate 14 14 Blood Pressure 113/67 143/72 H Pulse Oximetry 100 100 Oxygen Delivery 09/28/24 04:00 09/28/24 08:00 09/28/24 08:00 Temperature 97.8 F 98.5 F Pulse Rate 77 79 79 Respiratory Rate 16 16 16 Blood Pressure 119/66 136/88 Pulse Oximetry 100 100 100 Oxygen Delivery Room Air 09/28/24 08:00 09/28/24 08:58 Temperature Pulse Rate 74 Respiratory Rate Blood Pressure Pulse Oximetry 100 Oxygen Delivery Room Air Intake/Output Intake/Output: Intake & Output 09/25/24 09/26/24 09/27/24 09/28/24 23:59 23:59 23:59 23:59 Intake Total 5640 2620 3780.0 240 Output Total 1800 1950 1400 600 Balance 3840 670 2380.0 -360 Meds/Results Medications: Active Medications Generic Name Dose Route Start Last Admin Trade Name Freq PRN Reason Stop Dose Admin Acetaminophen 650 mg 09/27/24 01:31 09/27/24 08:16 Acetaminophen 325 Mg Tablet PO 650 mg Q4H PRN Administration Mild Pain (1-3) or Fever Amlodipine Besylate 10 mg 09/25/24 09:25 09/28/24 08:58 Amlodipine Besylate 10 Mg Tablet PO 10 mg DAILY RADHA Administration Carvedilol 25 mg 09/27/24 21:00 09/28/24 08:58 Carvedilol 25 Mg Tablet PO 25 mg Q12HR RADHA Administration Dextrose 12.5 gm 09/25/24 10:19 Dextrose 50% 25 Gm/50 Ml Syringe IV PUSH PRN PRN Hypoglycemia Protocol Gabapentin 100 mg 09/27/24 10:10 09/28/24 08:58 Gabapentin 100 Mg Capsule PO 100 mg DAILY RADHA Administration Glucagon 1 mg 09/25/24 10:19 Glucagon For Inj 1 Mg Vial IM PRN PRN Hypoglycemia Protocol Glucose 15 gm 09/25/24 10:19 Glucose Oral Gel 15 Gm Of Glucse In 37.5 Gm Tube PO PRN PRN Hypoglycemia Protocol Heparin Sodium (Porcine) 5,000 units 09/28/24 21:00 Heparin Sodium 5,000 Units/Ml Vial SUB-Q Q12HR RADHA Dextrose 1,000 mls @ 100 mls/hr 09/25/24 10:19 Dextrose 5% 1,000 Ml IVPB PRN PRN Hypoglycemia Protocol Insulin Aspart 1 - 3 units 09/25/24 21:00 09/27/24 21:13 Insulin Aspart (*Bkc) 100 Units/Ml SUB-Q Not Given HS RADHA Protocol Insulin Aspart 3 - 6 units 09/25/24 12:00 09/28/24 08:57 Insulin Aspart (*Bkc) 100 Units/Ml SUB-Q Not Given TIDWM RADHA Protocol Insulin Aspart 3 units 09/28/24 12:00 Insulin Aspart (*Bkc) 100 Units/Ml SUB-Q TIDWM RADHA Insulin Glargine 10 units 09/28/24 09:40 09/28/24 11:11 Insulin Glargine (*Bkc) 100 Units/Ml SUB-Q 10 units HS RADHA Administration Lactic Acid 1 applic 09/25/24 09:00 09/28/24 08:58 Lactic Acid 12% Lotion 225 Btl TOPICAL 1 applic QAM RADHA Administration Sodium Bicarbonate 650 mg 09/29/24 09:00 Sodium Bicarbonate Tab 650 Mg Tablet PO QAM RADHA Radiology Results: ITS Impressions Chest X-Ray 09/25/24 07:37 Impression: Clear lungs. Renal Ultrasound 09/25/24 18:38 IMPRESSION: 1. Normal kidneys without hydronephrosis. 2. Possible minimal amount of ascites in the pelvis. Labs Labs: Laboratory Results - last 24 hr 09/27/24 09/27/24 09/27/24 11:49 16:32 21:12 WBC RBC Hgb Hct MCV MCH MCHC RDW Plt Count MPV Immature Gran % (Auto) Neut % (Auto) Lymph % (Auto) [place] % (Auto) Eos % (Auto) Baso % (Auto) Lymph # (Auto) [place] # (Auto) Eos # (Auto) Baso # (Auto) Abs Immat Gran (auto) Absolute Neuts (auto) Absolute Nucleated RBC Nucleated RBC % Sodium Potassium Chloride Carbon Dioxide Anion Gap BUN Creatinine Estim Creat Clear Calc Estimated GFR Glucose POC Capillary Glucose 265 H 218 H 186 H Calcium Phosphorus Magnesium Iron TIBC % Saturation Ferritin Total Bilirubin AST ALT Alkaline Phosphatase Total Protein Albumin Vitamin B12 Folate Hep Bs Antigen Hep Bs Antibody Hep B Core Total Ab 09/28/24 04:24 WBC 7.4 RBC 2.82 L Hgb 8.3 L Hct 26.3 L MCV 93.3 MCH 29.4 MCHC 31.6 L RDW 14.3 Plt Count 163 MPV 11.0 H Immature Gran % (Auto) 0.5 Neut % (Auto) 57.5 Lymph % (Auto) 26.1 [place] % (Auto) 9.7 H Eos % (Auto) 5.8 H Baso % (Auto) 0.4 Lymph # (Auto) 1.93 [place] # (Auto) 0.7 H Eos # (Auto) 0.4 H Baso # (Auto) 0.0 Abs Immat Gran (auto) 0.04 H Absolute Neuts (auto) 4.3 Absolute Nucleated RBC 0.000 Nucleated RBC % 0.0 Sodium 136 L Potassium 3.7 Chloride 104 Carbon Dioxide 26 Anion Gap 6 BUN 38 H Creatinine 5.43 H Estim Creat Clear Calc 14 Estimated GFR 10 L Glucose 171 H POC Capillary Glucose Calcium 8.5 Phosphorus 4.0 Magnesium 1.8 Iron 53 TIBC 146 L % Saturation 36 Ferritin 157.00 Total Bilirubin 0.3 AST 21 ALT 7 Alkaline Phosphatase 59 Total Protein 5.3 L Albumin 2.7 L Vitamin B12 267.0 Folate 3.1 Hep Bs Antigen Negative Hep Bs Antibody Negative Hep B Core Total Ab Cancelled
[2024-09-28] MEDS: INSULIN ASPART (*BKC) 100 UNITS/ML SUB-Q ×3 (12:16→17:20)
--- NOTE | 2024-09-28 14:00 | ECG_ITS ---
Test Date: 2024-09-28 14:09:58 Measurements Intervals [place] Rate: 68 P: 64 NM: 141 QRS: -1 QRSD: 109 T: 78 QT: 419 QTc: 446 Interpretive Statements SINUS RHYTHM SEPTAL MYOCARDIAL INFARCTION , OF INDETERMINATE AGE [40+ ms Q WAVE IN V1/V2] PROBABLE LATERAL MYOCARDIAL INFARCTION , OF INDETERMINATE AGE [35 ms Q WAVE IN I/aVL/V5/V6] ABNORMAL ECG Compared to ECG 02/28/2024 03:59:29 NO SIGNIFICANT CHANGE Electronically Signed On 09-28-2024 14:23:50 CDT by Jhon Zhang M.D.
--- NOTE | 2024-09-28 14:25 | PCPTNOTE ---
Nsg request for patient to not been seen today secondary to 'soft blood pressure'.
[2024-09-28] MEDS: SODIUM CHLORIDE 0.9% IV 500 ML 999 ML IV CONT (14:38)
[2024-09-28 14:53] LABS: Hematocrit 29.7 % (42.0-52.0); Hemoglobin 9.4 g/dL (14.0-18.0); Mean Corpuscular HGB Conc 31.6 g/dl (32-36); Mean Corpuscular Hemoglobin 29.3 pg (26-34); Mean Corpuscular Volume 92.5 fl (80-100); Platelet Count Result 178 k/mm3 (150-375); Red Blood Count 3.21 M/mm3 (4.6-6.20); White Blood Count 7.8 K/mm3 (4.5-10.0)
[2024-09-28] MEDS: PERFLUTREN LIPID MICROSPHERES 1.5 ML VIAL DILUTED TO 10 ML TOTAL VOLUME IV PUSH (15:30)
--- NOTE | 2024-09-28 15:30 | IVDEFINITY ---
Prior to administration of IV Definity the patient was educated on the risks and benefits of the imaging enhancing agent including potential adverse side effects. The patient verbalized understanding. Allergies were verified. No exclusion criteria were identified and at least one of the following inclusion criteria were met: 1) physician request, 2) patient technically difficult to image (per the [place] [employer] guidelines of two or more segments not discernable within the apical view), or 3) questionable left ventricular function. ?
[2024-09-28] MEDS: SODIUM CHLORIDE 0.9% IV 1,000 ML 75 ML IV CONT (15:33)
[2024-09-28] MEDS: ALBUMIN HUMAN 25% 25 GM/100 ML 100 ML IVPB (15:34)
[2024-09-28] MEDS: EPOETIN ALFA-EPBX 10,000 UNITS/ML VIAL 10000 UNITS SUB-Q (15:36)
[2024-09-28 15:47] LABS: Troponin I < 0.012 ng/mL (0.000-0.034)
[2024-09-28 18:42] LABS: Troponin I 0.013 ng/mL (0.000-0.034)
[2024-09-28 21:11] LABS: Troponin I < 0.012 ng/mL (0.000-0.034)
[2024-09-29] VITALS (10 sets, daily range): BP systolic 123–144; BP diastolic 51–73; PULSE 68–82; RESP 18; TEMP 36.2–36.6; O2SAT 99–100
[2024-09-29 06:03] LABS: Hematocrit 26.8 % (42.0-52.0); Hemoglobin 8.4 g/dL (14.0-18.0); Immature Granulocyte Percent A 0.7 % (0-0.5); Lymphocytes Absolute Auto 2.03 K/mm3 (0.9-3.2); Mean Corpuscular HGB Conc 31.3 g/dl (32-36); Mean Corpuscular Hemoglobin 29.2 pg (26-34); Mean Corpuscular Volume 93.1 fl (80-100); Nucleated Red Blood Cells Absolute Auto 0.000 K/mm3 (0.0-0.012); Nucleated Red Blood Cells Perc 0.0 % (0.0-0.2); Platelet Count Result 165 k/mm3 (150-375); Red Blood Count 2.88 M/mm3 (4.6-6.20); White Blood Count 6.8 K/mm3 (4.5-10.0)
[2024-09-29 06:07] LABS: Hep B Core Ab, Total Negative (Negative)
[2024-09-29 06:39] LABS: Albumin Level 2.7 g/dL (3.5-5.1); Anion Gap 6 mmol/L (4-12); Blood Urea Nitrogen 43 mg/dL (9-20); Calcium 8.4 mg/dL (8.4-10.2); Carbon Dioxide 25 mmol/L (22-30); Chloride 105 mmol/L (98-107); Estimated CRCL calculation 15 ml/min; Estimated Glomerular Filt Rate 11; Glucose 140 mg/dL (65-110); Potassium 3.6 mmol/L (3.4-5.0); Sodium 136 mmol/L (137-145)
[2024-09-29] MEDS: LACTIC ACID 12% LOTION 225 BTL 1 APPLIC TOPICAL (09:00)
[2024-09-29] MEDS: INSULIN ASPART (*BKC) 100 UNITS/ML SUB-Q ×4 (09:07→17:35)
[2024-09-29] MEDS: GABAPENTIN 100 MG CAPSULE PO (09:07)
[2024-09-29] MEDS: SODIUM BICARBONATE TAB 650 MG TABLET PO (09:07)
[2024-09-29] MEDS: SODIUM CHLORIDE 0.9% IV 1,000 ML 75 ML IV CONT (10:31)
--- NOTE | 2024-09-29 10:44 | P.PNNP_ITS ---
Progress Note: A&P Assessment and Plan (1) Acute kidney injury: Code(s): N17.9 - Acute kidney failure, unspecified Status: Acute Assessment and Plan: * Acute kidney injury. * Creatinine on admission was 6.76mg/dl. Baseline 2.5. * I talked with Nura Latham. I apprised him of the situation. He agrees with the management. He will have his office call the patient next week to get him in right away so he can get close follow-up after discharge. * evaluation to date noted: * renal ultrasound okay * urine electrolytes are non-prerenal * rare urine eosinophils - peripheral eosinophilia noted as well but no ra sh present; nonspecific inflammation? * CPK okay * nephrotic range proteinuria * etiology not clear but several possible issues: * element of CKD progression * prerenal factors (poor oral intake) * possibly precipitated by medical non-compliance -- has not been taking his home BP or diabetic medications for several months if not longer. * He has not seen Dr. Stewart in several months either. * infection(?) -- possible UTI * other? * Creatinine Seems to be reaching a plateau in the low 5s. * GFR is only 11. * He has no uremic symptoms. Study show that with a GFR between 7 and 12 if there are no symptoms we do not need to start dialysis. * Things are stable. * He is receiving some IV fluids. Will give 1 more day. * He is waiting for his house to be cleaned up regarding the fleas. * He can probably be discharged in the next couple of days if he does okay. * Long discussion with the patient about symptoms of uremia, modalities of dialysis, need for storage and need for a clean environment if he decides on PD, where we are with his kidney function and the fact that he has no symptoms right now that we can wait on dialysis needs to follow up closely with Dr. Stewart * long discussion with Dr. Stewart about the patient's situation as above. (2) Stage 4 chronic kidney disease: Code(s): N18.4 - Chronic kidney disease, stage 4 (severe) Status: Chronic Assessment and Plan: * baseline creatinine ~ 2.5mg/dl about 6 months ago * due to diabetes, hypertension, vascular disease (CAD, CABG, CVA, PVD, & hyperlipidemia) and age-related change * was referred to dialysis education prior to hospitalization * He will get more education and close follow-up with Dr. Stewart upon discharge (3) UTI (urinary tract infection): Code(s): N39.0 - Urinary tract infection, site not specified Status: Acute Assessment and Plan: * admission UA suggestive * follow urine culture results - negative to date * finished antibiotics * Treatment would have to be completed before he gets a PD catheter. 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 * on amlodipine and carvedilol * avoiding JAGDEEP-I/ARB due to #1 and #2 (6) Anemia: Code(s): D64.9 - Anemia, unspecified Status: Acute Assessment and Plan: * presumably due to SPENCER and CKD * check iron studies * Go ahead and start some EPO * follow trend of H/H (7) Insulin dependent type 2 diabetes mellitus: Code(s): E11.9 - Type 2 diabetes mellitus without complications; Z79.4 - care home (current) use of insulin Status: Chronic Assessment and Plan: * poor control * A1c 9.1 on this admission * follow accu-cheks * glycemic control per hospitalist Subjective Date/time seen: 09/29/24 10:44 Interval history: if patient feels okay today. He ate 3 sq meals yesterday and is hungry for breakfast today. No chest pain or shortness of breath no nausea Exam Narrative: WDWN in NAD skin no rash head ncat lungs clear bilaterally cor reg no rub abd BS+ nontender and soft ext no edema. Objective Data Vital Signs Vital Signs: Vital Signs - 24 hr 09/28/24 13:57 09/28/24 15:31 09/28/24 16:03 Temperature Pulse Rate 70 77 Respiratory Rate Blood Pressure 68/42 L 108/66 Pulse Oximetry Oxygen Delivery 09/28/24 20:00 09/28/24 20:00 09/28/24 22:00 Temperature 97.8 F Pulse Rate 79 80 Respiratory Rate 18 Blood Pressure 148/57 H Pulse Oximetry 98 Oxygen Delivery Room Air 09/29/24 00:04 09/29/24 04:00 09/29/24 06:00 Temperature 97.9 F Pulse Rate 82 71 77 Respiratory Rate 18 Blood Pressure 141/62 H Pulse Oximetry 100 Oxygen Delivery Intake/Output Intake/Output: Intake & Output 09/26/24 09/27/24 09/28/24 09/29/24 23:59 23:59 23:59 23:59 Intake Total 2620 3780.0 2420 2030 Output Total 1950 1400 1000 1200 Balance 670 2380.0 1420 830 Meds/Results Medications: Active Medications Generic Name Dose Route Start Last Admin Trade Name Freq PRN Reason Stop Dose Admin Acetaminophen 650 mg 09/27/24 01:31 09/27/24 08:16 Acetaminophen 325 Mg Tablet PO 650 mg Q4H PRN Administration Mild Pain (1-3) or Fever Amlodipine Besylate 10 mg 09/25/24 09:25 09/28/24 08:58 Amlodipine Besylate 10 Mg Tablet PO 10 mg DAILY RADHA Administration Carvedilol 25 mg 09/27/24 21:00 09/28/24 08:58 Carvedilol 25 Mg Tablet PO 25 mg Q12HR RADHA Administration Dextrose 12.5 gm 09/25/24 10:19 Dextrose 50% 25 Gm/50 Ml Syringe IV PUSH PRN PRN Hypoglycemia Protocol Epoetin Kaleb-epbx 10,000 units 09/28/24 12:30 09/28/24 15:36 Epoetin Kaleb-Epbx 10,000 Units/Ml Vial SUB-Q 10,000 units MOWEFR@09 RADHA Administration Gabapentin 100 mg 09/27/24 10:10 09/29/24 09:07 Gabapentin 100 Mg Capsule PO 100 mg DAILY RADHA Administration Glucagon 1 mg 09/25/24 10:19 Glucagon For Inj 1 Mg Vial IM PRN PRN Hypoglycemia Protocol Glucose 15 gm 09/25/24 10:19 Glucose Oral Gel 15 Gm Of Glucse In 37.5 Gm Tube PO PRN PRN Hypoglycemia Protocol Heparin Sodium (Porcine) 5,000 units 09/28/24 21:00 09/29/24 09:07 Heparin Sodium 5,000 Units/Ml Vial SUB-Q 5,000 units Q12HR RADHA Administration Dextrose 1,000 mls @ 100 mls/hr 09/25/24 10:19 Dextrose 5% 1,000 Ml IVPB PRN PRN Hypoglycemia Protocol Sodium Chloride 1,000 mls @ 75 mls/hr 09/28/24 14:20 09/29/24 10:31 Normal Saline Iv IV CONT 75 mls/hr .[id number] RADHA Administration Insulin Aspart 1 - 3 units 09/25/24 21:00 09/28/24 20:53 Insulin Aspart (*Bkc) 100 Units/Ml SUB-Q Not Given HS RADHA Protocol Insulin Aspart 3 - 6 units 09/25/24 12:00 09/29/24 08:00 Insulin Aspart (*Bkc) 100 Units/Ml SUB-Q Not Given TIDWM RADHA Protocol Insulin Aspart 3 units 09/28/24 12:00 09/29/24 09:07 Insulin Aspart (*Bkc) 100 Units/Ml SUB-Q 3 units TIDWM RADHA Administration Insulin Glargine 10 units 09/28/24 09:40 09/28/24 11:11 Insulin Glargine (*Bkc) 100 Units/Ml SUB-Q 10 units HS RADHA Administration Lactic Acid 1 applic 09/25/24 09:00 09/28/24 08:58 Lactic Acid 12% Lotion 225 Btl TOPICAL 1 applic QAM RADHA Administration Sodium Bicarbonate 650 mg 09/29/24 09:00 09/29/24 09:07 Sodium Bicarbonate Tab 650 Mg Tablet PO 650 mg QAM RADHA Administration Radiology Results: ITS Impressions Chest X-Ray 09/25/24 07:37 Impression: Clear lungs. Renal Ultrasound 09/25/24 18:38 IMPRESSION: 1. Normal kidneys without hydronephrosis. 2. Possible minimal amount of ascites in the pelvis. Labs Labs: Laboratory Results - last 24 hr 09/28/24 09/28/24 09/28/24 04:24 11:51 13:52 WBC RBC Hgb Hct MCV MCH MCHC RDW Plt Count MPV Immature Gran % (Auto) Neut % (Auto) Lymph % (Auto) [place] % (Auto) Eos % (Auto) Baso % (Auto) Lymph # (Auto) [place] # (Auto) Eos # (Auto) Baso # (Auto) Abs Immat Gran (auto) Absolute Neuts (auto) Absolute Nucleated RBC Nucleated RBC % Sodium Potassium Chloride Carbon Dioxide Anion Gap BUN Creatinine Estim Creat Clear Calc Estimated GFR Glucose POC Capillary Glucose 242 H 226 H Calcium Phosphorus Troponin I Albumin Hep B Core Total Ab Negative 09/28/24 09/28/24 09/28/24 14:48 16:24 17:38 WBC 7.8 RBC 3.21 L Hgb 9.4 L Hct 29.7 L MCV 92.5 MCH 29.3 MCHC 31.6 L RDW 14.4 Plt Count 178 MPV 10.9 H Immature Gran % (Auto) Neut % (Auto) Lymph % (Auto) [place] % (Auto) Eos % (Auto) Baso % (Auto) Lymph # (Auto) [place] # (Auto) Eos # (Auto) Baso # (Auto) Abs Immat Gran (auto) Absolute Neuts (auto) Absolute Nucleated RBC Nucleated RBC % Sodium Potassium Chloride Carbon Dioxide Anion Gap BUN Creatinine Estim Creat Clear Calc Estimated GFR Glucose POC Capillary Glucose 195 H Calcium Phosphorus Troponin I < 0.012 0.013 Albumin Hep B Core Total Ab 09/28/24 09/28/24 09/29/24 20:28 20:56 05:47 WBC 6.8 RBC 2.88 L Hgb 8.4 L Hct 26.8 L MCV 93.1 MCH 29.2 MCHC 31.3 L RDW 14.3 Plt Count 165 MPV 10.9 H Immature Gran % (Auto) 0.7 H Neut % (Auto) 53.3 Lymph % (Auto) 29.9 [place] % (Auto) 10.5 H Eos % (Auto) 5.3 H Baso % (Auto) 0.3 Lymph # (Auto) 2.03 [place] # (Auto) 0.7 H Eos # (Auto) 0.4 H Baso # (Auto) 0.0 Abs Immat Gran (auto) 0.05 H Absolute Neuts (auto) 3.6 Absolute Nucleated RBC 0.000 Nucleated RBC % 0.0 Sodium 136 L Potassium 3.6 Chloride 105 Carbon Dioxide 25 Anion Gap 6 BUN 43 H Creatinine 5.37 H Estim Creat Clear Calc 15 Estimated GFR 11 L Glucose 140 H POC Capillary Glucose 233 H Calcium 8.4 Phosphorus 4.3 Troponin I < 0.012 Albumin 2.7 L Hep B Core Total Ab 09/29/24 07:53 WBC RBC Hgb Hct MCV MCH MCHC RDW Plt Count MPV Immature Gran % (Auto) Neut % (Auto) Lymph % (Auto) [place] % (Auto) Eos % (Auto) Baso % (Auto) Lymph # (Auto) [place] # (Auto) Eos # (Auto) Baso # (Auto) Abs Immat Gran (auto) Absolute Neuts (auto) Absolute Nucleated RBC Nucleated RBC % Sodium Potassium Chloride Carbon Dioxide Anion Gap BUN Creatinine Estim Creat Clear Calc Estimated GFR Glucose POC Capillary Glucose 129 H Calcium Phosphorus Troponin I Albumin Hep B Core Total Ab
--- NOTE | 2024-09-29 13:41 | PM.IMPN ---
Progress Note: A&P Assessment and Plan (1) Acute renal failure: Code(s): N17.9 - Acute kidney failure, unspecified Status: Acute Assessment and Plan: SPENCER CKD Possible dehydration versus worsening secondary to diabetes, HTN, vascular disease, age-related -CK level 43 -urine lytes not reflective of prerenal issues Nephrology is following and managing at this time 09/25: Renal ultrasound showed normal kidneys without hydronephrosis, possible minimal amount of ascites in the pelvis 09/26: s currently on sodium bicarb infusion as patient is slightly acidotic Will DC IV fluid Continue p.o. sodium bicarbonate Further recommendations as per Nephrology (2) Medical non-compliance: Code(s): Z91.199 - Patient's noncompliance with other medical treatment and regimen due to unspecified reason Status: Acute Assessment and Plan: Patient has not been taking his blood pressure or diabetes medication, along with decreased p.o. intake -appreciate dietitian evaluation: Severe protein calorie malnutrition -continue dietary supplement -patient now states that he will try to take all his medications as prescribed (3) Hypertension: Code(s): I10 - Essential (primary) hypertension Status: Acute Assessment and Plan: patient received amlodipine and Coreg. Developed hypotension. 09/29/24 Blood pressure improved after getting IV fluid Will hold off BP meds for now. 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 Status: Chronic Assessment and Plan: Type 2 diabetes, continue sliding scale insulin and Accu-Cheks -hemoglobin A1c is 9.1 this admission -continue Lantus, with meal insulin continue sliding scale (5) UTI (urinary tract infection): Code(s): N39.0 - Urinary tract infection, site not specified Status: Acute Assessment and Plan: Patient received a course ceftriaxone for questionable UTI Urine culture was neg (6) Electrolyte imbalance: Code(s): E87.8 - Other disorders of electrolyte and fluid balance, not elsewhere classified Status: Acute Assessment and Plan: Potassium repleted (7) Severe protein-calorie malnutrition: Code(s): E43 - Unspecified severe protein-calorie malnutrition Status: Acute Assessment and Plan: Dietitian on board On dietary supplement Continue monitor (8) Anemia: Code(s): D64.9 - Anemia, unspecified Status: Acute Assessment and Plan: In setting of kidney failure. Iron panel test pending Getting EPO Continue monitor Plan DVT prophylaxis: SubQ heparin Stress ulcer prophylaxis: Not indicated Nutrition: Renal diet with dietary supplements Code Status: Full code Subjective Date/time seen: 09/29/24 13:41 Interval history: Patient was called by his primary care physician who asked him to come to the emergency room for acute renal failure. Patient has chronic kidney disease. 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 Patient has been noncompliant with medications and this appears to be likely secondary to hypertension and diabetes 09/29/24 Patient was seen examined at bedside. Denies any chest pain, shortness Mccrary breath, abdominal pain, nausea vomiting. His baseline creatinine in February 2024 was 2.5. On admission creatinine was 6.76. Patient had suicidal ideology on admission and was admitted to ICU. Yesterday patient was feeling better. Was transferred out of ICU. Developed hypertension. Blood pressure medication was stopped. Patient received albumin and IV fluid. Blood pressure was under better control. Nephrology team has been consulted for kidney failure. Kidney ultrasound unremarkable. Likely has progression of CKD due to diabetes, HTN, vascular disease and age-related. Concern for UTI. Pending urine culture. Review of Systems Review of Systems: All systems reviewed & are unremarkable except as noted in HPI and below (History/subjective) Exam Narrative: General: Pleasant gentleman in no acute distress HEENT:? Pupils equal and reactive, sclera is clear, moist oral mucosa Neck:? Supple Respiratory:? Clear to auscultation bilaterally, no wheezing, adequate air entry Cardiac:? S1-S2 is normal, regular rate and rhythm Abdomen:? Soft, nontender, nondistended, normoactive bowel sound Extremities:? Bilateral lower extremity chronic venous insufficiency, lymphedema, 4+ edema with thickening of the skin that extends from the knees to the toes. Neuro:? Patient is awake, alert, oriented, nonfocal, answers to questions appropriately Skin:? As above Psych:? Normal mentation and affect Const: General: comfortable Eyes: Pupils: Equal, round and reactive pupils present Neck: Neck: supple Resp: Effort & Inspection: normal respiratory effort Auscultation: clear to auscultation bilaterally Cardio: Rate: regular rate Rhythm: regular rhythm GI: Inspection: non-distended Other: No flank pain : General: Yes bladder normal to palpation Neuro: Cranial nerves: Yes Equal, round and reactive pupils present Motor exam (neuro): 5/5 motor strength present throughout Extrem: General: no edema Objective Data Vital Signs Vital Signs: Vital Signs - 24 hr 09/28/24 13:57 09/28/24 15:31 09/28/24 16:03 Temperature Pulse Rate 70 77 Respiratory Rate Blood Pressure 68/42 L 108/66 Pulse Oximetry Oxygen Delivery 09/28/24 20:00 09/28/24 20:00 09/28/24 22:00 Temperature 97.8 F Pulse Rate 79 80 Respiratory Rate 18 Blood Pressure 148/57 H Pulse Oximetry 98 Oxygen Delivery Room Air 09/29/24 00:04 09/29/24 04:00 09/29/24 06:00 Temperature 97.9 F Pulse Rate 82 71 77 Respiratory Rate 18 Blood Pressure 141/62 H Pulse Oximetry 100 Oxygen Delivery Intake/Output Intake/Output: Intake & Output 09/26/24 09/27/24 09/28/24 09/29/24 23:59 23:59 23:59 23:59 Intake Total 2620 3780.0 2420 2270 Output Total 1950 1400 1000 1200 Balance 670 2380.0 1420 1070 Meds/Results Medications: Active Medications Generic Name Dose Route Start Last Admin Trade Name Freq PRN Reason Stop Dose Admin Acetaminophen 650 mg 09/27/24 01:31 09/27/24 08:16 Acetaminophen 325 Mg Tablet PO 650 mg Q4H PRN Administration Mild Pain (1-3) or Fever Amlodipine Besylate 10 mg 09/25/24 09:25 09/28/24 08:58 Amlodipine Besylate 10 Mg Tablet PO 10 mg DAILY RADHA Administration Carvedilol 25 mg 09/27/24 21:00 09/28/24 08:58 Carvedilol 25 Mg Tablet PO 25 mg Q12HR RADHA Administration Dextrose 12.5 gm 09/25/24 10:19 Dextrose 50% 25 Gm/50 Ml Syringe IV PUSH PRN PRN Hypoglycemia Protocol Epoetin Kaleb-epbx 10,000 units 09/28/24 12:30 09/28/24 15:36 Epoetin Kaleb-Epbx 10,000 Units/Ml Vial SUB-Q 10,000 units MOWEFR@09 RADHA Administration Gabapentin 100 mg 09/27/24 10:10 09/29/24 09:07 Gabapentin 100 Mg Capsule PO 100 mg DAILY RADHA Administration Glucagon 1 mg 09/25/24 10:19 Glucagon For Inj 1 Mg Vial IM PRN PRN Hypoglycemia Protocol Glucose 15 gm 09/25/24 10:19 Glucose Oral Gel 15 Gm Of Glucse In 37.5 Gm Tube PO PRN PRN Hypoglycemia Protocol Heparin Sodium (Porcine) 5,000 units 09/28/24 21:00 09/29/24 09:07 Heparin Sodium 5,000 Units/Ml Vial SUB-Q 5,000 units Q12HR RADHA Administration Dextrose 1,000 mls @ 100 mls/hr 09/25/24 10:19 Dextrose 5% 1,000 Ml IVPB PRN PRN Hypoglycemia Protocol Sodium Chloride 1,000 mls @ 75 mls/hr 09/28/24 14:20 09/29/24 10:31 Normal Saline Iv IV CONT 75 mls/hr .[id number] RADHA Administration Insulin Aspart 1 - 3 units 09/25/24 21:00 09/28/24 20:53 Insulin Aspart (*Bkc) 100 Units/Ml SUB-Q Not Given HS RADHA Protocol Insulin Aspart 3 - 6 units 09/25/24 12:00 09/29/24 12:53 Insulin Aspart (*Bkc) 100 Units/Ml SUB-Q 3 units TIDWM RADHA Administration Protocol Insulin Aspart 3 units 09/28/24 12:00 09/29/24 12:53 Insulin Aspart (*Bkc) 100 Units/Ml SUB-Q 3 units TIDWM RADHA Administration Insulin Glargine 10 units 09/28/24 09:40 09/28/24 11:11 Insulin Glargine (*Bkc) 100 Units/Ml SUB-Q 10 units HS RADHA Administration Lactic Acid 1 applic 09/25/24 09:00 09/28/24 08:58 Lactic Acid 12% Lotion 225 Btl TOPICAL 1 applic QAM RADHA Administration Sodium Bicarbonate 650 mg 09/29/24 09:00 09/29/24 09:07 Sodium Bicarbonate Tab 650 Mg Tablet PO 650 mg QAM RADHA Administration Radiology Results: ITS Impressions Chest X-Ray 09/25/24 07:37 Impression: Clear lungs. Renal Ultrasound 09/25/24 18:38 IMPRESSION: 1. Normal kidneys without hydronephrosis. 2. Possible minimal amount of ascites in the pelvis. Labs Labs: Laboratory Results - last 24 hr 09/28/24 09/28/24 09/28/24 04:24 13:52 14:48 WBC 7.8 RBC 3.21 L Hgb 9.4 L Hct 29.7 L MCV 92.5 MCH 29.3 MCHC 31.6 L RDW 14.4 Plt Count 178 MPV 10.9 H Immature Gran % (Auto) Neut % (Auto) Lymph % (Auto) [place] % (Auto) Eos % (Auto) Baso % (Auto) Lymph # (Auto) [place] # (Auto) Eos # (Auto) Baso # (Auto) Abs Immat Gran (auto) Absolute Neuts (auto) Absolute Nucleated RBC Nucleated RBC % Sodium Potassium Chloride Carbon Dioxide Anion Gap BUN Creatinine Estim Creat Clear Calc Estimated GFR Glucose POC Capillary Glucose 226 H Calcium Phosphorus Troponin I < 0.012 Albumin Hep B Core Total Ab Negative 09/28/24 09/28/24 09/28/24 16:24 17:38 20:28 WBC RBC Hgb Hct MCV MCH MCHC RDW Plt Count MPV Immature Gran % (Auto) Neut % (Auto) Lymph % (Auto) [place] % (Auto) Eos % (Auto) Baso % (Auto) Lymph # (Auto) [place] # (Auto) Eos # (Auto) Baso # (Auto) Abs Immat Gran (auto) Absolute Neuts (auto) Absolute Nucleated RBC Nucleated RBC % Sodium Potassium Chloride Carbon Dioxide Anion Gap BUN Creatinine Estim Creat Clear Calc Estimated GFR Glucose POC Capillary Glucose 195 H Calcium Phosphorus Troponin I 0.013 < 0.012 Albumin Hep B Core Total Ab 09/28/24 09/29/24 09/29/24 20:56 05:47 07:53 WBC 6.8 RBC 2.88 L Hgb 8.4 L Hct 26.8 L MCV 93.1 MCH 29.2 MCHC 31.3 L RDW 14.3 Plt Count 165 MPV 10.9 H Immature Gran % (Auto) 0.7 H Neut % (Auto) 53.3 Lymph % (Auto) 29.9 [place] % (Auto) 10.5 H Eos % (Auto) 5.3 H Baso % (Auto) 0.3 Lymph # (Auto) 2.03 [place] # (Auto) 0.7 H Eos # (Auto) 0.4 H Baso # (Auto) 0.0 Abs Immat Gran (auto) 0.05 H Absolute Neuts (auto) 3.6 Absolute Nucleated RBC 0.000 Nucleated RBC % 0.0 Sodium 136 L Potassium 3.6 Chloride 105 Carbon Dioxide 25 Anion Gap 6 BUN 43 H Creatinine 5.37 H Estim Creat Clear Calc 15 Estimated GFR 11 L Glucose 140 H POC Capillary Glucose 233 H 129 H Calcium 8.4 Phosphorus 4.3 Troponin I Albumin 2.7 L Hep B Core Total Ab 09/29/24 11:57 WBC RBC Hgb Hct MCV MCH MCHC RDW Plt Count MPV Immature Gran % (Auto) Neut % (Auto) Lymph % (Auto) [place] % (Auto) Eos % (Auto) Baso % (Auto) Lymph # (Auto) [place] # (Auto) Eos # (Auto) Baso # (Auto) Abs Immat Gran (auto) Absolute Neuts (auto) Absolute Nucleated RBC Nucleated RBC % Sodium Potassium Chloride Carbon Dioxide Anion Gap BUN Creatinine Estim Creat Clear Calc Estimated GFR Glucose POC Capillary Glucose 219 H Calcium Phosphorus Troponin I Albumin Hep B Core Total Ab
[2024-09-29] MEDS: INSULIN GLARGINE (*BKC) 100 UNITS/ML 10 UNITS SUB-Q (20:42)
[2024-09-30] VITALS (10 sets, daily range): BP systolic 93–158; BP diastolic 61–78; PULSE 71–85; RESP 18–20; TEMP 36.6–36.8; O2SAT 99–100
[2024-09-30 06:27] LABS: Hematocrit 29.7 % (42.0-52.0); Hemoglobin 9.2 g/dL (14.0-18.0); Immature Granulocyte Percent A 1.4 % (0-0.5); Lymphocytes Absolute Auto 2.13 K/mm3 (0.9-3.2); Mean Corpuscular HGB Conc 31.0 g/dl (32-36); Mean Corpuscular Hemoglobin 29.3 pg (26-34); Mean Corpuscular Volume 94.6 fl (80-100); Nucleated Red Blood Cells Absolute Auto 0.000 K/mm3 (0.0-0.012); Nucleated Red Blood Cells Perc 0.0 % (0.0-0.2); Platelet Count Result 189 k/mm3 (150-375); Red Blood Count 3.14 M/mm3 (4.6-6.20); White Blood Count 7.6 K/mm3 (4.5-10.0)
[2024-09-30 06:47] LABS: Albumin Level 2.9 g/dL (3.5-5.1); Anion Gap 7 mmol/L (4-12); Blood Urea Nitrogen 44 mg/dL (9-20); Calcium 8.5 mg/dL (8.4-10.2); Carbon Dioxide 25 mmol/L (22-30); Chloride 103 mmol/L (98-107); Estimated CRCL calculation 15 ml/min; Estimated Glomerular Filt Rate 10; Glucose 149 mg/dL (65-110); Potassium 3.7 mmol/L (3.4-5.0); Sodium 135 mmol/L (137-145)
[2024-09-30] MEDS: INSULIN ASPART (*BKC) 100 UNITS/ML SUB-Q ×4 (08:48→17:37)
[2024-09-30] MEDS: SODIUM BICARBONATE TAB 650 MG TABLET PO (08:48)
[2024-09-30] MEDS: GABAPENTIN 100 MG CAPSULE PO (08:48)
--- NOTE | 2024-09-30 09:56 | P.PNIM_ITS ---
Progress Note: A&P Assessment and Plan (1) Acute renal failure: Code(s): N17.9 - Acute kidney failure, unspecified Status: Acute Assessment and Plan: SPENCER CKD Possible dehydration versus worsening secondary to diabetes, HTN, vascular disease, age-related -CK level 43 -urine lytes not reflective of prerenal issues Nephrology is following and managing at this time 09/25: Renal ultrasound showed normal kidneys without hydronephrosis, possible minimal amount of ascites in the pelvis 09/26: s currently on sodium bicarb infusion as patient is slightly acidotic Will DC IV fluid Continue p.o. sodium bicarbonate Further recommendations as per Nephrology (2) Medical non-compliance: Code(s): Z91.199 - Patient's noncompliance with other medical treatment and regimen due to unspecified reason Status: Acute Assessment and Plan: Patient has not been taking his blood pressure or diabetes medication, along with decreased p.o. intake -appreciate dietitian evaluation: Severe protein calorie malnutrition -continue dietary supplement -patient now states that he will try to take all his medications as prescribed (3) Hypertension: Code(s): I10 - Essential (primary) hypertension Status: Acute Assessment and Plan: patient received amlodipine and Coreg. Developed hypotension. 09/29/24 Blood pressure improved after getting IV fluid Dc iVf started on coreg 09/30. (4) Insulin dependent type 2 diabetes mellitus: Code(s): E11.9 - Type 2 diabetes mellitus without complications; Z79.4 - nursing home (current) use of insulin Status: Chronic Assessment and Plan: Type 2 diabetes, continue sliding scale insulin and Accu-Cheks -hemoglobin A1c is 9.1 this admission -continue Lantus, with meal insulin continue sliding scale (5) UTI (urinary tract infection): Code(s): N39.0 - Urinary tract infection, site not specified Status: Acute Assessment and Plan: Patient received a course ceftriaxone for questionable UTI Urine culture was neg (6) Electrolyte imbalance: Code(s): E87.8 - Other disorders of electrolyte and fluid balance, not elsewhere classified Status: Acute Assessment and Plan: Potassium repleted (7) Severe protein-calorie malnutrition: Code(s): E43 - Unspecified severe protein-calorie malnutrition Status: Acute Assessment and Plan: Dietitian on board On dietary supplement Continue monitor (8) Anemia: Code(s): D64.9 - Anemia, unspecified Status: Acute Assessment and Plan: In setting of kidney failure. Iron panel test pending Getting EPO Continue monitor Plan DVT prophylaxis: SubQ heparin Stress ulcer prophylaxis: Not indicated Nutrition: Renal diet with dietary supplements Code Status: Full code Subjective Date/time seen: 09/30/24 09:56 Interval history: Patient was called by his primary care physician who asked him to come to the emergency room for acute renal failure. Patient has chronic kidney disease. He states that he sees [employer] and had already attended and dialysis education class as the [employer] felt that patient is getting close to needing dialysis. Patient has been noncompliant with medications and this appears to be likely secondary to hypertension and diabetes 09/29/24 Patient was seen examined at bedside. Denies any chest pain, shortness Mccrary breath, abdominal pain, nausea vomiting. His baseline creatinine in February 2024 was 2.5. On admission creatinine was 6.76. Patient had suicidal ideology on admission and was admitted to ICU. Yesterday patient was feeling better. Was transferred out of ICU. Developed hypertension. Blood pressure medication was stopped. Patient received albumin and IV fluid. Blood pressure was under better control. Nephrology team has been consulted for kidney failure. Kidney ultrasound unremarkable. Likely has progression of CKD due to diabetes, HTN, vascular disease and age-related. urine culture neg. 09/30/24 Patient was seen and examined at bedside. he is feeling the same. denies any chest pain, SOB,a bd pain, N/V. kidney function slightly worse. started him back on Coreg as BP better. Review of Systems Review of Systems: All systems reviewed & are unremarkable except as noted in HPI and below (History/subjective) Exam Narrative: General: Pleasant gentleman in no acute distress HEENT:? Pupils equal and reactive, sclera is clear, moist oral mucosa Neck:? Supple Respiratory:? Clear to auscultation bilaterally, no wheezing, adequate air entry Cardiac:? S1-S2 is normal, regular rate and rhythm Abdomen:? Soft, nontender, nondistended, normoactive bowel sound Extremities:? Bilateral lower extremity chronic venous insufficiency, lymphedema, 4+ edema with thickening of the skin that extends from the knees to the toes. Neuro:? Patient is awake, alert, oriented, nonfocal, answers to questions appropriately Skin:? As above Psych:? Normal mentation and affect Const: General: comfortable Eyes: Pupils: Equal, round and reactive pupils present Neck: Neck: supple Resp: Effort & Inspection: normal respiratory effort Auscultation: clear to auscultation bilaterally Cardio: Rate: regular rate Rhythm: regular rhythm GI: Inspection: non-distended Other: No flank pain : General: Yes bladder normal to palpation Neuro: Cranial nerves: Yes Equal, round and reactive pupils present Motor exam (neuro): 5/5 motor strength present throughout Extrem: General: no edema Objective Data Vital Signs Vital Signs: Vital Signs - 24 hr 09/29/24 12:02 09/29/24 15:16 09/29/24 16:03 Temperature 97.2 F L Pulse Rate 78 72 68 Respiratory Rate 18 Blood Pressure 123/51 L Pulse Oximetry 100 Oxygen Delivery 09/29/24 20:00 09/29/24 20:00 09/29/24 21:19 Temperature Pulse Rate 74 Respiratory Rate Blood Pressure Pulse Oximetry 99 Oxygen Delivery Room Air Room Air 09/29/24 22:00 09/30/24 00:00 09/30/24 04:00 Temperature 97.6 F Pulse Rate 76 77 72 Respiratory Rate 18 Blood Pressure 144/73 H Pulse Oximetry 100 Oxygen Delivery 09/30/24 06:00 Temperature 97.9 F Pulse Rate 71 Respiratory Rate 18 Blood Pressure 147/71 H Pulse Oximetry 99 Oxygen Delivery Intake/Output Intake/Output: Intake & Output 09/27/24 09/28/24 09/29/24 09/30/24 23:59 23:59 23:59 23:59 Intake Total 3780.0 2420 3000 800 Output Total 1400 1000 1800 800 Balance 2380.0 1420 1200 0 Meds/Results Medications: Active Medications Generic Name Dose Route Start Last Admin Trade Name Freq PRN Reason Stop Dose Admin Acetaminophen 650 mg 09/27/24 01:31 09/27/24 08:16 Acetaminophen 325 Mg Tablet PO 650 mg Q4H PRN Administration Mild Pain (1-3) or Fever Amlodipine Besylate 10 mg 09/25/24 09:25 09/28/24 08:58 Amlodipine Besylate 10 Mg Tablet PO 10 mg DAILY RADHA Administration Carvedilol 25 mg 09/27/24 21:00 09/28/24 08:58 Carvedilol 25 Mg Tablet PO 25 mg Q12HR RADHA Administration Dextrose 12.5 gm 09/25/24 10:19 Dextrose 50% 25 Gm/50 Ml Syringe IV PUSH PRN PRN Hypoglycemia Protocol Epoetin Kaleb-epbx 10,000 units 09/28/24 12:30 09/28/24 15:36 Epoetin Kaleb-Epbx 10,000 Units/Ml Vial SUB-Q 10,000 units MOWEFR@09 RADHA Administration Gabapentin 100 mg 09/27/24 10:10 09/30/24 08:48 Gabapentin 100 Mg Capsule PO 100 mg DAILY RADHA Administration Glucagon 1 mg 09/25/24 10:19 Glucagon For Inj 1 Mg Vial IM PRN PRN Hypoglycemia Protocol Glucose 15 gm 09/25/24 10:19 Glucose Oral Gel 15 Gm Of Glucse In 37.5 Gm Tube PO PRN PRN Hypoglycemia Protocol Heparin Sodium (Porcine) 5,000 units 09/28/24 21:00 09/30/24 08:48 Heparin Sodium 5,000 Units/Ml Vial SUB-Q 5,000 units Q12HR RADHA Administration Dextrose 1,000 mls @ 100 mls/hr 09/25/24 10:19 Dextrose 5% 1,000 Ml IVPB PRN PRN Hypoglycemia Protocol Insulin Aspart 1 - 3 units 09/25/24 21:00 09/29/24 20:43 Insulin Aspart (*Bkc) 100 Units/Ml SUB-Q Not Given HS RADHA Protocol Insulin Aspart 3 - 6 units 09/25/24 12:00 09/30/24 07:46 Insulin Aspart (*Bkc) 100 Units/Ml SUB-Q Not Given TIDWM [facility] Protocol Insulin Aspart 3 units 09/28/24 12:00 09/30/24 08:48 Insulin Aspart (*Bkc) 100 Units/Ml SUB-Q 3 units TIDWM RADHA Administration Insulin Glargine 10 units 09/28/24 09:40 09/29/24 20:42 Insulin Glargine (*Bkc) 100 Units/Ml SUB-Q 10 units HS RADHA Administration Lactic Acid 1 applic 09/25/24 09:00 09/29/24 09:00 Lactic Acid 12% Lotion 225 Btl TOPICAL 1 applic QAM RADHA Administration Sodium Bicarbonate 650 mg 09/29/24 09:00 09/30/24 08:48 Sodium Bicarbonate Tab 650 Mg Tablet PO 650 mg QAM RADHA Administration Radiology Results: ITS Impressions Chest X-Ray 09/25/24 07:37 Impression: Clear lungs. Renal Ultrasound 09/25/24 18:38 IMPRESSION: 1. Normal kidneys without hydronephrosis. 2. Possible minimal amount of ascites in the pelvis. Labs Labs: Laboratory Results - last 24 hr 09/29/24 09/29/24 09/29/24 11:57 16:45 20:34 WBC RBC Hgb Hct MCV MCH MCHC RDW Plt Count MPV Immature Gran % (Auto) Neut % (Auto) Lymph % (Auto) [place] % (Auto) Eos % (Auto) Baso % (Auto) Lymph # (Auto) [place] # (Auto) Eos # (Auto) Baso # (Auto) Abs Immat Gran (auto) Absolute Neuts (auto) Absolute Nucleated RBC Nucleated RBC % Sodium Potassium Chloride Carbon Dioxide Anion Gap BUN Creatinine Estim Creat Clear Calc Estimated GFR Glucose POC Capillary Glucose 219 H 126 H 195 H Calcium Phosphorus Albumin 09/30/24 09/30/24 05:36 07:40 WBC 7.6 RBC 3.14 L Hgb 9.2 L Hct 29.7 L MCV 94.6 MCH 29.3 MCHC 31.0 L RDW 14.5 Plt Count 189 MPV 11.4 H Immature Gran % (Auto) 1.4 H Neut % (Auto) 55.8 Lymph % (Auto) 27.9 [place] % (Auto) 11.5 H Eos % (Auto) 3.0 Baso % (Auto) 0.4 Lymph # (Auto) 2.13 [place] # (Auto) 0.9 H Eos # (Auto) 0.2 Baso # (Auto) 0.0 Abs Immat Gran (auto) 0.11 H Absolute Neuts (auto) 4.3 Absolute Nucleated RBC 0.000 Nucleated RBC % 0.0 Sodium 135 L Potassium 3.7 Chloride 103 Carbon Dioxide 25 Anion Gap 7 BUN 44 H Creatinine 5.45 H Estim Creat Clear Calc 15 Estimated GFR 10 L Glucose 149 H POC Capillary Glucose 143 H Calcium 8.5 Phosphorus 4.8 H Albumin 2.9 L
--- NOTE | 2024-09-30 10:26 | P.PNNP_ITS ---
Progress Note: A&P Assessment and Plan (1) Acute kidney injury: Code(s): N17.9 - Acute kidney failure, unspecified Status: Acute Assessment and Plan: * Acute kidney injury. * Creatinine on admission was 6.76mg/dl. Baseline 2.5. * evaluation to date noted: * renal ultrasound okay * urine electrolytes are non-prerenal * rare urine eosinophils - peripheral eosinophilia noted as well but no rash present; nonspecific inflammation? * CPK okay * nephrotic range proteinuria * etiology not clear but several possible issues: * element of CKD progression * prerenal factors (poor oral intake) * possibly precipitated by medical non-compliance -- has not been taking his home BP or diabetic medications for several months if not longer. * He has not seen Dr. Stewart in several months either. * infection(?) -- possible UTI * other? * Creatinine Seems to be reaching a plateau in the low 5s. there is going to be some up and down nature of the creatinine. Will check another creatinine tomorrow since it was slightly higher today to make sure it is not trending in the wrong direction. * GFR is only 11. * He has no uremic symptoms. Study show that with a GFR between 7 and 12 if there are no symptoms we do not need to start dialysis. * Things are stable. * He is off the IV fluid * He is waiting for his house and yard to be cleaned up regarding the fleas. * He can probably be discharged soon. (2) Stage 4 chronic kidney disease: Code(s): N18.4 - Chronic kidney disease, stage 4 (severe) Status: Chronic Assessment and Plan: * baseline creatinine ~ 2.5mg/dl about 6 months ago * due to diabetes, hypertension, vascular disease (CAD, CABG, CVA, PVD, & hype rlipidemia) and age-related change * was referred to dialysis education prior to hospitalization * He will get more education and close follow-up with Dr. 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 * Check a CBC tomorrow (7) Insulin dependent type 2 diabetes mellitus: Code(s): E11.9 - Type 2 diabetes mellitus without complications; Z79.4 - buttermaker [employer] (current) use of insulin Status: Chronic Assessment and Plan: * poor control * A1c 9.1 on this admission * follow accu-cheks * glycemic control per hospitalist Subjective Date/time seen: 09/30/24 10:26 Interval history: patient is alert. Eating well feels okay Exam Narrative: WDWN in NAD skin no rash or subcu nodule head ncat lungs clear to auscultation cor reg no rub or gallop abd BS+ nontender and soft ext no edema. Objective Data Vital Signs Vital Signs: Vital Signs - 24 hr 09/29/24 12:02 09/29/24 15:16 09/29/24 16:03 Temperature 97.2 F L Pulse Rate 78 72 68 Respiratory Rate 18 Blood Pressure 123/51 L Pulse Oximetry 100 Oxygen Delivery 09/29/24 20:00 09/29/24 20:00 09/29/24 21:19 Temperature Pulse Rate 74 Respiratory Rate Blood Pressure Pulse Oximetry 99 Oxygen Delivery Room Air Room Air 09/29/24 22:00 09/30/24 00:00 09/30/24 04:00 Temperature 97.6 F Pulse Rate 76 77 72 Respiratory Rate 18 Blood Pressure 144/73 H Pulse Oximetry 100 Oxygen Delivery 09/30/24 06:00 Temperature 97.9 F Pulse Rate 71 Respiratory Rate 18 Blood Pressure 147/71 H Pulse Oximetry 99 Oxygen Delivery Intake/Output Intake/Output: Intake & Output 09/27/24 09/28/24 09/29/24 09/30/24 23:59 23:59 23:59 23:59 Intake Total 3780.0 2420 3000 800 Output Total 1400 1000 1800 800 Balance 2380.0 1420 1200 0 Meds/Results Medications: Active Medications Generic Name Dose Route Start Last Admin Trade Name Freq PRN Reason Stop Dose Admin Acetaminophen 650 mg 09/27/24 01:31 09/27/24 08:16 Acetaminophen 325 Mg Tablet PO 650 mg Q4H PRN Administration Mild Pain (1-3) or Fever Amlodipine Besylate 10 mg 09/25/24 09:25 09/28/24 08:58 Amlodipine Besylate 10 Mg Tablet PO 10 mg DAILY RADHA Administration Carvedilol 25 mg 09/27/24 21:00 09/28/24 08:58 Carvedilol 25 Mg Tablet PO 25 mg Q12HR RADHA Administration Dextrose 12.5 gm 09/25/24 10:19 Dextrose 50% 25 Gm/50 Ml Syringe IV PUSH PRN PRN Hypoglycemia Protocol Epoetin Kaleb-epbx 10,000 units 09/28/24 12:30 09/28/24 15:36 Epoetin Kaleb-Epbx 10,000 Units/Ml Vial SUB-Q 10,000 units MOWEFR@09 RADHA Administration Gabapentin 100 mg 09/27/24 10:10 09/30/24 08:48 Gabapentin 100 Mg Capsule PO 100 mg DAILY RADHA Administration Glucagon 1 mg 09/25/24 10:19 Glucagon For Inj 1 Mg Vial IM PRN PRN Hypoglycemia Protocol Glucose 15 gm 09/25/24 10:19 Glucose Oral Gel 15 Gm Of Glucse In 37.5 Gm Tube PO PRN PRN Hypoglycemia Protocol Heparin Sodium (Porcine) 5,000 units 09/28/24 21:00 09/30/24 08:48 Heparin Sodium 5,000 Units/Ml Vial SUB-Q 5,000 units Q12HR RADHA Administration Dextrose 1,000 mls @ 100 mls/hr 09/25/24 10:19 Dextrose 5% 1,000 Ml IVPB PRN PRN Hypoglycemia Protocol Insulin Aspart 1 - 3 units 09/25/24 21:00 09/29/24 20:43 Insulin Aspart (*Bkc) 100 Units/Ml SUB-Q Not Given HS RADHA Protocol Insulin Aspart 3 - 6 units 09/25/24 12:00 09/30/24 07:46 Insulin Aspart (*Bkc) 100 Units/Ml SUB-Q Not Given TIDWM RADHA Protocol Insulin Aspart 3 units 07/18/25 12:00 09/30/24 08:48 Insulin Aspart (*Bkc) 100 Units/Ml SUB-Q 3 units TIDWM RADHA Administration Insulin Glargine 10 units 09/28/24 09:40 09/29/24 20:42 Insulin Glargine (*Bkc) 100 Units/Ml SUB-Q 10 units HS RADHA Administration Lactic Acid 1 applic 09/25/24 09:00 09/29/24 09:00 Lactic Acid 12% Lotion 225 Btl TOPICAL 1 applic QAM RADHA Administration Sodium Bicarbonate 650 mg 09/29/24 09:00 09/30/24 08:48 Sodium Bicarbonate Tab 650 Mg Tablet PO 650 mg QAM RADHA Administration Radiology Results: ITS Impressions Chest X-Ray 09/25/24 07:37 Impression: Clear lungs. Renal Ultrasound 09/25/24 18:38 IMPRESSION: 1. Normal kidneys without hydronephrosis. 2. Possible minimal amount of ascites in the pelvis. Labs Labs: Laboratory Results - last 24 hr 09/29/24 09/29/24 09/29/24 11:57 16:45 20:34 WBC RBC Hgb Hct MCV MCH MCHC RDW Plt Count MPV Immature Gran % (Auto) Neut % (Auto) Lymph % (Auto) [place] % (Auto) Eos % (Auto) Baso % (Auto) Lymph # (Auto) [place] # (Auto) Eos # (Auto) Baso # (Auto) Abs Immat Gran (auto) Absolute Neuts (auto) Absolute Nucleated RBC Nucleated RBC % Sodium Potassium Chloride Carbon Dioxide Anion Gap BUN Creatinine Estim Creat Clear Calc Estimated GFR Glucose POC Capillary Glucose 219 H 126 H 195 H Calcium Phosphorus Albumin 09/30/24 09/30/24 05:36 07:40 WBC 7.6 RBC 3.14 L Hgb 9.2 L Hct 29.7 L MCV 94.6 MCH 29.3 MCHC 31.0 L RDW 14.5 Plt Count 189 MPV 11.4 H Immature Gran % (Auto) 1.4 H Neut % (Auto) 55.8 Lymph % (Auto) 27.9 [place] % (Auto) 11.5 H Eos % (Auto) 3.0 Baso % (Auto) 0.4 Lymph # (Auto) 2.13 [place] # (Auto) 0.9 H Eos # (Auto) 0.2 Baso # (Auto) 0.0 Abs Immat Gran (auto) 0.11 H Absolute Neuts (auto) 4.3 Absolute Nucleated RBC 0.000 Nucleated RBC % 0.0 Sodium 135 L Potassium 3.7 Chloride 103 Carbon Dioxide 25 Anion Gap 7 BUN 44 H Creatinine 5.45 H Estim Creat Clear Calc 15 Estimated GFR 10 L Glucose 149 H POC Capillary Glucose 143 H Calcium 8.5 Phosphorus 4.8 H Albumin 2.9 L
[2024-09-30] MEDS: LACTIC ACID 12% LOTION 225 BTL 1 APPLIC TOPICAL (12:18)
[2024-09-30] MEDS: INSULIN GLARGINE (*BKC) 100 UNITS/ML 10 UNITS SUB-Q (20:36)
[2024-10-01] VITALS: PULSE 87
[2024-10-01 04:00] VITALS: PULSE 78
[2024-10-01 06:00] VITALS: BP 147/71; PULSE 78; RESP 17; TEMP 36.6; O2SAT 99
[2024-10-01 06:29] LABS: Hematocrit 26.1 % (42.0-52.0); Hemoglobin 8.1 g/dL (14.0-18.0); Immature Granulocyte Percent A 1.4 % (0-0.5); Lymphocytes Absolute Auto 2.12 K/mm3 (0.9-3.2); Mean Corpuscular HGB Conc 31.0 g/dl (32-36); Mean Corpuscular Hemoglobin 29.6 pg (26-34); Mean Corpuscular Volume 95.3 fl (80-100); Nucleated Red Blood Cells Absolute Auto 0.000 K/mm3 (0.0-0.012); Nucleated Red Blood Cells Perc 0.0 % (0.0-0.2); Platelet Count Result 172 k/mm3 (150-375); Red Blood Count 2.74 M/mm3 (4.6-6.20); White Blood Count 7.6 K/mm3 (4.5-10.0)
[2024-10-01 06:50] LABS: Albumin Level 2.7 g/dL (3.5-5.1); Anion Gap 7 mmol/L (4-12); Blood Urea Nitrogen 48 mg/dL (9-20); Calcium 8.3 mg/dL (8.4-10.2); Carbon Dioxide 24 mmol/L (22-30); Chloride 105 mmol/L (98-107); Estimated CRCL calculation 15 ml/min; Estimated Glomerular Filt Rate 10; Glucose 215 mg/dL (65-110); Potassium 3.9 mmol/L (3.4-5.0); Sodium 136 mmol/L (137-145)
[2024-10-01 08:00] VITALS: PULSE 81
--- NOTE | 2024-10-01 08:26 | P.PNNP_ITS ---
Progress Note: A&P Assessment and Plan (1) Acute kidney injury: Code(s): N17.9 - Acute kidney failure, unspecified Status: Acute Assessment and Plan: * Acute kidney injury. * Creatinine on admission was 6.76mg/dl. Baseline 2.5. * evaluation to date noted: * renal ultrasound okay * urine electrolytes are non-prerenal * rare urine eosinophils - peripheral eosinophilia noted as well but no rash present; nonspecific inflammation? * CPK okay * nephrotic range proteinuria * etiology not clear but several possible issues: * element of CKD progression * prerenal factors (poor oral intake) * possibly precipitated by medical non-compliance -- has not been taking his home BP or diabetic medications for several months if not longer. * He has not seen Dr. Stewart in several months either. * infection(?) -- possible UTI * other? * Creatinine Seems to be reaching a plateau in the low 5s. he has no uremic symptoms. * GFR is only 11. * He has no uremic symptoms. Study show that with a GFR between 7 and 12 if there are no symptoms we do not need to start dialysis. * From the kidney standpoint he can be discharged. Dr. Stewart is going to have his office call the patient for an appointment for him to get in the right away. (2) Stage 4 chronic kidney disease: Code(s): N18.4 - Chronic kidney disease, stage 4 (severe) Status: Chronic Assessment and Plan: * baseline creatinine ~ 2.5mg/dl about 6 months ago * due to diabetes, hypertension, vascular disease (CAD, CABG, CVA, PVD, & hyperlipidemia) and age-related change * was referred to dialysis education prior to hospitalization * He will get more education and close follow-up with Dr. Stewart upon discharge (3) UTI (urinary tract infection): Code(s): N39.0 - Urinary tract infection, site not specified Status: Acute Assessment and Plan: * finished antibiotics (4) Severe protein-calorie malnutrition: Code(s): E43 - Unspecified severe protein-calorie malnutrition Status: Acute Assessment and Plan: * reported 70 pound weight loss over the last 7 months * associated with poor appetite and oral/fluid intake * Eating well now. (5) Hypertension: Code(s): I10 - Essential (primary) hypertension Status: Acute Assessment and Plan: * Systolic is good at 130s to 140s * on amlodipine and carvedilol * avoiding JAGDEEP-I/ARB due to #1 and #2 (6) Anemia: Code(s): D64.9 - Anemia, unspecified Status: Acute Assessment and Plan: * presumably due to SPENCER and CKD * iron saturation is okay * on Epogen while in the hospital. * Hemoglobin stable pin do the HD in the 90s. He may need outpatient Epogen. Will let Dr. Stewart manage this. 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 Eager for discharge. Eating well. No chest pain or shortness of breath. Exam Narrative: WDWN in NAD skin no rash or subcu nodule head ncat lungs clear Bilateral cor reg no rub or gallop abd BS+ nontender and soft ext no edema or cyanosis Objective Data Vital Signs Vital Signs: Vital Signs - 24 hr 09/30/24 12:01 09/30/24 14:00 09/30/24 16:04 Temperature 98.3 F Pulse Rate 85 82 76 Respiratory Rate 20 Blood Pressure 93/78 L Pulse Oximetry 99 09/30/24 20:00 09/30/24 20:42 09/30/24 22:00 Temperature 97.9 F Pulse Rate 83 76 85 Respiratory Rate 18 Blood Pressure 158/61 H Pulse Oximetry 100 10/01/24 00:00 10/01/24 04:00 10/01/24 06:00 Temperature 97.8 F Pulse Rate 87 78 78 Respiratory Rate 17 Blood Pressure 147/71 H Pulse Oximetry 99 Intake/Output Intake/Output: Intake & Output 09/28/24 09/29/24 09/30/24 10/01/24 23:59 23:59 23:59 23:59 Intake Total 2420 3000 2170 300 Output Total 1000 1800 1800 500 Balance 1420 1200 370 -200 Meds/Results Medications: Active Medications Generic Name Dose Route Start Last Admin Trade Name Freq PRN Reason Stop Dose Admin Acetaminophen 650 mg 09/27/24 01:31 09/27/24 08:16 Acetaminophen 325 Mg Tablet PO 650 mg Q4H PRN Administration Mild Pain (1-3) or Fever Amlodipine Besylate 10 mg 09/25/24 09:25 09/28/24 08:58 Amlodipine Besylate 10 Mg Tablet PO 10 mg DAILY RADHA Administration Carvedilol 25 mg 09/27/24 21:00 09/30/24 20:42 Carvedilol 25 Mg Tablet PO 25 mg Q12HR RADHA Administration Dextrose 12.5 gm 09/25/24 10:19 Dextrose 50% 25 Gm/50 Ml Syringe IV PUSH PRN PRN Hypoglycemia Protocol Epoetin Kaleb-epbx 10,000 units 09/28/24 12:30 09/28/24 15:36 Epoetin Kaleb-Epbx 10,000 Units/Ml Vial SUB-Q 10,000 units MOWEFR@09 RADHA Administration Gabapentin 100 mg 09/27/24 10:10 09/30/24 08:48 Gabapentin 100 Mg Capsule PO 100 mg DAILY RADHA Administration Glucagon 1 mg 09/25/24 10:19 Glucagon For Inj 1 Mg Vial IM PRN PRN Hypoglycemia Protocol Glucose 15 gm 09/25/24 10:19 Glucose Oral Gel 15 Gm Of Glucse In 37.5 Gm Tube PO PRN PRN Hypoglycemia Protocol Heparin Sodium (Porcine) 5,000 units 09/28/24 21:00 09/30/24 20:48 Heparin Sodium 5,000 Units/Ml Vial SUB-Q 5,000 units Q12HR RADHA Administration Dextrose 1,000 mls @ 100 mls/hr 09/25/24 10:19 Dextrose 5% 1,000 Ml IVPB PRN PRN Hypoglycemia Protocol Insulin Aspart 1 - 3 units 09/25/24 21:00 09/30/24 20:36 Insulin Aspart (*Bkc) 100 Units/Ml SUB-Q Not Given HS RADHA Protocol Insulin Aspart 3 - 6 units 09/25/24 12:00 09/30/24 17:37 Insulin Aspart (*Bkc) 100 Units/Ml SUB-Q 3 units TIDWM RADHA Administration Protocol Insulin Aspart 3 units 09/28/24 12:00 09/30/24 17:36 Insulin Aspart (*Bkc) 100 Units/Ml SUB-Q 3 units TIDWM RADHA Administration Insulin Glargine 10 units 09/28/24 09:40 09/30/24 20:36 Insulin Glargine (*Bkc) 100 Units/Ml SUB-Q 10 units HS RADHA Administration Lactic Acid 1 applic 09/25/24 09:00 09/30/24 12:18 Lactic Acid 12% Lotion 225 Btl TOPICAL 1 applic QAM RADHA Administration Sodium Bicarbonate 650 mg 09/29/24 09:00 09/30/24 08:48 Sodium Bicarbonate Tab 650 Mg Tablet PO 650 mg QAM RADHA Administration Radiology Results: ITS Impressions Chest X-Ray 09/25/24 07:37 Impression: Clear lungs. Renal Ultrasound 09/25/24 18:38 IMPRESSION: 1. Normal kidneys without hydronephrosis. 2. Possible minimal amount of ascites in the pelvis. Labs Labs: Laboratory Results - last 24 hr 09/30/24 09/30/24 09/30/24 11:15 17:01 20:34 WBC RBC Hgb Hct MCV MCH MCHC RDW Plt Count MPV Immature Gran % (Auto) Neut % (Auto) Lymph % (Auto) [place] % (Auto) Eos % (Auto) Baso % (Auto) Lymph # (Auto) [place] # (Auto) Eos # (Auto) Baso # (Auto) Abs Immat Gran (auto) Absolute Neuts (auto) Absolute Nucleated RBC Nucleated RBC % Sodium Potassium Chloride Carbon Dioxide Anion Gap BUN Creatinine Estim Creat Clear Calc Estimated GFR Glucose POC Capillary Glucose 169 H 210 H 198 H Calcium Phosphorus Albumin 10/01/24 10/01/24 06:17 07:32 WBC 7.6 RBC 2.74 L Hgb 8.1 L Hct 26.1 L MCV 95.3 MCH 29.6 MCHC 31.0 L RDW 14.6 H Plt Count 172 MPV 10.7 H Immature Gran % (Auto) 1.4 H Neut % (Auto) 56.0 Lymph % (Auto) 27.8 [place] % (Auto) 12.1 H Eos % (Auto) 2.4 Baso % (Auto) 0.3 Lymph # (Auto) 2.12 [place] # (Auto) 0.9 H Eos # (Auto) 0.2 Baso # (Auto) 0.0 Abs Immat Gran (auto) 0.11 H Absolute Neuts (auto) 4.3 Absolute Nucleated RBC 0.000 Nucleated RBC % 0.0 Sodium 136 L Potassium 3.9 Chloride 105 Carbon Dioxide 24 Anion Gap 7 BUN 48 H Creatinine 5.43 H Estim Creat Clear Calc 15 Estimated GFR 10 L Glucose 215 H POC Capillary Glucose 198 H Calcium 8.3 L Phosphorus 5.0 H Albumin 2.7 L
[2024-10-01] MEDS: GABAPENTIN 100 MG CAPSULE PO (08:55)
[2024-10-01] MEDS: SODIUM BICARBONATE TAB 650 MG TABLET PO (08:55)
[2024-10-01] MEDS: INSULIN ASPART (*BKC) 100 UNITS/ML SUB-Q ×3 (08:55→12:19)
[2024-10-01] MEDS: EPOETIN ALFA-EPBX 10,000 UNITS/ML VIAL 10000 UNITS SUB-Q (08:56)
[2024-10-01] MEDS: LACTIC ACID 12% LOTION 225 BTL 1 APPLIC TOPICAL (08:56)
--- NOTE | 2024-10-01 10:30 | PCNWS ---
Weekly nutritional screen. Patient is tolerating current Renal diet with adequate intake. No weight loss reported. No nutritional recommendations at this time.
--- NOTE | 2024-10-01 11:32 | PCNFU ---
Nutrition Follow-Up Complete: Severe Protein Calorie Malnutrition as related to inadequate energy intake with increased protein needs in setting of chronic disease as evidenced by minimal oral intake for > 1-2 months and significant weight loss of 73 ibs (24%). Meet estimated nutritional needs. Goal: Pt current nutrition is Renal diet, Glucerna BID (220 kcal, 10 g protein). Nutrition recommendation: No new recommendations. Continue current nutrition care plan and orders. Agree with orders Last recorded weight is 116.1 kg. Bowel Motility: +1 BM 09/30 Labs Reviewed: Hgb 8.1 Hct 26.1, Alb 2.7, Na 136, BUN 48, Cre 5.43, Glu 215 Meds Noted: Novolog, lantus, heparin Skin: No pressure injuries Additional Notes: Pt appetite improved. Per nephrology, not starting dialysis yet. Continue current orders Will monitor weight labs, skin, diet orders, meds every 5 days.
--- NOTE | 2024-10-01 11:38 | P.DS_ITS ---
DS: Admitting Diagnosis Discharge Date 10/01/24 Admitting Diagnosis SPENCER on CKD DS: Discharge Diagnosis Discharge Diagnosis (1) Acute renal failure: Code(s): N17.9 - Acute kidney failure, unspecified Status: Acute Assessment and Plan: SPENCER CKD Possible dehydration versus worsening secondary to diabetes, HTN, vascular disease, age-related -CK level 43 -urine lytes not reflective of prerenal issues Nephrology is following and managing at this time 09/25: Renal ultrasound showed normal kidneys without hydronephrosis, possible minimal amount of ascites in the pelvis 09/26: s currently on sodium bicarb infusion as patient is slightly acidotic Will DC IV fluid Continue p.o. sodium bicarbonate Further recommendations as per Nephrology 10/01/24 CR stable. will discharge patient follow with nephrology clinic as outpatient (2) Medical non-compliance: Code(s): Z91.199 - Patient's noncompliance with other medical treatment and regimen due to unspecified reason Status: Acute Assessment and Plan: Patient has not been taking his blood pressure or diabetes medication, along with decreased p.o. intake -appreciate dietitian evaluation: Severe protein calorie malnutrition -continue dietary supplement -patient now states that he will try to take all his medications as prescribed (3) Hypertension: Code(s): I10 - Essential (primary) hypertension Status: Acute Assessment and Plan: patient received amlodipine and Coreg. Developed hypotension. 09/29/24 Blood pressure improved after getting IV fluid Dc iVf on coreg 09/30. (4) Insulin dependent type 2 diabetes mellitus: Code(s): E11.9 - Type 2 diabetes mellitus without complications; Z79.4 - long-term (current) use of insulin Status: Chronic Assessment and Plan: Type 2 diabetes, continue sliding scale insulin and Accu-Cheks -hemoglobin A1c is 9.1 this admission -continue Lantus (5) UTI (urinary tract infection): Code(s): N39.0 - Urinary tract infection, site not specified Status: Acute Assessment and Plan: Patient received a course ceftriaxone for questionable UTI Urine culture was neg (6) Electrolyte imbalance: Code(s): E87.8 - Other disorders of electrolyte and fluid balance, not elsewhere classified Status: Acute Assessment and Plan: Potassium repleted (7) Severe protein-calorie malnutrition: Code(s): E43 - Unspecified severe protein-calorie malnutrition Status: Acute Assessment and Plan: Dietitian on board On dietary supplement Continue monitor (8) Anemia: Code(s): D64.9 - Anemia, unspecified Status: Acute Assessment and Plan: In setting of kidney failure. Iron panel test pending received EPO Continue monitor Plan DVT prophylaxis: SubQ heparin Stress ulcer prophylaxis: Not indicated Nutrition: Renal diet with dietary supplements Code Status: Full code DS: Summary Hospital Course Hospital Course: Patient was called by his primary care physician who asked him to come to the emergency room for acute renal failure. Patient has chronic kidney disease. 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 Patient has been noncompliant with medications and this appears to be likely secondary to hypertension and diabetes 09/29/24 Patient was seen examined at bedside. Denies any chest pain, shortness Mccrary breath, abdominal pain, nausea vomiting. His baseline creatinine in February 2024 was 2.5. On admission creatinine was 6.76. Patient had suicidal ideology on admission and was admitted to ICU. Yesterday patient was feeling better. Was transferred out of ICU. Developed hypertension. Blood pressure medication was stopped. Patient received albumin and IV fluid. Blood pressure was under better control. Nephrology team has been consulted for kidney failure. Kidney ultrasound unremarkable. Likely has progression of CKD due to diabetes, HTN, vascular dise ase and age-related. urine culture neg. 09/30/24 kidney function slightly worse. started him back on Coreg as BP better. 10/01/24 Patient was seen and examined at bedside. he is feeling the same. denies any chest pain, SOB,a bd pain, N/V. Kidney function stable. nephrology team onboard. will discharge patient to home today and follow with nephrology clinic as outaptient Time Spent with Patient Time attestation: Total time spent providing and/or coordinating discharge services: Exam Narrative: General: Pleasant gentleman in no acute distress HEENT:? Pupils equal and reactive, sclera is clear, moist oral mucosa Neck:? Supple Respiratory:? Clear to auscultation bilaterally, no wheezing, adequate air entry Cardiac:? S1-S2 is normal, regular rate and rhythm Abdomen:? Soft, nontender, nondistended, normoactive bowel sound Extremities:? Bilateral lower extremity chronic venous insufficiency, lymphedema, 4+ edema with thickening of the skin that extends from the knees to the toes. Neuro:? Patient is awake, alert, oriented, nonfocal, answers to questions appropriately Skin:? As above Psych:? Normal mentation and affect Const: General: comfortable Eyes: Pupils: Equal, round and reactive pupils present Neck: Neck: supple Resp: Effort & Inspection: normal respiratory effort Auscultation: clear to auscultation bilaterally Cardio: Rate: regular rate Rhythm: regular rhythm GI: Inspection: non-distended Other: No flank pain : General: Yes bladder normal to palpation Neuro: Cranial nerves: Yes Equal, round and reactive pupils present Motor exam (neuro): 5/5 motor strength present throughout Extrem: General: no edema DS: Data Data Completed and Pending Labs on day of discharge: Labs from last 24 hours 10/01/24 10/01/24 10/01/24 11:32 07:32 06:17 WBC 7.6 RBC 2.74 L Hgb 8.1 L Hct 26.1 L MCV 95.3 MCH 29.6 MCHC 31.0 L RDW 14.6 H Plt Count 172 MPV 10.7 H Immature Gran % (Auto) 1.4 H Neut % (Auto) 56.0 Lymph % (Auto) 27.8 [place] % (Auto) 12.1 H Eos % (Auto) 2.4 Baso % (Auto) 0.3 Lymph # (Auto) 2.12 [place] # (Auto) 0.9 H Eos # (Auto) 0.2 Baso # (Auto) 0.0 Abs Immat Gran (auto) 0.11 H Absolute Neuts (auto) 4.3 Absolute Nucleated RBC 0.000 Nucleated RBC % 0.0 Sodium 136 L Potassium 3.9 Chloride 105 Carbon Dioxide 24 Anion Gap 7 BUN 48 H Creatinine 5.43 H Estim Creat Clear Calc 15 Estimated GFR 10 L Glucose 215 H POC Capillary Glucose 276 H 198 H Calcium 8.3 L Phosphorus 5.0 H Albumin 2.7 L 09/30/24 09/30/24 20:34 17:01 WBC RBC Hgb Hct MCV MCH MCHC RDW Plt Count MPV Immature Gran % (Auto) Neut % (Auto) Lymph % (Auto) [place] % (Auto) Eos % (Auto) Baso % (Auto) Lymph # (Auto) [place] # (Auto) Eos # (Auto) Baso # (Auto) Abs Immat Gran (auto) Absolute Neuts (auto) Absolute Nucleated RBC Nucleated RBC % Sodium Potassium Chloride Carbon Dioxide Anion Gap BUN Creatinine Estim Creat Clear Calc Estimated GFR Glucose POC Capillary Glucose 198 H 210 H Calcium Phosphorus Albumin Discharge Plan Discharge Attending physician on discharge: Panchito Castro Consulting providers: David Ortega Discharging Clinician: Panchito Castro Anticipated Discharge Date/Time: 10/01/24 11:39 Patient Disposition: Home with Home Health Service Activity: as tolerated Diet: diabetic and renal Discharge Instructions: Per Care Coordination, patient to discharge with [facility] ([phone]) for [facility] services. Please fax discharge instructions and medication sheets to [phone] at discharge. Please check your blood pressure and heart rate regularly and report to the PCP. 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 Dr Stewart Check your blood sugar, blood pressure and heart rate regularly and report to the PCP Patient Instructions: Antibiotic Form Patient Language: Slovenian Stand Alone Forms: General Discharge Information Follow-up/Referrals: Jorge,MD Jhon [Primary Care Provider] - 1 Week Discharge Medications: New carvedilol [Coreg] 25 mg Tablet 25 mg PO Q12HR Qty: 60 0RF sodium bicarbonate 650 mg Tablet 650 mg PO QAM Qty: 30 0RF insulin glargine [Basaglar KwikPen U-100 Insulin] 100 unit/mL (3 mL) insulin pen 10 unit subcut QPM Qty: 15 0RF Date of admission: 09/25/24 00:23 Primary Care Provider: LizaJhon Admitting Provider: Angelina Zavala Attending physician on admission: Angelina Zavala Condition: Stable
[2024-10-01 12:00] VITALS: PULSE 71
[2024-10-01 14:00] VITALS: BP 111/68; PULSE 73; RESP 18; TEMP 36.1; O2SAT 100
== END 2024-10-01 15:50 | disposition home health service (06) | DRG 682 ==
LOC: ANHED 09-25 00:30 → ANHIMU 09-25 01:10 → ANHICU 09-25 03:37 → ANH3MEDSUR 09-28 09:57
PROVIDERS: Internal Medicine; Internal Medicine Nephrology; Admitting Provider General Practice; Emergency Provider Emergency Medicine; PCP Internal Medicine; Visit Provider Internal Medicine
DX: N17.9 Acute kidney failure, unspecified (principal); E43 Unspecified severe protein-calorie malnutrition; I69.351 Hemiplegia and hemiparesis following cerebral infarction affecting right dominant side; R45.851 Suicidal ideations; N39.0 Urinary tract infection, site not specified; D63.1 Anemia in chronic kidney disease; E78.5 Hyperlipidemia, unspecified; E11.51 Type 2 diabetes mellitus with diabetic peripheral angiopathy without gangrene; E11.22 Type 2 diabetes mellitus with diabetic chronic kidney disease; E66.01 Morbid (severe) obesity due to excess calories; G47.33 Obstructive sleep apnea (adult) (pediatric); I12.9 Hypertensive chronic kidney disease with stage 1 through stage 4 chronic kidney disease, or unspecified chronic kidney disease; I25.10 Atherosclerotic heart disease of native coronary artery without angina pectoris; K21.9 Gastro-esophageal reflux disease without esophagitis; N18.4 Chronic kidney disease, stage 4 (severe); N40.0 Benign prostatic hyperplasia without lower urinary tract symptoms; Z91.148 Patient's other noncompliance with medication regimen for other reason; Z99.89 Dependence on other enabling machines and devices; Z91.199 Patient's noncompliance with other medical treatment and regimen due to unspecified reason; Z79.4 Long term (current) use of insulin; Z95.5 Presence of coronary angioplasty implant and graft; Z95.1 Presence of aortocoronary bypass graft; Z79.82 Long term (current) use of aspirin; Z88.0 Allergy status to penicillin
CPT/HCPCS: 36415; 71045; 76775; 80053; 80069; 81001; 81050; 82550; 82570; 82607; 82728; 82746; 82948; 83036; 83540; 83550; 83690; 83735; 84100; 84156; 84300; 84443; 84484; 84540; 85025; 85027; 85999; 86704; 86706; 87086; 87340; 93005; 93306; 96360; 97110; 97116; 97161; 97165; 97530; 97535; 99285; A9270; C8929; J0696; J1644; J1815; J3475; J7030; J7120; P9047; Q5105; Q9957